=== PATIENT | male | born 1930 | race Two or more races ===

== ENCOUNTER 2019-10-25 14:13 | Inpatient (IN) | payer MEDICARE, MEDICAID ==
[~2019-10-25] VITALS: Ht 152.4 cm; Wt 73.5 kg
[2019-10-25 14:13] VITALS: BP 150/91
--- NOTE | 2019-10-25 14:27 | Emergency Room Report ---
History of Present Illness General Chief Complaint: Upper Respiratory Illness Source: Family Member, Medical Record, EMS Present Illness HPI [facility]. They state that he is COVID- 19 positive. His oxygen saturation for the paramedics was 86% prior to nasal cannula 4 L. His oxygen improved to about 92% on 4 L. The patient has a cough. The patient is unable to communicate. He has a right hemiparesis. He also has an indwelling suprapubic catheter. 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 Recent hospitalization in [place]. Allergies: Coded Allergies: ACETAMINOPHEN (Verified Allergy, Unknown, 10/25/19) AMOXICILLIN (Verified Allergy, Unknown, 10/25/19) CEPHALEXIN (Verified Allergy, Unknown, 10/25/19) CODEINE (Verified Allergy, Unknown, 10/25/19) HYDROCODONE (Verified Allergy, Unknown, 10/25/19) SULFAMETHOXAZOLE (Verified Allergy, Unknown, 10/25/19) TETRACYCLINES (Verified Allergy, Unknown, 10/25/19) TRIMETHOPRIM (Verified Allergy, Unknown, 10/25/19) COVID-19 Screening Contact w/high risk pt: Yes Recent Travel to affected area: No Experienced COVID-19 symptoms?: Yes COVID-19 symptoms experienced: Fever (T>100.4F or >38C), Shortness of Breath, Cough 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 COVID-19 Screening: Positive COVID-19 COVID-19 Testing Source: Nasopharynx Patient History Limited by: medical condition Past Medical History: see triage record Past Surgical History: other - suprapubic cath Social History: Denies: smoking - distant Social History Narrative [place] [facility] - from [place] Reviewed Nursing Documentation: PMH: Agreed; PSxH: Agreed Nursing Documentation-PMH Hx Hypertension: Yes Review of Systems All Other Systems: limited Physical Exam Vital Signs Date Time Temp Pulse Resp B/P (MAP) Pulse Ox O2 Delivery O2 Flow Rate FiO2 10/25/19 14:02 99.3 133 24 148/94 (112) 88 Nasal Cannula 3.0 General Appearance: moderate distress, thin, Chronically Ill Respiratory: respiratory distress - On nasal cannula, somewhat improved on 100 % nonrebreather, crackles, rales, rhonchi Cardiovascular #1: tachycardia Cardiovascular #2: 2+ radial (R) Gastrointestinal: abnormal bowel sounds - Decreased nontender, other - suprapubic cath Genitourinary: other - suprapubic cath with substantial growth in the catheter Neurologic: motor weakness - Right hemiparesis, aphasia Procedures Critical Care Time Critical Care Time Total Critical Care Time: 120 min bedside evaluation and treatment excludes procedures (EKG). Reason for critical care: Respiratory distress, sepsis, COVID-19 status, repeat evaluations, judicious sepsis resuscitation, antibiotics, dexamethasone Possible complications: hypotension, hypertension, MA, shock, arrhythmias, metabolic acidosis, end organ damage, respiratory failure. Interventions: Sepsis resuscitation, multiple adjustments of FiO2, antibiotics, dexamethasone, multiple discussions with family members, discussion with admitting physician and respiratory therapy Course: The patient presented with hypoxia and respiratory distress. Several reevaluation was necessitated increasing the FiO2 to 100% nonrebreather. In addition pulmonary toilet was undertaken with aggressive suctioning. Due to the possibility of COVID-19 aggressive resuscitation with fluids was undertaken however with close monitoring of physiologic response. Antibiotic coverage undertaken. This in the face of the patient's multiple drug allergies. Sepsis reevaluation. Improvement and decreased FiO2. Concern as the patient has COPD and monitoring for possible respiratory suppression. Discussion with the niece regarding advanced directives and appropriateness of level of care. This led to making the patient a DO NOT INTUBATE DO NOT RESUSCITATE admit status. Patient had presented in extremis however with aggressive appropriate treatment the patient was comfortable and improved. The niece was recalled to update her on his status. Consultations: nursing staff, EMS, family, respiratory therapy, admitting physician Performed by: Dr. Chun Tolerated well condition = critical Medical Decision Making Diagnostic Impression: Primary Impression: Hypoxia Additional Impressions: Suspect COVID-19 pneumonia Sepsis Qualified Codes: A41.9 - Sepsis, unspecified organism; R65.20 - Severe sepsis without septic shock; N17.9 - Acute kidney failure, unspecified Renal failure Qualified Codes: N17.9 - Acute kidney failure, unspecified Right hemiparesis ER Course Patient presents with hypoxia tachycardia low-grade temperature with history of COVID-19 positive. Differential includes COVID-19 pneumonia, exacerbation of COPD, sepsis, other bacterial source of infection amongst others. Patient evaluated with EKG, chest x-ray and labs. The patient is in mild respiratory distress and his oxygen requirements are higher. He also needs suctioning. The patient is placed on a front desk monitor. He is also positioned in a semiupright position as an attempt to prone. Blood cultures will be obtained and antibiotics started. In addition dexamethasone will be given IM. The Arndt catheter will be replaced. Allegedly the patient is a full code however we need to establish this by trying to find the POLST. Improved oxygenation on 100% nonrebreather. Labs with white count of 22,000. Hemoglobin of 19 suggests volume depletion. Renal failure noted. Discussed with miroslava in [place]. She states that the patient does have advanced directives that no life prolonging interventions be undertaken which include intubation and CPR. They do want aggressive care withheld however within reason. 1505 This allows the possibility of using BiPAP. They accept the patient is critical at this time. BP holding. Sats improved. Elevated lactic acid. Antibiotics begun. Sepsis re-evaluation 1529 Patient dramatically improved with treatment. No longer tachycardic. No longer tachypneic. Blood gas without CO2 retention. Will attempt decreasing FiO2. Patient discussed with miroslava a second time. 1929 Prognosis guarded. Patient saturations maintaining on 50% Ventimask. Patient calm and comfortable. Patient discussed with admitting physician. Laboratory Tests Test 10/25/19 14:00 10/25/19 14:51 10/25/19 15:22 White Blood Count 22.2 K/UL (4.8-10.8) *H Red Blood Count 6.09 M/UL (4.70-6.10) Hemoglobin 19.1 G/DL (14.2-18.0) *H Hematocrit 59.6 % (42.0-52.0) H Mean Corpuscular Volume 98 FL (80-99) Mean Corpuscular Hemoglobin 31.4 PG (27.0-31.0) H Mean Corpuscular Hemoglobin Concent 32.1 G/DL (32.0-36.0) Red Cell Distribution Width 12.9 % (11.6-14.8) Platelet Count 381 K/UL (150-450) Mean Platelet Volume 8.9 FL (6.5-10.1) Neutrophils (%) (Auto) % (45.0-75.0) Lymphocytes (%) (Auto) % (20.0-45.0) Monocytes (%) (Auto) % (1.0-10.0) Eosinophils (%) (Auto) % (0.0-3.0) Basophils (%) (Auto) % (0.0-2.0) Differential Total Cells Counted 100 Neutrophils % (Manual) 90 % (45-75) H Lymphocytes % (Manual) 5 % (20-45) L Monocytes % (Manual) 4 % (1-10) Eosinophils % (Manual) 1 % (0-3) Basophils % (Manual) 0 % (0-2) Band Neutrophils 0 % (0-8) Platelet Estimate Adequate Platelet Morphology Normal Red Blood Cell Morphology Normal Prothrombin Time 13.9 SEC (9.30-11.50) H Prothrombin Time INR 1.3 (0.9-1.1) H Activated Partial Thromboplast Time 34 SEC (23-33) H Sodium Level 158 MMOL/L (136-145) H Potassium Level 3.8 MMOL/L (3.5-5.1) Chloride Level 119 MMOL/L (98-107) H Carbon Dioxide Level 22 MMOL/L (21-32) Anion Gap 17 mmol/L (5-15) H Blood Urea Nitrogen 52 mg/dL (7-18) H Creatinine 1.6 MG/DL (0.55-1.30) H Estimated Glomerular Filtration Rate 41.1 mL/min (>60) Glucose Level 144 MG/DL (74-106) H Lactic Acid Level 2.40 mmol/L (0.4-2.0) H Calcium Level 8.9 MG/DL (8.5-10.1) Magnesium Level 2.8 MG/DL (1.8-2.4) H Total Bilirubin 1.1 MG/DL (0.2-1.0) H Direct Bilirubin 0.2 MG/DL (0.0-0.3) Aspartate Amino Transferase (AST) 27 U/L (15-37) Alanine Aminotransferase (ALT) 18 U/L (12-78) Alkaline Phosphatase 104 U/L (46-116) Total Creatine Kinase 62 U/L (26-308) Troponin I 0.042 ng/mL (0.000-0.056) Pro-B-Type Natriuretic Peptide 541 pg/mL (0-125) H Total Protein 8.8 G/DL (6.4-8.2) H Albumin 2.9 G/DL (3.4-5.0) L Globulin 5.9 g/dL Albumin/Globulin Ratio 0.5 (1.0-2.7) L Lipase 529 U/L (73-393) H Urine Color Yellow Urine Appearance Very cloudy Urine pH 9 (4.5-8.0) Urine Specific [place] 1.010 (1.005-1.035) Urine Protein 3+ (NEGATIVE) H Urine Glucose (UA) Negative (NEGATIVE) Urine Ketones 2+ (NEGATIVE) H Urine Blood 3+ (NEGATIVE) H Urine Nitrite Positive (NEGATIVE) H Urine Bilirubin Negative (NEGATIVE) Urine Urobilinogen Normal MG/DL (0.0-1.0) Urine Leukocyte Esterase 3+ (NEGATIVE) H Urine RBC 5-10 /HPF (0 - 0) H Urine WBC 2-4 /HPF (0 - 0) Urine Squamous Epithelial Cells None /LPF (NONE/OCC) Urine Triple Phosphate Crystals Many /LPF (NONE) H Urine Amorphous Sediment Many /LPF (NONE) H Urine Bacteria Moderate /HPF (NONE) H Arterial Blood pH 7.391 (7.350-7.450) Arterial Blood Partial Pressure CO2 34.6 mmHg (35.0-45.0) L Arterial Blood Partial Pressure O2 86.9 mmHg (75.0-100.0) Arterial Blood HCO3 20.5 mmol/L (22.0-26.0) L Arterial Blood Oxygen Saturation 96.1 % (95-100) Arterial Blood Base Excess -3.4 (-2-2) L Miguel Angel Test Positive EKG Diagnostic Results Rate: tachycardiac Rhythm: NSR ST Segments: no acute changes Rhythm Strip Diag. Results Rhythm: no PVC's, no ectopy Chest X-Ray Diagnostic Results Chest X-Ray Diagnostic Results : Chest X-Ray Ordered: Yes # of Views/Limited/Complete: 1 View Indication: Shortness of Breath EP Interpretation: Yes Interpretation: no effusion, no pneumothorax, other - COPD and bilat infiltrates Impression: Other Electronically Signed by: Electronically signed by Maycol Chun MD Last Vital Signs Date Time Temp Pulse Resp B/P (MAP) Pulse Ox O2 Delivery O2 Flow Rate FiO2 10/25/19 21:57 97.9 88 16 156/77 (103) 96 10/25/19 21:50 Non-Rebreather 15.0 Status: improved Disposition: ADMITTED INPATIENT Condition: Critical Maycol Chun MD Oct 25, 2019 14:27
[2019-10-25] MEDS ORDERED: Vancomycin 1 GM in NS 275 ML IV ONE (14:30)
[2019-10-25] MEDS ORDERED: Azithromycin 500 MG in D5W 275 ML IVPB ONE (14:30)
[2019-10-25 14:39] LABS: HEMATOCRIT 59.6 % (42.0-52.0); MEAN CORPUSCULAR VOLUME 98 FL (80-99); PLATELET COUNT 381 K/UL (150-450); RED BLOOD COUNT 6.09 M/UL (4.70-6.10); RED CELL DISTRIBUTION WIDTH 12.9 % (11.6-14.8)
[2019-10-25 14:41] LABS: WHITE BLOOD COUNT 22.2 K/UL (4.8-10.8)
[2019-10-25 14:42] LABS: ANION GAP 17 mmol/L (5-15); BLOOD UREA NITROGEN 52 mg/dL (7-18); CALCIUM 8.9 MG/DL (8.5-10.1); CARBON DIOXIDE 22 MMOL/L (21-32); CHLORIDE 119 MMOL/L (98-107); CREATININE 1.6 MG/DL (0.55-1.30); HEMOGLOBIN 19.1 G/DL (14.2-18.0); POTASSIUM 3.8 MMOL/L (3.5-5.1); SODIUM 158 MMOL/L (136-145)
[2019-10-25 14:45] LABS: ALANINE AMINOTRANSFERASE 18 U/L (12-78); ALBUMIN 2.9 G/DL (3.4-5.0); ASPARTATE AMINO TRANSFERASE 27 U/L (15-37)
[2019-10-25 14:46] LABS: INR 1.3 (0.9-1.1)
[2019-10-25] MEDS ORDERED: NEURONTIN400 MG ORAL (14:58)
[2019-10-25] MEDS ORDERED: ARTIFICIAL TEAR15 ML BOTH EYES (14:58)
[2019-10-25] MEDS ORDERED: MULTIVITAMINS1 EAC8 ORAL (14:58)
[2019-10-25] MEDS ORDERED: ASPIRIN EC81 MG ORAL (14:58)
[2019-10-25] MEDS ORDERED: OMEPRAZOLE20 M2 ORAL (14:58)
[2019-10-25 15:03] LABS: APPEARANCE,URINE VERY CLOUDY; BILIRUBIN, URINE NEGATIVE (NEGATIVE); GLUCOSE, URINE (UA) NEGATIVE (NEGATIVE); KETONES,URINE 2+ (NEGATIVE); LEUKOCYTE ESTERASE ,URINE 3+ (NEGATIVE); NITRITE,URINE POSITIVE (NEGATIVE); PH,URINE 9 (4.5-8.0); PROTEIN,URINE 3+ (NEGATIVE); UROBILINOGEN,URINE NORMAL MG/DL (0.0-1.0)
[2019-10-25 15:08] LABS: COLOR,URINE YELLOW
[2019-10-25 15:12] LABS: BILIRUBIN,TOTAL 1.1 MG/DL (0.2-1.0)
[2019-10-25 15:37] LABS: CREATINE KINASE 62 U/L (26-308)
[2019-10-25 15:39] LABS: ALBUMIN/GLOBULIN RATIO 0.5 (1.0-2.7); ALKALINE PHOSPHATASE 104 U/L (46-116)
[2019-10-25 15:41] LABS: BILIRUBIN,DIRECT 0.2 MG/DL (0.0-0.3)
[2019-10-25 16:11] VITALS: BP 142/84
--- NOTE | 2019-10-25 18:12 | Diagnostic Imaging Report ---
Indication: Shortness of breath Technique: One view of the chest Comparison: none Findings: Mild interstitial prominence and central bronchial wall thickening are likely on the basis of senescent changes. Hazy right basilar patchy left basilar infiltrates not completely excludable, however. The heart size is normal. The aorta is tortuous and calcified. Impression: Doubt acute process; cannot completely exclude infiltrates at both lung bases.
[2019-10-25 18:21] VITALS: BP 128/86
[2019-10-25 19:15] VITALS: BP 129/83
[2019-10-25 21:30] VITALS: BP 117/74
[2019-10-25 21:57] VITALS: BP 156/77
--- NOTE | 2019-10-25 22:42 | History & Physical ---
History and Physical History & Physicial History of Present Illness General Chief Complaint: Upper Respiratory Illness Source: Family Member, Medical Record, EMS Present Illness HPI Patient transported from senior care facility. They state that he is COVID- 19 positive. His oxygen saturation for the paramedics was 86% prior to nasal cannula 4 L. His oxygen improved to about 92% on 4 L. The patient has a cough. The patient is unable to communicate. He has a right hemiparesis. He also has an indwelling suprapubic catheter. 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 Recent hospitalization in [place]. Allergies: Coded Allergies: ACETAMINOPHEN (Verified Allergy, Unknown, 10/25/19) AMOXICILLIN (Verified Allergy, Unknown, 10/25/19) CEPHALEXIN (Verified Allergy, Unknown, 10/25/19) CODEINE (Verified Allergy, Unknown, 10/25/19) HYDROCODONE (Verified Allergy, Unknown, 10/25/19) SULFAMETHOXAZOLE (Verified Allergy, Unknown, 10/25/19) TETRACYCLINES (Verified Allergy, Unknown, 10/25/19) TRIMETHOPRIM (Verified Allergy, Unknown, 10/25/19) Patient History Limited by: medical condition Past Medical History: see triage record Past Surgical History: other - suprapubic cath Social History: Denies: smoking - distant Social History Narrative [place] [facility] - from [place] Reviewed Nursing Documentation: PMH: Agreed; PSxH: Agreed Nursing Documentation-PMH Hx Hypertension: Yes Review of Systems All Other Systems: limited Physical Exam Vital Signs Date Time Temp Pulse Resp B/P (MAP) Pulse Ox O2 Delivery O2 Flow Rate FiO2 10/25/19 14:02 99.3 133 24 148/94 (112) 88 Nasal Cannula 3.0 General Appearance: moderate distress, thin, Chronically Ill Respiratory: respiratory distress - On nasal cannula, somewhat improved on 100 % nonrebreather, crackles, rales, rhonchi Cardiovascular : tachycardia +ALEXANDRU Gastrointestinal: abnormal bowel sounds - Decreased nontender, other - suprapubic cath Genitourinary: other - suprapubic cath with substantial growth in the catheter Neurologic: motor weakness - Right hemiparesis, aphasia ER Course: The patient presented with hypoxia and respiratory distress. Several reevaluation was necessitated increasing the FiO2 to 100% nonrebreather. In addition pulmonary toilet was undertaken with aggressive suctioning. Due to the possibility of COVID-19 aggressive resuscitation with fluids was undertaken however with close monitoring of physiologic response. Antibiotic coverage undertaken. This in the face of the patient's multiple drug allergies. Sepsis reevaluation. Improvement and decreased FiO2. Concern as the patient has COPD and monitoring for possible respiratory suppression. Discussion with the niece regarding advanced directives and appropriateness of level of care. This led to making the patient a DO NOT INTUBATE DO NOT RESUSCITATE admit status. Patient had presented in extremis however with aggressive appropriate treatment the patient was comfortable and improved. The niece was recalled to update her on his status. Laboratory Tests Test 10/25/19 14:00 10/25/19 14:51 10/25/19 15:22 White Blood Count 22.2 K/UL (4.8-10.8) *H Red Blood Count 6.09 M/UL (4.70-6.10) Hemoglobin 19.1 G/DL (14.2-18.0) *H Hematocrit 59.6 % (42.0-52.0) H Mean Corpuscular Volume 98 FL (80-99) Mean Corpuscular Hemoglobin 31.4 PG (27.0-31.0) H Mean Corpuscular Hemoglobin Concent 32.1 G/DL (32.0-36.0) Red Cell Distribution Width 12.9 % (11.6-14.8) Platelet Count 381 K/UL (150-450) Mean Platelet Volume 8.9 FL (6.5-10.1) Neutrophils (%) (Auto) % (45.0-75.0) Lymphocytes (%) (Auto) % (20.0-45.0) Monocytes (%) (Auto) % (1.0-10.0) Eosinophils (%) (Auto) % (0.0-3.0) Basophils (%) (Auto) % (0.0-2.0) Differential Total Cells Counted 100 Neutrophils % (Manual) 90 % (45-75) H Lymphocytes % (Manual) 5 % (20-45) L Monocytes % (Manual) 4 % (1-10) Eosinophils % (Manual) 1 % (0-3) Basophils % (Manual) 0 % (0-2) Band Neutrophils 0 % (0-8) Platelet Estimate Adequate Platelet Morphology Normal Red Blood Cell Morphology Normal Prothrombin Time 13.9 SEC (9.30-11.50) H Prothrombin Time INR 1.3 (0.9-1.1) H Activated Partial Thromboplast Time 34 SEC (23-33) H Sodium Level 158 MMOL/L (136-145) H Potassium Level 3.8 MMOL/L (3.5-5.1) Chloride Level 119 MMOL/L (98-107) H Carbon Dioxide Level 22 MMOL/L (21-32) Anion Gap 17 mmol/L (5-15) H Blood Urea Nitrogen 52 mg/dL (7-18) H Creatinine 1.6 MG/DL (0.55-1.30) H Estimated Glomerular Filtration Rate 41.1 mL/min (>60) Glucose Level 144 MG/DL (74-106) H Lactic Acid Level 2.40 mmol/L (0.4-2.0) H Calcium Level 8.9 MG/DL (8.5-10.1) Magnesium Level 2.8 MG/DL (1.8-2.4) H Total Bilirubin 1.1 MG/DL (0.2-1.0) H Direct Bilirubin 0.2 MG/DL (0.0-0.3) Aspartate Amino Transferase (AST) 27 U/L (15-37) Alanine Aminotransferase (ALT) 18 U/L (12-78) Alkaline Phosphatase 104 U/L (46-116) Total Creatine Kinase 62 U/L (26-308) Troponin I 0.042 ng/mL (0.000-0.056) Pro-B-Type Natriuretic Peptide 541 pg/mL (0-125) H Total Protein 8.8 G/DL (6.4-8.2) H Albumin 2.9 G/DL (3.4-5.0) L Globulin 5.9 g/dL Albumin/Globulin Ratio 0.5 (1.0-2.7) L Lipase 529 U/L (73-393) H Urine Color Yellow Urine Appearance Very cloudy Urine pH 9 (4.5-8.0) Urine Specific [place] 1.010 (1.005-1.035) Urine Protein 3+ (NEGATIVE) H Urine Glucose (UA) Negative (NEGATIVE) Urine Ketones 2+ (NEGATIVE) H Urine Blood 3+ (NEGATIVE) H Urine Nitrite Positive (NEGATIVE) H Urine Bilirubin Negative (NEGATIVE) Urine Urobilinogen Normal MG/DL (0.0-1.0) Urine Leukocyte Esterase 3+ (NEGATIVE) H Urine RBC 5-10 /HPF (0 - 0) H Urine WBC 2-4 /HPF (0 - 0) Urine Squamous Epithelial Cells None /LPF (NONE/OCC) Urine Triple Phosphate Crystals Many /LPF (NONE) H Urine Amorphous Sediment Many /LPF (NONE) H Urine Bacteria Moderate /HPF (NONE) H Arterial Blood pH 7.391 (7.350-7.450) Arterial Blood Partial Pressure CO2 34.6 mmHg (35.0-45.0) L Arterial Blood Partial Pressure O2 86.9 mmHg (75.0-100.0) Arterial Blood HCO3 20.5 mmol/L (22.0-26.0) L Arterial Blood Oxygen Saturation 96.1 % (95-100) Arterial Blood Base Excess -3.4 (-2-2) L Miguel Angel Test Positive EKG Diagnostic Results Rate: tachycardiac Rhythm: NSR ST Segments: no acute changes Chest X-Ray Diagnostic Results Interpretation: no effusion, no pneumothorax, other - COPD and bilat infiltrates IMPRESSION: sepsis on admission COVID 19 pnemonia acute respiratory failure hypoxemia acute toxic and metabolic encephalopathy Hypernatremia dehydration acute kidney injury leuokcytosis hx CVA with hemiplegia suprapubic catheter status senile debility ankle wound PLAN: admit to stepdown unit IVF IV abx pulm inhalor isolation per policy f/u cultures DVT/GI prophylaxis electrolyte replete as needed NPO until LOCATOR wound care oxygen DNAR code status EDYTA HARDY MD Internal Medicine [phone] over 70 minutes spent today note time may not be the actual encounter time. over 50% allocated in counseling, coordination of care, d/w staff and family with medical update Edyta Hardy MD Oct 25, 2019 22:42
--- NOTE | 2019-10-25 23:00 | Consultation ---
History of Present Illness General Date patient seen: Oct 25, 2019 Time patient seen: 22:57 Chief Complaint: Upper Respiratory Illness Present Illness HPI PT brought in by ambulance from [facility] for tachycardia and was recently tested positive for covid. pt current heart rate is 123. Allergies: Coded Allergies: ACETAMINOPHEN (Verified Allergy, Unknown, 10/25/19) AMOXICILLIN (Verified Allergy, Unknown, 10/25/19) CEPHALEXIN (Verified Allergy, Unknown, 10/25/19) CODEINE (Verified Allergy, Unknown, 10/25/19) HYDROCODONE (Verified Allergy, Unknown, 10/25/19) SULFAMETHOXAZOLE (Verified Allergy, Unknown, 10/25/19) TETRACYCLINES (Verified Allergy, Unknown, 10/25/19) TRIMETHOPRIM (Verified Allergy, Unknown, 10/25/19) Medication History Scheduled Aspirin Ec* (Aspirin Ec*), 81 MG ORAL DAILY, (Reported) Gabapentin* (Neurontin*), 300 MG ORAL TWICE A DAY, (Reported) Multivitamin With Minerals (Multivitamins With Minerals*), 1 TAB ORAL DAILY, ( Reported) Omeprazole (Omeprazole), 20 MG ORAL DAILY, (Reported) Miscellaneous Medications Dextran 70/Hypromellose (Artificial Tears Eye Drops*), 1 DROP BOTH EYES, ( Reported) Patient History Healthcare decision maker N Resuscitation status Advanced Directive on File Review of Systems Constitutional: Reports: no symptoms Eye: Reports: no symptoms ENT: Reports: no symptoms Respiratory: Reports: no symptoms Cardiovascular: Reports: no symptoms Gastrointestinal: Reports: no symptoms Genitourinary: Reports: no symptoms Musculoskeletal: Reports: no symptoms Skin: Reports: no symptoms Psychiatric: Reports: no symptoms Neurological: Reports: no symptoms Endocrine: Reports: no symptoms Hematologic/Lymphatic: Reports: no symptoms Physical Exam General Appearance: no apparent distress Lines, tubes and drains: peripheral HEENT: normocephalic, atraumatic, anicteric, mucous membranes moist, PERRL Neck: non-tender, normal alignment, supple, normal inspection Respiratory/Chest: chest wall non-tender, lungs clear, normal breath sounds Cardiovascular/Chest: tachycardia, systolic murmur Abdomen: normal bowel sounds, non tender, soft, no organomegaly, no mass Extremities: normal range of motion, normal inspection, no calf tenderness, normal capillary refill, non-pitting Neurologic: loss control consultant II-XII grossly normal, no motor/sensory deficits Last 24 Hour Vital Signs Date Time Temp Pulse Resp B/P (MAP) Pulse Ox O2 Delivery O2 Flow Rate FiO2 10/25/19 19:15 86 20 129/83 99 Non-Rebreather 15.0 10/25/19 18:21 98.4 101 22 128/86 99 Non-Rebreather 15.0 10/25/19 16:11 98.4 112 23 142/84 98 Non-Rebreather 15.0 10/25/19 15:08 126 25 Non-Rebreather 15.0 10/25/19 14:30 Non-Rebreather 15.0 10/25/19 14:30 25 91 Non-Rebreather 15.0 10/25/19 14:13 123 26 Nasal Cannula 3.0 10/25/19 14:13 99.8 123 26 150/91 85 Nasal Cannula 3.0 10/25/19 14:02 99.3 133 24 148/94 (112) 88 Nasal Cannula 3.0 Laboratory Tests Test 10/25/19 14:00 10/25/19 14:51 10/25/19 15:22 10/25/19 18:00 White Blood Count 22.2 K/UL (4.8-10.8) *H Red Blood Count 6.09 M/UL (4.70-6.10) Hemoglobin 19.1 G/DL (14.2-18.0) *H Hematocrit 59.6 % (42.0-52.0) H Mean Corpuscular Volume 98 FL (80-99) Mean Corpuscular Hemoglobin 31.4 PG (27.0-31.0) H Mean Corpuscular Hemoglobin Concent 32.1 G/DL (32.0-36.0) Red Cell Distribution Width 12.9 % (11.6-14.8) Platelet Count 381 K/UL (150-450) Mean Platelet Volume 8.9 FL (6.5-10.1) Neutrophils (%) (Auto) % (45.0-75.0) Lymphocytes (%) (Auto) % (20.0-45.0) Monocytes (%) (Auto) % (1.0-10.0) Eosinophils (%) (Auto) % (0.0-3.0) Basophils (%) (Auto) % (0.0-2.0) Differential Total Cells Counted 100 Neutrophils % (Manual) 90 % (45-75) H Lymphocytes % (Manual) 5 % (20-45) L Monocytes % (Manual) 4 % (1-10) Eosinophils % (Manual) 1 % (0-3) Basophils % (Manual) 0 % (0-2) Band Neutrophils 0 % (0-8) Platelet Estimate Adequate Platelet Morphology Normal Red Blood Cell Morphology Normal Prothrombin Time 13.9 SEC (9.30-11.50) H Prothromb Time International Ratio 1.3 (0.9-1.1) H Activated Partial Thromboplast Time 34 SEC (23-33) H Sodium Level 158 MMOL/L (136-145) H Potassium Level 3.8 MMOL/L (3.5-5.1) Chloride Level 119 MMOL/L (98-107) H Carbon Dioxide Level 22 MMOL/L (21-32) Anion Gap 17 mmol/L (5-15) H Blood Urea Nitrogen 52 mg/dL (7-18) H Creatinine 1.6 MG/DL (0.55-1.30) H Estimat Glomerular Filtration Rate 41.1 mL/min (>60) Glucose Level 144 MG/DL (74-106) H Lactic Acid Level 2.40 mmol/L (0.4-2.0) H 1.10 mmol/L (0.66-2.22) Calcium Level 8.9 MG/DL (8.5-10.1) Magnesium Level 2.8 MG/DL (1.8-2.4) H Total Bilirubin 1.1 MG/DL (0.2-1.0) H Direct Bilirubin 0.2 MG/DL (0.0-0.3) Aspartate Amino Transf (AST/SGOT) 27 U/L (15-37) Alanine Aminotransferase (ALT/SGPT) 18 U/L (12-78) Alkaline Phosphatase 104 U/L (46-116) Total Creatine Kinase 62 U/L (26-308) Troponin I 0.042 ng/mL (0.000-0.056) Pro-B-Type Natriuretic Peptide 541 pg/mL (0-125) H Total Protein 8.8 G/DL (6.4-8.2) H Albumin 2.9 G/DL (3.4-5.0) L Globulin 5.9 g/dL Albumin/Globulin Ratio 0.5 (1.0-2.7) L Lipase 529 U/L (73-393) H Urine Color Yellow Urine Appearance Very cloudy Urine pH 9 (4.5-8.0) Urine Specific [place] 1.010 (1.005-1.035) Urine Protein 3+ (NEGATIVE) H Urine Glucose (UA) Negative (NEGATIVE) Urine Ketones 2+ (NEGATIVE) H Urine Blood 3+ (NEGATIVE) H Urine Nitrite Positive (NEGATIVE) H Urine Bilirubin Negative (NEGATIVE) Urine Urobilinogen Normal MG/DL (0.0-1.0) Urine Leukocyte Esterase 3+ (NEGATIVE) H Urine RBC 5-10 /HPF (0 - 0) H Urine WBC 2-4 /HPF (0 - 0) Urine Squamous Epithelial Cells None /LPF (NONE/OCC) Urine Triple Phosphate Crystals Many /LPF (NONE) H Urine Amorphous Sediment Many /LPF (NONE) H Urine Bacteria Moderate /HPF (NONE) H Arterial Blood pH 7.391 (7.350-7.450) Arterial Blood Partial Pressure CO2 34.6 mmHg (35.0-45.0) L Arterial Blood Partial Pressure O2 86.9 mmHg (75.0-100.0) Arterial Blood HCO3 20.5 mmol/L (22.0-26.0) L Arterial Blood Oxygen Saturation 96.1 % (95-100) Arterial Blood Base Excess -3.4 (-2-2) L Miguel Angel Test Positive Height (Feet): 5 Height (Inches): 1.00 Weight (Pounds): 160 Medications Current Medications Medications (Trade) Dose Ordered Sig/Jesu Route PRN Reason Start Time Stop Time Status Last Admin Dose Admin Sodium Chloride 1,000 ml @ 300 mls/hr [id number] IV 10/25/19 14:30 11/24/19 14:29 10/25/19 17:46 Assessment/Plan Status: stable Assessment/Plan: COVID positive Tachycardia Hypertension IMPRESSION: Pulmonary toilet Tachycardia resolving, continue to monitor on telemetry Echocardiogram Trend troponin/monitor on telemetry Empiric Abx IV fluids Further recommendations to follow pending clinical course Maycol Schafer MD Oct 25, 2019 23:00
[2019-10-25] MEDS ORDERED: Milk of Magnesia 30ml Ud ORAL PRN (23:30)
[2019-10-25] MEDS ORDERED: Albuterol 90mcg Inhaler 8gm INH PRN (23:30)
[2019-10-26] VITALS: BP 154/84
[2019-10-26] MEDS ORDERED: D5 1/2NS 1,000 ML IV SCH ×2 (03:45)
[2019-10-26 04:00] VITALS: BP 143/91
[2019-10-26 05:17] LABS: HEMATOCRIT 48.7 % (42.0-52.0); HEMOGLOBIN 15.8 G/DL (14.2-18.0); MEAN CORPUSCULAR VOLUME 98 FL (80-99); PLATELET COUNT 264 K/UL (150-450); RED BLOOD COUNT 4.97 M/UL (4.70-6.10); RED CELL DISTRIBUTION WIDTH 13.1 % (11.6-14.8); WHITE BLOOD COUNT 16.1 K/UL (4.8-10.8)
[2019-10-26 05:43] LABS: ALANINE AMINOTRANSFERASE 15 U/L (12-78); ALBUMIN 2.2 G/DL (3.4-5.0); ALBUMIN/GLOBULIN RATIO 0.5 (1.0-2.7); ALKALINE PHOSPHATASE 88 U/L (46-116); ANION GAP 12 mmol/L (5-15); ASPARTATE AMINO TRANSFERASE 23 U/L (15-37); BILIRUBIN,TOTAL 0.8 MG/DL (0.2-1.0); BLOOD UREA NITROGEN 43 mg/dL (7-18); CALCIUM 7.9 MG/DL (8.5-10.1); CARBON DIOXIDE 22 MMOL/L (21-32); CHLORIDE 125 MMOL/L (98-107); CREATININE 1.2 MG/DL (0.55-1.30); PHOSPHORUS 3.1 MG/DL (2.5-4.9); POTASSIUM 3.6 MMOL/L (3.5-5.1); SODIUM 159 MMOL/L (136-145)
[2019-10-26 08:00] VITALS: BP 141/83
--- NOTE | 2019-10-26 08:17 | Consultation ---
History of Present Illness General Chief Complaint: Upper Respiratory Illness Present Illness HPI 89 year old male with the past medical history of HTN, dementia, HLD presenting from SNF with progressively worsening SOB, fevers and found to be COVID pos- He is DNR on presentation, labs notable to marked hypernatremia and acute kidney injury Allergies: Coded Allergies: ACETAMINOPHEN (Verified Allergy, Unknown, 10/25/19) AMOXICILLIN (Verified Allergy, Unknown, 10/25/19) CEPHALEXIN (Verified Allergy, Unknown, 10/25/19) CODEINE (Verified Allergy, Unknown, 10/25/19) HYDROCODONE (Verified Allergy, Unknown, 10/25/19) SULFAMETHOXAZOLE (Verified Allergy, Unknown, 10/25/19) TETRACYCLINES (Verified Allergy, Unknown, 10/25/19) TRIMETHOPRIM (Verified Allergy, Unknown, 10/25/19) Medication History Scheduled Aspirin Ec* (Aspirin Ec*), 81 MG ORAL DAILY, (Reported) Gabapentin* (Neurontin*), 300 MG ORAL TWICE A DAY, (Reported) Multivitamin With Minerals (Multivitamins With Minerals*), 1 TAB ORAL DAILY, ( Reported) Omeprazole (Omeprazole), 20 MG ORAL DAILY, (Reported) Miscellaneous Medications Dextran 70/Hypromellose (Artificial Tears Eye Drops*), 1 DROP BOTH EYES, ( Reported) Patient History Healthcare decision maker N Resuscitation status Advanced Directive on File Review of Systems ROS Narrative Unable to obtain AMS Physical Exam General Appearance: lethargic Lines, tubes and drains: peripheral HEENT: normocephalic, atraumatic Neck: non-tender, normal alignment Respiratory/Chest: chest wall non-tender, rhonchi - bilaterally Cardiovascular/Chest: normal peripheral pulses, normal rate, regular rhythm Abdomen: normal bowel sounds, non tender, soft Last 24 Hour Vital Signs Date Time Temp Pulse Resp B/P (MAP) Pulse Ox O2 Delivery O2 Flow Rate FiO2 10/26/19 04:00 98.0 84 20 143/91 (108) 96 10/26/19 04:00 Non-Rebreather 12.0 10/26/19 03:36 85 10/26/19 00:00 82 10/26/19 00:00 Non-Rebreather 12.0 10/26/19 00:00 97.9 86 18 154/84 (107) 95 10/25/19 22:36 Non-Rebreather 12.0 10/25/19 21:57 97.9 88 16 156/77 (103) 96 10/25/19 21:50 98.1 91 20 117/74 99 Non-Rebreather 15.0 10/25/19 21:30 98.1 91 20 117/74 99 Non-Rebreather 15.0 10/25/19 19:15 86 20 129/83 99 Non-Rebreather 15.0 10/25/19 18:21 98.4 101 22 128/86 99 Non-Rebreather 15.0 10/25/19 16:11 98.4 112 23 142/84 98 Non-Rebreather 15.0 10/25/19 15:08 126 25 Non-Rebreather 15.0 10/25/19 14:30 Non-Rebreather 15.0 10/25/19 14:30 25 91 Non-Rebreather 15.0 10/25/19 14:13 123 26 Nasal Cannula 3.0 10/25/19 14:13 99.8 123 26 150/91 85 Nasal Cannula 3.0 10/25/19 14:02 99.3 133 24 148/94 (112) 88 Nasal Cannula 3.0 Intake and Output 10/25/19 10/26/19 19:00 07:00 Intake Total 2850.0 ml 2386.25 ml Output Total 675 ml Balance 2850.0 ml 1711.25 ml Intake IV Total 2850.0 ml 2386.25 ml Output Urine Total 675 ml Laboratory Tests Test 10/25/19 14:00 10/25/19 14:51 10/25/19 15:22 10/25/19 18:00 White Blood Count 22.2 K/UL (4.8-10.8) *H Red Blood Count 6.09 M/UL (4.70-6.10) Hemoglobin 19.1 G/DL (14.2-18.0) *H Hematocrit 59.6 % (42.0-52.0) H Mean Corpuscular Volume 98 FL (80-99) Mean Corpuscular Hemoglobin 31.4 PG (27.0-31.0) H Mean Corpuscular Hemoglobin Concent 32.1 G/DL (32.0-36.0) Red Cell Distribution Width 12.9 % (11.6-14.8) Platelet Count 381 K/UL (150-450) Mean Platelet Volume 8.9 FL (6.5-10.1) Neutrophils (%) (Auto) % (45.0-75.0) Lymphocytes (%) (Auto) % (20.0-45.0) Monocytes (%) (Auto) % (1.0-10.0) Eosinophils (%) (Auto) % (0.0-3.0) Basophils (%) (Auto) % (0.0-2.0) Differential Total Cells Counted 100 Neutrophils % (Manual) 90 % (45-75) H Lymphocytes % (Manual) 5 % (20-45) L Monocytes % (Manual) 4 % (1-10) Eosinophils % (Manual) 1 % (0-3) Basophils % (Manual) 0 % (0-2) Band Neutrophils 0 % (0-8) Platelet Estimate Adequate Platelet Morphology Normal Red Blood Cell Morphology Normal Prothrombin Time 13.9 SEC (9.30-11.50) H Prothromb Time International Ratio 1.3 (0.9-1.1) H Activated Partial Thromboplast Time 34 SEC (23-33) H Sodium Level 158 MMOL/L (136-145) H Potassium Level 3.8 MMOL/L (3.5-5.1) Chloride Level 119 MMOL/L (98-107) H Carbon Dioxide Level 22 MMOL/L (21-32) Anion Gap 17 mmol/L (5-15) H Blood Urea Nitrogen 52 mg/dL (7-18) H Creatinine 1.6 MG/DL (0.55-1.30) H Estimat Glomerular Filtration Rate 41.1 mL/min (>60) Glucose Level 144 MG/DL (74-106) H Lactic Acid Level 2.40 mmol/L (0.4-2.0) H 1.10 mmol/L (0.66-2.22) Calcium Level 8.9 MG/DL (8.5-10.1) Magnesium Level 2.8 MG/DL (1.8-2.4) H Total Bilirubin 1.1 MG/DL (0.2-1.0) H Direct Bilirubin 0.2 MG/DL (0.0-0.3) Aspartate Amino Transf (AST/SGOT) 27 U/L (15-37) Alanine Aminotransferase (ALT/SGPT) 18 U/L (12-78) Alkaline Phosphatase 104 U/L (46-116) Total Creatine Kinase 62 U/L (26-308) Troponin I 0.042 ng/mL (0.000-0.056) Pro-B-Type Natriuretic Peptide 541 pg/mL (0-125) H Total Protein 8.8 G/DL (6.4-8.2) H Albumin 2.9 G/DL (3.4-5.0) L Globulin 5.9 g/dL Albumin/Globulin Ratio 0.5 (1.0-2.7) L Lipase 529 U/L (73-393) H Urine Color Yellow Urine Appearance Very cloudy Urine pH 9 (4.5-8.0) Urine Specific [place] 1.010 (1.005-1.035) Urine Protein 3+ (NEGATIVE) H Urine Glucose (UA) Negative (NEGATIVE) Urine Ketones 2+ (NEGATIVE) H Urine Blood 3+ (NEGATIVE) H Urine Nitrite Positive (NEGATIVE) H Urine Bilirubin Negative (NEGATIVE) Urine Urobilinogen Normal MG/DL (0.0-1.0) Urine Leukocyte Esterase 3+ (NEGATIVE) H Urine RBC 5-10 /HPF (0 - 0) H Urine WBC 2-4 /HPF (0 - 0) Urine Squamous Epithelial Cells None /LPF (NONE/OCC) Urine Triple Phosphate Crystals Many /LPF (NONE) H Urine Amorphous Sediment Many /LPF (NONE) H Urine Bacteria Moderate /HPF (NONE) H Arterial Blood pH 7.391 (7.350-7.450) Arterial Blood Partial Pressure CO2 34.6 mmHg (35.0-45.0) L Arterial Blood Partial Pressure O2 86.9 mmHg (75.0-100.0) Arterial Blood HCO3 20.5 mmol/L (22.0-26.0) L Arterial Blood Oxygen Saturation 96.1 % (95-100) Arterial Blood Base Excess -3.4 (-2-2) L Miguel Angel Test Positive Test 10/26/19 03:30 White Blood Count 16.1 K/UL (4.8-10.8) H Red Blood Count 4.97 M/UL (4.70-6.10) Hemoglobin 15.8 G/DL (14.2-18.0) Hematocrit 48.7 % (42.0-52.0) Mean Corpuscular Volume 98 FL (80-99) Mean Corpuscular Hemoglobin 31.7 PG (27.0-31.0) H Mean Corpuscular Hemoglobin Concent 32.4 G/DL (32.0-36.0) Red Cell Distribution Width 13.1 % (11.6-14.8) Platelet Count 264 K/UL (150-450) Mean Platelet Volume 8.8 FL (6.5-10.1) Neutrophils (%) (Auto) % (45.0-75.0) Lymphocytes (%) (Auto) % (20.0-45.0) Monocytes (%) (Auto) % (1.0-10.0) Eosinophils (%) (Auto) % (0.0-3.0) Basophils (%) (Auto) % (0.0-2.0) Differential Total Cells Counted 100 Neutrophils % (Manual) 93 % (45-75) H Lymphocytes % (Manual) 7 % (20-45) L Monocytes % (Manual) 0 % (1-10) L Eosinophils % (Manual) 0 % (0-3) Basophils % (Manual) 0 % (0-2) Band Neutrophils 0 % (0-8) Platelet Estimate Adequate Platelet Morphology Normal Red Blood Cell Morphology Normal Sodium Level 159 MMOL/L (136-145) H Potassium Level 3.6 MMOL/L (3.5-5.1) Chloride Level 125 MMOL/L (98-107) H Carbon Dioxide Level 22 MMOL/L (21-32) Anion Gap 12 mmol/L (5-15) Blood Urea Nitrogen 43 mg/dL (7-18) H Creatinine 1.2 MG/DL (0.55-1.30) Estimat Glomerular Filtration Rate 57.3 mL/min (>60) Glucose Level 150 MG/DL (74-106) H Calcium Level 7.9 MG/DL (8.5-10.1) L Phosphorus Level 3.1 MG/DL (2.5-4.9) Magnesium Level 2.4 MG/DL (1.8-2.4) Total Bilirubin 0.8 MG/DL (0.2-1.0) Aspartate Amino Transf (AST/SGOT) 23 U/L (15-37) Alanine Aminotransferase (ALT/SGPT) 15 U/L (12-78) Alkaline Phosphatase 88 U/L (46-116) Total Protein 6.9 G/DL (6.4-8.2) Albumin 2.2 G/DL (3.4-5.0) L Globulin 4.7 g/dL Albumin/Globulin Ratio 0.5 (1.0-2.7) L Microbiology Date/Time Source Procedure Growth Status 10/25/19 14:51 Urine,Clean Catch Urine Culture - Preliminary Resulted Height (Feet): 5 Height (Inches): 1.00 Weight (Pounds): 173 Medications Current Medications Medications (Trade) Dose Ordered Sig/Jesu Route PRN Reason Start Time Stop Time Status Last Admin Dose Admin Albuterol Sulfate (Proventil MDI) 2 puff Q4H PRN INH Shortness of Breath 10/25/19 23:30 01/23/20 23:29 Aspirin (Ecotrin) 81 mg DAILY ORAL 10/26/19 09:00 12/10/19 08:59 Azithromycin 500 mg/Sodium Chloride 275 ml @ 275 mls/hr DAILY IV 10/26/19 09:00 10/31/19 08:59 Clindamycin HCl/ Dextrose 50 ml @ 100 mls/hr Q8H IV 10/26/19 08:00 11/02/19 07:59 Dextrose/Sodium Chloride 1,000 ml @ 75 mls/hr [id number] IV 10/26/19 03:45 11/25/19 03:44 10/26/19 03:49 Gabapentin (Neurontin) 300 mg BID ORAL 10/26/19 09:00 11/25/19 08:59 Magnesium Hydroxide (Mom) 30 ml DAILYPRN PRN ORAL Constipation 10/25/19 23:30 11/24/19 23:29 Multi-Ingredient Mouthwash/Gargle (Magic Mouth Wash 60ml) 10 ml BID ORAL 10/26/19 09:00 11/25/19 08:59 Multivitamins (Multivitamins W/ Minerals 15ml Liquid) 15 ml DAILY ORAL 10/26/19 09:00 11/25/19 08:59 Nystatin (Nystatin) 1 applic BID TOPIC 10/26/19 09:00 10/28/19 09:00 Assessment/Plan Diagnosis [place] I: #COVID pneumonia #TELMA due to dehydration #sepsis #Hypernatremia due to dehydration #hypoxemic resp failure #Volume depletion - IVF - abx - pulm, ID and cards eval - 2d echo - bipap prn - follow cx - avoid nephrotoxins - replace free water - monitor mag, phos and bmp daily - DNR/DNI time spent 70 min- greater than 50% on care coordination and counseling Aron Barbosa M.D. Oct 26, 2019 08:17
[2019-10-26] MEDS: Aspirin EC 81mg tab ORAL SCH (08:22)
[2019-10-26] MEDS: Multivitamins W/Minerals 15 ML UDC ORAL SCH (08:22)
[2019-10-26] MEDS: Magic Mouth Wash 60ml (Benadryl/Mylanta/Visc Lido) ORAL SCH ×2 (08:23→17:52)
[2019-10-26] MEDS ORDERED: Azithromycin 500 MG in NS 275 ML IV SCH (09:00)
--- NOTE | 2019-10-26 09:13 | Diagnostic Imaging Report ---
Indication: Shortness of breath Technique: One view of the chest Comparison: 10/25/2019 Findings: Bilateral right greater than left infiltrates appear unchanged. The heart size is normal. The pleural spaces are clear. The aorta is tortuous and calcified Impression: Unchanged, over one day, findings as above.
--- NOTE | 2019-10-26 10:05 | Consultation ---
History of Present Illness General Date patient seen: Oct 26, 2019 Chief Complaint: Upper Respiratory Illness Present Illness HPI 89 year old male with multiple medical comorbidities who is a custodial resident presented COVID + with respiratory decline. Noted to have significant leukocytosis, lactic acidosis, abnormal labs, and admitted for care and management. surgery called to evaluate and assist with care. he is minimally communicative, comfortable appearing, ulceration on right ankle, on respiratory support face mask. UTI. septic. Allergies: Coded Allergies: ACETAMINOPHEN (Verified Allergy, Unknown, 10/25/19) AMOXICILLIN (Verified Allergy, Unknown, 10/25/19) CEPHALEXIN (Verified Allergy, Unknown, 10/25/19) CODEINE (Verified Allergy, Unknown, 10/25/19) HYDROCODONE (Verified Allergy, Unknown, 10/25/19) SULFAMETHOXAZOLE (Verified Allergy, Unknown, 10/25/19) TETRACYCLINES (Verified Allergy, Unknown, 10/25/19) TRIMETHOPRIM (Verified Allergy, Unknown, 10/25/19) Medication History Scheduled Aspirin Ec* (Aspirin Ec*), 81 MG ORAL DAILY, (Reported) Gabapentin* (Neurontin*), 300 MG ORAL TWICE A DAY, (Reported) Multivitamin With Minerals (Multivitamins With Minerals*), 1 TAB ORAL DAILY, ( Reported) Omeprazole (Omeprazole), 20 MG ORAL DAILY, (Reported) Miscellaneous Medications Dextran 70/Hypromellose (Artificial Tears Eye Drops*), 1 DROP BOTH EYES, ( Reported) Patient History Limited by: medical condition History Provided By: PMD Healthcare decision maker N Resuscitation status Advanced Directive on File Past Medical/Surgical History Past Medical/Surgical History: (1) Renal failure (2) Hypoxia (3) Sepsis (4) Right hemiparesis Review of Systems All Other Systems: negative except mentioned in HPI ROS Narrative limited given medical condition Physical Exam General Appearance: no apparent distress, alert Lines, tubes and drains: peripheral HEENT: mucous membranes moist Neck: supple, normal inspection Respiratory/Chest: no accessory muscle use, decreased breath sounds, other - fm Cardiovascular/Chest: normal rate, regular rhythm Abdomen: soft, no organomegaly, no mass Extremities: normal inspection, inflammation, other Skin Exam: warm/dry Neurologic: alert Last 24 Hour Vital Signs Date Time Temp Pulse Resp B/P (MAP) Pulse Ox O2 Delivery O2 Flow Rate FiO2 10/26/19 08:00 88 10/26/19 08:00 97.7 18 141/83 (102) 96 10/26/19 08:00 Non-Rebreather 12.0 10/26/19 04:00 98.0 84 20 143/91 (108) 96 10/26/19 04:00 Non-Rebreather 12.0 10/26/19 03:36 85 10/26/19 00:00 82 10/26/19 00:00 Non-Rebreather 12.0 10/26/19 00:00 97.9 86 18 154/84 (107) 95 10/25/19 22:36 Non-Rebreather 12.0 10/25/19 21:57 97.9 88 16 156/77 (103) 96 10/25/19 21:50 98.1 91 20 117/74 99 Non-Rebreather 15.0 10/25/19 21:30 98.1 91 20 117/74 99 Non-Rebreather 15.0 10/25/19 19:15 86 20 129/83 99 Non-Rebreather 15.0 10/25/19 18:21 98.4 101 22 128/86 99 Non-Rebreather 15.0 10/25/19 16:11 98.4 112 23 142/84 98 Non-Rebreather 15.0 10/25/19 15:08 126 25 Non-Rebreather 15.0 10/25/19 14:30 Non-Rebreather 15.0 10/25/19 14:30 25 91 Non-Rebreather 15.0 10/25/19 14:13 123 26 Nasal Cannula 3.0 10/25/19 14:13 99.8 123 26 150/91 85 Nasal Cannula 3.0 10/25/19 14:02 99.3 133 24 148/94 (112) 88 Nasal Cannula 3.0 Intake and Output 10/25/19 10/26/19 19:00 07:00 Intake Total 2850.0 ml 2386.25 ml Output Total 675 ml Balance 2850.0 ml 1711.25 ml Intake IV Total 2850.0 ml 2386.25 ml Output Urine Total 675 ml Laboratory Tests Test 10/25/19 14:00 10/25/19 14:51 10/25/19 15:22 10/25/19 18:00 White Blood Count 22.2 K/UL (4.8-10.8) *H Red Blood Count 6.09 M/UL (4.70-6.10) Hemoglobin 19.1 G/DL (14.2-18.0) *H Hematocrit 59.6 % (42.0-52.0) H Mean Corpuscular Volume 98 FL (80-99) Mean Corpuscular Hemoglobin 31.4 PG (27.0-31.0) H Mean Corpuscular Hemoglobin Concent 32.1 G/DL (32.0-36.0) Red Cell Distribution Width 12.9 % (11.6-14.8) Platelet Count 381 K/UL (150-450) Mean Platelet Volume 8.9 FL (6.5-10.1) Neutrophils (%) (Auto) % (45.0-75.0) Lymphocytes (%) (Auto) % (20.0-45.0) Monocytes (%) (Auto) % (1.0-10.0) Eosinophils (%) (Auto) % (0.0-3.0) Basophils (%) (Auto) % (0.0-2.0) Differential Total Cells Counted 100 Neutrophils % (Manual) 90 % (45-75) H Lymphocytes % (Manual) 5 % (20-45) L Monocytes % (Manual) 4 % (1-10) Eosinophils % (Manual) 1 % (0-3) Basophils % (Manual) 0 % (0-2) Band Neutrophils 0 % (0-8) Platelet Estimate Adequate Platelet Morphology Normal Red Blood Cell Morphology Normal Prothrombin Time 13.9 SEC (9.30-11.50) H Prothromb Time International Ratio 1.3 (0.9-1.1) H Activated Partial Thromboplast Time 34 SEC (23-33) H Sodium Level 158 MMOL/L (136-145) H Potassium Level 3.8 MMOL/L (3.5-5.1) Chloride Level 119 MMOL/L (98-107) H Carbon Dioxide Level 22 MMOL/L (21-32) Anion Gap 17 mmol/L (5-15) H Blood Urea Nitrogen 52 mg/dL (7-18) H Creatinine 1.6 MG/DL (0.55-1.30) H Estimat Glomerular Filtration Rate 41.1 mL/min (>60) Glucose Level 144 MG/DL (74-106) H Lactic Acid Level 2.40 mmol/L (0.4-2.0) H 1.10 mmol/L (0.66-2.22) Calcium Level 8.9 MG/DL (8.5-10.1) Magnesium Level 2.8 MG/DL (1.8-2.4) H Total Bilirubin 1.1 MG/DL (0.2-1.0) H Direct Bilirubin 0.2 MG/DL (0.0-0.3) Aspartate Amino Transf (AST/SGOT) 27 U/L (15-37) Alanine Aminotransferase (ALT/SGPT) 18 U/L (12-78) Alkaline Phosphatase 104 U/L (46-116) Total Creatine Kinase 62 U/L (26-308) Troponin I 0.042 ng/mL (0.000-0.056) Pro-B-Type Natriuretic Peptide 541 pg/mL (0-125) H Total Protein 8.8 G/DL (6.4-8.2) H Albumin 2.9 G/DL (3.4-5.0) L Globulin 5.9 g/dL Albumin/Globulin Ratio 0.5 (1.0-2.7) L Lipase 529 U/L (73-393) H Urine Color Yellow Urine Appearance Very cloudy Urine pH 9 (4.5-8.0) Urine Specific [place] 1.010 (1.005-1.035) Urine Protein 3+ (NEGATIVE) H Urine Glucose (UA) Negative (NEGATIVE) Urine Ketones 2+ (NEGATIVE) H Urine Blood 3+ (NEGATIVE) H Urine Nitrite Positive (NEGATIVE) H Urine Bilirubin Negative (NEGATIVE) Urine Urobilinogen Normal MG/DL (0.0-1.0) Urine Leukocyte Esterase 3+ (NEGATIVE) H Urine RBC 5-10 /HPF (0 - 0) H Urine WBC 2-4 /HPF (0 - 0) Urine Squamous Epithelial Cells None /LPF (NONE/OCC) Urine Triple Phosphate Crystals Many /LPF (NONE) H Urine Amorphous Sediment Many /LPF (NONE) H Urine Bacteria Moderate /HPF (NONE) H Arterial Blood pH 7.391 (7.350-7.450) Arterial Blood Partial Pressure CO2 34.6 mmHg (35.0-45.0) L Arterial Blood Partial Pressure O2 86.9 mmHg (75.0-100.0) Arterial Blood HCO3 20.5 mmol/L (22.0-26.0) L Arterial Blood Oxygen Saturation 96.1 % (95-100) Arterial Blood Base Excess -3.4 (-2-2) L Miguel Angel Test Positive Test 10/26/19 03:30 White Blood Count 16.1 K/UL (4.8-10.8) H Red Blood Count 4.97 M/UL (4.70-6.10) Hemoglobin 15.8 G/DL (14.2-18.0) Hematocrit 48.7 % (42.0-52.0) Mean Corpuscular Volume 98 FL (80-99) Mean Corpuscular Hemoglobin 31.7 PG (27.0-31.0) H Mean Corpuscular Hemoglobin Concent 32.4 G/DL (32.0-36.0) Red Cell Distribution Width 13.1 % (11.6-14.8) Platelet Count 264 K/UL (150-450) Mean Platelet Volume 8.8 FL (6.5-10.1) Neutrophils (%) (Auto) % (45.0-75.0) Lymphocytes (%) (Auto) % (20.0-45.0) Monocytes (%) (Auto) % (1.0-10.0) Eosinophils (%) (Auto) % (0.0-3.0) Basophils (%) (Auto) % (0.0-2.0) Differential Total Cells Counted 100 Neutrophils % (Manual) 93 % (45-75) H Lymphocytes % (Manual) 7 % (20-45) L Monocytes % (Manual) 0 % (1-10) L Eosinophils % (Manual) 0 % (0-3) Basophils % (Manual) 0 % (0-2) Band Neutrophils 0 % (0-8) Platelet Estimate Adequate Platelet Morphology Normal Red Blood Cell Morphology Normal Sodium Level 159 MMOL/L (136-145) H Potassium Level 3.6 MMOL/L (3.5-5.1) Chloride Level 125 MMOL/L (98-107) H Carbon Dioxide Level 22 MMOL/L (21-32) Anion Gap 12 mmol/L (5-15) Blood Urea Nitrogen 43 mg/dL (7-18) H Creatinine 1.2 MG/DL (0.55-1.30) Estimat Glomerular Filtration Rate 57.3 mL/min (>60) Glucose Level 150 MG/DL (74-106) H Calcium Level 7.9 MG/DL (8.5-10.1) L Phosphorus Level 3.1 MG/DL (2.5-4.9) Magnesium Level 2.4 MG/DL (1.8-2.4) Total Bilirubin 0.8 MG/DL (0.2-1.0) Aspartate Amino Transf (AST/SGOT) 23 U/L (15-37) Alanine Aminotransferase (ALT/SGPT) 15 U/L (12-78) Alkaline Phosphatase 88 U/L (46-116) Total Protein 6.9 G/DL (6.4-8.2) Albumin 2.2 G/DL (3.4-5.0) L Globulin 4.7 g/dL Albumin/Globulin Ratio 0.5 (1.0-2.7) L Microbiology Date/Time Source Procedure Growth Status 10/25/19 14:51 Urine,Clean Catch Urine Culture - Preliminary Resulted Height (Feet): 5 Height (Inches): 1.00 Weight (Pounds): 173 Medications Current Medications Medications (Trade) Dose Ordered Sig/Jesu Route PRN Reason Start Time Stop Time Status Last Admin Dose Admin Albuterol Sulfate (Proventil MDI) 2 puff Q4H PRN INH Shortness of Breath 10/25/19 23:30 01/23/20 23:29 Aspirin (Ecotrin) 81 mg DAILY ORAL 10/26/19 09:00 12/10/19 08:59 10/26/19 08:22 Azithromycin 500 mg/Sodium Chloride 275 ml @ 275 mls/hr DAILY IV 10/26/19 09:00 10/31/19 08:59 10/26/19 08:22 Clindamycin HCl/ Dextrose 50 ml @ 100 mls/hr Q8H IV 10/26/19 08:00 11/02/19 07:59 10/26/19 08:22 Dextrose 1,000 ml @ 200 mls/hr Q5H IV 10/26/19 08:30 10/26/19 18:29 10/26/19 08:30 Gabapentin (Neurontin) 300 mg BID ORAL 10/26/19 09:00 11/25/19 08:59 10/26/19 08:22 Magnesium Hydroxide (Mom) 30 ml DAILYPRN PRN ORAL Constipation 10/25/19 23:30 11/24/19 23:29 Multi-Ingredient Mouthwash/Gargle (Magic Mouth Wash 60ml) 10 ml BID ORAL 10/26/19 09:00 11/25/19 08:59 10/26/19 08:23 Multivitamins (Multivitamins W/ Minerals 15ml Liquid) 15 ml DAILY ORAL 10/26/19 09:00 11/25/19 08:59 10/26/19 08:22 Nystatin (Nystatin) 1 applic BID TOPIC 10/26/19 09:00 10/28/19 09:00 10/26/19 08:23 Assessment/Plan Problem List: (1) Renal failure ICD Codes: N19 - Unspecified kidney failure SNOMED: 28063806 Qualifiers: Qualified Codes: N17.9 - Acute kidney failure, unspecified (2) Hypoxia ICD Codes: R09.02 - Hypoxemia SNOMED: 695700908 (3) Sepsis Assessment & Plan: 89 year old male with leukocytosis, lactic acidosis, abnormal labs. currently in monitoring unit on face mask respiratory support Hx COVID + UTI Pt presented on admission with multiple Pressure injuries. Pt currently using Venti-mask. Non-Blanching erythema noted to bridge of nose and both cheeks consistent with mask. Cavilon Skin Barrier applied to affected areas and covered with Foam tape. Non-Blanching erythema noted to clefts of both ears. Elastic Band of oxygen tubing padded. Non-Blanching erythema without induration noted to sacrum,R and L Gluteus. Non-Blanching erythema noted to R trochanter(L)3cm x (W)6.3cm. DTPI noted to L Heel. Base of heel is maroon and fluctuant (L)4.3cm x (W)5.5cm. Periwound is boggy but easily blanchable. R heel and lateral R foot boggy with non-blanching erythema. Resolving Pressure injury Lateral R malleolus. Base of wound is dry, black with pink epithelial at center of wound.(L)2.5cm x (W)2.7cm. Apply Moisture Barrier Paste to Sacrum. Cover with Optifoam drsg. Change every 3 days and prn. Apply Cavilon Skin Barrier to R and L trochanter. Cover each site with Optifoam drsg. Change every 7 days and PRN. Apply Cavilon Skin Barrier to both Earlobes TWICE daily.Pad elastic band of oxygen mask. Keep band loose around ears. Apply Cavilon Skin Barrier to R and L cheeks and Bridge of Nose. Apply Foam tape. Change every 7 days and PRN. Apply Cavilon Skin Barrier to both heels and malleoli. Cover each site with Optifoam drsgs. Change every 7 days and PRN. Reposition at least every 2hours or as tolerated. Off-load heels with Pillows. APM/MODESTO Mattress overlay. diet as tolerated respiratory support CXR noted nutritional optimization turn q2h will follow with recs thank you DAILY ESTIMATED NEEDS: Needs based on DM , pulmonary 75kg abw 25-30 kcals/kg 5188-2109 total kcals 1-1.5 g protein/kg 75-113 g total protein 20-25 mL/kg 7759-1469 total fluid mLs NUTRITION DIAGNOSIS: Altered nutrition related lab values r/t clinical status as evidenced by elev Na (159), elev BUN(now 43), elev BG (140-150). CURRENT DIET: NPO PO DIET RECOMMENDATIONS: [facility] diet/ texture per [employer] SALES DIRECTOR ADDITIONAL RECOMMENDATIONS: 1) [employer] eval for appropriate texture 2) Feed as able, consult RD for non oral TF recs if part of POC 3) F/up w/ WC eval of R ankle photo 4) Maintain calibrated bed scale wts 5) Rec Glucerna w/ meals w/ anticipated poor po intake, NPO now 6) Check HgA1C ICD Codes: A41.9 - Sepsis, unspecified organism SNOMED: 71012542 Qualifiers: Qualified Codes: A41.9 - Sepsis, unspecified organism; R65.20 - Severe sepsis without septic shock; N17.9 - Acute kidney failure, unspecified (4) Right hemiparesis ICD Codes: G81.91 - Hemiplegia, unspecified affecting right dominant side SNOMED: 537768210 Pankaj Palomo Oct 26, 2019 10:05
[2019-10-26 12:00] VITALS: BP 134/79
--- NOTE | 2019-10-26 13:45 | Consultation ---
DATE OF CONSULTATION: 10/26/2019 PULMONARY CONSULTATION CONSULTING PHYSICIAN: Adam Rodrigues MD. HISTORY OF PRESENT ILLNESS: This is an 89-year-old male who came from a nursing facility. He was reported to be found to be COVID-19 positive. He was mildly hypoxic and received oxygen in the ER. At this point, the patient states he is feeling better. He has a dry cough. He is unable to verbalize. He has a chronic suprapubic catheter. He has a previous history of CVA. ALLERGIES: Acetaminophen, Amoxil, cephalexin, codeine, hydrocodone, sulfamethoxazole, tetracycline, trimethoprim. PAST MEDICAL HISTORY: Notable for intermediate resident, chronic suprapubic catheter, hypertension. MEDICATIONS: List of medications include aspirin, erythromycin, clindamycin, IV fluids, Neurontin, multivitamins. The patient received Decadron in the emergency room. REVIEW OF SYSTEMS: Not reliable. PHYSICAL EXAMINATION: GENERAL: Reveals elderly male. HEENT: Unremarkable. CHEST: Decreased breath sounds bilaterally. HEART: Normal heart sounds. ABDOMEN: Soft. EXTREMITIES: There is no edema. GENITOURINARY: Suprapubic catheter is noted. IMAGING: X-ray chest obtained overnight shows bilateral infiltrates suspicious for COVID-19 pneumonia. LABORATORY DATA: Lab testing shows white count 22,000, now 16. Remaining labs are unremarkable except for sodium 159, creatinine 1.2. Lactic acid 2.4, now 1.1. D-dimer is 34. Urinalysis shows few pus cells. IMPRESSION: 1. COVID-19 pneumonia by history. 2. Bilateral pulmonary infiltrates. 3. Hypoxemia. 4. Hypernatremia. 5. Renal failure. 6. Hypertension. 7. Chronic suprapubic catheter. DISCUSSION: Admit to the hospital. The patient would benefit from broad spectrum antibiotics at this point in time. He has received azithromycin and Decadron as well as a one-time dose of vancomycin. He may be a candidate for remdesivir if he is found to be COVID-19 positive. We will follow as guard immigration. Adam Rodrigues M.D. DR: REINALDO JOB#: [id number] CC:
[2019-10-26] MEDS ORDERED: D5 1/2NS 1000ml IV ONE (15:07)
[2019-10-26] MEDS ORDERED: Tubing IV Secondary IV ONE (15:07)
[2019-10-26] MEDS ORDERED: NS 275ml ONE (15:07)
--- NOTE | 2019-10-26 15:41 | Internal Med Progress Note ---
Subjective Date of Service: Oct 26, 2019 Physician Name Edyta Hardy Attending Physician Aron Barbosa M.D. Current Medications Medications (Trade) Dose Ordered Sig/Jesu Route PRN Reason Start Time Stop Time Status Last Admin Dose Admin Albuterol Sulfate (Proventil MDI) 2 puff Q4H PRN INH Shortness of Breath 10/25/19 23:30 01/23/20 23:29 Aspirin (Ecotrin) 81 mg DAILY ORAL 10/26/19 09:00 12/10/19 08:59 10/26/19 08:22 Azithromycin 500 mg/Sodium Chloride 275 ml @ 275 mls/hr DAILY IV 10/26/19 09:00 10/31/19 08:59 10/26/19 08:22 Clindamycin HCl/ Dextrose 50 ml @ 100 mls/hr Q8H IV 10/26/19 08:00 11/02/19 07:59 10/26/19 08:22 Dextrose 1,000 ml @ 200 mls/hr Q5H IV 10/26/19 08:30 10/26/19 18:29 10/26/19 13:30 Gabapentin (Neurontin) 300 mg BID ORAL 10/26/19 09:00 11/25/19 08:59 10/26/19 08:22 Magnesium Hydroxide (Mom) 30 ml DAILYPRN PRN ORAL Constipation 10/25/19 23:30 11/24/19 23:29 Multi-Ingredient Mouthwash/Gargle (Magic Mouth Wash 60ml) 10 ml BID ORAL 10/26/19 09:00 11/25/19 08:59 10/26/19 08:23 Multivitamins (Multivitamins W/ Minerals 15ml Liquid) 15 ml DAILY ORAL 10/26/19 09:00 11/25/19 08:59 10/26/19 08:22 Nystatin (Nystatin) 1 applic BID TOPIC 10/26/19 09:00 10/28/19 09:00 10/26/19 08:23 Allergies: Coded Allergies: ACETAMINOPHEN (Verified Allergy, Unknown, 10/25/19) AMOXICILLIN (Verified Allergy, Unknown, 10/25/19) CEPHALEXIN (Verified Allergy, Unknown, 10/25/19) CODEINE (Verified Allergy, Unknown, 10/25/19) HYDROCODONE (Verified Allergy, Unknown, 10/25/19) SULFAMETHOXAZOLE (Verified Allergy, Unknown, 10/25/19) TETRACYCLINES (Verified Allergy, Unknown, 10/25/19) TRIMETHOPRIM (Verified Allergy, Unknown, 10/25/19) ROS Limited/Unobtainable: Yes All Systems: reviewed and negative except above Subjective Na , wbc both down trending Objective Last Vital Signs Date Time Temp Pulse Resp B/P (MAP) Pulse Ox O2 Delivery O2 Flow Rate FiO2 10/26/19 12:00 87 10/26/19 12:00 Non-Rebreather 12.0 10/26/19 12:00 97.3 20 134/79 (97) 95 10/26/19 08:05 50 General Appearance: no apparent distress EENT: pharynx normal Neck: supple Cardiovascular: normal rate, regular rhythm, systolic murmur Respiratory/Chest: rhonchi - bilaterally Abdomen: normal bowel sounds, non tender, soft Genitourinary/Rectal: normal genital exam Neurologic: alert, motor weakness, sensory deficit Skin: warm/dry Laboratory Tests Test 10/25/19 18:00 10/26/19 03:30 Lactic Acid Level 1.10 mmol/L (0.66-2.22) White Blood Count 16.1 K/UL (4.8-10.8) H Red Blood Count 4.97 M/UL (4.70-6.10) Hemoglobin 15.8 G/DL (14.2-18.0) Hematocrit 48.7 % (42.0-52.0) Mean Corpuscular Volume 98 FL (80-99) Mean Corpuscular Hemoglobin 31.7 PG (27.0-31.0) H Mean Corpuscular Hemoglobin Concent 32.4 G/DL (32.0-36.0) Red Cell Distribution Width 13.1 % (11.6-14.8) Platelet Count 264 K/UL (150-450) Mean Platelet Volume 8.8 FL (6.5-10.1) Neutrophils (%) (Auto) % (45.0-75.0) Lymphocytes (%) (Auto) % (20.0-45.0) Monocytes (%) (Auto) % (1.0-10.0) Eosinophils (%) (Auto) % (0.0-3.0) Basophils (%) (Auto) % (0.0-2.0) Differential Total Cells Counted 100 Neutrophils % (Manual) 93 % (45-75) H Lymphocytes % (Manual) 7 % (20-45) L Monocytes % (Manual) 0 % (1-10) L Eosinophils % (Manual) 0 % (0-3) Basophils % (Manual) 0 % (0-2) Band Neutrophils 0 % (0-8) Platelet Estimate Adequate Platelet Morphology Normal Red Blood Cell Morphology Normal Sodium Level 159 MMOL/L (136-145) H Potassium Level 3.6 MMOL/L (3.5-5.1) Chloride Level 125 MMOL/L (98-107) H Carbon Dioxide Level 22 MMOL/L (21-32) Anion Gap 12 mmol/L (5-15) Blood Urea Nitrogen 43 mg/dL (7-18) H Creatinine 1.2 MG/DL (0.55-1.30) Estimat Glomerular Filtration Rate 57.3 mL/min (>60) Glucose Level 150 MG/DL (74-106) H Calcium Level 7.9 MG/DL (8.5-10.1) L Phosphorus Level 3.1 MG/DL (2.5-4.9) Magnesium Level 2.4 MG/DL (1.8-2.4) Total Bilirubin 0.8 MG/DL (0.2-1.0) Aspartate Amino Transf (AST/SGOT) 23 U/L (15-37) Alanine Aminotransferase (ALT/SGPT) 15 U/L (12-78) Alkaline Phosphatase 88 U/L (46-116) Total Protein 6.9 G/DL (6.4-8.2) Albumin 2.2 G/DL (3.4-5.0) L Globulin 4.7 g/dL Albumin/Globulin Ratio 0.5 (1.0-2.7) L Microbiology Date/Time Source Procedure Growth Status 10/25/19 14:51 Urine,Clean Catch Urine Culture - Preliminary Resulted Intake and Output 10/25/19 10/26/19 19:00 07:00 Intake Total 2850.0 ml 2386.25 ml Output Total 675 ml Balance 2850.0 ml 1711.25 ml Intake IV Total 2850.0 ml 2386.25 ml Output Urine Total 675 ml Assessment/Plan Status: stable, progressing Assessment/Plan IMPRESSION: sepsis on admission COVID 19 pnemonia acute respiratory failure hypoxemia acute toxic and metabolic encephalopathy Hypernatremia dehydration acute kidney injury leuokcytosis hx CVA with hemiplegia suprapubic catheter status UTI with indwelling catheter senile debility ankle wound severe protein calorie malnutrition PLAN: Stepdown unit IVF IV abx pulm inhalor isolation per policy f/u cultures DVT/GI prophylaxis electrolyte replete as needed NPO until [employer]FA[employer]CH[employer] wound care oxygen DNAR code status EDYTA HARDY MD Internal Medicine [phone] over 40 minutes spent today note time may not be the actual encounter time. over 50% allocated in counseling, coordination of care, d/w staff and family with medical update Edyta Hardy MD Oct 26, 2019 15:41
[2019-10-26 16:00] VITALS: BP 129/59
--- NOTE | 2019-10-26 16:57 | Cardiology Progress Note ---
Assessment/Plan Status: stable, progressing Assessment/Plan ASSESSMENT: 1. COVID-19 pneumonia by history. 2. Bilateral pulmonary infiltrates. 3. Hypoxemia. 4. Hypernatremia. 5. Renal failure. 6. Hypertension. 7. Chronic suprapubic catheter. PLAN: Tachycardia resolved Continue pulmonary toilet Empiric Abx IV fluids Echocardiogram reviewed with normal LV function but low pulmonary pressures and flat IVC suggestive of volume depletion. Subjective Cardiovascular: Reports: no symptoms Respiratory: Reports: no symptoms Gastrointestinal/Abdominal: Reports: no symptoms Genitourinary: Reports: no symptoms Subjective No acute events, tachycardia resolved, remains on 12 liters oxygen, WBC has come down, troponin 0.04 Objective Last 24 Hour Vital Signs Date Time Temp Pulse Resp B/P (MAP) Pulse Ox O2 Delivery O2 Flow Rate FiO2 10/26/19 16:00 Non-Rebreather 12.0 10/26/19 12:00 87 10/26/19 12:00 Non-Rebreather 12.0 10/26/19 12:00 97.3 20 134/79 (97) 95 10/26/19 08:05 94 Venturi Mask 12.0 50 10/26/19 08:00 88 10/26/19 08:00 97.7 18 141/83 (102) 96 10/26/19 08:00 Non-Rebreather 12.0 10/26/19 04:00 98.0 84 20 143/91 (108) 96 10/26/19 04:00 Non-Rebreather 12.0 10/26/19 03:36 85 10/26/19 00:00 82 10/26/19 00:00 Non-Rebreather 12.0 10/26/19 00:00 97.9 86 18 154/84 (107) 95 10/25/19 22:36 Non-Rebreather 12.0 10/25/19 21:57 97.9 88 16 156/77 (103) 96 10/25/19 21:50 98.1 91 20 117/74 99 Non-Rebreather 15.0 10/25/19 21:30 98.1 91 20 117/74 99 Non-Rebreather 15.0 10/25/19 19:15 86 20 129/83 99 Non-Rebreather 15.0 10/25/19 18:21 98.4 101 22 128/86 99 Non-Rebreather 15.0 General Appearance: no apparent distress, mild distress EENT: PERRL/EOMI, normal ENT inspection, TMs normal, pharynx normal Neck: non-tender, normal alignment, supple, normal inspection, no JVD Rhythm: NSR Cardiovascular: normal peripheral pulses, normal rate Respiratory/Chest: accessory muscle use, crackles/rales, rhonchi - bilaterally Abdomen: normal bowel sounds, non tender, soft, no organomegaly Neurologic: repossessor II-XII grossly normal, no motor/sensory deficits Intake and Output 10/25/19 10/26/19 19:00 07:00 Intake Total 2850.0 ml 2386.25 ml Output Total 675 ml Balance 2850.0 ml 1711.25 ml Intake IV Total 2850.0 ml 2386.25 ml Output Urine Total 675 ml Laboratory Tests Test 10/25/19 18:00 10/26/19 03:30 Lactic Acid Level 1.10 mmol/L (0.66-2.22) White Blood Count 16.1 K/UL (4.8-10.8) H Red Blood Count 4.97 M/UL (4.70-6.10) Hemoglobin 15.8 G/DL (14.2-18.0) Hematocrit 48.7 % (42.0-52.0) Mean Corpuscular Volume 98 FL (80-99) Mean Corpuscular Hemoglobin 31.7 PG (27.0-31.0) H Mean Corpuscular Hemoglobin Concent 32.4 G/DL (32.0-36.0) Red Cell Distribution Width 13.1 % (11.6-14.8) Platelet Count 264 K/UL (150-450) Mean Platelet Volume 8.8 FL (6.5-10.1) Neutrophils (%) (Auto) % (45.0-75.0) Lymphocytes (%) (Auto) % (20.0-45.0) Monocytes (%) (Auto) % (1.0-10.0) Eosinophils (%) (Auto) % (0.0-3.0) Basophils (%) (Auto) % (0.0-2.0) Differential Total Cells Counted 100 Neutrophils % (Manual) 93 % (45-75) H Lymphocytes % (Manual) 7 % (20-45) L Monocytes % (Manual) 0 % (1-10) L Eosinophils % (Manual) 0 % (0-3) Basophils % (Manual) 0 % (0-2) Band Neutrophils 0 % (0-8) Platelet Estimate Adequate Platelet Morphology Normal Red Blood Cell Morphology Normal Sodium Level 159 MMOL/L (136-145) H Potassium Level 3.6 MMOL/L (3.5-5.1) Chloride Level 125 MMOL/L (98-107) H Carbon Dioxide Level 22 MMOL/L (21-32) Anion Gap 12 mmol/L (5-15) Blood Urea Nitrogen 43 mg/dL (7-18) H Creatinine 1.2 MG/DL (0.55-1.30) Estimat Glomerular Filtration Rate 57.3 mL/min (>60) Glucose Level 150 MG/DL (74-106) H Calcium Level 7.9 MG/DL (8.5-10.1) L Phosphorus Level 3.1 MG/DL (2.5-4.9) Magnesium Level 2.4 MG/DL (1.8-2.4) Total Bilirubin 0.8 MG/DL (0.2-1.0) Aspartate Amino Transf (AST/SGOT) 23 U/L (15-37) Alanine Aminotransferase (ALT/SGPT) 15 U/L (12-78) Alkaline Phosphatase 88 U/L (46-116) Total Protein 6.9 G/DL (6.4-8.2) Albumin 2.2 G/DL (3.4-5.0) L Globulin 4.7 g/dL Albumin/Globulin Ratio 0.5 (1.0-2.7) L Microbiology Date/Time Source Procedure Growth Status 10/25/19 14:51 Urine,Clean Catch Urine Culture - Preliminary Resulted Maycol Schafer MD Oct 26, 2019 16:57
[2019-10-26 20:00] VITALS: BP 143/71
--- NOTE | 2019-10-26 22:44 | Infectious Diseases Prog Note ---
Assessment/Plan Assessment/Plan Full consult dictated: A) 1) covid-19 infection with pna 2) sepsis, uti, fevers, leukocytosis 3) ? bacterial pna 4) allergies - amoxicillin, keflex, bactrim, tetracycline P) 1) aztreonam, flagyl, levofloxacin, vancomycin 2) check cultures, labs and chest x-ray 3) covid-19 isolation 4) thank you Subjective Allergies: Coded Allergies: ACETAMINOPHEN (Verified Allergy, Unknown, 10/25/19) AMOXICILLIN (Verified Allergy, Unknown, 10/25/19) CEPHALEXIN (Verified Allergy, Unknown, 10/25/19) CODEINE (Verified Allergy, Unknown, 10/25/19) HYDROCODONE (Verified Allergy, Unknown, 10/25/19) SULFAMETHOXAZOLE (Verified Allergy, Unknown, 10/25/19) TETRACYCLINES (Verified Allergy, Unknown, 10/25/19) TRIMETHOPRIM (Verified Allergy, Unknown, 10/25/19) Objective Last 24 Hour Vital Signs Date Time Temp Pulse Resp B/P (MAP) Pulse Ox O2 Delivery O2 Flow Rate FiO2 10/26/19 20:00 Non-Rebreather 12.0 10/26/19 20:00 72 10/26/19 20:00 97.9 77 23 143/71 (95) 98 10/26/19 16:00 Non-Rebreather 12.0 10/26/19 16:00 97.8 22 129/59 (82) 95 10/26/19 15:33 68 10/26/19 12:00 87 10/26/19 12:00 Non-Rebreather 12.0 10/26/19 12:00 97.3 20 134/79 (97) 95 10/26/19 08:05 94 Venturi Mask 12.0 50 10/26/19 08:00 88 10/26/19 08:00 97.7 18 141/83 (102) 96 10/26/19 08:00 Non-Rebreather 12.0 10/26/19 04:00 98.0 84 20 143/91 (108) 96 10/26/19 04:00 Non-Rebreather 12.0 10/26/19 03:36 85 10/26/19 00:00 82 10/26/19 00:00 Non-Rebreather 12.0 10/26/19 00:00 97.9 86 18 154/84 (107) 95 10/25/19 22:36 Non-Rebreather 12.0 Height (Feet): 5 Height (Inches): 1.00 Weight (Pounds): 173 Microbiology Date/Time Source Procedure Growth Status 10/25/19 14:51 Urine,Clean Catch Urine Culture - Preliminary Resulted Laboratory Tests Test 10/26/19 03:30 White Blood Count 16.1 K/UL (4.8-10.8) H Red Blood Count 4.97 M/UL (4.70-6.10) Hemoglobin 15.8 G/DL (14.2-18.0) Hematocrit 48.7 % (42.0-52.0) Mean Corpuscular Volume 98 FL (80-99) Mean Corpuscular Hemoglobin 31.7 PG (27.0-31.0) H Mean Corpuscular Hemoglobin Concent 32.4 G/DL (32.0-36.0) Red Cell Distribution Width 13.1 % (11.6-14.8) Platelet Count 264 K/UL (150-450) Mean Platelet Volume 8.8 FL (6.5-10.1) Neutrophils (%) (Auto) % (45.0-75.0) Lymphocytes (%) (Auto) % (20.0-45.0) Monocytes (%) (Auto) % (1.0-10.0) Eosinophils (%) (Auto) % (0.0-3.0) Basophils (%) (Auto) % (0.0-2.0) Differential Total Cells Counted 100 Neutrophils % (Manual) 93 % (45-75) H Lymphocytes % (Manual) 7 % (20-45) L Monocytes % (Manual) 0 % (1-10) L Eosinophils % (Manual) 0 % (0-3) Basophils % (Manual) 0 % (0-2) Band Neutrophils 0 % (0-8) Platelet Estimate Adequate Platelet Morphology Normal Red Blood Cell Morphology Normal Sodium Level 159 MMOL/L (136-145) H Potassium Level 3.6 MMOL/L (3.5-5.1) Chloride Level 125 MMOL/L (98-107) H Carbon Dioxide Level 22 MMOL/L (21-32) Anion Gap 12 mmol/L (5-15) Blood Urea Nitrogen 43 mg/dL (7-18) H Creatinine 1.2 MG/DL (0.55-1.30) Estimat Glomerular Filtration Rate 57.3 mL/min (>60) Glucose Level 150 MG/DL (74-106) H Calcium Level 7.9 MG/DL (8.5-10.1) L Phosphorus Level 3.1 MG/DL (2.5-4.9) Magnesium Level 2.4 MG/DL (1.8-2.4) Total Bilirubin 0.8 MG/DL (0.2-1.0) Aspartate Amino Transf (AST/SGOT) 23 U/L (15-37) Alanine Aminotransferase (ALT/SGPT) 15 U/L (12-78) Alkaline Phosphatase 88 U/L (46-116) Total Protein 6.9 G/DL (6.4-8.2) Albumin 2.2 G/DL (3.4-5.0) L Globulin 4.7 g/dL Albumin/Globulin Ratio 0.5 (1.0-2.7) L Current Medications Medications (Trade) Dose Ordered Sig/Jesu Route PRN Reason Start Time Stop Time Status Last Admin Dose Admin Albuterol Sulfate (Proventil MDI) 2 puff Q4H PRN INH Shortness of Breath 10/25/19 23:30 01/23/20 23:29 Aspirin (Ecotrin) 81 mg DAILY ORAL 10/26/19 09:00 12/10/19 08:59 10/26/19 08:22 Azithromycin 500 mg/Sodium Chloride 275 ml @ 275 mls/hr DAILY IV 10/26/19 09:00 10/31/19 08:59 10/26/19 08:22 Clindamycin HCl/ Dextrose 50 ml @ 100 mls/hr Q8H IV 10/26/19 08:00 11/02/19 07:59 10/26/19 16:10 Dextrose/ Electrolytes 1,000 ml @ 100 mls/hr Q10H IV 10/26/19 23:00 11/25/19 22:59 Gabapentin (Neurontin) 300 mg BID ORAL 10/26/19 09:00 11/25/19 08:59 10/26/19 08:22 Magnesium Hydroxide (Mom) 30 ml DAILYPRN PRN ORAL Constipation 10/25/19 23:30 11/24/19 23:29 Multi-Ingredient Mouthwash/Gargle (Magic Mouth Wash 60ml) 10 ml BID ORAL 10/26/19 09:00 11/25/19 08:59 10/26/19 17:52 Multivitamins (Multivitamins W/ Minerals 15ml Liquid) 15 ml DAILY ORAL 10/26/19 09:00 11/25/19 08:59 10/26/19 08:22 Nystatin (Nystatin) 1 applic BID TOPIC 10/26/19 09:00 10/28/19 09:00 10/26/19 17:52 Julio Sarabia MD Oct 26, 2019 22:44
[2019-10-26] MEDS: D5 1/2NS w/KCL 10meq 1,000 ML IV SCH (23:40)
[2019-10-27] VITALS: BP 139/73
[2019-10-27] MEDS ORDERED: D5 1/2NS 1,000 ML IV SCH (01:00)
[2019-10-27] MEDS: Aztreonam Inj 1 GM in D5W 55 ML IVPB SCH ×3 (01:53→17:31)
[2019-10-27] MEDS ORDERED: Vancomycin 1.25gm/NS Premix IVPB ONE (02:00)
[2019-10-27 04:00] VITALS: BP 115/58
[2019-10-27 05:29] LABS: BASOPHILS % (AUTO) 0.4 % (0.0-2.0); EOSINOPHILS % (AUTO) 0.9 % (0.0-3.0); HEMATOCRIT 44.1 % (42.0-52.0); HEMOGLOBIN 14.5 G/DL (14.2-18.0); LYMPHOCYTES % (AUTO) 11.4 % (20.0-45.0); MEAN CORPUSCULAR VOLUME 97 FL (80-99); MONOCYTES % (AUTO) 3.6 % (1.0-10.0); NEUTROPHILS % (AUTO) 83.7 % (45.0-75.0); PLATELET COUNT 226 K/UL (150-450); RED BLOOD COUNT 4.55 M/UL (4.70-6.10); RED CELL DISTRIBUTION WIDTH 12.8 % (11.6-14.8); WHITE BLOOD COUNT 15.2 K/UL (4.8-10.8)
[2019-10-27 06:10] LABS: ALANINE AMINOTRANSFERASE 12 U/L (12-78); ALBUMIN 1.9 G/DL (3.4-5.0); ALBUMIN/GLOBULIN RATIO 0.5 (1.0-2.7); ALKALINE PHOSPHATASE 71 U/L (46-116); ANION GAP 10 mmol/L (5-15); ASPARTATE AMINO TRANSFERASE 24 U/L (15-37); BLOOD UREA NITROGEN 26 mg/dL (7-18); CALCIUM 7.5 MG/DL (8.5-10.1); CARBON DIOXIDE 23 MMOL/L (21-32); CHLORIDE 117 MMOL/L (98-107); CREATININE 0.9 MG/DL (0.55-1.30); POTASSIUM 3.5 MMOL/L (3.5-5.1); SODIUM 150 MMOL/L (136-145)
[2019-10-27 08:00] VITALS: BP 113/47
[2019-10-27] MEDS: D5 1/2NS w/KCL 10meq 1,000 ML IV SCH ×2 (08:45→18:28)
[2019-10-27] MEDS: Magic Mouth Wash 60ml (Benadryl/Mylanta/Visc Lido) ORAL SCH ×2 (08:46→17:31)
[2019-10-27] MEDS: Multivitamins W/Minerals 15 ML UDC ORAL SCH (08:46)
[2019-10-27] MEDS: Aspirin EC 81mg tab ORAL SCH (08:46)
--- NOTE | 2019-10-27 09:01 | Surgery Progress Note ---
Surgery Progress Note Subjective Additional Comments comfortable labs improved no acute events micro noted Objective Last 24 Hour Vital Signs Date Time Temp Pulse Resp B/P (MAP) Pulse Ox O2 Delivery O2 Flow Rate FiO2 10/27/19 04:00 96.8 78 28 115/58 (77) 94 10/27/19 04:00 59 10/27/19 04:00 Non-Rebreather 12.0 10/27/19 00:00 Non-Rebreather 12.0 10/27/19 00:00 64 10/27/19 00:00 97.4 76 21 139/73 (95) 95 10/26/19 20:00 Non-Rebreather 12.0 10/26/19 20:00 72 10/26/19 20:00 97.9 77 23 143/71 (95) 98 10/26/19 16:00 Non-Rebreather 12.0 10/26/19 16:00 97.8 22 129/59 (82) 95 10/26/19 15:33 68 10/26/19 12:00 87 10/26/19 12:00 Non-Rebreather 12.0 10/26/19 12:00 97.3 20 134/79 (97) 95 I&O Intake and Output 10/26/19 10/27/19 19:00 07:00 Intake Total 1950 ml 1163 ml Output Total 850 ml Balance 1950 ml 313 ml Intake IV Total 1950 ml 1163 ml Output Urine Total 850 ml # Bowel Movements 1 Dressing: other Wound: other Drains: other Cardiovascular: RSR Respiratory: decreased breath sounds Abdomen: soft, non-tender, present bowel sounds Extremities: no tenderness, no cyanosis, pulses, other Laboratory Tests Test 10/27/19 04:25 White Blood Count 15.2 K/UL (4.8-10.8) H Red Blood Count 4.55 M/UL (4.70-6.10) L Hemoglobin 14.5 G/DL (14.2-18.0) Hematocrit 44.1 % (42.0-52.0) Mean Corpuscular Volume 97 FL (80-99) Mean Corpuscular Hemoglobin 31.8 PG (27.0-31.0) H Mean Corpuscular Hemoglobin Concent 32.9 G/DL (32.0-36.0) Red Cell Distribution Width 12.8 % (11.6-14.8) Platelet Count 226 K/UL (150-450) Mean Platelet Volume 8.9 FL (6.5-10.1) Neutrophils (%) (Auto) 83.7 % (45.0-75.0) H Lymphocytes (%) (Auto) 11.4 % (20.0-45.0) L Monocytes (%) (Auto) 3.6 % (1.0-10.0) Eosinophils (%) (Auto) 0.9 % (0.0-3.0) Basophils (%) (Auto) 0.4 % (0.0-2.0) Sodium Level 150 MMOL/L (136-145) H Potassium Level 3.5 MMOL/L (3.5-5.1) Chloride Level 117 MMOL/L (98-107) H Carbon Dioxide Level 23 MMOL/L (21-32) Anion Gap 10 mmol/L (5-15) Blood Urea Nitrogen 26 mg/dL (7-18) H Creatinine 0.9 MG/DL (0.55-1.30) Estimat Glomerular Filtration Rate > 60 mL/min (>60) Glucose Level 136 MG/DL (74-106) H Calcium Level 7.5 MG/DL (8.5-10.1) L Total Bilirubin 1.0 MG/DL (0.2-1.0) Aspartate Amino Transf (AST/SGOT) 24 U/L (15-37) Alanine Aminotransferase (ALT/SGPT) 12 U/L (12-78) Alkaline Phosphatase 71 U/L (46-116) Total Protein 6.0 G/DL (6.4-8.2) L Albumin 1.9 G/DL (3.4-5.0) L Globulin 4.1 g/dL Albumin/Globulin Ratio 0.5 (1.0-2.7) L Plan Problems: (1) Renal failure (2) Hypoxia (3) Sepsis Assessment & Plan: 89 year old male with leukocytosis, lactic acidosis, abnormal labs. currently in monitoring unit on face mask respiratory support Hx COVID + UTI Pt presented on admission with multiple Pressure injuries. Pt currently using Venti-mask. Non-Blanching erythema noted to bridge of nose and both cheeks consistent with mask. Cavilon Skin Barrier applied to affected areas and covered with Foam tape. Non-Blanching erythema noted to clefts of both ears. Elastic Band of oxygen tubing padded. Non-Blanching erythema without induration noted to sacrum,R and L Gluteus. Non-Blanching erythema noted to R trochanter(L)3cm x (W)6.3cm. DTPI noted to L Heel. Base of heel is maroon and fluctuant (L)4.3cm x (W)5.5cm. Periwound is boggy but easily blanchable. R heel and lateral R foot boggy with non-blanching erythema. Resolving Pressure injury Lateral R malleolus. Base of wound is dry, black with pink epithelial at center of wound.(L)2.5cm x (W)2.7cm. Apply Moisture Barrier Paste to Sacrum. Cover with Optifoam drsg. Change every 3 days and prn. Apply Cavilon Skin Barrier to R and L trochanter. Cover each site with Optifoam drsg. Change every 7 days and PRN. Apply Cavilon Skin Barrier to both Earlobes TWICE daily.Pad elastic band of oxygen mask. Keep band loose around ears. Apply Cavilon Skin Barrier to R and L cheeks and Bridge of Nose. Apply Foam tape. Change every 7 days and PRN. Apply Cavilon Skin Barrier to both heels and malleoli. Cover each site with Optifoam drsgs. Change every 7 days and PRN. Reposition at least every 2hours or as tolerated. Off-load heels with Pillows. APM/MODESTO Mattress overlay. diet as tolerated respiratory support CXR noted nutritional optimization turn q2h will follow with recs thank you DAILY ESTIMATED NEEDS: Needs based on DM , pulmonary 75kg abw 25-30 kcals/kg 3540-9135 total kcals 1-1.5 g protein/kg 75-113 g total protein 20-25 mL/kg 3802-8251 total fluid mLs NUTRITION DIAGNOSIS: Altered nutrition related lab values r/t clinical status as evidenced by elev Na (159), elev BUN(now 43), elev BG (140-150). CURRENT DIET: NPO PO DIET RECOMMENDATIONS: [facility] MED diet/ texture per [employer] ADDITIONAL RECOMMENDATIONS: 1) [employer] eval for appropriate texture 2) Feed as able, consult RD for non oral TF recs if part of POC 3) F/up w/ WC eval of R ankle photo 4) Maintain calibrated bed scale wts 5) Rec Glucerna w/ meals w/ anticipated poor po intake, NPO now 6) Check HgA1C (4) Right hemiparesis Pankaj Palomo Oct 27, 2019 09:01
--- NOTE | 2019-10-27 10:56 | Pulmonology Progress Note ---
Subjective Interval Events: None new reported Constitutional: Reports: no symptoms HEENT: Repors: no symptoms Respiratory: Reports: no symptoms Cardiovascular: Reports: no symptoms Gastrointestinal/Abdominal: Reports: no symptoms Genitourinary: Reports: no symptoms Neurologic: Reports: no symptoms Allergies: Coded Allergies: ACETAMINOPHEN (Verified Allergy, Unknown, 10/25/19) AMOXICILLIN (Verified Allergy, Unknown, 10/25/19) CEPHALEXIN (Verified Allergy, Unknown, 10/25/19) CODEINE (Verified Allergy, Unknown, 10/25/19) HYDROCODONE (Verified Allergy, Unknown, 10/25/19) SULFAMETHOXAZOLE (Verified Allergy, Unknown, 10/25/19) TETRACYCLINES (Verified Allergy, Unknown, 10/25/19) TRIMETHOPRIM (Verified Allergy, Unknown, 10/25/19) Objective Last 24 Hour Vital Signs Date Time Temp Pulse Resp B/P (MAP) Pulse Ox O2 Delivery O2 Flow Rate FiO2 10/27/19 08:00 Non-Rebreather 12.0 10/27/19 08:00 94.8 68 28 113/47 (69) 94 10/27/19 04:00 96.8 78 28 115/58 (77) 94 10/27/19 04:00 59 10/27/19 04:00 Non-Rebreather 12.0 10/27/19 00:00 Non-Rebreather 12.0 10/27/19 00:00 64 10/27/19 00:00 97.4 76 21 139/73 (95) 95 10/26/19 20:00 Non-Rebreather 12.0 10/26/19 20:00 72 10/26/19 20:00 97.9 77 23 143/71 (95) 98 10/26/19 16:00 Non-Rebreather 12.0 10/26/19 16:00 97.8 22 129/59 (82) 95 10/26/19 15:33 68 10/26/19 12:00 87 10/26/19 12:00 Non-Rebreather 12.0 10/26/19 12:00 97.3 20 134/79 (97) 95 Intake and Output 10/26/19 10/27/19 19:00 07:00 Intake Total 1950 ml 1163 ml Output Total 850 ml Balance 1950 ml 313 ml Intake IV Total 1950 ml 1163 ml Output Urine Total 850 ml # Bowel Movements 1 General Appearance: no acute distress HEENT: normocephalic Respiratory: chest wall non-tender, lungs clear Cardiovascular: normal peripheral pulses, normal rate Abdomen: normal bowel sounds Microbiology Date/Time Source Procedure Growth Status 10/25/19 14:15 Blood Blood Culture - Preliminary NO GROWTH AFTER 24 HOURS Resulted 10/25/19 14:00 Blood Blood Culture - Preliminary NO GROWTH AFTER 24 HOURS Resulted 10/25/19 17:25 Nasal Nares MRSA Culture - Final NO METHICILLIN RESISTANT STAPH AUREUS... Complete 10/25/19 14:51 Urine,Clean Catch Urine Culture - Preliminary Gram Negative Bacillus 1 Resulted 10/25/19 17:25 Rectum VRE Culture - Final NO VANCOMYCIN RESISTANT ENTEROCOCCUS ... Complete Laboratory Tests 10/27/19 04:25: White Blood Count 15.2H, Red Blood Count 4.55L, Hemoglobin 14.5, Hematocrit 44.1 , Mean Corpuscular Volume 97, Mean Corpuscular Hemoglobin 31.8H, Mean Corpuscular Hemoglobin Concent 32.9, Red Cell Distribution Width 12.8, Platelet Count 226, Mean Platelet Volume 8.9, Neutrophils (%) (Auto) 83.7H, Lymphocytes ( %) (Auto) 11.4L, Monocytes (%) (Auto) 3.6, Eosinophils (%) (Auto) 0.9, Basophils (%) (Auto) 0.4, Sodium Level 150H, Potassium Level 3.5, Chloride Level 117H, Carbon Dioxide Level 23, Anion Gap 10, Blood Urea Nitrogen 26H, Creatinine 0.9, Estimat Glomerular Filtration Rate > 60, Glucose Level 136H, Calcium Level 7.5L, Total Bilirubin 1.0, Aspartate Amino Transf (AST/SGOT) 24, Alanine Aminotransferase (ALT/SGPT) 12, Alkaline Phosphatase 71, Total Protein 6.0L, Albumin 1.9L, Globulin 4.1, Albumin/Globulin Ratio 0.5L Current Medications Medications (Trade) Dose Ordered Sig/Jesu Route PRN Reason Start Time Stop Time Status Last Admin Dose Admin Albuterol Sulfate (Proventil MDI) 2 puff Q4H PRN INH Shortness of Breath 10/25/19 23:30 01/23/20 23:29 Aspirin (Ecotrin) 81 mg DAILY ORAL 10/26/19 09:00 12/10/19 08:59 10/26/19 08:22 Aztreonam 1 gm/ Dextrose 55 ml @ 110 mls/hr Q8H IVPB 10/27/19 01:00 11/03/19 00:59 10/27/19 08:45 Dextrose/ Electrolytes 1,000 ml @ 100 mls/hr Q10H IV 10/26/19 23:00 11/25/19 22:59 10/27/19 08:45 Gabapentin (Neurontin) 300 mg BID ORAL 10/26/19 09:00 11/25/19 08:59 10/26/19 08:22 Levofloxacin 50 ml @ 50 mls/hr Q24H IVPB 10/28/19 00:00 11/04/19 00:00 Magnesium Hydroxide (Mom) 30 ml DAILYPRN PRN ORAL Constipation 10/25/19 23:30 11/24/19 23:29 Metronidazole 100 ml @ 100 mls/hr Q8HR IVPB 10/27/19 06:00 11/03/19 05:59 10/27/19 06:22 Multi-Ingredient Mouthwash/Gargle (Magic Mouth Wash 60ml) 10 ml BID ORAL 10/26/19 09:00 11/25/19 08:59 10/27/19 08:46 Multivitamins (Multivitamins W/ Minerals 15ml Liquid) 15 ml DAILY ORAL 10/26/19 09:00 11/25/19 08:59 10/26/19 08:22 Nystatin (Nystatin) 1 applic BID TOPIC 10/26/19 09:00 10/28/19 09:00 10/27/19 08:46 Vancomycin HCl (Vanco pharmacy to dose) 1 ea DAILY PRN MISC Per rx protocol 10/26/19 22:45 11/25/19 22:44 Vancomycin HCl 1 gm/Dextrose 275 ml @ 183.708 mls/hr Q24H IVPB 10/28/19 02:00 11/02/19 01:59 Assessment/Plan Assessment/Plan IMPRESSION: 1. COVID-19 pneumonia by history. 2. Bilateral pulmonary infiltrates. 3. Hypoxemia. 4. Hypernatremia. 5. Renal failure. 6. Hypertension. 7. Chronic suprapubic catheter. 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 await COVID 19 pcr Chavo Goldstein Omar Syed MD Oct 27, 2019 10:56
[2019-10-27 12:00] VITALS: BP 107/52
--- NOTE | 2019-10-27 13:38 | Nephrology Progress Note ---
Assessment/Plan Plan #COVID pneumonia #TELMA due to dehydration #sepsis #Hypernatremia due to dehydration #hypoxemic resp failure #Volume depletion - IVF - abx - pulm, ID and cards eval - 2d echo - bipap prn - follow cx - avoid nephrotoxins - replace free water - monitor mag, phos and bmp daily - DNR/DNI time spent 70 min- greater than 50% on care coordination and counseling Subjective ROS Limited/Unobtainable: Yes Subjective remains on non- rebreather mask WBC downtrending Sodium and cr improving Objective Objective Last 24 Hour Vital Signs Date Time Temp Pulse Resp B/P (MAP) Pulse Ox O2 Delivery O2 Flow Rate FiO2 10/27/19 08:00 Non-Rebreather 12.0 10/27/19 08:00 94.8 68 28 113/47 (69) 94 10/27/19 07:36 62 10/27/19 04:00 96.8 78 28 115/58 (77) 94 10/27/19 04:00 59 10/27/19 04:00 Non-Rebreather 12.0 10/27/19 00:00 Non-Rebreather 12.0 10/27/19 00:00 64 10/27/19 00:00 97.4 76 21 139/73 (95) 95 10/26/19 20:00 Non-Rebreather 12.0 10/26/19 20:00 72 10/26/19 20:00 97.9 77 23 143/71 (95) 98 10/26/19 16:00 Non-Rebreather 12.0 10/26/19 16:00 97.8 22 129/59 (82) 95 10/26/19 15:33 68 Intake and Output 10/26/19 10/27/19 19:00 07:00 Intake Total 1950 ml 1163 ml Output Total 850 ml Balance 1950 ml 313 ml Intake IV Total 1950 ml 1163 ml Output Urine Total 850 ml # Bowel Movements 1 Laboratory Tests 10/27/19 04:25: White Blood Count 15.2H, Red Blood Count 4.55L, Hemoglobin 14.5, Hematocrit 44.1 , Mean Corpuscular Volume 97, Mean Corpuscular Hemoglobin 31.8H, Mean Corpuscular Hemoglobin Concent 32.9, Red Cell Distribution Width 12.8, Platelet Count 226, Mean Platelet Volume 8.9, Neutrophils (%) (Auto) 83.7H, Lymphocytes ( %) (Auto) 11.4L, Monocytes (%) (Auto) 3.6, Eosinophils (%) (Auto) 0.9, Basophils (%) (Auto) 0.4, Sodium Level 150H, Potassium Level 3.5, Chloride Level 117H, Carbon Dioxide Level 23, Anion Gap 10, Blood Urea Nitrogen 26H, Creatinine 0.9, Estimat Glomerular Filtration Rate > 60, Glucose Level 136H, Calcium Level 7.5L, Total Bilirubin 1.0, Aspartate Amino Transf (AST/SGOT) 24, Alanine Aminotransferase (ALT/SGPT) 12, Alkaline Phosphatase 71, Total Protein 6.0L, Albumin 1.9L, Globulin 4.1, Albumin/Globulin Ratio 0.5L Height (Feet): 5 Height (Inches): 1.00 Weight (Pounds): 162 General Appearance: lethargic, confused EENT: PERRL/EOMI, normal ENT inspection Neck: non-tender, normal alignment Cardiovascular: normal peripheral pulses, normal rate, regular rhythm Respiratory/Chest: chest wall non-tender, lungs clear, normal breath sounds Abdomen: normal bowel sounds, non tender, soft Aron Barbosa M.D. Oct 27, 2019 13:38
[2019-10-27] MEDS ORDERED: D5W 250 ML IVPB ONE (13:45)
[2019-10-27] MEDS ORDERED: Azithromycin 500 MG in NS 275 ML IV ONE (14:00)
[2019-10-27 16:00] VITALS: BP 123/62
[2019-10-27] MEDS ORDERED: Tubing IV Secondary IV ONE (17:03)
[2019-10-27] MEDS ORDERED: D5W 275ml ONE (17:03)
[2019-10-27 20:00] VITALS: BP 121/58
--- NOTE | 2019-10-27 20:29 | Cardiology Progress Note ---
Assessment/Plan Status: stable Assessment/Plan ASSESSMENT: 1. COVID-19 pneumonia by history. 2. Bilateral pulmonary infiltrates. 3. Hypoxemia. 4. Hypernatremia. 5. Renal failure. 6. Hypertension. 7. Chronic suprapubic catheter. PLAN: Tachycardia resolved Continue pulmonary toilet Empiric Abx IV fluids Echocardiogram reviewed with normal LV function but low pulmonary pressures and flat IVC suggestive of volume depletion. Subjective Cardiovascular: Reports: no symptoms Respiratory: Reports: no symptoms Gastrointestinal/Abdominal: Reports: no symptoms Genitourinary: Reports: no symptoms Subjective No acute events, tachycardia resolved, remains on 12 liters oxygen, WBC has come down, troponin 0.04 Objective Last 24 Hour Vital Signs Date Time Temp Pulse Resp B/P (MAP) Pulse Ox O2 Delivery O2 Flow Rate FiO2 10/27/19 16:00 96.8 67 20 123/62 (82) 96 10/27/19 16:00 Non-Rebreather 10/27/19 15:16 67 10/27/19 12:01 64 10/27/19 12:00 Non-Rebreather 10/27/19 12:00 96.8 64 20 107/52 (70) 100 10/27/19 08:00 Non-Rebreather 12.0 10/27/19 08:00 94.8 68 28 113/47 (69) 94 10/27/19 07:36 62 10/27/19 04:00 96.8 78 28 115/58 (77) 94 10/27/19 04:00 59 10/27/19 04:00 Non-Rebreather 12.0 10/27/19 00:00 Non-Rebreather 12.0 10/27/19 00:00 64 10/27/19 00:00 97.4 76 21 139/73 (95) 95 General Appearance: no apparent distress EENT: PERRL/EOMI, normal ENT inspection, TMs normal, pharynx normal Neck: normal alignment, normal inspection, no JVD Rhythm: NSR Cardiovascular: normal peripheral pulses, normal rate, regular rhythm Respiratory/Chest: lungs clear, normal breath sounds, no respiratory distress Abdomen: normal bowel sounds, non tender, soft, no organomegaly Extremities: normal range of motion, non-tender, normal inspection 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, no motor/sensory deficits Intake and Output 10/26/19 10/27/19 19:00 07:00 Intake Total 1950 ml 1163 ml Output Total 850 ml Balance 1950 ml 313 ml Intake IV Total 1950 ml 1163 ml Output Urine Total 850 ml # Bowel Movements 1 Laboratory Tests Test 10/27/19 04:25 White Blood Count 15.2 K/UL (4.8-10.8) H Red Blood Count 4.55 M/UL (4.70-6.10) L Hemoglobin 14.5 G/DL (14.2-18.0) Hematocrit 44.1 % (42.0-52.0) Mean Corpuscular Volume 97 FL (80-99) Mean Corpuscular Hemoglobin 31.8 PG (27.0-31.0) H Mean Corpuscular Hemoglobin Concent 32.9 G/DL (32.0-36.0) Red Cell Distribution Width 12.8 % (11.6-14.8) Platelet Count 226 K/UL (150-450) Mean Platelet Volume 8.9 FL (6.5-10.1) Neutrophils (%) (Auto) 83.7 % (45.0-75.0) H Lymphocytes (%) (Auto) 11.4 % (20.0-45.0) L Monocytes (%) (Auto) 3.6 % (1.0-10.0) Eosinophils (%) (Auto) 0.9 % (0.0-3.0) Basophils (%) (Auto) 0.4 % (0.0-2.0) Sodium Level 150 MMOL/L (136-145) H Potassium Level 3.5 MMOL/L (3.5-5.1) Chloride Level 117 MMOL/L (98-107) H Carbon Dioxide Level 23 MMOL/L (21-32) Anion Gap 10 mmol/L (5-15) Blood Urea Nitrogen 26 mg/dL (7-18) H Creatinine 0.9 MG/DL (0.55-1.30) Estimat Glomerular Filtration Rate > 60 mL/min (>60) Glucose Level 136 MG/DL (74-106) H Calcium Level 7.5 MG/DL (8.5-10.1) L Total Bilirubin 1.0 MG/DL (0.2-1.0) Aspartate Amino Transf (AST/SGOT) 24 U/L (15-37) Alanine Aminotransferase (ALT/SGPT) 12 U/L (12-78) Alkaline Phosphatase 71 U/L (46-116) Total Protein 6.0 G/DL (6.4-8.2) L Albumin 1.9 G/DL (3.4-5.0) L Globulin 4.1 g/dL Albumin/Globulin Ratio 0.5 (1.0-2.7) L Microbiology Date/Time Source Procedure Growth Status 10/25/19 14:15 Blood Blood Culture - Preliminary NO GROWTH AFTER 24 HOURS Resulted 10/25/19 14:00 Blood Blood Culture - Preliminary NO GROWTH AFTER 24 HOURS Resulted 10/25/19 17:25 Nasal Nares MRSA Culture - Final NO METHICILLIN RESISTANT STAPH AUREUS... Complete 10/25/19 14:51 Urine,Clean Catch Urine Culture - Preliminary Gram Negative Bacillus 1 Resulted 10/25/19 17:25 Rectum VRE Culture - Final NO VANCOMYCIN RESISTANT ENTEROCOCCUS ... Complete Maycol Schafer MD Oct 27, 2019 20:29
--- NOTE | 2019-10-27 23:15 | Internal Med Progress Note ---
Subjective Date of Service: Oct 27, 2019 Physician Name Edyta Hardy Attending Physician Aron Barbosa M.D. Current Medications Medications (Trade) Dose Ordered Sig/Jesu Route PRN Reason Start Time Stop Time Status Last Admin Dose Admin Albuterol Sulfate (Proventil MDI) 2 puff Q4H PRN INH Shortness of Breath 10/25/19 23:30 01/23/20 23:29 Aspirin (Ecotrin) 81 mg DAILY ORAL 10/26/19 09:00 12/10/19 08:59 10/26/19 08:22 Aztreonam 1 gm/ Dextrose 55 ml @ 110 mls/hr Q8H IVPB 10/27/19 01:00 11/03/19 00:59 10/27/19 17:31 Dextrose/ Electrolytes 1,000 ml @ 100 mls/hr Q10H IV 10/26/19 23:00 11/25/19 22:59 10/27/19 18:28 Gabapentin (Neurontin) 300 mg BID ORAL 10/26/19 09:00 11/25/19 08:59 10/26/19 08:22 Levofloxacin 50 ml @ 50 mls/hr Q24H IVPB 10/28/19 00:00 11/04/19 00:00 Magnesium Hydroxide (Mom) 30 ml DAILYPRN PRN ORAL Constipation 10/25/19 23:30 11/24/19 23:29 Metronidazole 100 ml @ 100 mls/hr Q8HR IVPB 10/27/19 06:00 11/03/19 05:59 10/27/19 21:02 Multi-Ingredient Mouthwash/Gargle (Magic Mouth Wash 60ml) 10 ml BID ORAL 10/26/19 09:00 11/25/19 08:59 10/27/19 17:31 Multivitamins (Multivitamins W/ Minerals 15ml Liquid) 15 ml DAILY ORAL 10/26/19 09:00 11/25/19 08:59 10/26/19 08:22 Nystatin (Nystatin) 1 applic BID TOPIC 10/26/19 09:00 10/28/19 09:00 10/27/19 17:31 Vancomycin HCl (Vanco pharmacy to dose) 1 ea DAILY PRN MISC Per rx protocol 10/26/19 22:45 11/25/19 22:44 Vancomycin HCl 1 gm/Dextrose 275 ml @ 183.708 mls/hr Q24H IVPB 10/28/19 02:00 11/02/19 01:59 Allergies: Coded Allergies: ACETAMINOPHEN (Verified Allergy, Unknown, 10/25/19) AMOXICILLIN (Verified Allergy, Unknown, 10/25/19) CEPHALEXIN (Verified Allergy, Unknown, 10/25/19) CODEINE (Verified Allergy, Unknown, 10/25/19) HYDROCODONE (Verified Allergy, Unknown, 10/25/19) SULFAMETHOXAZOLE (Verified Allergy, Unknown, 10/25/19) TETRACYCLINES (Verified Allergy, Unknown, 10/25/19) TRIMETHOPRIM (Verified Allergy, Unknown, 10/25/19) ROS Limited/Unobtainable: Yes All Systems: reviewed and negative except above Objective Last Vital Signs Date Time Temp Pulse Resp B/P (MAP) Pulse Ox O2 Delivery O2 Flow Rate FiO2 10/27/19 21:29 70 10/27/19 20:00 96.9 20 121/58 (79) 96 10/27/19 20:00 Non-Rebreather 10/27/19 08:00 12.0 10/26/19 08:05 50 General Appearance: mild distress, lethargic Neck: supple Cardiovascular: normal rate, regular rhythm, systolic murmur Respiratory/Chest: rhonchi - bilaterally Abdomen: normal bowel sounds, non tender, soft, no mass Genitourinary/Rectal: normal genital exam Extremities: non-tender, other - +wound Neurologic: motor weakness, sensory deficit, disoriented Skin: warm/dry Laboratory Tests Test 10/27/19 04:25 White Blood Count 15.2 K/UL (4.8-10.8) H Red Blood Count 4.55 M/UL (4.70-6.10) L Hemoglobin 14.5 G/DL (14.2-18.0) Hematocrit 44.1 % (42.0-52.0) Mean Corpuscular Volume 97 FL (80-99) Mean Corpuscular Hemoglobin 31.8 PG (27.0-31.0) H Mean Corpuscular Hemoglobin Concent 32.9 G/DL (32.0-36.0) Red Cell Distribution Width 12.8 % (11.6-14.8) Platelet Count 226 K/UL (150-450) Mean Platelet Volume 8.9 FL (6.5-10.1) Neutrophils (%) (Auto) 83.7 % (45.0-75.0) H Lymphocytes (%) (Auto) 11.4 % (20.0-45.0) L Monocytes (%) (Auto) 3.6 % (1.0-10.0) Eosinophils (%) (Auto) 0.9 % (0.0-3.0) Basophils (%) (Auto) 0.4 % (0.0-2.0) Sodium Level 150 MMOL/L (136-145) H Potassium Level 3.5 MMOL/L (3.5-5.1) Chloride Level 117 MMOL/L (98-107) H Carbon Dioxide Level 23 MMOL/L (21-32) Anion Gap 10 mmol/L (5-15) Blood Urea Nitrogen 26 mg/dL (7-18) H Creatinine 0.9 MG/DL (0.55-1.30) Estimat Glomerular Filtration Rate > 60 mL/min (>60) Glucose Level 136 MG/DL (74-106) H Calcium Level 7.5 MG/DL (8.5-10.1) L Total Bilirubin 1.0 MG/DL (0.2-1.0) Aspartate Amino Transf (AST/SGOT) 24 U/L (15-37) Alanine Aminotransferase (ALT/SGPT) 12 U/L (12-78) Alkaline Phosphatase 71 U/L (46-116) Total Protein 6.0 G/DL (6.4-8.2) L Albumin 1.9 G/DL (3.4-5.0) L Globulin 4.1 g/dL Albumin/Globulin Ratio 0.5 (1.0-2.7) L Microbiology Date/Time Source Procedure Growth Status 10/25/19 14:15 Blood Blood Culture - Preliminary NO GROWTH AFTER 24 HOURS Resulted 10/25/19 14:00 Blood Blood Culture - Preliminary NO GROWTH AFTER 24 HOURS Resulted 10/25/19 17:25 Nasal Nares MRSA Culture - Final NO METHICILLIN RESISTANT STAPH AUREUS... Complete 10/25/19 14:51 Urine,Clean Catch Urine Culture - Preliminary Gram Negative Bacillus 1 Resulted 10/25/19 17:25 Rectum VRE Culture - Final NO VANCOMYCIN RESISTANT ENTEROCOCCUS ... Complete Intake and Output 10/26/19 10/27/19 19:00 07:00 Intake Total 1950 ml 1163 ml Output Total 850 ml Balance 1950 ml 313 ml Intake IV Total 1950 ml 1163 ml Output Urine Total 850 ml # Bowel Movements 1 Assessment/Plan Status: stable, progressing Assessment/Plan IMPRESSION: sepsis on admission COVID 19 pnemonia acute respiratory failure hypoxemia acute toxic and metabolic encephalopathy Hypernatremia dehydration acute kidney injury leuokcytosis hx CVA with hemiplegia suprapubic catheter status senile debility ankle wound PLAN: admit to stepdown unit IVF IV abx per ID pulm inhalor isolation per COVID 19 policy f/u cultures DVT/GI prophylaxis electrolyte replete as needed NPO until CONCRETER wound care oxygen DNAR code status EDYTA HARDY MD Internal Medicine [phone] over 40 minutes spent today note time may not be the actual encounter time. over 50% allocated in counseling, coordination of care, d/w staff and family with medical update Edyta Hardy MD Oct 27, 2019 23:15
[2019-10-28] VITALS: BP 121/60
[2019-10-28] MEDS ORDERED: Levofloxacin 250mg/D5W 50ml IVPB SCH
[2019-10-28] MEDS: Aztreonam Inj 1 GM in D5W 55 ML IVPB SCH ×3 (00:11→17:20)
--- NOTE | 2019-10-28 00:30 | Consultation ---
DATE OF CONSULTATION: 10/26/2019 INFECTIOUS DISEASES CONSULTATION CONSULTING PHYSICIAN: Julio Sarabia MD. ATTENDING PHYSICIAN: Aron Barbosa MD. REFERRING PHYSICIAN: Aron Barbosa MD. REASON FOR CONSULTATION: COVID-19 virus infection, pneumonia, UTI, sepsis, leukocytosis, fevers. REASON FOR ADMISSION: Low saturations, COVID-19 virus infection, and pneumonia. The patient also had sepsis, fevers, and leukocytosis for admission. HISTORY OF PRESENT ILLNESS: This is an 89-year-old male who presents to [facility] with hypoxia and low saturation of 86%. Chest x-ray showed pneumonia. Workup shows that he has UTI, he has possible bacterial pneumonia, sepsis, leukocytosis, and fevers. Of note, he is confirmed for COVID-19 virus infection, which certainly also could be the cause of his pneumonia, fevers, sepsis, and leukocytosis also. Infectious Diseases consultation was requested. The patient has multiple drug allergies. I placed the patient on aztreonam, vancomycin, Flagyl, and Levaquin. Cultures are pending. MAR was noted. Orders were noted. Notes were reviewed. Again, COVID-19 infection was confirmed at an outside facility testing. The patient cannot add to this history. REVIEW OF SYSTEMS: CONSTITUTIONAL: He came in with low-grade fever of 99.8. He has generalized fatigue and weakness. No chills or night sweats mentioned. HEAD AND NECK: No head pain or neck pain. CARDIAC: No pressors or chest pain. No vent. GASTROINTESTINAL: No nausea, vomiting, or diarrhea. PULMONARY: He came in with cough, congestion, and hypoxia. No significant secretions noted. No hemoptysis. SKIN: No rash, seizure activity, or itching. He has multiple wounds. EXTREMITIES: No pain. NEUROLOGIC: No seizures. Generalized fatigue and weakness. GENITOURINARY: No CVA tenderness. No urinary symptoms mentioned, but limited review of systems. PAST MEDICAL HISTORY: The patient's past medical history includes history of following. The patient has a past medical history of chronic suprapubic catheter. He has a history of weakness. He has history of right hemiparesis. He has other past medical history of dementia, history of hypertension, and hyperlipidemia. ALLERGIES: Include acetaminophen, amoxicillin, cephalexin, codeine, hydrocodone, sulfamethoxazole, tetracycline, and trimethoprim. SOCIAL HISTORY: Negative for smoking, alcohol, or drug abuse. FAMILY HISTORY: Noncontributory. Negative for exposure to tuberculosis or cancer. MEDICATIONS: Upon reviewing the MAR, he is on following medications. He is on vancomycin, Levaquin, aztreonam, and Flagyl, those are antibiotics and IV fluids. He is on Neurontin, Ecotrin, multivitamins, nystatin powder or cream, albuterol treatments, and magnesium hydroxide. Outside medications noted and reconciliated. PHYSICAL EXAMINATION: VITAL SIGNS: Temperature 97.8, pulse rate 68, respiratory rate 22, saturation 95% on non-rebreather, and blood pressure 129/59. GENERAL: Short of breath. Some shortness of breath noted on non-rebreather. He was on 15 L non-rebreather previously. Weak and responsive. HEAD AND NECK: Oral exam, no thrush. Eye exam, no icterus. Normocephalic. Neck is supple. No JVD. No icterus or thrush. HEART: Regular. No gallop or murmur. No friction rub. ABDOMEN: Soft. Positive bowel sounds. Nontender. LUNGS: Bilateral rhonchi and rales. SKIN: No rash. MUSCULOSKELETAL: No effusion. Legs are without cellulitis. PERIPHERAL VASCULAR: No cyanosis or gangrene. GENITOURINARY: He has suprapubic catheter. Urine is slightly cloudy. LINE SITES: Without phlebitis. NEUROLOGIC: Generalized weakness and responsive. LABORATORY DATA: When I saw him, the patient's white count is 16.1 and hemoglobin 15.8. White count previously was 22.2. Creatinine 1.2. Urinalysis, he had positive nitrite, 3+ leukocyte esterase. Cultures are pending. Outside COVID testing was positive per the records. Blood cultures are negative to date. Urine culture pending. Imaging studies showed the following. The patient on chest x-ray has bilateral right greater than left infiltrates. It was noted and reviewed. ASSESSMENT AND PLAN: 1. The patient has COVID-19 infection with pneumonia with confirmed testing at an outside facility with PCR. The patient has possible bacterial pneumonia including aspiration or healthcare-acquired pneumonia versus community-acquired pneumonia. The patient has sepsis, leukocytosis, and SIRS criteria. The patient has what looks like urinary tract infection. At this time, because of the multiple allergies including amoxicillin and cephalexin, I put the patient on vancomycin, aztreonam, and Flagyl for polymicrobial coverage and also Levaquin for atypical coverage. Continue vancomycin, aztreonam, Flagyl, and Levaquin for sepsis and pneumonia, rule out bacterial pneumonia. Monitor leukocytosis, fevers, and sepsis status. Continue COVID isolation. Currently not a candidate for remdesivir because , we will defer to Pulmonary Medicine. Continue antibiotics. Check followup chest x-ray. Continue isolation for COVID-19 virus infection. 2. The patient has history of suprapubic catheter. 3. Hypertension. 4. Blood pressure treatment per primary care team. 5. Wound care protocol. Wounds were reviewed, not acutely infected. 6. Hemiparesis. 7. Hyperlipidemia. 8. Dementia. 9. Hypoxia and shortness of breath. 10. Continue treatment per primary consultants including hypertension treatment. 11. Allergies to acetaminophen, amoxicillin, cephalexin, codeine, hydrocodone, sulfamethoxazole, tetracycline, and trimethoprim. 12. Social history negative. 13. Family history noncontributory. 14. MAR was noted. 15. Case was discussed with RN. 16. Skin care protocol. 17. Orders were noted. Julio Sarabia M.D. DR: Alec JOB#: [id number] CC:
[2019-10-28] MEDS: Vancomycin 1gm/D5W 275ml IVPB SCH ×2 (02:22)
[2019-10-28] MEDS: D5 1/2NS w/KCL 10meq 1,000 ML IV SCH ×2 (02:22→13:36)
[2019-10-28 04:00] VITALS: BP 121/57
[2019-10-28 05:30] LABS: BASOPHILS % (AUTO) 0.3 % (0.0-2.0); EOSINOPHILS % (AUTO) 1.4 % (0.0-3.0); HEMOGLOBIN 13.3 G/DL (14.2-18.0); LYMPHOCYTES % (AUTO) 13.5 % (20.0-45.0); MEAN CORPUSCULAR VOLUME 96 FL (80-99); MONOCYTES % (AUTO) 4.7 % (1.0-10.0); PLATELET COUNT 202 K/UL (150-450); RED BLOOD COUNT 4.17 M/UL (4.70-6.10); RED CELL DISTRIBUTION WIDTH 12.6 % (11.6-14.8); WHITE BLOOD COUNT 9.7 K/UL (4.8-10.8)
[2019-10-28 05:58] LABS: ALANINE AMINOTRANSFERASE 10 U/L (12-78); ALBUMIN 1.6 G/DL (3.4-5.0); ALBUMIN/GLOBULIN RATIO 0.5 (1.0-2.7); ALKALINE PHOSPHATASE 71 U/L (46-116); ANION GAP 11 mmol/L (5-15); ASPARTATE AMINO TRANSFERASE 19 U/L (15-37); BLOOD UREA NITROGEN 18 mg/dL (7-18); CARBON DIOXIDE 21 MMOL/L (21-32); CHLORIDE 111 MMOL/L (98-107); POTASSIUM 2.9 MMOL/L (3.5-5.1); SODIUM 143 MMOL/L (136-145)
[2019-10-28 08:00] VITALS: BP 115/75
[2019-10-28] MEDS: Aspirin EC 81mg tab ORAL SCH (09:00)
[2019-10-28] MEDS: Magic Mouth Wash 60ml (Benadryl/Mylanta/Visc Lido) ORAL SCH ×2 (09:00→17:14)
[2019-10-28] MEDS: Multivitamins W/Minerals 15 ML UDC ORAL SCH (09:00)
--- NOTE | 2019-10-28 10:21 | Nephrology Progress Note ---
Assessment/Plan Plan #COVID pneumonia #TELMA due to dehydration #sepsis #Hypernatremia due to dehydration #hypoxemic resp failure #Volume depletion - IVF - abx - pulm, ID and cards eval - 2d echo - bipap prn - follow cx - avoid nephrotoxins - replace free water - monitor mag, phos and bmp daily - DNR/DNI time spent 70 min- greater than 50% on care coordination and counseling Subjective ROS Limited/Unobtainable: No Constitutional: Reports: malaise, weakness HEENT: Denies: no symptoms, eye pain, blurred vision, tearing, double vision, ear pain, ear discharge, nose pain, nose congestion, throat pain, throat swelling, mouth pain, mouth swelling, other Genitourinary: Denies: no symptoms, burning, discharge, frequency, flank pain, hematuria, incontinence, pain, urgency, other Neurologic/Psychiatric: Denies: no symptoms, anxiety, depressed, emotional problems, headache, numbness, paresthesia, pre-existing deficit, seizure, tingling, tremors, weakness, other Subjective remains on non- rebreather mask WBC downtrending Sodium and cr improving Objective Objective Last 24 Hour Vital Signs Date Time Temp Pulse Resp B/P (MAP) Pulse Ox O2 Delivery O2 Flow Rate FiO2 10/28/19 08:03 Non-Rebreather 15.0 10/28/19 08:00 97.1 84 22 115/75 (88) 100 10/28/19 08:00 82 10/28/19 04:00 96.3 72 21 121/57 (78) 100 10/28/19 04:00 Non-Rebreather 15.0 10/28/19 03:27 69 10/28/19 00:00 Non-Rebreather 15.0 10/28/19 00:00 96.8 81 19 121/60 (80) 100 10/27/19 23:35 74 10/27/19 21:29 70 10/27/19 20:00 96.9 67 20 121/58 (79) 96 10/27/19 20:00 Non-Rebreather 15.0 10/27/19 16:00 96.8 67 20 123/62 (82) 96 10/27/19 16:00 Non-Rebreather 10/27/19 15:16 67 10/27/19 12:01 64 10/27/19 12:00 Non-Rebreather 10/27/19 12:00 96.8 64 20 107/52 (70) 100 Intake and Output 10/27/19 10/28/19 19:00 07:00 Intake Total 1130 ml 1905.416 ml Output Total 600 ml 1000 ml Balance 530 ml 905.416 ml Intake IV Total 1130 ml 1905.416 ml Output Urine Total 600 ml 1000 ml # Bowel Movements 1 Laboratory Tests 10/28/19 03:45: White Blood Count 9.7, Red Blood Count 4.17L, Hemoglobin 13.3L, Hematocrit 40.0L , Mean Corpuscular Volume 96, Mean Corpuscular Hemoglobin 31.9H, Mean Corpuscular Hemoglobin Concent 33.3, Red Cell Distribution Width 12.6, Platelet Count 202, Mean Platelet Volume 9.7, Neutrophils (%) (Auto) 80.0H, Lymphocytes ( %) (Auto) 13.5L, Monocytes (%) (Auto) 4.7, Eosinophils (%) (Auto) 1.4, Basophils (%) (Auto) 0.3, Sodium Level 143, Potassium Level 2.9L, Chloride Level 111H, Carbon Dioxide Level 21, Anion Gap 11, Blood Urea Nitrogen 18, Creatinine 1.0, Estimat Glomerular Filtration Rate > 60, Glucose Level 212H, Calcium Level 7.0L, Total Bilirubin 1.0, Aspartate Amino Transf (AST/SGOT) 19, Alanine Aminotransferase (ALT/SGPT) 10L, Alkaline Phosphatase 71, Total Protein 5.0L, Albumin 1.6L, Globulin 3.4, Albumin/Globulin Ratio 0.5L Height (Feet): 5 Height (Inches): 1.00 Weight (Pounds): 162 Aron Barbosa M.D. Oct 28, 2019 10:21
--- NOTE | 2019-10-28 10:59 | Pulmonology Progress Note ---
Subjective ROS Limited/Unobtainable: No Interval Events: None new reported Constitutional: Reports: no symptoms HEENT: Repors: no symptoms Respiratory: Reports: no symptoms Cardiovascular: Reports: no symptoms Gastrointestinal/Abdominal: Reports: no symptoms Genitourinary: Reports: no symptoms Neurologic: Reports: no symptoms Allergies: Coded Allergies: ACETAMINOPHEN (Verified Allergy, Unknown, 10/25/19) AMOXICILLIN (Verified Allergy, Unknown, 10/25/19) CEPHALEXIN (Verified Allergy, Unknown, 10/25/19) CODEINE (Verified Allergy, Unknown, 10/25/19) HYDROCODONE (Verified Allergy, Unknown, 10/25/19) SULFAMETHOXAZOLE (Verified Allergy, Unknown, 10/25/19) TETRACYCLINES (Verified Allergy, Unknown, 10/25/19) TRIMETHOPRIM (Verified Allergy, Unknown, 10/25/19) All Systems: reviewed and negative except above Objective Last 24 Hour Vital Signs Date Time Temp Pulse Resp B/P (MAP) Pulse Ox O2 Delivery O2 Flow Rate FiO2 10/28/19 08:03 Non-Rebreather 15.0 10/28/19 08:00 97.1 84 22 115/75 (88) 100 10/28/19 08:00 82 10/28/19 04:00 96.3 72 21 121/57 (78) 100 10/28/19 04:00 Non-Rebreather 15.0 10/28/19 03:27 69 10/28/19 00:00 Non-Rebreather 15.0 10/28/19 00:00 96.8 81 19 121/60 (80) 100 10/27/19 23:35 74 10/27/19 21:29 70 10/27/19 20:00 96.9 67 20 121/58 (79) 96 10/27/19 20:00 Non-Rebreather 15.0 10/27/19 16:00 96.8 67 20 123/62 (82) 96 10/27/19 16:00 Non-Rebreather 10/27/19 15:16 67 10/27/19 12:01 64 10/27/19 12:00 Non-Rebreather 10/27/19 12:00 96.8 64 20 107/52 (70) 100 Intake and Output 10/27/19 10/28/19 19:00 07:00 Intake Total 1130 ml 1905.416 ml Output Total 600 ml 1000 ml Balance 530 ml 905.416 ml Intake IV Total 1130 ml 1905.416 ml Output Urine Total 600 ml 1000 ml # Bowel Movements 1 General Appearance: no acute distress HEENT: normocephalic Respiratory: chest wall non-tender, lungs clear Cardiovascular: normal peripheral pulses, normal rate Abdomen: normal bowel sounds Microbiology Date/Time Source Procedure Growth Status 10/25/19 14:15 Blood Blood Culture - Preliminary NO GROWTH AFTER 48 HOURS Resulted 10/25/19 14:00 Blood Blood Culture - Preliminary NO GROWTH AFTER 48 HOURS Resulted 10/25/19 21:00 Nasopharynx Coronavirus COVID-19 PCR (JIM) - Final Complete 10/25/19 17:25 Nasal Nares MRSA Culture - Final NO METHICILLIN RESISTANT STAPH AUREUS... Complete 10/25/19 14:51 Urine,Clean Catch Urine Culture - Final Providencia Rettgeri Mixed Gram Positive Organism Complete 10/25/19 17:25 Rectum VRE Culture - Final NO VANCOMYCIN RESISTANT ENTEROCOCCUS ... Complete 10/25/19 17:25 Rectum - Final NO CARBAPENEM-RESISTANT ENTEROBACTERI... Complete Laboratory Tests 10/28/19 03:45: White Blood Count 9.7, Red Blood Count 4.17L, Hemoglobin 13.3L, Hematocrit 40.0L , Mean Corpuscular Volume 96, Mean Corpuscular Hemoglobin 31.9H, Mean Corpuscular Hemoglobin Concent 33.3, Red Cell Distribution Width 12.6, Platelet Count 202, Mean Platelet Volume 9.7, Neutrophils (%) (Auto) 80.0H, Lymphocytes ( %) (Auto) 13.5L, Monocytes (%) (Auto) 4.7, Eosinophils (%) (Auto) 1.4, Basophils (%) (Auto) 0.3, Sodium Level 143, Potassium Level 2.9L, Chloride Level 111H, Carbon Dioxide Level 21, Anion Gap 11, Blood Urea Nitrogen 18, Creatinine 1.0, Estimat Glomerular Filtration Rate > 60, Glucose Level 212H, Calcium Level 7.0L, Total Bilirubin 1.0, Aspartate Amino Transf (AST/SGOT) 19, Alanine Aminotransferase (ALT/SGPT) 10L, Alkaline Phosphatase 71, Total Protein 5.0L, Albumin 1.6L, Globulin 3.4, Albumin/Globulin Ratio 0.5L Current Medications Medications (Trade) Dose Ordered Sig/Jesu Route PRN Reason Start Time Stop Time Status Last Admin Dose Admin Albuterol Sulfate (Proventil MDI) 2 puff Q4H PRN INH Shortness of Breath 10/25/19 23:30 01/23/20 23:29 Aspirin (Ecotrin) 81 mg DAILY ORAL 10/26/19 09:00 12/10/19 08:59 10/26/19 08:22 Aztreonam 1 gm/ Dextrose 55 ml @ 110 mls/hr Q8H IVPB 10/27/19 01:00 11/03/19 00:59 10/28/19 09:37 Dextrose/ Electrolytes 1,000 ml @ 100 mls/hr Q10H IV 10/26/19 23:00 11/25/19 22:59 10/28/19 02:22 Gabapentin (Neurontin) 300 mg BID ORAL 10/26/19 09:00 11/25/19 08:59 10/26/19 08:22 Levofloxacin 50 ml @ 50 mls/hr Q24H IVPB 10/28/19 00:00 11/04/19 00:00 10/27/19 23:23 Magnesium Hydroxide (Mom) 30 ml DAILYPRN PRN ORAL Constipation 10/25/19 23:30 11/24/19 23:29 Metronidazole 100 ml @ 100 mls/hr Q8HR IVPB 10/27/19 06:00 11/03/19 05:59 10/28/19 05:10 Multi-Ingredient Mouthwash/Gargle (Magic Mouth Wash 60ml) 10 ml BID ORAL 10/26/19 09:00 11/25/19 08:59 10/27/19 17:31 Multivitamins (Multivitamins W/ Minerals 15ml Liquid) 15 ml DAILY ORAL 10/26/19 09:00 11/25/19 08:59 10/26/19 08:22 Vancomycin HCl (Vanco pharmacy to dose) 1 ea DAILY PRN MISC Per rx protocol 10/26/19 22:45 11/25/19 22:44 Vancomycin HCl 1 gm/Dextrose 275 ml @ 183.708 mls/hr Q24H IVPB 10/28/19 02:00 11/02/19 01:59 10/28/19 02:22 Assessment/Plan Assessment/Plan IMPRESSION: 1. COVID-19 pneumonia by history. Current pcr negative 2. Bilateral pulmonary infiltrates. 3. Hypoxemia. 4. Hypernatremia. 5. Renal failure. 6. Hypertension. 7. Chronic suprapubic catheter. 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 Needs NG/enetral feedings Chavo Goldstein Omar Syed MD Oct 28, 2019 10:59
--- NOTE | 2019-10-28 10:59 | Diagnostic Imaging Report ---
Indication: Dyspnea Technique: One view of the chest Comparison: 10/26/2019 Findings: Patchy consolidation in the right midlung appears increasingly dense. Bilateral right greater left infiltrates are otherwise stable. Heart size is normal. The pleural spaces are clear. Impression: Increasingly dense consolidation in the right midlung. Otherwise little oil changer 2 days
[2019-10-28 12:00] VITALS: BP 101/53
--- NOTE | 2019-10-28 13:54 | Internal Med Progress Note ---
Subjective Date of Service: Oct 28, 2019 Physician Name Ad Hardy Attending Physician Aron Barbosa M.D. Current Medications Medications (Trade) Dose Ordered Sig/Jesu Route PRN Reason Start Time Stop Time Status Last Admin Dose Admin Albuterol Sulfate (Proventil MDI) 2 puff Q4H PRN INH Shortness of Breath 10/25/19 23:30 01/23/20 23:29 Aspirin (Ecotrin) 81 mg DAILY ORAL 10/26/19 09:00 12/10/19 08:59 10/26/19 08:22 Aztreonam 1 gm/ Dextrose 55 ml @ 110 mls/hr Q8H IVPB 10/27/19 01:00 11/03/19 00:59 10/28/19 09:37 Dextrose/ Electrolytes 1,000 ml @ 100 mls/hr Q10H IV 10/26/19 23:00 11/25/19 22:59 10/28/19 13:36 Gabapentin (Neurontin) 300 mg BID ORAL 10/26/19 09:00 11/25/19 08:59 10/26/19 08:22 Levofloxacin 50 ml @ 50 mls/hr Q24H IVPB 10/28/19 00:00 11/04/19 00:00 10/27/19 23:23 Magnesium Hydroxide (Mom) 30 ml DAILYPRN PRN ORAL Constipation 10/25/19 23:30 11/24/19 23:29 Metronidazole 100 ml @ 100 mls/hr Q8HR IVPB 10/27/19 06:00 11/03/19 05:59 10/28/19 13:35 Multi-Ingredient Mouthwash/Gargle (Magic Mouth Wash 60ml) 10 ml BID ORAL 10/26/19 09:00 11/25/19 08:59 10/27/19 17:31 Multivitamins (Multivitamins W/ Minerals 15ml Liquid) 15 ml DAILY ORAL 10/26/19 09:00 11/25/19 08:59 10/26/19 08:22 Vancomycin HCl (Vanco pharmacy to dose) 1 ea DAILY PRN MISC Per rx protocol 10/26/19 22:45 11/25/19 22:44 Vancomycin HCl 1 gm/Dextrose 275 ml @ 183.708 mls/hr Q24H IVPB 10/28/19 02:00 11/02/19 01:59 10/28/19 02:22 Allergies: Coded Allergies: ACETAMINOPHEN (Verified Allergy, Unknown, 10/25/19) AMOXICILLIN (Verified Allergy, Unknown, 10/25/19) CEPHALEXIN (Verified Allergy, Unknown, 10/25/19) CODEINE (Verified Allergy, Unknown, 10/25/19) HYDROCODONE (Verified Allergy, Unknown, 10/25/19) SULFAMETHOXAZOLE (Verified Allergy, Unknown, 10/25/19) TETRACYCLINES (Verified Allergy, Unknown, 10/25/19) TRIMETHOPRIM (Verified Allergy, Unknown, 10/25/19) ROS Limited/Unobtainable: Yes Constitutional: Reports: weakness Respiratory: Reports: shortness of breath Gastrointestinal/Abdominal: Reports: no symptoms Genitourinary: Reports: no symptoms Neurologic/Psychiatric: Reports: paresthesia, pre-existing deficit All Systems: reviewed and negative except above Subjective Na , wbc both down trending Objective Last Vital Signs Date Time Temp Pulse Resp B/P (MAP) Pulse Ox O2 Delivery O2 Flow Rate FiO2 10/28/19 12:01 Non-Rebreather 15.0 10/28/19 12:00 96.8 98 27 101/53 (69) 94 10/26/19 08:05 50 General Appearance: mild distress Cardiovascular: normal rate, regular rhythm, systolic murmur Respiratory/Chest: rhonchi - bilaterally Abdomen: normal bowel sounds, non tender, soft, no mass Genitourinary/Rectal: normal genital exam Edema: mild edema Neurologic: motor weakness, sensory deficit Laboratory Tests Test 10/28/19 03:45 White Blood Count 9.7 K/UL (4.8-10.8) Red Blood Count 4.17 M/UL (4.70-6.10) L Hemoglobin 13.3 G/DL (14.2-18.0) L Hematocrit 40.0 % (42.0-52.0) L Mean Corpuscular Volume 96 FL (80-99) Mean Corpuscular Hemoglobin 31.9 PG (27.0-31.0) H Mean Corpuscular Hemoglobin Concent 33.3 G/DL (32.0-36.0) Red Cell Distribution Width 12.6 % (11.6-14.8) Platelet Count 202 K/UL (150-450) Mean Platelet Volume 9.7 FL (6.5-10.1) Neutrophils (%) (Auto) 80.0 % (45.0-75.0) H Lymphocytes (%) (Auto) 13.5 % (20.0-45.0) L Monocytes (%) (Auto) 4.7 % (1.0-10.0) Eosinophils (%) (Auto) 1.4 % (0.0-3.0) Basophils (%) (Auto) 0.3 % (0.0-2.0) Sodium Level 143 MMOL/L (136-145) Potassium Level 2.9 MMOL/L (3.5-5.1) L Chloride Level 111 MMOL/L (98-107) H Carbon Dioxide Level 21 MMOL/L (21-32) Anion Gap 11 mmol/L (5-15) Blood Urea Nitrogen 18 mg/dL (7-18) Creatinine 1.0 MG/DL (0.55-1.30) Estimat Glomerular Filtration Rate > 60 mL/min (>60) Glucose Level 212 MG/DL (74-106) H Calcium Level 7.0 MG/DL (8.5-10.1) L Total Bilirubin 1.0 MG/DL (0.2-1.0) Aspartate Amino Transf (AST/SGOT) 19 U/L (15-37) Alanine Aminotransferase (ALT/SGPT) 10 U/L (12-78) L Alkaline Phosphatase 71 U/L (46-116) Total Protein 5.0 G/DL (6.4-8.2) L Albumin 1.6 G/DL (3.4-5.0) L Globulin 3.4 g/dL Albumin/Globulin Ratio 0.5 (1.0-2.7) L Microbiology Date/Time Source Procedure Growth Status 10/25/19 14:15 Blood Blood Culture - Preliminary NO GROWTH AFTER 48 HOURS Resulted 10/25/19 14:00 Blood Blood Culture - Preliminary NO GROWTH AFTER 48 HOURS Resulted 10/25/19 21:00 Nasopharynx Coronavirus COVID-19 PCR (JIM) - Final Complete 10/25/19 17:25 Nasal Nares MRSA Culture - Final NO METHICILLIN RESISTANT STAPH AUREUS... Complete 10/25/19 14:51 Urine,Clean Catch Urine Culture - Final Providencia Rettgeri Mixed Gram Positive Organism Complete 10/25/19 17:25 Rectum VRE Culture - Final NO VANCOMYCIN RESISTANT ENTEROCOCCUS ... Complete 10/25/19 17:25 Rectum - Final NO CARBAPENEM-RESISTANT ENTEROBACTERI... 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 over 50% allocated in counseling, coordination of care, d/w staff and family with medical update Ad Hardy MD Oct 28, 2019 13:54
--- NOTE | 2019-10-28 13:59 | Surgery Progress Note ---
Surgery Progress Note Subjective Additional Comments Leukocytosis resolved. Exam improved. Stable. No acute events otherwise. Labs noted. Objective Last 24 Hour Vital Signs Date Time Temp Pulse Resp B/P (MAP) Pulse Ox O2 Delivery O2 Flow Rate FiO2 10/28/19 12:01 Non-Rebreather 15.0 10/28/19 12:00 96.8 98 27 101/53 (69) 94 10/28/19 12:00 92 10/28/19 08:03 Non-Rebreather 15.0 10/28/19 08:00 97.1 84 22 115/75 (88) 100 10/28/19 08:00 82 10/28/19 04:00 96.3 72 21 121/57 (78) 100 10/28/19 04:00 Non-Rebreather 15.0 10/28/19 03:27 69 10/28/19 00:00 Non-Rebreather 15.0 10/28/19 00:00 96.8 81 19 121/60 (80) 100 10/27/19 23:35 74 10/27/19 21:29 70 10/27/19 20:00 96.9 67 20 121/58 (79) 96 10/27/19 20:00 Non-Rebreather 15.0 10/27/19 16:00 96.8 67 20 123/62 (82) 96 10/27/19 16:00 Non-Rebreather 10/27/19 15:16 67 I&O Intake and Output 10/27/19 10/28/19 19:00 07:00 Intake Total 1130 ml 1905.416 ml Output Total 600 ml 1000 ml Balance 530 ml 905.416 ml Intake IV Total 1130 ml 1905.416 ml Output Urine Total 600 ml 1000 ml # Bowel Movements 1 Dressing: saturated Wound: clean Cardiovascular: RSR Respiratory: clear, decreased breath sounds Abdomen: soft, non-tender, present bowel sounds Extremities: no edema, no tenderness, no cyanosis Laboratory Tests Test 10/28/19 03:45 White Blood Count 9.7 K/UL (4.8-10.8) Red Blood Count 4.17 M/UL (4.70-6.10) L Hemoglobin 13.3 G/DL (14.2-18.0) L Hematocrit 40.0 % (42.0-52.0) L Mean Corpuscular Volume 96 FL (80-99) Mean Corpuscular Hemoglobin 31.9 PG (27.0-31.0) H Mean Corpuscular Hemoglobin Concent 33.3 G/DL (32.0-36.0) Red Cell Distribution Width 12.6 % (11.6-14.8) Platelet Count 202 K/UL (150-450) Mean Platelet Volume 9.7 FL (6.5-10.1) Neutrophils (%) (Auto) 80.0 % (45.0-75.0) H Lymphocytes (%) (Auto) 13.5 % (20.0-45.0) L Monocytes (%) (Auto) 4.7 % (1.0-10.0) Eosinophils (%) (Auto) 1.4 % (0.0-3.0) Basophils (%) (Auto) 0.3 % (0.0-2.0) Sodium Level 143 MMOL/L (136-145) Potassium Level 2.9 MMOL/L (3.5-5.1) L Chloride Level 111 MMOL/L (98-107) H Carbon Dioxide Level 21 MMOL/L (21-32) Anion Gap 11 mmol/L (5-15) Blood Urea Nitrogen 18 mg/dL (7-18) Creatinine 1.0 MG/DL (0.55-1.30) Estimat Glomerular Filtration Rate > 60 mL/min (>60) Glucose Level 212 MG/DL (74-106) H Calcium Level 7.0 MG/DL (8.5-10.1) L Total Bilirubin 1.0 MG/DL (0.2-1.0) Aspartate Amino Transf (AST/SGOT) 19 U/L (15-37) Alanine Aminotransferase (ALT/SGPT) 10 U/L (12-78) L Alkaline Phosphatase 71 U/L (46-116) Total Protein 5.0 G/DL (6.4-8.2) L Albumin 1.6 G/DL (3.4-5.0) L Globulin 3.4 g/dL Albumin/Globulin Ratio 0.5 (1.0-2.7) L Plan Problems: (1) Renal failure (2) Hypoxia (3) Sepsis Assessment & Plan: 89 year old male with leukocytosis, lactic acidosis, abnormal labs. currently in monitoring unit on face mask respiratory support Hx COVID + UTI Pt presented on admission with multiple Pressure injuries. Pt currently using Venti-mask. Non-Blanching erythema noted to bridge of nose and both cheeks consistent with mask. Cavilon Skin Barrier applied to affected areas and covered with Foam tape. Non-Blanching erythema noted to clefts of both ears. Elastic Band of oxygen tubing padded. Non-Blanching erythema without induration noted to sacrum,R and L Gluteus. Non-Blanching erythema noted to R trochanter(L)3cm x (W)6.3cm. DTPI noted to L Heel. Base of heel is maroon and fluctuant (L)4.3cm x (W)5.5cm. Periwound is boggy but easily blanchable. R heel and lateral R foot boggy with non-blanching erythema. Resolving Pressure injury Lateral R malleolus. Base of wound is dry, black with pink epithelial at center of wound.(L)2.5cm x (W)2.7cm. Apply Moisture Barrier Paste to Sacrum. Cover with Optifoam drsg. Change every 3 days and prn. Apply Cavilon Skin Barrier to R and L trochanter. Cover each site with Optifoam drsg. Change every 7 days and PRN. Apply Cavilon Skin Barrier to both Earlobes TWICE daily.Pad elastic band of oxygen mask. Keep band loose around ears. Apply Cavilon Skin Barrier to R and L cheeks and Bridge of Nose. Apply Foam tape. Change every 7 days and PRN. Apply Cavilon Skin Barrier to both heels and malleoli. Cover each site with Optifoam drsgs. Change every 7 days and PRN. Reposition at least every 2hours or as tolerated. Off-load heels with Pillows. APM/MODESTO Mattress overlay. diet as tolerated respiratory support CXR noted nutritional optimization turn q2h will follow with recs thank you DAILY ESTIMATED NEEDS: Needs based on DM , pulmonary 75kg abw 25-30 kcals/kg [id number] total kcals 1-1.5 g protein/kg 75-113 g total protein 20-25 mL/kg 2269-8292 total fluid mLs NUTRITION DIAGNOSIS: Altered nutrition related lab values r/t clinical status as evidenced by elev Na (159), elev BUN(now 43), elev BG (140-150). CURRENT DIET: NPO PO DIET [facility]OMM[facility]ATIONS: [facility]/ texture per COUNTER TOP ASSEMBLER ADDITIONAL RECOMMENDATIONS: 1) COUNTER TOP ASSEMBLER eval for appropriate texture 2) Feed as able, consult RD for non oral TF recs if part of POC 3) F/up w/ WC eval of R ankle photo 4) Maintain calibrated bed scale wts 5) Rec Glucerna w/ meals w/ anticipated poor po intake, NPO now 6) Check HgA1C (4) Right hemiparesis Pankaj Palomo Oct 28, 2019 13:59
[2019-10-28] MEDS ORDERED: Tubing IV Secondary IV ONE (14:43)
[2019-10-28] MEDS ORDERED: NS 275ml ONE (14:43)
[2019-10-28 16:00] VITALS: BP 122/74
[2019-10-28 19:34] VITALS: BP 126/75
[2019-10-28] MEDS: LORazepam Inj 2mg/ml 1ml IV PRN (20:41)
--- NOTE | 2019-10-28 23:07 | Infectious Diseases Prog Note ---
Assessment/Plan Assessment/Plan ASSESSMENT AND PLAN: 1. MDR providencia uti, sepsis, pneumonia, leukocytosis, fevers, rule out covid- 19 infection, sob, bm, esquivel, arf - vancomycin and meropenem (aware of amoxicillin and cephalexin allergy - benefits > risks, carbapenem cross reactivity with pcn is low (1%-5%) - monitor labs and chest x-ray - repeat covid-19 testing - d/w RN 2. The patient has history of suprapubic catheter. 3. Hypertension. 4. Blood pressure treatment per primary care team. 5. Wound care protocol. Wounds were reviewed, not acutely infected. 6. Hemiparesis. 7. Hyperlipidemia. 8. Dementia. 9. Hypoxia and shortness of breath. 10. Continue treatment per primary consultants including hypertension treatment. 11. Allergies to acetaminophen, amoxicillin, cephalexin, codeine, hydrocodone, sulfamethoxazole, tetracycline, and trimethoprim. 12. Social history negative. 13. Family history noncontributory. 14. MAR was noted. 15. Case was discussed with RN. 16. Skin care protocol. 17. Orders were noted. Subjective Constitutional: Reports: fatigue, other - alert, on breathing mask, sob; Denies : fever HEENT: Reports: congestion Respiratory: Reports: shortness of breath Cardiovascular: Denies: chest pain Gastrointestinal/Abdominal: Denies: nausea, vomiting, diarrhea Genitourinary: Reports: other - + esquivel Psychiatric: Denies: depression Skin: Denies: rash Hematologic: Denies: bleeding Musculoskeletal: Denies: pain Allergies: Coded Allergies: ACETAMINOPHEN (Verified Allergy, Unknown, 10/25/19) AMOXICILLIN (Verified Allergy, Unknown, 10/25/19) CEPHALEXIN (Verified Allergy, Unknown, 10/25/19) CODEINE (Verified Allergy, Unknown, 10/25/19) HYDROCODONE (Verified Allergy, Unknown, 10/25/19) SULFAMETHOXAZOLE (Verified Allergy, Unknown, 10/25/19) TETRACYCLINES (Verified Allergy, Unknown, 10/25/19) TRIMETHOPRIM (Verified Allergy, Unknown, 10/25/19) Objective Last 24 Hour Vital Signs Date Time Temp Pulse Resp B/P (MAP) Pulse Ox O2 Delivery O2 Flow Rate FiO2 10/28/19 20:00 Non-Rebreather 15.0 10/28/19 20:00 Non-Rebreather 15.0 10/28/19 19:34 91 10/28/19 19:34 97.9 91 18 126/75 (92) 98 10/28/19 16:00 96.8 90 24 122/74 (90) 94 10/28/19 16:00 Non-Rebreather 15.0 10/28/19 16:00 123 10/28/19 12:01 Non-Rebreather 15.0 10/28/19 12:00 96.8 98 27 101/53 (69) 94 10/28/19 12:00 92 10/28/19 08:03 Non-Rebreather 15.0 10/28/19 08:00 97.1 84 22 115/75 (88) 100 10/28/19 08:00 82 10/28/19 04:00 96.3 72 21 121/57 (78) 100 10/28/19 04:00 Non-Rebreather 15.0 10/28/19 03:27 69 10/28/19 00:00 Non-Rebreather 15.0 10/28/19 00:00 96.8 81 19 121/60 (80) 100 10/27/19 23:35 74 Height (Feet): 5 Height (Inches): 1.00 Weight (Pounds): 162 General Appearance: other - sob, on breathin mask HEENT: normocephalic, atraumatic, anicteric, mucous membranes moist Respiratory/Chest: crackles/rales, rhonchi - bilaterally Cardiovascular: normal rate, regular rhythm, no gallop/murmur, no JVD Abdomen: normal bowel sounds, soft, non tender, no organomegaly, non distended Genitourinary: other - + esquivel - urine cloudy Extremities: no cyanosis Skin: no rash Neurologic/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 Bilateral right greater left infiltrates are otherwise stable. Heart size is normal. The pleural spaces are clear. Impression: Increasingly dense consolidation in the right midlung. 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 Complete Laboratory Tests Test 10/28/19 03:45 White Blood Count 9.7 K/UL (4.8-10.8) Red Blood Count 4.17 M/UL (4.70-6.10) L Hemoglobin 13.3 G/DL (14.2-18.0) L Hematocrit 40.0 % (42.0-52.0) L Mean Corpuscular Volume 96 FL (80-99) Mean Corpuscular Hemoglobin 31.9 PG (27.0-31.0) H Mean Corpuscular Hemoglobin Concent 33.3 G/DL (32.0-36.0) Red Cell Distribution Width 12.6 % (11.6-14.8) Platelet Count 202 K/UL (150-450) Mean Platelet Volume 9.7 FL (6.5-10.1) Neutrophils (%) (Auto) 80.0 % (45.0-75.0) H Lymphocytes (%) (Auto) 13.5 % (20.0-45.0) L Monocytes (%) (Auto) 4.7 % (1.0-10.0) Eosinophils (%) (Auto) 1.4 % (0.0-3.0) Basophils (%) (Auto) 0.3 % (0.0-2.0) Sodium Level 143 MMOL/L (136-145) Potassium Level 2.9 MMOL/L (3.5-5.1) L Chloride Level 111 MMOL/L (98-107) H Carbon Dioxide Level 21 MMOL/L (21-32) Anion Gap 11 mmol/L (5-15) Blood Urea Nitrogen 18 mg/dL (7-18) Creatinine 1.0 MG/DL (0.55-1.30) Estimat Glomerular Filtration Rate > 60 mL/min (>60) Glucose Level 212 MG/DL (74-106) H Calcium Level 7.0 MG/DL (8.5-10.1) L Total Bilirubin 1.0 MG/DL (0.2-1.0) Aspartate Amino Transf (AST/SGOT) 19 U/L (15-37) Alanine Aminotransferase (ALT/SGPT) 10 U/L (12-78) L Alkaline Phosphatase 71 U/L (46-116) Total Protein 5.0 G/DL (6.4-8.2) L Albumin 1.6 G/DL (3.4-5.0) L Globulin 3.4 g/dL Albumin/Globulin Ratio 0.5 (1.0-2.7) L Current Medications Medications (Trade) Dose Ordered Sig/Jesu Route PRN Reason Start Time Stop Time Status Last Admin Dose Admin Albuterol Sulfate (Proventil MDI) 2 puff Q4H PRN INH Shortness of Breath 10/25/19 23:30 01/23/20 23:29 Aspirin (Ecotrin) 81 mg DAILY ORAL 10/26/19 09:00 12/10/19 08:59 10/26/19 08:22 Aztreonam 1 gm/ Dextrose 55 ml @ 110 mls/hr Q8H IVPB 10/27/19 01:00 11/03/19 00:59 10/28/19 17:20 Dextrose/ Electrolytes 1,000 ml @ 100 mls/hr Q10H IV 10/26/19 23:00 11/25/19 22:59 10/28/19 13:36 Gabapentin (Neurontin) 300 mg BID ORAL 10/26/19 09:00 11/25/19 08:59 10/26/19 08:22 Levofloxacin 50 ml @ 50 mls/hr Q24H IVPB 10/28/19 00:00 11/04/19 00:00 10/27/19 23:23 Lorazepam (Ativan 2mg/ml 1ml) 0.5 mg Q6H PRN IV For Anxiety 10/28/19 20:30 11/04/19 20:29 10/28/19 20:41 Magnesium Hydroxide (Mom) 30 ml DAILYPRN PRN ORAL Constipation 10/25/19 23:30 11/24/19 23:29 Metronidazole 100 ml @ 100 mls/hr Q8HR IVPB 10/27/19 06:00 11/03/19 05:59 10/28/19 22:07 Multi-Ingredient Mouthwash/Gargle (Magic Mouth Wash 60ml) 10 ml BID ORAL 10/26/19 09:00 11/25/19 08:59 10/28/19 17:14 Multivitamins (Multivitamins W/ Minerals 15ml Liquid) 15 ml DAILY ORAL 10/26/19 09:00 11/25/19 08:59 10/26/19 08:22 Vancomycin HCl (Vanco pharmacy to dose) 1 ea DAILY PRN MISC Per rx protocol 10/26/19 22:45 11/25/19 22:44 Vancomycin HCl 1 gm/Dextrose 275 ml @ 183.708 mls/hr Q24H IVPB 10/28/19 02:00 11/02/19 01:59 10/28/19 02:22 Julio Sarabia MD Oct 28, 2019 23:07
--- NOTE | 2019-10-28 23:16 | Infectious Diseases Prog Note ---
Assessment/Plan Assessment/Plan ASSESSMENT AND PLAN: 1. MDR providencia uti, sepsis, possible bacterial pneumonia, leukocytosis, fevers, hx covid-19 infection/pna, sob, bm, esquivel, arf - vancomycin and meropenem (aware of amoxicillin and cephalexin allergy - benefits > risks, carbapenem cross reactivity with pcn is low (1%-5%) - monitor labs and chest x-ray - repeat covid-19 testing - d/w RN 2. The patient has history of suprapubic catheter. 3. Hypertension. 4. Blood pressure treatment per primary care team. 5. Wound care protocol. Wounds were reviewed, not acutely infected. 6. Hemiparesis. 7. Hyperlipidemia. 8. Dementia. 9. Hypoxia and shortness of breath. 10. Continue treatment per primary consultants including hypertension treatment. 11. Allergies to acetaminophen, amoxicillin, cephalexin, codeine, hydrocodone, sulfamethoxazole, tetracycline, and trimethoprim. 12. Social history negative. 13. Family history noncontributory. 14. MAR was noted. 15. Case was discussed with RN. 16. Skin care protocol. 17. Orders were noted. Subjective Constitutional: Reports: fatigue, other - + bm and sob; Denies: fever HEENT: Reports: congestion Respiratory: Reports: shortness of breath Cardiovascular: Denies: chest pain Gastrointestinal/Abdominal: Denies: nausea, vomiting, diarrhea Genitourinary: Reports: other - + esquivel Neurologic: Denies: headache Psychiatric: Reports: other - NA Skin: Denies: rash Hematologic: Denies: bleeding Musculoskeletal: Denies: pain Allergies: Coded Allergies: ACETAMINOPHEN (Verified Allergy, Unknown, 10/25/19) AMOXICILLIN (Verified Allergy, Unknown, 10/25/19) CEPHALEXIN (Verified Allergy, Unknown, 10/25/19) CODEINE (Verified Allergy, Unknown, 10/25/19) HYDROCODONE (Verified Allergy, Unknown, 10/25/19) SULFAMETHOXAZOLE (Verified Allergy, Unknown, 10/25/19) TETRACYCLINES (Verified Allergy, Unknown, 10/25/19) TRIMETHOPRIM (Verified Allergy, Unknown, 10/25/19) Objective Last 24 Hour Vital Signs Date Time Temp Pulse Resp B/P (MAP) Pulse Ox O2 Delivery O2 Flow Rate FiO2 10/28/19 20:00 Non-Rebreather 15.0 10/28/19 20:00 Non-Rebreather 15.0 10/28/19 19:34 91 10/28/19 19:34 97.9 91 18 126/75 (92) 98 10/28/19 16:00 96.8 90 24 122/74 (90) 94 10/28/19 16:00 Non-Rebreather 15.0 10/28/19 16:00 123 10/28/19 12:01 Non-Rebreather 15.0 10/28/19 12:00 96.8 98 27 101/53 (69) 94 10/28/19 12:00 92 10/28/19 08:03 Non-Rebreather 15.0 10/28/19 08:00 97.1 84 22 115/75 (88) 100 10/28/19 08:00 82 10/28/19 04:00 96.3 72 21 121/57 (78) 100 10/28/19 04:00 Non-Rebreather 15.0 10/28/19 03:27 69 10/28/19 00:00 Non-Rebreather 15.0 10/28/19 00:00 96.8 81 19 121/60 (80) 100 10/27/19 23:35 74 Height (Feet): 5 Height (Inches): 1.00 Weight (Pounds): 162 General Appearance: other - more alert, sob, on bm HEENT: normocephalic, atraumatic, anicteric, mucous membranes moist Respiratory/Chest: no accessory muscle use, rhonchi - bilaterally Cardiovascular: normal peripheral pulses, normal rate, regular rhythm, no gallop/murmur Abdomen: normal bowel sounds, soft, non tender, no organomegaly, non distended Genitourinary: other - + esquivel - urine cloudy Extremities: no cyanosis Skin: no rash Neurologic/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 Bilateral right greater left infiltrates are otherwise stable. Heart size is normal. The pleural spaces are clear. Impression: Increasingly dense consolidation in the right midlung. Otherwise little bladder changer 2 days Microbiology Date/Time Source Procedure Growth Status 10/25/19 14:15 Blood Blood Culture - Preliminary NO GROWTH AFTER 48 HOURS Resulted 10/25/19 21:00 Nasopharynx Coronavirus COVID-19 PCR (JIM) - Final Complete 10/25/19 14:51 Urine,Clean Catch Urine Culture - Final Providencia Rettgeri Mixed Gram Positive Organism Complete 10/25/19 17:25 Rectum VRE Culture - Final NO VANCOMYCIN RESISTANT ENTEROCOCCUS ... Complete Labs Test 10/26/19 03:30 10/27/19 04:25 10/28/19 03:45 White Blood Count 16.1 K/UL (4.8-10.8) 15.2 K/UL (4.8-10.8) 9.7 K/UL (4.8-10.8) Red Blood Count 4.97 M/UL (4.70-6.10) 4.55 M/UL (4.70-6.10) 4.17 M/UL (4.70-6.10) Hemoglobin 15.8 G/DL (14.2-18.0) 14.5 G/DL (14.2-18.0) 13.3 G/DL (14.2-18.0) Hematocrit 48.7 % (42.0-52.0) 44.1 % (42.0-52.0) 40.0 % (42.0-52.0) Mean Corpuscular Volume 98 FL (80-99) 97 FL (80-99) 96 FL (80-99) Mean Corpuscular Hemoglobin 31.7 PG (27.0-31.0) 31.8 PG (27.0-31.0) 31.9 PG (27.0-31.0) Mean Corpuscular Hemoglobin Concent 32.4 G/DL (32.0-36.0) 32.9 G/DL (32.0-36.0) 33.3 G/DL (32.0-36.0) Red Cell Distribution Width 13.1 % (11.6-14.8) 12.8 % (11.6-14.8) 12.6 % (11.6-14.8) Platelet Count 264 K/UL (150-450) 226 K/UL (150-450) 202 K/UL (150-450) Mean Platelet Volume 8.8 FL (6.5-10.1) 8.9 FL (6.5-10.1) 9.7 FL (6.5-10.1) Neutrophils (%) (Auto) % (45.0-75.0) 83.7 % (45.0-75.0) 80.0 % (45.0-75.0) Lymphocytes (%) (Auto) % (20.0-45.0) 11.4 % (20.0-45.0) 13.5 % (20.0-45.0) Monocytes (%) (Auto) % (1.0-10.0) 3.6 % (1.0-10.0) 4.7 % (1.0-10.0) Eosinophils (%) (Auto) % (0.0-3.0) 0.9 % (0.0-3.0) 1.4 % (0.0-3.0) Basophils (%) (Auto) % (0.0-2.0) 0.4 % (0.0-2.0) 0.3 % (0.0-2.0) Differential Total Cells Counted 100 Neutrophils % (Manual) 93 % (45-75) Lymphocytes % (Manual) 7 % (20-45) Monocytes % (Manual) 0 % (1-10) Eosinophils % (Manual) 0 % (0-3) Basophils % (Manual) 0 % (0-2) Band Neutrophils 0 % (0-8) Platelet Estimate Adequate Platelet Morphology Normal Red Blood Cell Morphology Normal Sodium Level 159 MMOL/L (136-145) 150 MMOL/L (136-145) 143 MMOL/L (136-145) Potassium Level 3.6 MMOL/L (3.5-5.1) 3.5 MMOL/L (3.5-5.1) 2.9 MMOL/L (3.5-5.1) Chloride Level 125 MMOL/L (98-107) 117 MMOL/L (98-107) 111 MMOL/L (98-107) Carbon Dioxide Level 22 MMOL/L (21-32) 23 MMOL/L (21-32) 21 MMOL/L (21-32) Anion Gap 12 mmol/L (5-15) 10 mmol/L (5-15) 11 mmol/L (5-15) Blood Urea Nitrogen 43 mg/dL (7-18) 26 mg/dL (7-18) 18 mg/dL (7-18) Creatinine 1.2 MG/DL (0.55-1.30) 0.9 MG/DL (0.55-1.30) 1.0 MG/DL (0.55-1.30) Estimat Glomerular Filtration Rate 57.3 mL/min (>60) > 60 mL/min (>60) > 60 mL/min (>60) Glucose Level 150 MG/DL (74-106) 136 MG/DL (74-106) 212 MG/DL (74-106) Calcium Level 7.9 MG/DL (8.5-10.1) 7.5 MG/DL (8.5-10.1) 7.0 MG/DL (8.5-10.1) Phosphorus Level 3.1 MG/DL (2.5-4.9) Magnesium Level 2.4 MG/DL (1.8-2.4) Total Bilirubin 0.8 MG/DL (0.2-1.0) 1.0 MG/DL (0.2-1.0) 1.0 MG/DL (0.2-1.0) Aspartate Amino Transf (AST/SGOT) 23 U/L (15-37) 24 U/L (15-37) 19 U/L (15-37) Alanine Aminotransferase (ALT/SGPT) 15 U/L (12-78) 12 U/L (12-78) 10 U/L (12-78) Alkaline Phosphatase 88 U/L (46-116) 71 U/L (46-116) 71 U/L (46-116) Total Protein 6.9 G/DL (6.4-8.2) 6.0 G/DL (6.4-8.2) 5.0 G/DL (6.4-8.2) Albumin 2.2 G/DL (3.4-5.0) 1.9 G/DL (3.4-5.0) 1.6 G/DL (3.4-5.0) Globulin 4.7 g/dL 4.1 g/dL 3.4 g/dL Albumin/Globulin Ratio 0.5 (1.0-2.7) 0.5 (1.0-2.7) 0.5 (1.0-2.7) Laboratory Tests Test 10/28/19 03:45 White Blood Count 9.7 K/UL (4.8-10.8) Red Blood Count 4.17 M/UL (4.70-6.10) L Hemoglobin 13.3 G/DL (14.2-18.0) L Hematocrit 40.0 % (42.0-52.0) L Mean Corpuscular Volume 96 FL (80-99) Mean Corpuscular Hemoglobin 31.9 PG (27.0-31.0) H Mean Corpuscular Hemoglobin Concent 33.3 G/DL (32.0-36.0) Red Cell Distribution Width 12.6 % (11.6-14.8) Platelet Count 202 K/UL (150-450) Mean Platelet Volume 9.7 FL (6.5-10.1) Neutrophils (%) (Auto) 80.0 % (45.0-75.0) H Lymphocytes (%) (Auto) 13.5 % (20.0-45.0) L Monocytes (%) (Auto) 4.7 % (1.0-10.0) Eosinophils (%) (Auto) 1.4 % (0.0-3.0) Basophils (%) (Auto) 0.3 % (0.0-2.0) Sodium Level 143 MMOL/L (136-145) Potassium Level 2.9 MMOL/L (3.5-5.1) L Chloride Level 111 MMOL/L (98-107) H Carbon Dioxide Level 21 MMOL/L (21-32) Anion Gap 11 mmol/L (5-15) Blood Urea Nitrogen 18 mg/dL (7-18) Creatinine 1.0 MG/DL (0.55-1.30) Estimat Glomerular Filtration Rate > 60 mL/min (>60) Glucose Level 212 MG/DL (74-106) H Calcium Level 7.0 MG/DL (8.5-10.1) L Total Bilirubin 1.0 MG/DL (0.2-1.0) Aspartate Amino Transf (AST/SGOT) 19 U/L (15-37) Alanine Aminotransferase (ALT/SGPT) 10 U/L (12-78) L Alkaline Phosphatase 71 U/L (46-116) Total Protein 5.0 G/DL (6.4-8.2) L Albumin 1.6 G/DL (3.4-5.0) L Globulin 3.4 g/dL Albumin/Globulin Ratio 0.5 (1.0-2.7) L Current Medications Medications (Trade) Dose Ordered Sig/Jesu Route PRN Reason Start Time Stop Time Status Last Admin Dose Admin Albuterol Sulfate (Proventil MDI) 2 puff Q4H PRN INH Shortness of Breath 10/25/19 23:30 01/23/20 23:29 Aspirin (Ecotrin) 81 mg DAILY ORAL 10/26/19 09:00 12/10/19 08:59 10/26/19 08:22 Dextrose/ Electrolytes 1,000 ml @ 100 mls/hr Q10H IV 10/26/19 23:00 11/25/19 22:59 10/28/19 13:36 Gabapentin (Neurontin) 300 mg BID ORAL 10/26/19 09:00 11/25/19 08:59 10/26/19 08:22 Lorazepam (Ativan 2mg/ml 1ml) 0.5 mg Q6H PRN IV For Anxiety 10/28/19 20:30 11/04/19 20:29 10/28/19 20:41 Magnesium Hydroxide (Mom) 30 ml DAILYPRN PRN ORAL Constipation 10/25/19 23:30 11/24/19 23:29 Meropenem 1 gm/ Sodium Chloride 100 ml @ 200 mls/hr Q12H IVPB 10/29/19 02:00 11/03/19 01:59 Multi-Ingredient Mouthwash/Gargle (Magic Mouth Wash 60ml) 10 ml BID ORAL 10/26/19 09:00 11/25/19 08:59 10/28/19 17:14 Multivitamins (Multivitamins W/ Minerals 15ml Liquid) 15 ml DAILY ORAL 10/26/19 09:00 11/25/19 08:59 10/26/19 08:22 Vancomycin HCl (Vanco pharmacy to dose) 1 ea DAILY PRN MISC Per rx protocol 10/26/19 22:45 11/25/19 22:44 Vancomycin HCl 1 gm/Dextrose 275 ml @ 183.708 mls/hr Q24H IVPB 10/28/19 02:00 11/02/19 01:59 10/28/19 02:22 Julio Sarabia MD Oct 28, 2019 23:15
[2019-10-29] VITALS: BP 129/69
[2019-10-29] MEDS ORDERED: Meropenem 1gm vial ONE (00:21)
[2019-10-29] MEDS: D5 1/2NS w/KCL 10meq 1,000 ML IV SCH ×3 (01:03→20:30)
[2019-10-29] MEDS: Vancomycin 1gm/D5W 275ml IVPB SCH ×2 (02:09)
[2019-10-29 04:00] VITALS: BP 130/67
[2019-10-29 05:17] LABS: BASOPHILS % (AUTO) 0.5 % (0.0-2.0); EOSINOPHILS % (AUTO) 1.3 % (0.0-3.0); HEMOGLOBIN 14.2 G/DL (14.2-18.0); LYMPHOCYTES % (AUTO) 12.3 % (20.0-45.0); MEAN CORPUSCULAR VOLUME 95 FL (80-99); MONOCYTES % (AUTO) 4.8 % (1.0-10.0); NEUTROPHILS % (AUTO) 81.1 % (45.0-75.0); PLATELET COUNT 185 K/UL (150-450); RED BLOOD COUNT 4.43 M/UL (4.70-6.10); RED CELL DISTRIBUTION WIDTH 12.2 % (11.6-14.8); WHITE BLOOD COUNT 9.4 K/UL (4.8-10.8)
[2019-10-29 05:40] LABS: ALANINE AMINOTRANSFERASE 15 U/L (12-78); ALBUMIN 1.8 G/DL (3.4-5.0); ALBUMIN/GLOBULIN RATIO 0.5 (1.0-2.7); ALKALINE PHOSPHATASE 76 U/L (46-116); ANION GAP 8 mmol/L (5-15); ASPARTATE AMINO TRANSFERASE 34 U/L (15-37); BLOOD UREA NITROGEN 11 mg/dL (7-18); CALCIUM 7.3 MG/DL (8.5-10.1); CARBON DIOXIDE 23 MMOL/L (21-32); CHLORIDE 111 MMOL/L (98-107); CREATININE 0.9 MG/DL (0.55-1.30); POTASSIUM 3.1 MMOL/L (3.5-5.1); SODIUM 142 MMOL/L (136-145)
[2019-10-29 08:00] VITALS: BP 140/66
--- NOTE | 2019-10-29 08:58 | Surgery Progress Note ---
Surgery Progress Note Subjective Additional Comments leukocytosis resolved exam stable comfortable no n/v/f/c on face mask Objective Last 24 Hour Vital Signs Date Time Temp Pulse Resp B/P (MAP) Pulse Ox O2 Delivery O2 Flow Rate FiO2 10/29/19 04:00 97.8 78 20 130/67 (88) 100 10/29/19 04:00 Non-Rebreather 15.0 10/29/19 03:29 72 10/29/19 00:00 97.5 84 18 129/69 (89) 99 10/29/19 00:00 Non-Rebreather 15.0 10/28/19 23:39 88 10/28/19 20:00 Non-Rebreather 15.0 10/28/19 20:00 Non-Rebreather 15.0 10/28/19 19:34 91 10/28/19 19:34 97.9 91 18 126/75 (92) 98 10/28/19 16:00 96.8 90 24 122/74 (90) 94 10/28/19 16:00 Non-Rebreather 15.0 10/28/19 16:00 123 10/28/19 12:01 Non-Rebreather 15.0 10/28/19 12:00 96.8 98 27 101/53 (69) 94 10/28/19 12:00 92 I&O Intake and Output 10/28/19 10/29/19 19:00 07:00 Intake Total 1155 ml 1964.117 ml Output Total 650 ml 1225 ml Balance 505 ml 739.117 ml Intake IV Total 1155 ml 1964.117 ml Output Urine Total 650 ml 1225 ml # Bowel Movements 1 Dressing: saturated Wound: other Cardiovascular: RSR Respiratory: decreased breath sounds Abdomen: soft, non-tender, present bowel sounds Extremities: no tenderness, no cyanosis Laboratory Tests Test 10/29/19 03:50 White Blood Count 9.4 K/UL (4.8-10.8) Red Blood Count 4.43 M/UL (4.70-6.10) L Hemoglobin 14.2 G/DL (14.2-18.0) Hematocrit 42.0 % (42.0-52.0) Mean Corpuscular Volume 95 FL (80-99) Mean Corpuscular Hemoglobin 32.0 PG (27.0-31.0) H Mean Corpuscular Hemoglobin Concent 33.8 G/DL (32.0-36.0) Red Cell Distribution Width 12.2 % (11.6-14.8) Platelet Count 185 K/UL (150-450) Mean Platelet Volume 10.3 FL (6.5-10.1) H Neutrophils (%) (Auto) 81.1 % (45.0-75.0) H Lymphocytes (%) (Auto) 12.3 % (20.0-45.0) L Monocytes (%) (Auto) 4.8 % (1.0-10.0) Eosinophils (%) (Auto) 1.3 % (0.0-3.0) Basophils (%) (Auto) 0.5 % (0.0-2.0) Sodium Level 142 MMOL/L (136-145) Potassium Level 3.1 MMOL/L (3.5-5.1) L Chloride Level 111 MMOL/L (98-107) H Carbon Dioxide Level 23 MMOL/L (21-32) Anion Gap 8 mmol/L (5-15) Blood Urea Nitrogen 11 mg/dL (7-18) Creatinine 0.9 MG/DL (0.55-1.30) Estimat Glomerular Filtration Rate > 60 mL/min (>60) Glucose Level 156 MG/DL (74-106) H Calcium Level 7.3 MG/DL (8.5-10.1) L Magnesium Level 1.7 MG/DL (1.8-2.4) L Total Bilirubin 1.0 MG/DL (0.2-1.0) Aspartate Amino Transf (AST/SGOT) 34 U/L (15-37) Alanine Aminotransferase (ALT/SGPT) 15 U/L (12-78) Alkaline Phosphatase 76 U/L (46-116) Total Protein 5.4 G/DL (6.4-8.2) L Albumin 1.8 G/DL (3.4-5.0) L Globulin 3.6 g/dL Albumin/Globulin Ratio 0.5 (1.0-2.7) L Plan Problems: (1) Renal failure (2) Hypoxia (3) Sepsis Assessment & Plan: 89 year old male with leukocytosis, lactic acidosis, abnormal labs. currently in monitoring unit on face mask respiratory support Hx COVID + UTI Pt presented on admission with multiple Pressure injuries. Pt currently using Venti-mask. Non-Blanching erythema noted to bridge of nose and both cheeks consistent with mask. Cavilon Skin Barrier applied to affected areas and covered with Foam tape. Non-Blanching erythema noted to clefts of both ears. Elastic Band of oxygen tubing padded. Non-Blanching erythema without induration noted to sacrum,R and L Gluteus. Non-Blanching erythema noted to R trochanter(L)3cm x (W)6.3cm. DTPI noted to L Heel. Base of heel is maroon and fluctuant (L)4.3cm x (W)5.5cm. Periwound is boggy but easily blanchable. R heel and lateral R foot boggy with non-blanching erythema. Resolving Pressure injury Lateral R malleolus. Base of wound is dry, black with pink epithelial at center of wound.(L)2.5cm x (W)2.7cm. Apply Moisture Barrier Paste to Sacrum. Cover with Optifoam drsg. Change every 3 days and prn. Apply Cavilon Skin Barrier to R and L trochanter. Cover each site with Optifoam drsg. Change every 7 days and PRN. Apply Cavilon Skin Barrier to both Earlobes TWICE daily.Pad elastic band of oxygen mask. Keep band loose around ears. Apply Cavilon Skin Barrier to R and L cheeks and Bridge of Nose. Apply Foam tape. Change every 7 days and PRN. Apply Cavilon Skin Barrier to both heels and malleoli. Cover each site with Optifoam drsgs. Change every 7 days and PRN. Reposition at least every 2hours or as tolerated. Off-load heels with Pillows. APM/MODESTO Mattress overlay. diet as tolerated respiratory support CXR noted nutritional optimization turn q2h will follow with recs thank you DAILY ESTIMATED NEEDS: Needs based on DM , pulmonary 75kg abw 25-30 kcals/kg 1504-6301 total kcals 1-1.5 g protein/kg 75-113 g total protein 20-25 mL/kg 8707-6326 total fluid mLs DAILY ESTIMATED NEEDS: Needs based on pulmonary, wound 75kg abw 25-30 kcals/kg 1362-5323 total kcals 1.25-1.5 g protein/kg 94-113 g total protein 20-25 mL/kg 3802-9217 total fluid mLs NUTRITION DIAGNOSIS: Altered nutrition related lab values r/t clinical status as evidenced by elev Na (159-> wnl), elev BUN(now 43-> wnl), elev BG (140-150). ENTERAL NUTRITION RECOMMENDATIONS: Glucerna 1.2 goal of 65ml/hr x24 hrs to provide 1560ml, 1872 kcal, 94g pro, 1256ml free H2O - Obtain GI access, initiate Glucerna 1.2 @25ml/hr for 6 hrs. Advance as tolerated 10ml/hr q4-6 hrs to goal. - Flush per MD/ HOB over 30 degrees. Glucerna 1.2 low on stock-> may replace w/ Jevity 1.2 w/goal of 65ml/hr x24 hrs. Rec to increase insulin coverage as Jevity 1.2 is not carb control formula. ADDITIONAL RECOMMENDATIONS: 1) SPRINKLER HELPER eval for appropriate texture-> per SPRINKLER HELPER recs for NPO w/ nonoral feed 2) Feed as able, consult RD for non oral TF recs if part of POC 3) F/up w/ WC eval of R ankle photo -> Add BARTOLO BID w/ non oral feeds as able 4) Maintain calibrated bed scale wts 5) Rec Glucerna TID-> NPO now per SPRINKLER HELPER recs 6) Check HgA1C (4) Right hemiparesis Pankaj Palomo Oct 29, 2019 08:58
[2019-10-29] MEDS: Aspirin EC 81mg tab ORAL SCH (09:00)
[2019-10-29] MEDS: Multivitamins W/Minerals 15 ML UDC ORAL SCH (09:00)
[2019-10-29] MEDS: Magic Mouth Wash 60ml (Benadryl/Mylanta/Visc Lido) ORAL SCH ×2 (09:10→17:36)
--- NOTE | 2019-10-29 09:32 | Nephrology Progress Note ---
Assessment/Plan Plan #COVID pneumonia #TELMA due to dehydration #sepsis #Hypernatremia due to dehydration #hypoxemic resp failure #Volume depletion - IVF - replete K and mag - GI eval for NG placement - abx - pulm, ID and cards eval - 2d echo - bipap prn - follow cx - avoid nephrotoxins - replace free water - monitor mag, phos and bmp daily - DNR/DNI time spent 70 min- greater than 50% on care coordination and counseling Subjective ROS Limited/Unobtainable: Yes Subjective remains on non- rebreather mask WBC downtrending Sodium and cr improving agitated unable to place NG K and mag low - repleted Objective Objective Last 24 Hour Vital Signs Date Time Temp Pulse Resp B/P (MAP) Pulse Ox O2 Delivery O2 Flow Rate FiO2 10/29/19 08:00 97.7 72 19 140/66 (90) 100 10/29/19 04:00 97.8 78 20 130/67 (88) 100 10/29/19 04:00 Non-Rebreather 15.0 10/29/19 03:29 72 10/29/19 00:00 97.5 84 18 129/69 (89) 99 10/29/19 00:00 Non-Rebreather 15.0 10/28/19 23:39 88 10/28/19 20:00 Non-Rebreather 15.0 10/28/19 20:00 Non-Rebreather 15.0 10/28/19 19:34 91 10/28/19 19:34 97.9 91 18 126/75 (92) 98 10/28/19 16:00 96.8 90 24 122/74 (90) 94 10/28/19 16:00 Non-Rebreather 15.0 10/28/19 16:00 123 10/28/19 12:01 Non-Rebreather 15.0 10/28/19 12:00 96.8 98 27 101/53 (69) 94 10/28/19 12:00 92 Intake and Output 10/28/19 10/29/19 19:00 07:00 Intake Total 1155 ml 1964.117 ml Output Total 650 ml 1225 ml Balance 505 ml 739.117 ml Intake IV Total 1155 ml 1964.117 ml Output Urine Total 650 ml 1225 ml # Bowel Movements 1 Laboratory Tests 10/29/19 03:50: White Blood Count 9.4, Red Blood Count 4.43L, Hemoglobin 14.2, Hematocrit 42.0, Mean Corpuscular Volume 95, Mean Corpuscular Hemoglobin 32.0H, Mean Corpuscular Hemoglobin Concent 33.8, Red Cell Distribution Width 12.2, Platelet Count 185, Mean Platelet Volume 10.3H, Neutrophils (%) (Auto) 81.1H, Lymphocytes (%) (Auto ) 12.3L, Monocytes (%) (Auto) 4.8, Eosinophils (%) (Auto) 1.3, Basophils (%) ( Auto) 0.5, Sodium Level 142, Potassium Level 3.1L, Chloride Level 111H, Carbon Dioxide Level 23, Anion Gap 8, Blood Urea Nitrogen 11, Creatinine 0.9, Estimat Glomerular Filtration Rate > 60, Glucose Level 156H, Calcium Level 7.3L, Magnesium Level 1.7L, Total Bilirubin 1.0, Aspartate Amino Transf (AST/SGOT) 34 , Alanine Aminotransferase (ALT/SGPT) 15, Alkaline Phosphatase 76, Total Protein 5.4L, Albumin 1.8L, Globulin 3.6, Albumin/Globulin Ratio 0.5L Height (Feet): 5 Height (Inches): 1.00 Weight (Pounds): 162 General Appearance: lethargic, confused EENT: PERRL/EOMI Neck: non-tender Cardiovascular: normal peripheral pulses, normal rate Respiratory/Chest: chest wall non-tender, crackles/rales Abdomen: normal bowel sounds, non tender Neurologic: disoriented Aron Barbosa M.D. Oct 29, 2019 09:32
[2019-10-29 12:00] VITALS: BP 122/70
--- NOTE | 2019-10-29 12:02 | Pulmonology Progress Note ---
Subjective ROS Limited/Unobtainable: Yes Interval Events: None new reported Constitutional: Reports: fatigue, other - + bm and sob; Denies: fever HEENT: Repors: no symptoms Respiratory: Reports: no symptoms Cardiovascular: Reports: no symptoms Gastrointestinal/Abdominal: Denies: nausea, vomiting, diarrhea Genitourinary: Reports: no symptoms Neurologic: Reports: no symptoms Psychiatric: Reports: other - NA Skin: Denies: rash Musculoskeletal: Denies: pain Allergies: Coded Allergies: ACETAMINOPHEN (Verified Allergy, Unknown, 10/25/19) AMOXICILLIN (Verified Allergy, Unknown, 10/25/19) CEPHALEXIN (Verified Allergy, Unknown, 10/25/19) CODEINE (Verified Allergy, Unknown, 10/25/19) HYDROCODONE (Verified Allergy, Unknown, 10/25/19) SULFAMETHOXAZOLE (Verified Allergy, Unknown, 10/25/19) TETRACYCLINES (Verified Allergy, Unknown, 10/25/19) TRIMETHOPRIM (Verified Allergy, Unknown, 10/25/19) All Systems: reviewed and negative except above Objective Last 24 Hour Vital Signs Date Time Temp Pulse Resp B/P (MAP) Pulse Ox O2 Delivery O2 Flow Rate FiO2 10/29/19 08:00 69 10/29/19 08:00 97.7 72 19 140/66 (90) 100 10/29/19 08:00 Non-Rebreather 15.0 10/29/19 04:00 97.8 78 20 130/67 (88) 100 10/29/19 04:00 Non-Rebreather 15.0 10/29/19 03:29 72 10/29/19 00:00 97.5 84 18 129/69 (89) 99 10/29/19 00:00 Non-Rebreather 15.0 10/28/19 23:39 88 10/28/19 20:00 Non-Rebreather 15.0 10/28/19 20:00 Non-Rebreather 15.0 10/28/19 19:34 91 10/28/19 19:34 97.9 91 18 126/75 (92) 98 10/28/19 16:00 96.8 90 24 122/74 (90) 94 10/28/19 16:00 Non-Rebreather 15.0 10/28/19 16:00 123 Intake and Output 10/28/19 10/29/19 19:00 07:00 Intake Total 1155 ml 1964.117 ml Output Total 650 ml 1225 ml Balance 505 ml 739.117 ml Intake IV Total 1155 ml 1964.117 ml Output Urine Total 650 ml 1225 ml # Bowel Movements 1 General Appearance: no acute distress HEENT: normocephalic Respiratory: chest wall non-tender, lungs clear Cardiovascular: normal peripheral pulses, normal rate Abdomen: normal bowel sounds Microbiology Date/Time Source Procedure Growth Status 10/28/19 09:45 Nasopharynx Coronavirus COVID-19 PCR (JIM) - Final Complete Laboratory Tests 10/29/19 03:50: White Blood Count 9.4, Red Blood Count 4.43L, Hemoglobin 14.2, Hematocrit 42.0, Mean Corpuscular Volume 95, Mean Corpuscular Hemoglobin 32.0H, Mean Corpuscular Hemoglobin Concent 33.8, Red Cell Distribution Width 12.2, Platelet Count 185, Mean Platelet Volume 10.3H, Neutrophils (%) (Auto) 81.1H, Lymphocytes (%) (Auto ) 12.3L, Monocytes (%) (Auto) 4.8, Eosinophils (%) (Auto) 1.3, Basophils (%) ( Auto) 0.5, Sodium Level 142, Potassium Level 3.1L, Chloride Level 111H, Carbon Dioxide Level 23, Anion Gap 8, Blood Urea Nitrogen 11, Creatinine 0.9, Estimat Glomerular Filtration Rate > 60, Glucose Level 156H, Calcium Level 7.3L, Magnesium Level 1.7L, Total Bilirubin 1.0, Aspartate Amino Transf (AST/SGOT) 34 , Alanine Aminotransferase (ALT/SGPT) 15, Alkaline Phosphatase 76, Total Protein 5.4L, Albumin 1.8L, Globulin 3.6, Albumin/Globulin Ratio 0.5L Current Medications Medications (Trade) Dose Ordered Sig/Jesu Route PRN Reason Start Time Stop Time Status Last Admin Dose Admin Albuterol Sulfate (Proventil MDI) 2 puff Q4H PRN INH Shortness of Breath 10/25/19 23:30 01/23/20 23:29 Aspirin (Ecotrin) 81 mg DAILY ORAL 10/26/19 09:00 12/10/19 08:59 10/26/19 08:22 Dextrose/ Electrolytes 1,000 ml @ 100 mls/hr Q10H IV 10/26/19 23:00 11/25/19 22:59 10/29/19 11:00 Gabapentin (Neurontin) 300 mg BID ORAL 10/26/19 09:00 11/25/19 08:59 10/26/19 08:22 Lorazepam (Ativan 2mg/ml 1ml) 0.5 mg Q6H PRN IV For Anxiety 10/28/19 20:30 11/04/19 20:29 10/28/19 20:41 Magnesium Hydroxide (Mom) 30 ml DAILYPRN PRN ORAL Constipation 10/25/19 23:30 11/24/19 23:29 Meropenem 1 gm/ Sodium Chloride 100 ml @ 200 mls/hr Q12H IVPB 10/29/19 02:00 11/03/19 01:59 10/29/19 01:02 Multi-Ingredient Mouthwash/Gargle (Magic Mouth Wash 60ml) 10 ml BID ORAL 10/26/19 09:00 11/25/19 08:59 10/29/19 09:10 Multivitamins (Multivitamins W/ Minerals 15ml Liquid) 15 ml DAILY ORAL 10/26/19 09:00 11/25/19 08:59 10/26/19 08:22 Vancomycin HCl (Vanco pharmacy to dose) 1 ea DAILY PRN MISC Per rx protocol 10/26/19 22:45 11/25/19 22:44 Vancomycin HCl 1 gm/Dextrose 275 ml @ 183.708 mls/hr Q24H IVPB 10/28/19 02:00 11/02/19 01:59 10/29/19 02:09 Assessment/Plan Assessment/Plan IMPRESSION: 1. COVID-19 pneumonia by history. Current pcr negative 2. Bilateral pulmonary infiltrates. 3. Hypoxemia. 4. Hypernatremia. 5. Renal failure. 6. Hypertension. 7. Chronic suprapubic catheter. DISCUSSION: Continue antibiotics I will follow as quality head. Needs NG/enetral feedings Continue oxygen via nonrebreather mask Chavo Goldstein Omar Syed MD Oct 29, 2019 12:02
--- NOTE | 2019-10-29 14:31 | General Progress Note ---
Assessment/Plan Problem List: (1) Sepsis ICD Codes: A41.9 - Sepsis, unspecified organism SNOMED: 53142520 Qualifiers: Qualified Codes: A41.9 - Sepsis, unspecified organism; R65.20 - Severe sepsis without septic shock; N17.9 - Acute kidney failure, unspecified (2) Hypoxia ICD Codes: R09.02 - Hypoxemia SNOMED: 287777816 (3) Right hemiparesis ICD Codes: G81.91 - Hemiplegia, unspecified affecting right dominant side SNOMED: 734763261 (4) COVID-19 ICD Codes: U07.1 - COVID-19 SNOMED: 248294720 Status: stable, progressing Assessment/Plan: NGT was placed at the bedside\ will check CXR plan NGTF if in the right place Subjective ROS Limited/Unobtainable: No Allergies: Coded Allergies: ACETAMINOPHEN (Verified Allergy, Unknown, 10/25/19) AMOXICILLIN (Verified Allergy, Unknown, 10/25/19) CEPHALEXIN (Verified Allergy, Unknown, 10/25/19) CODEINE (Verified Allergy, Unknown, 10/25/19) HYDROCODONE (Verified Allergy, Unknown, 10/25/19) SULFAMETHOXAZOLE (Verified Allergy, Unknown, 10/25/19) TETRACYCLINES (Verified Allergy, Unknown, 10/25/19) TRIMETHOPRIM (Verified Allergy, Unknown, 10/25/19) Objective Last 24 Hour Vital Signs Date Time Temp Pulse Resp B/P (MAP) Pulse Ox O2 Delivery O2 Flow Rate FiO2 10/29/19 12:00 Non-Rebreather 15.0 10/29/19 08:00 69 10/29/19 08:00 97.7 72 19 140/66 (90) 100 10/29/19 08:00 Non-Rebreather 15.0 10/29/19 04:00 97.8 78 20 130/67 (88) 100 10/29/19 04:00 Non-Rebreather 15.0 10/29/19 03:29 72 10/29/19 00:00 97.5 84 18 129/69 (89) 99 10/29/19 00:00 Non-Rebreather 15.0 10/28/19 23:39 88 10/28/19 20:00 Non-Rebreather 15.0 10/28/19 20:00 Non-Rebreather 15.0 10/28/19 19:34 91 10/28/19 19:34 97.9 91 18 126/75 (92) 98 10/28/19 16:00 96.8 90 24 122/74 (90) 94 10/28/19 16:00 Non-Rebreather 15.0 10/28/19 16:00 123 Intake and Output 10/28/19 10/29/19 19:00 07:00 Intake Total 1155 ml 1964.117 ml Output Total 650 ml 1225 ml Balance 505 ml 739.117 ml Intake IV Total 1155 ml 1964.117 ml Output Urine Total 650 ml 1225 ml # Bowel Movements 1 Laboratory Tests 10/29/19 03:50: White Blood Count 9.4, Red Blood Count 4.43L, Hemoglobin 14.2, Hematocrit 42.0, Mean Corpuscular Volume 95, Mean Corpuscular Hemoglobin 32.0H, Mean Corpuscular Hemoglobin Concent 33.8, Red Cell Distribution Width 12.2, Platelet Count 185, Mean Platelet Volume 10.3H, Neutrophils (%) (Auto) 81.1H, Lymphocytes (%) (Auto ) 12.3L, Monocytes (%) (Auto) 4.8, Eosinophils (%) (Auto) 1.3, Basophils (%) ( Auto) 0.5, Sodium Level 142, Potassium Level 3.1L, Chloride Level 111H, Carbon Dioxide Level 23, Anion Gap 8, Blood Urea Nitrogen 11, Creatinine 0.9, Estimat Glomerular Filtration Rate > 60, Glucose Level 156H, Calcium Level 7.3L, Magnesium Level 1.7L, Total Bilirubin 1.0, Aspartate Amino Transf (AST/SGOT) 34 , Alanine Aminotransferase (ALT/SGPT) 15, Alkaline Phosphatase 76, Total Protein 5.4L, Albumin 1.8L, Globulin 3.6, Albumin/Globulin Ratio 0.5L Height (Feet): 5 Height (Inches): 1.00 Weight (Pounds): 162 General Appearance: lethargic EENT: normal ENT inspection Neck: supple Cardiovascular: normal rate Respiratory/Chest: decreased breath sounds Abdomen: normal bowel sounds, non tender, soft Extremities: non-tender Nathan Quesada MD Oct 29, 2019 14:31
[2019-10-29 16:00] VITALS: BP 110/58
--- NOTE | 2019-10-29 17:14 | Diagnostic Imaging Report ---
Indication: Post nasogastric tube placement Technique: Supine view of the upper abdomen Comparison: none Findings: Chest is included in the exam, demonstrates nasogastric tube coiled in the hypopharynx. There are bilateral pulmonary parenchymal opacities likely representing pneumonia. Considerable gas is seen throughout nondilated large and small bowel. No masses or unusual calcifications. There are cholecystectomy clips Impression: Malpositioned nasogastric tube, as described. MATTHEWS nurse notified at the time of interpretation Bilateral pulmonary infiltrates, likely pneumonia Nonspecific bowel gas pattern
--- NOTE | 2019-10-29 17:38 | Internal Med Progress Note ---
Subjective Date of Service: Oct 29, 2019 Physician Name Ad Hardy Attending Physician Aron Barbosa M.D. Current Medications Medications (Trade) Dose Ordered Sig/Jesu Route PRN Reason Start Time Stop Time Status Last Admin Dose Admin Albuterol Sulfate (Proventil MDI) 2 puff Q4H PRN INH Shortness of Breath 10/25/19 23:30 01/23/20 23:29 Aspirin (Ecotrin) 81 mg DAILY ORAL 10/26/19 09:00 12/10/19 08:59 10/26/19 08:22 Dextrose/ Electrolytes 1,000 ml @ 100 mls/hr Q10H IV 10/26/19 23:00 11/25/19 22:59 10/29/19 11:00 Gabapentin (Neurontin) 300 mg BID ORAL 10/26/19 09:00 11/25/19 08:59 10/26/19 08:22 Lorazepam (Ativan 2mg/ml 1ml) 0.5 mg Q6H PRN IV For Anxiety 10/28/19 20:30 11/04/19 20:29 10/28/19 20:41 Magnesium Hydroxide (Mom) 30 ml DAILYPRN PRN ORAL Constipation 10/25/19 23:30 11/24/19 23:29 Meropenem 1 gm/ Sodium Chloride 100 ml @ 200 mls/hr Q12H IVPB 10/29/19 02:00 11/03/19 01:59 10/29/19 14:00 Multi-Ingredient Mouthwash/Gargle (Magic Mouth Wash 60ml) 10 ml BID ORAL 10/26/19 09:00 11/25/19 08:59 10/29/19 09:10 Multivitamins (Multivitamins W/ Minerals 15ml Liquid) 15 ml DAILY ORAL 10/26/19 09:00 11/25/19 08:59 10/26/19 08:22 Vancomycin HCl (Vanco pharmacy to dose) 1 ea DAILY PRN MISC Per rx protocol 10/26/19 22:45 11/25/19 22:44 Vancomycin HCl 1 gm/Dextrose 275 ml @ 183.708 mls/hr Q24H IVPB 10/28/19 02:00 11/02/19 01:59 10/29/19 02:09 Allergies: Coded Allergies: ACETAMINOPHEN (Verified Allergy, Unknown, 10/25/19) AMOXICILLIN (Verified Allergy, Unknown, 10/25/19) CEPHALEXIN (Verified Allergy, Unknown, 10/25/19) CODEINE (Verified Allergy, Unknown, 10/25/19) HYDROCODONE (Verified Allergy, Unknown, 10/25/19) SULFAMETHOXAZOLE (Verified Allergy, Unknown, 10/25/19) TETRACYCLINES (Verified Allergy, Unknown, 10/25/19) TRIMETHOPRIM (Verified Allergy, Unknown, 10/25/19) ROS Limited/Unobtainable: Yes All Systems: reviewed and negative except above Subjective Na , wbc both down trending Objective Last Vital Signs Date Time Temp Pulse Resp B/P (MAP) Pulse Ox O2 Delivery O2 Flow Rate FiO2 10/29/19 12:00 97.5 84 20 122/70 (87) 100 10/29/19 12:00 Non-Rebreather 15.0 10/26/19 08:05 50 General Appearance: no apparent distress Neck: supple Cardiovascular: normal rate, regular rhythm, systolic murmur Respiratory/Chest: rhonchi - left Abdomen: normal bowel sounds, non tender, soft Genitourinary/Rectal: normal genital exam Extremities: non-tender Neurologic: motor weakness, sensory deficit, disoriented, other - +chronic hemiplegia Skin: warm/dry Laboratory Tests Test 10/29/19 03:50 White Blood Count 9.4 K/UL (4.8-10.8) Red Blood Count 4.43 M/UL (4.70-6.10) L Hemoglobin 14.2 G/DL (14.2-18.0) Hematocrit 42.0 % (42.0-52.0) Mean Corpuscular Volume 95 FL (80-99) Mean Corpuscular Hemoglobin 32.0 PG (27.0-31.0) H Mean Corpuscular Hemoglobin Concent 33.8 G/DL (32.0-36.0) Red Cell Distribution Width 12.2 % (11.6-14.8) Platelet Count 185 K/UL (150-450) Mean Platelet Volume 10.3 FL (6.5-10.1) H Neutrophils (%) (Auto) 81.1 % (45.0-75.0) H Lymphocytes (%) (Auto) 12.3 % (20.0-45.0) L Monocytes (%) (Auto) 4.8 % (1.0-10.0) Eosinophils (%) (Auto) 1.3 % (0.0-3.0) Basophils (%) (Auto) 0.5 % (0.0-2.0) Sodium Level 142 MMOL/L (136-145) Potassium Level 3.1 MMOL/L (3.5-5.1) L Chloride Level 111 MMOL/L (98-107) H Carbon Dioxide Level 23 MMOL/L (21-32) Anion Gap 8 mmol/L (5-15) Blood Urea Nitrogen 11 mg/dL (7-18) Creatinine 0.9 MG/DL (0.55-1.30) Estimat Glomerular Filtration Rate > 60 mL/min (>60) Glucose Level 156 MG/DL (74-106) H Calcium Level 7.3 MG/DL (8.5-10.1) L Magnesium Level 1.7 MG/DL (1.8-2.4) L Total Bilirubin 1.0 MG/DL (0.2-1.0) Aspartate Amino Transf (AST/SGOT) 34 U/L (15-37) Alanine Aminotransferase (ALT/SGPT) 15 U/L (12-78) Alkaline Phosphatase 76 U/L (46-116) Total Protein 5.4 G/DL (6.4-8.2) L Albumin 1.8 G/DL (3.4-5.0) L Globulin 3.6 g/dL Albumin/Globulin Ratio 0.5 (1.0-2.7) L Microbiology Date/Time Source Procedure Growth Status 10/28/19 09:45 Nasopharynx Coronavirus COVID-19 PCR ([facility]IM) - Final Complete Intake and Output 10/28/19 10/29/19 19:00 07:00 Intake Total 1155 ml 1964.117 ml Output Total 650 ml 1225 ml Balance 505 ml 739.117 ml Intake IV Total 1155 ml 1964.117 ml Output Urine Total 650 ml 1225 ml # Bowel Movements 1 Assessment/Plan Status: stable, progressing Assessment/Plan IMPRESSION: sepsis on admission COVID 19 pnemonia acute respiratory failure hypoxemia acute toxic and metabolic encephalopathy Hypernatremia dehydration acute kidney injury leuokcytosis hx CVA with hemiplegia suprapubic catheter status senile debility ankle wound PLAN: stepdown unit NGT placement for feeding by GI, malposition. 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 over 50% allocated in counseling, coordination of care, d/w staff and family with medical update Ad Hardy MD Oct 29, 2019 17:38
[2019-10-29 20:00] VITALS: BP 117/63
[2019-10-30] VITALS: BP 115/55
[2019-10-30] MEDS: D5 1/2NS w/KCL 10meq 1,000 ML IV SCH ×2 (02:20→16:30)
[2019-10-30] MEDS: Vancomycin 1gm/D5W 275ml IVPB SCH ×2 (02:23)
[2019-10-30 04:00] VITALS: BP 118/59
--- NOTE | 2019-10-30 06:54 | General Progress Note ---
Assessment/Plan Problem List: (1) Sepsis ICD Codes: A41.9 - Sepsis, unspecified organism SNOMED: 43615694 Qualifiers: Qualified Codes: A41.9 - Sepsis, unspecified organism; R65.20 - Severe sepsis without septic shock; N17.9 - Acute kidney failure, unspecified (2) Hypoxia ICD Codes: R09.02 - Hypoxemia SNOMED: 566826592 (3) Right hemiparesis ICD Codes: G81.91 - Hemiplegia, unspecified affecting right dominant side SNOMED: 998576653 (4) COVID-19 ICD Codes: U07.1 - COVID-19 SNOMED: 796249483 Status: stable, progressing Assessment/Plan: NGT was placed again today at the bedside\ will check CXR plan NGTF if in the right place Subjective Allergies: Coded Allergies: ACETAMINOPHEN (Verified Allergy, Unknown, 10/25/19) AMOXICILLIN (Verified Allergy, Unknown, 10/25/19) CEPHALEXIN (Verified Allergy, Unknown, 10/25/19) CODEINE (Verified Allergy, Unknown, 10/25/19) HYDROCODONE (Verified Allergy, Unknown, 10/25/19) SULFAMETHOXAZOLE (Verified Allergy, Unknown, 10/25/19) TETRACYCLINES (Verified Allergy, Unknown, 10/25/19) TRIMETHOPRIM (Verified Allergy, Unknown, 10/25/19) Objective Last 24 Hour Vital Signs Date Time Temp Pulse Resp B/P (MAP) Pulse Ox O2 Delivery O2 Flow Rate FiO2 10/30/19 04:00 Nasal Cannula 4.0 10/30/19 04:00 97.9 80 20 118/59 (78) 100 10/30/19 03:35 76 10/30/19 00:00 97.4 90 22 115/55 (75) 100 10/30/19 00:00 Nasal Cannula 4.0 10/29/19 23:39 87 10/29/19 20:00 96 10/29/19 20:00 98.6 101 22 117/63 (81) 99 10/29/19 20:00 Nasal Cannula 4.0 10/29/19 16:00 97.9 103 20 110/58 (75) 97 10/29/19 16:00 Nasal Cannula 4.0 10/29/19 16:00 102 10/29/19 12:00 97.5 84 20 122/70 (87) 100 10/29/19 12:00 Non-Rebreather 15.0 10/29/19 12:00 85 10/29/19 08:00 69 10/29/19 08:00 97.7 72 19 140/66 (90) 100 10/29/19 08:00 Non-Rebreather 15.0 Intake and Output 10/29/19 10/30/19 19:00 07:00 Intake Total 100 ml 1266 ml Output Total 850 ml 700 ml Balance -750 ml 566 ml Intake IV Total 100 ml 1266 ml Output Urine Total 850 ml 700 ml Laboratory Tests 10/30/19 01:30: Vancomycin Level Trough 9.9 Height (Feet): 5 Height (Inches): 1.00 Weight (Pounds): 162 General Appearance: lethargic EENT: normal ENT inspection Neck: supple Cardiovascular: normal rate Respiratory/Chest: decreased breath sounds Abdomen: normal bowel sounds, non tender, soft Extremities: non-tender Nathan Quesada MD Oct 30, 2019 06:54
[2019-10-30 07:15] LABS: BASOPHILS % (AUTO) 0.4 % (0.0-2.0); HEMATOCRIT 40.7 % (42.0-52.0); HEMOGLOBIN 13.7 G/DL (14.2-18.0); MEAN CORPUSCULAR VOLUME 95 FL (80-99); MONOCYTES % (AUTO) 3.9 % (1.0-10.0); NEUTROPHILS % (AUTO) 80.7 % (45.0-75.0); PLATELET COUNT 179 K/UL (150-450); RED BLOOD COUNT 4.29 M/UL (4.70-6.10); RED CELL DISTRIBUTION WIDTH 12.5 % (11.6-14.8); WHITE BLOOD COUNT 11.2 K/UL (4.8-10.8)
[2019-10-30 07:33] LABS: PHOSPHORUS 1.9 MG/DL (2.5-4.9)
[2019-10-30 07:55] LABS: ALANINE AMINOTRANSFERASE 15 U/L (12-78); ALBUMIN 1.7 G/DL (3.4-5.0); ALBUMIN/GLOBULIN RATIO 0.5 (1.0-2.7); ALKALINE PHOSPHATASE 69 U/L (46-116); ANION GAP 8 mmol/L (5-15); ASPARTATE AMINO TRANSFERASE 25 U/L (15-37); BLOOD UREA NITROGEN 10 mg/dL (7-18); CARBON DIOXIDE 23 MMOL/L (21-32); CHLORIDE 111 MMOL/L (98-107); CREATININE 1.2 MG/DL (0.55-1.30); POTASSIUM 3.5 MMOL/L (3.5-5.1); SODIUM 142 MMOL/L (136-145)
[2019-10-30 08:00] VITALS: BP 100/99
[2019-10-30] MEDS: Magic Mouth Wash 60ml (Benadryl/Mylanta/Visc Lido) ORAL SCH ×2 (09:00→18:00)
[2019-10-30] MEDS: Multivitamins W/Minerals 15 ML UDC ORAL SCH (09:00)
[2019-10-30] MEDS: Aspirin EC 81mg tab ORAL SCH (09:00)
--- NOTE | 2019-10-30 09:15 | Diagnostic Imaging Report ---
EXAM: XR Chest, 1 View CLINICAL HISTORY: INFECT TECHNIQUE: Frontal view of the chest. COMPARISON: Chest x-ray 10/28/19 848 FINDINGS: Lungs: Slightly improved aeration of lung. Continued right midlung infiltrates and mild atelectasis or infiltrate in the left lower lobe. Lucency in the right lung apex is likely from a skin fold. Pleural space: Unremarkable. No pneumothorax. Heart: Unremarkable. No cardiomegaly. Mediastinum: Unremarkable. Bones/joints: Unremarkable. Tubes, lines and devices: NG tube is in the right lower lung bronchus, tip in the lower right chest. IMPRESSION: 1. NG tube is in the right lower lung bronchus, tip in the lower right chest. Needs to be removed and repositioned. 2. Slightly improved aeration of lung. Continued right midlung infiltrates and mild atelectasis or infiltrate in the left lower lobe. <MYCVCSECTION> Communications: 10/30/19 09:26 Call Nurse Called NAS Jackson on 10/29 09:26 (-07:00)
--- NOTE | 2019-10-30 10:16 | Pulmonology Progress Note ---
Subjective ROS Limited/Unobtainable: Yes Interval Events: None new reported Constitutional: Reports: fatigue, other - + bm and sob; Denies: fever HEENT: Repors: no symptoms Respiratory: Reports: no symptoms Cardiovascular: Reports: no symptoms Gastrointestinal/Abdominal: Denies: nausea, vomiting, diarrhea Genitourinary: Reports: no symptoms Neurologic: Reports: no symptoms Psychiatric: Reports: other - NA Skin: Denies: rash Musculoskeletal: Denies: pain Allergies: Coded Allergies: ACETAMINOPHEN (Verified Allergy, Unknown, 10/25/19) AMOXICILLIN (Verified Allergy, Unknown, 10/25/19) CEPHALEXIN (Verified Allergy, Unknown, 10/25/19) CODEINE (Verified Allergy, Unknown, 10/25/19) HYDROCODONE (Verified Allergy, Unknown, 10/25/19) SULFAMETHOXAZOLE (Verified Allergy, Unknown, 10/25/19) TETRACYCLINES (Verified Allergy, Unknown, 10/25/19) TRIMETHOPRIM (Verified Allergy, Unknown, 10/25/19) All Systems: reviewed and negative except above Objective Last 24 Hour Vital Signs Date Time Temp Pulse Resp B/P (MAP) Pulse Ox O2 Delivery O2 Flow Rate FiO2 10/30/19 04:00 Nasal Cannula 4.0 10/30/19 04:00 97.9 80 20 118/59 (78) 100 10/30/19 03:35 76 10/30/19 00:00 97.4 90 22 115/55 (75) 100 10/30/19 00:00 Nasal Cannula 4.0 10/29/19 23:39 87 10/29/19 20:00 96 10/29/19 20:00 98.6 101 22 117/63 (81) 99 10/29/19 20:00 Nasal Cannula 4.0 10/29/19 16:00 97.9 103 20 110/58 (75) 97 10/29/19 16:00 Nasal Cannula 4.0 10/29/19 16:00 102 10/29/19 12:00 97.5 84 20 122/70 (87) 100 10/29/19 12:00 Non-Rebreather 15.0 10/29/19 12:00 85 Intake and Output 10/29/19 10/30/19 19:00 07:00 Intake Total 100 ml 1366 ml Output Total 850 ml 700 ml Balance -750 ml 666 ml Intake IV Total 100 ml 1366 ml Output Urine Total 850 ml 700 ml General Appearance: no acute distress HEENT: normocephalic Respiratory: chest wall non-tender, lungs clear Cardiovascular: normal peripheral pulses, normal rate Abdomen: normal bowel sounds Microbiology Date/Time Source Procedure Growth Status 10/28/19 09:45 Nasopharynx Coronavirus COVID-19 PCR ([facility]IM) - Final Complete Laboratory Tests 10/30/19 01:30: Vancomycin Level Trough 9.9 10/30/19 04:30: White Blood Count 11.2H, Red Blood Count 4.29L, Hemoglobin 13.7L, Hematocrit 40.7L, Mean Corpuscular Volume 95, Mean Corpuscular Hemoglobin 32.0H, Mean Corpuscular Hemoglobin Concent 33.7, Red Cell Distribution Width 12.5, Platelet Count 179, Mean Platelet Volume 10.7H, Neutrophils (%) (Auto) 80.7H, Lymphocytes (%) (Auto) 13.0L, Monocytes (%) (Auto) 3.9, Eosinophils (%) (Auto) 2.0, Basophils (%) (Auto) 0.4, Sodium Level 142, Potassium Level 3.5, Chloride Level 111H, Carbon Dioxide Level 23, Anion Gap 8, Blood Urea Nitrogen 10, Creatinine 1.2, Estimat Glomerular Filtration Rate 57.3, Glucose Level 143H, Calcium Level 7.0L, Phosphorus Level 1.9L, Magnesium Level 1.9, Total Bilirubin 1.0, Aspartate Amino Transf (AST/SGOT) 25, Alanine Aminotransferase (ALT/SGPT) 15, Alkaline Phosphatase 69, Total Protein 5.1L, Albumin 1.7L, Globulin 3.4, Albumin/Globulin Ratio 0.5L Current Medications Medications (Trade) Dose Ordered Sig/Jesu Route PRN Reason Start Time Stop Time Status Last Admin Dose Admin Albuterol Sulfate (Proventil MDI) 2 puff Q4H PRN INH Shortness of Breath 10/25/19 23:30 01/23/20 23:29 Aspirin (Ecotrin) 81 mg DAILY ORAL 10/26/19 09:00 12/10/19 08:59 10/26/19 08:22 Dextrose/ Electrolytes 1,000 ml @ 100 mls/hr Q10H IV 10/26/19 23:00 11/25/19 22:59 10/30/19 02:20 Gabapentin (Neurontin) 300 mg BID ORAL 10/26/19 09:00 11/25/19 08:59 10/26/19 08:22 Lorazepam (Ativan 2mg/ml 1ml) 0.5 mg Q6H PRN IV For Anxiety 10/28/19 20:30 11/04/19 20:29 10/28/19 20:41 Magnesium Hydroxide (Mom) 30 ml DAILYPRN PRN ORAL Constipation 10/25/19 23:30 11/24/19 23:29 Meropenem 1 gm/ Sodium Chloride 100 ml @ 200 mls/hr Q12H IVPB 10/29/19 02:00 11/03/19 01:59 10/30/19 01:00 Multi-Ingredient Mouthwash/Gargle (Magic Mouth Wash 60ml) 10 ml BID ORAL 10/26/19 09:00 11/25/19 08:59 10/29/19 17:36 Multivitamins (Multivitamins W/ Minerals 15ml Liquid) 15 ml DAILY ORAL 10/26/19 09:00 11/25/19 08:59 10/26/19 08:22 Vancomycin HCl (Vanco pharmacy to dose) 1 ea DAILY PRN MISC Per rx protocol 10/26/19 22:45 11/25/19 22:44 Vancomycin/Sodium Chloride 275 ml @ 137.5 mls/ hr Q24H IVPB 10/30/19 20:00 11/04/19 19:59 Assessment/Plan Assessment/Plan IMPRESSION: 1. COVID-19 pneumonia by history. Current pcr negative 2. Bilateral pulmonary infiltrates. 3. Hypoxemia. 4. Hypernatremia. 5. Renal failure. 6. Hypertension. 7. Chronic suprapubic catheter. 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 Needs NG/enetral feedings Continue oxygen via 4L/min nasal canulae Chavo Goldstein Omar Syed MD Oct 30, 2019 10:16
[2019-10-30 12:00] VITALS: BP 128/75
--- NOTE | 2019-10-30 13:20 | Surgery Progress Note ---
Surgery Progress Note Subjective Additional Comments no acute events labs reviewed radiology reviewed Objective Last 24 Hour Vital Signs Date Time Temp Pulse Resp B/P (MAP) Pulse Ox O2 Delivery O2 Flow Rate FiO2 10/30/19 08:00 113 10/30/19 08:00 97.9 113 20 100/99 (99) 88 10/30/19 08:00 Nasal Cannula 2.0 10/30/19 04:00 Nasal Cannula 4.0 10/30/19 04:00 97.9 80 20 118/59 (78) 100 10/30/19 03:35 76 10/30/19 00:00 97.4 90 22 115/55 (75) 100 10/30/19 00:00 Nasal Cannula 4.0 10/29/19 23:39 87 10/29/19 20:00 96 10/29/19 20:00 98.6 101 22 117/63 (81) 99 10/29/19 20:00 Nasal Cannula 4.0 10/29/19 16:00 97.9 103 20 110/58 (75) 97 10/29/19 16:00 Nasal Cannula 4.0 10/29/19 16:00 102 I&O Intake and Output 10/29/19 10/30/19 19:00 07:00 Intake Total 100 ml 1366 ml Output Total 850 ml 700 ml Balance -750 ml 666 ml Intake IV Total 100 ml 1366 ml Output Urine Total 850 ml 700 ml Dressing: other Wound: other Drains: other Cardiovascular: RSR Respiratory: decreased breath sounds Abdomen: soft, non-tender, present bowel sounds Extremities: no cyanosis Laboratory Tests Test 10/30/19 01:30 10/30/19 04:30 Vancomycin Level Trough 9.9 ug/mL (5.0-12.0) White Blood Count 11.2 K/UL (4.8-10.8) H Red Blood Count 4.29 M/UL (4.70-6.10) L Hemoglobin 13.7 G/DL (14.2-18.0) L Hematocrit 40.7 % (42.0-52.0) L Mean Corpuscular Volume 95 FL (80-99) Mean Corpuscular Hemoglobin 32.0 PG (27.0-31.0) H Mean Corpuscular Hemoglobin Concent 33.7 G/DL (32.0-36.0) Red Cell Distribution Width 12.5 % (11.6-14.8) Platelet Count 179 K/UL (150-450) Mean Platelet Volume 10.7 FL (6.5-10.1) H Neutrophils (%) (Auto) 80.7 % (45.0-75.0) H Lymphocytes (%) (Auto) 13.0 % (20.0-45.0) L Monocytes (%) (Auto) 3.9 % (1.0-10.0) Eosinophils (%) (Auto) 2.0 % (0.0-3.0) Basophils (%) (Auto) 0.4 % (0.0-2.0) Sodium Level 142 MMOL/L (136-145) Potassium Level 3.5 MMOL/L (3.5-5.1) Chloride Level 111 MMOL/L (98-107) H Carbon Dioxide Level 23 MMOL/L (21-32) Anion Gap 8 mmol/L (5-15) Blood Urea Nitrogen 10 mg/dL (7-18) Creatinine 1.2 MG/DL (0.55-1.30) Estimat Glomerular Filtration Rate 57.3 mL/min (>60) Glucose Level 143 MG/DL (74-106) H Calcium Level 7.0 MG/DL (8.5-10.1) L Phosphorus Level 1.9 MG/DL (2.5-4.9) L Magnesium Level 1.9 MG/DL (1.8-2.4) Total Bilirubin 1.0 MG/DL (0.2-1.0) Aspartate Amino Transf (AST/SGOT) 25 U/L (15-37) Alanine Aminotransferase (ALT/SGPT) 15 U/L (12-78) Alkaline Phosphatase 69 U/L (46-116) Total Protein 5.1 G/DL (6.4-8.2) L Albumin 1.7 G/DL (3.4-5.0) L Globulin 3.4 g/dL Albumin/Globulin Ratio 0.5 (1.0-2.7) L Plan Problems: (1) Renal failure (2) Hypoxia (3) Sepsis Assessment & Plan: 89 year old male with leukocytosis, lactic acidosis, abnormal labs. currently in monitoring unit on face mask respiratory support Hx COVID + UTI Pt presented on admission with multiple Pressure injuries. Pt currently using Venti-mask. Non-Blanching erythema noted to bridge of nose and both cheeks consistent with mask. Cavilon Skin Barrier applied to affected areas and covered with Foam tape. Non-Blanching erythema noted to clefts of both ears. Elastic Band of oxygen tubing padded. Non-Blanching erythema without induration noted to sacrum,R and L Gluteus. Non-Blanching erythema noted to R trochanter(L)3cm x (W)6.3cm. DTPI noted to L Heel. Base of heel is maroon and fluctuant (L)4.3cm x (W)5.5cm. Periwound is boggy but easily blanchable. R heel and lateral R foot boggy with non-blanching erythema. Resolving Pressure injury Lateral R malleolus. Base of wound is dry, black with pink epithelial at center of wound.(L)2.5cm x (W)2.7cm. Apply Moisture Barrier Paste to Sacrum. Cover with Optifoam drsg. Change every 3 days and prn. Apply Cavilon Skin Barrier to R and L trochanter. Cover each site with Optifoam drsg. Change every 7 days and PRN. Apply Cavilon Skin Barrier to both Earlobes TWICE daily.Pad elastic band of oxygen mask. Keep band loose around ears. Apply Cavilon Skin Barrier to R and L cheeks and Bridge of Nose. Apply Foam tape. Change every 7 days and PRN. Apply Cavilon Skin Barrier to both heels and malleoli. Cover each site with Optifoam drsgs. Change every 7 days and PRN. Reposition at least every 2hours or as tolerated. Off-load heels with Pillows. APM/MODESTO Mattress overlay. diet as tolerated respiratory support CXR noted nutritional optimization turn q2h will follow with recs thank you DAILY ESTIMATED NEEDS: Needs based on DM , pulmonary 75kg abw 25-30 kcals/kg 8373-5663 total kcals 1-1.5 g protein/kg 75-113 g total protein 20-25 mL/kg 7474-7272 total fluid mLs DAILY ESTIMATED NEEDS: Needs based on pulmonary, wound 75kg abw 25-30 kcals/kg 0663-6002 total kcals 1.25-1.5 g protein/kg 94-113 g total protein 20-25 mL/kg 2318-2474 total fluid mLs NUTRITION DIAGNOSIS: Altered nutrition related lab values r/t clinical status as evidenced by elev Na (159-> wnl), elev BUN(now 43-> wnl), elev BG (140-150). ENTERAL NUTRITION RECOMMENDATIONS: Glucerna 1.2 goal of 65ml/hr x24 hrs to provide 1560ml, 1872 kcal, 94g pro, 1256ml free H2O - Obtain GI access, initiate Glucerna 1.2 @25ml/hr for 6 hrs. Advance as tolerated 10ml/hr q4-6 hrs to goal. - Flush per MD/ HOB over 30 degrees. Glucerna 1.2 low on stock-> may replace w/ Jevity 1.2 w/goal of 65ml/hr x24 hrs. Rec to increase insulin coverage as Jevity 1.2 is not carb control formula. ADDITIONAL RECOMMENDATIONS: 1) DEPUTY COURT CLERK eval for appropriate texture-> per DEPUTY COURT CLERK recs for NPO w/ nonoral feed 2) Feed as able, consult RD for non oral TF recs if part of POC 3) F/up w/ WC eval of R ankle photo -> Add BARTOLO BID w/ non oral feeds as able 4) Maintain calibrated bed scale wts 5) Rec Glucerna TID-> NPO now per DEPUTY COURT CLERK recs 6) Check HgA1C (4) Right hemiparesis Pankaj Palomo Oct 30, 2019 13:20
[2019-10-30 16:00] VITALS: BP 158/75
[2019-10-30 20:00] VITALS: BP 132/69
--- NOTE | 2019-10-30 20:21 | Infectious Diseases Prog Note ---
Assessment/Plan Assessment/Plan ASSESSMENT AND PLAN: 1. MDR providencia uti, sepsis, possible bacterial pneumonia, leukocytosis, fevers, hx covid-19 infection/pna, sob, bm, esquivel, arf - vancomycin and meropenem day # 3 - monitor labs and chest x-ray - most recent chest x-ray improved - repeat covid-19 testing + - d/w RN 2. The patient has history of suprapubic catheter. 3. Hypertension. 4. Blood pressure treatment per primary care team. 5. Wound care protocol. Wounds were reviewed, not acutely infected. 6. Hemiparesis. 7. Hyperlipidemia. 8. Dementia. 9. Hypoxia and shortness of breath. 10. Continue treatment per primary consultants including hypertension treatment. 11. Allergies to acetaminophen, amoxicillin, cephalexin, codeine, hydrocodone, sulfamethoxazole, tetracycline, and trimethoprim. 12. Social history negative. 13. Family history noncontributory. 14. MAR was noted. 15. Case was discussed with RN. 16. Skin care protocol. 17. Orders were noted. Subjective Constitutional: Reports: fatigue; Denies: fever HEENT: Reports: congestion - less Respiratory: Reports: shortness of breath - less Cardiovascular: Denies: chest pain Gastrointestinal/Abdominal: Denies: nausea, vomiting, diarrhea Genitourinary: Reports: other - + esquivel Neurologic: Denies: headache Psychiatric: Reports: other - NA Skin: Denies: rash Hematologic: Denies: bleeding Musculoskeletal: Denies: pain Allergies: Coded Allergies: ACETAMINOPHEN (Verified Allergy, Unknown, 10/25/19) AMOXICILLIN (Verified Allergy, Unknown, 10/25/19) CEPHALEXIN (Verified Allergy, Unknown, 10/25/19) CODEINE (Verified Allergy, Unknown, 10/25/19) HYDROCODONE (Verified Allergy, Unknown, 10/25/19) SULFAMETHOXAZOLE (Verified Allergy, Unknown, 10/25/19) TETRACYCLINES (Verified Allergy, Unknown, 10/25/19) TRIMETHOPRIM (Verified Allergy, Unknown, 10/25/19) Objective Last 24 Hour Vital Signs Date Time Temp Pulse Resp B/P (MAP) Pulse Ox O2 Delivery O2 Flow Rate FiO2 10/30/19 16:00 Nasal Cannula 2.0 10/30/19 16:00 83 10/30/19 16:00 97.7 100 13 158/75 (102) 100 10/30/19 12:00 Nasal Cannula 2.0 10/30/19 12:00 94 10/30/19 12:00 98.1 96 19 128/75 (92) 97 10/30/19 08:00 113 10/30/19 08:00 97.9 113 20 100/99 (99) 88 10/30/19 08:00 Nasal Cannula 2.0 10/30/19 04:00 Nasal Cannula 4.0 10/30/19 04:00 97.9 80 20 118/59 (78) 100 10/30/19 03:35 76 10/30/19 00:00 97.4 90 22 115/55 (75) 100 10/30/19 00:00 Nasal Cannula 4.0 10/29/19 23:39 87 Height (Feet): 5 Height (Inches): 1.00 Weight (Pounds): 162 General Appearance: no acute distress HEENT: normocephalic, atraumatic, anicteric, mucous membranes moist, supple, no JVD Respiratory/Chest: crackles/rales, rhonchi - bilaterally Cardiovascular: normal rate, regular rhythm, no gallop/murmur, no JVD Abdomen: normal bowel sounds, soft, non tender, no organomegaly, non distended Genitourinary: other - + esquivel - urine cloudy Extremities: no cyanosis Skin: no rash Neurologic/Psychiatric: front desk agent II-XII grossly normal, alert, oriented x 3, responsive Lymphatic: no neck adenopathy Musculoskeletal: no effusion Chest x-ray - 10/28/19 - Procedure: XRAY Chest 1v Indication: Dyspnea Technique: One view of the chest Comparison: 10/26/2019 Findings: Patchy consolidation in the right midlung appears increasingly dense. Bilateral right greater left infiltrates are otherwise stable. Heart size is normal. The pleural spaces are clear. Impression: Increasingly dense consolidation in the right midlung. Otherwise little jacquard loom card changer 2 days Chest x-ray - 10/30/19 - FINDINGS: Lungs: Slightly improved aeration of lung. Continued right midlung infiltrates and mild atelectasis or infiltrate in the left lower lobe. Lucency in the right lung apex is likely from a skin fold. Pleural space: Unremarkable. No pneumothorax. Heart: Unremarkable. No cardiomegaly. Mediastinum: Unremarkable. Bones/joints: Unremarkable. Tubes, lines and devices: NG tube is in the right lower lung bronchus, tip in the lower right chest. IMPRESSION: 1. NG tube is in the right lower lung bronchus, tip in the lower right chest. Needs to be removed and repositioned. 2. Slightly improved aeration of lung. Continued right midlung infiltrates and mild atelectasis or infiltrate in the left lower lobe. Microbiology Date/Time Source Procedure Growth Status 10/25/19 14:15 Blood Blood Culture - Preliminary NO GROWTH AFTER 4 DAYS Resulted 10/28/19 09:45 Nasopharynx Coronavirus COVID-19 PCR (JIM) - Final Complete 10/25/19 14:51 Urine,Clean Catch Urine Culture - Final Providencia Rettgeri Mixed Gram Positive Organism Complete 10/25/19 17:25 Rectum VRE Culture - Final NO VANCOMYCIN RESISTANT ENTEROCOCCUS ... Complete Microbiology Date/Time Source Procedure Growth Status 10/28/19 09:45 Nasopharynx Coronavirus COVID-19 PCR (JIM) - Final Complete Laboratory Tests Test 10/30/19 01:30 10/30/19 04:30 Vancomycin Level Trough 9.9 ug/mL (5.0-12.0) White Blood Count 11.2 K/UL (4.8-10.8) H Red Blood Count 4.29 M/UL (4.70-6.10) L Hemoglobin 13.7 G/DL (14.2-18.0) L Hematocrit 40.7 % (42.0-52.0) L Mean Corpuscular Volume 95 FL (80-99) Mean Corpuscular Hemoglobin 32.0 PG (27.0-31.0) H Mean Corpuscular Hemoglobin Concent 33.7 G/DL (32.0-36.0) Red Cell Distribution Width 12.5 % (11.6-14.8) Platelet Count 179 K/UL (150-450) Mean Platelet Volume 10.7 FL (6.5-10.1) H Neutrophils (%) (Auto) 80.7 % (45.0-75.0) H Lymphocytes (%) (Auto) 13.0 % (20.0-45.0) L Monocytes (%) (Auto) 3.9 % (1.0-10.0) Eosinophils (%) (Auto) 2.0 % (0.0-3.0) Basophils (%) (Auto) 0.4 % (0.0-2.0) Sodium Level 142 MMOL/L (136-145) Potassium Level 3.5 MMOL/L (3.5-5.1) Chloride Level 111 MMOL/L (98-107) H Carbon Dioxide Level 23 MMOL/L (21-32) Anion Gap 8 mmol/L (5-15) Blood Urea Nitrogen 10 mg/dL (7-18) Creatinine 1.2 MG/DL (0.55-1.30) Estimat Glomerular Filtration Rate 57.3 mL/min (>60) Glucose Level 143 MG/DL (74-106) H Calcium Level 7.0 MG/DL (8.5-10.1) L Phosphorus Level 1.9 MG/DL (2.5-4.9) L Magnesium Level 1.9 MG/DL (1.8-2.4) Total Bilirubin 1.0 MG/DL (0.2-1.0) Aspartate Amino Transf (AST/SGOT) 25 U/L (15-37) Alanine Aminotransferase (ALT/SGPT) 15 U/L (12-78) Alkaline Phosphatase 69 U/L (46-116) Total Protein 5.1 G/DL (6.4-8.2) L Albumin 1.7 G/DL (3.4-5.0) L Globulin 3.4 g/dL Albumin/Globulin Ratio 0.5 (1.0-2.7) L Current Medications Medications (Trade) Dose Ordered Sig/Jesu Route PRN Reason Start Time Stop Time Status Last Admin Dose Admin Albuterol Sulfate (Proventil MDI) 2 puff Q4H PRN INH Shortness of Breath 10/25/19 23:30 01/23/20 23:29 Aspirin (Ecotrin) 81 mg DAILY ORAL 10/26/19 09:00 12/10/19 08:59 10/26/19 08:22 Dextrose/ Electrolytes 1,000 ml @ 100 mls/hr Q10H IV 10/26/19 23:00 11/25/19 22:59 10/30/19 16:30 Gabapentin (Neurontin) 300 mg BID ORAL 10/26/19 09:00 11/25/19 08:59 10/26/19 08:22 Lorazepam (Ativan 2mg/ml 1ml) 0.5 mg Q6H PRN IV For Anxiety 10/28/19 20:30 11/04/19 20:29 10/28/19 20:41 Magnesium Hydroxide (Mom) 30 ml DAILYPRN PRN ORAL Constipation 10/25/19 23:30 11/24/19 23:29 Meropenem 1 gm/ Sodium Chloride 100 ml @ 200 mls/hr Q12H IVPB 10/29/19 02:00 11/03/19 01:59 10/30/19 13:49 Multi-Ingredient Mouthwash/Gargle (Magic Mouth Wash 60ml) 10 ml BID ORAL 10/26/19 09:00 11/25/19 08:59 10/29/19 17:36 Multivitamins (Multivitamins W/ Minerals 15ml Liquid) 15 ml DAILY ORAL 10/26/19 09:00 11/25/19 08:59 10/26/19 08:22 Vancomycin HCl (Vanco pharmacy to dose) 1 ea DAILY PRN MISC Per rx protocol 10/26/19 22:45 11/25/19 22:44 Vancomycin/Sodium Chloride 275 ml @ 137.5 mls/ hr Q24H IVPB 10/30/19 20:00 11/04/19 19:59 Julio Sarabia MD Oct 30, 2019 20:21
[2019-10-30] MEDS: Vancomycin 1.5gm/NS Premix IVPB SCH (20:32)
--- NOTE | 2019-10-30 21:36 | Nephrology Progress Note ---
Assessment/Plan Plan #COVID pneumonia #TELMA due to dehydration #sepsis #Hypernatremia due to dehydration #hypoxemic resp failure #Volume depletion - IVF - replete K and mag - GI eval for NG placement - abx - pulm, ID and cards eval - 2d echo - bipap prn - follow cx - avoid nephrotoxins - replace free water - monitor mag, phos and bmp daily - DNR/DNI time spent 70 min- greater than 50% on care coordination and counseling Subjective ROS Limited/Unobtainable: Yes Subjective remains on non- rebreather mask WBC downtrending Sodium and cr improving agitated unable to place NG K and mag low - repleted Objective Objective Last 24 Hour Vital Signs Date Time Temp Pulse Resp B/P (MAP) Pulse Ox O2 Delivery O2 Flow Rate FiO2 10/30/19 16:00 Nasal Cannula 2.0 10/30/19 16:00 83 10/30/19 16:00 97.7 100 13 158/75 (102) 100 10/30/19 12:00 Nasal Cannula 2.0 10/30/19 12:00 94 10/30/19 12:00 98.1 96 19 128/75 (92) 97 10/30/19 08:00 113 10/30/19 08:00 97.9 113 20 100/99 (99) 88 10/30/19 08:00 Nasal Cannula 2.0 10/30/19 04:00 Nasal Cannula 4.0 10/30/19 04:00 97.9 80 20 118/59 (78) 100 10/30/19 03:35 76 10/30/19 00:00 97.4 90 22 115/55 (75) 100 10/30/19 00:00 Nasal Cannula 4.0 10/29/19 23:39 87 Intake and Output 10/29/19 10/30/19 19:00 07:00 Intake Total 100 ml 1366 ml Output Total 850 ml 700 ml Balance -750 ml 666 ml Intake IV Total 100 ml 1366 ml Output Urine Total 850 ml 700 ml Laboratory Tests 10/30/19 01:30: Vancomycin Level Trough 9.9 10/30/19 04:30: White Blood Count 11.2H, Red Blood Count 4.29L, Hemoglobin 13.7L, Hematocrit 40.7L, Mean Corpuscular Volume 95, Mean Corpuscular Hemoglobin 32.0H, Mean Corpuscular Hemoglobin Concent 33.7, Red Cell Distribution Width 12.5, Platelet Count 179, Mean Platelet Volume 10.7H, Neutrophils (%) (Auto) 80.7H, Lymphocytes (%) (Auto) 13.0L, Monocytes (%) (Auto) 3.9, Eosinophils (%) (Auto) 2.0, Basophils (%) (Auto) 0.4, Sodium Level 142, Potassium Level 3.5, Chloride Level 111H, Carbon Dioxide Level 23, Anion Gap 8, Blood Urea Nitrogen 10, Creatinine 1.2, Estimat Glomerular Filtration Rate 57.3, Glucose Level 143H, Calcium Level 7.0L, Phosphorus Level 1.9L, Magnesium Level 1.9, Total Bilirubin 1.0, Aspartate Amino Transf (AST/SGOT) 25, Alanine Aminotransferase (ALT/SGPT) 15, Alkaline Phosphatase 69, Total Protein 5.1L, Albumin 1.7L, Globulin 3.4, Albumin/Globulin Ratio 0.5L Height (Feet): 5 Height (Inches): 1.00 Weight (Pounds): 162 Aron Barbosa M.D. Oct 30, 2019 21:36
[2019-10-30] MEDS ORDERED: Potassium Phosphate 21 MM in NS 275 ML IV ONE (22:30)
--- NOTE | 2019-10-30 22:56 | Internal Med Progress Note ---
Subjective Date of Service: Oct 30, 2019 Physician Name Ad Hardy Attending Physician Aron Barbosa M.D. Current Medications Medications (Trade) Dose Ordered Sig/Jesu Route PRN Reason Start Time Stop Time Status Last Admin Dose Admin Albuterol Sulfate (Proventil MDI) 2 puff Q4H PRN INH Shortness of Breath 10/25/19 23:30 01/23/20 23:29 Aspirin (Ecotrin) 81 mg DAILY ORAL 10/26/19 09:00 12/10/19 08:59 10/26/19 08:22 Dextrose/ Electrolytes 1,000 ml @ 100 mls/hr Q10H IV 10/26/19 23:00 11/25/19 22:59 10/30/19 16:30 Gabapentin (Neurontin) 300 mg BID ORAL 10/26/19 09:00 11/25/19 08:59 10/26/19 08:22 Lorazepam (Ativan 2mg/ml 1ml) 0.5 mg Q6H PRN IV For Anxiety 10/28/19 20:30 11/04/19 20:29 10/28/19 20:41 Magnesium Hydroxide (Mom) 30 ml DAILYPRN PRN ORAL Constipation 10/25/19 23:30 11/24/19 23:29 Meropenem 1 gm/ Sodium Chloride 100 ml @ 200 mls/hr Q12H IVPB 10/29/19 02:00 11/03/19 01:59 10/30/19 13:49 Multi-Ingredient Mouthwash/Gargle (Magic Mouth Wash 60ml) 10 ml BID ORAL 10/26/19 09:00 11/25/19 08:59 10/29/19 17:36 Multivitamins (Multivitamins W/ Minerals 15ml Liquid) 15 ml DAILY ORAL 10/26/19 09:00 11/25/19 08:59 10/26/19 08:22 Potassium Phosphate 21 mm/ Sodium Chloride 282 ml @ 47 mls/hr ONCE ONCE IV 10/30/19 22:30 10/31/19 04:29 10/30/19 22:45 Vancomycin HCl (Vanco pharmacy to dose) 1 ea DAILY PRN MISC Per rx protocol 10/26/19 22:45 11/25/19 22:44 Vancomycin/Sodium Chloride 275 ml @ 137.5 mls/ hr Q24H IVPB 10/30/19 20:00 11/04/19 19:59 10/30/19 20:32 Allergies: Coded Allergies: ACETAMINOPHEN (Verified Allergy, Unknown, 10/25/19) AMOXICILLIN (Verified Allergy, Unknown, 10/25/19) CEPHALEXIN (Verified Allergy, Unknown, 10/25/19) CODEINE (Verified Allergy, Unknown, 10/25/19) HYDROCODONE (Verified Allergy, Unknown, 10/25/19) SULFAMETHOXAZOLE (Verified Allergy, Unknown, 10/25/19) TETRACYCLINES (Verified Allergy, Unknown, 10/25/19) TRIMETHOPRIM (Verified Allergy, Unknown, 10/25/19) ROS Limited/Unobtainable: Yes Subjective still need functioning NGTY NGT removed awaiting new placement Objective Last Vital Signs Date Time Temp Pulse Resp B/P (MAP) Pulse Ox O2 Delivery O2 Flow Rate FiO2 10/30/19 20:00 Nasal Cannula 2.0 10/30/19 20:00 79 10/30/19 20:00 97.5 26 132/69 (90) 98 10/26/19 08:05 50 General Appearance: no apparent distress Cardiovascular: normal rate, regular rhythm, systolic murmur Respiratory/Chest: rhonchi - bilaterally Abdomen: normal bowel sounds, non tender, soft Genitourinary/Rectal: normal genital exam Extremities: no calf tenderness Edema: mild edema Neurologic: motor weakness, sensory deficit, disoriented Skin: warm/dry Laboratory Tests Test 10/30/19 01:30 10/30/19 04:30 Vancomycin Level Trough 9.9 ug/mL (5.0-12.0) White Blood Count 11.2 K/UL (4.8-10.8) H Red Blood Count 4.29 M/UL (4.70-6.10) L Hemoglobin 13.7 G/DL (14.2-18.0) L Hematocrit 40.7 % (42.0-52.0) L Mean Corpuscular Volume 95 FL (80-99) Mean Corpuscular Hemoglobin 32.0 PG (27.0-31.0) H Mean Corpuscular Hemoglobin Concent 33.7 G/DL (32.0-36.0) Red Cell Distribution Width 12.5 % (11.6-14.8) Platelet Count 179 K/UL (150-450) Mean Platelet Volume 10.7 FL (6.5-10.1) H Neutrophils (%) (Auto) 80.7 % (45.0-75.0) H Lymphocytes (%) (Auto) 13.0 % (20.0-45.0) L Monocytes (%) (Auto) 3.9 % (1.0-10.0) Eosinophils (%) (Auto) 2.0 % (0.0-3.0) Basophils (%) (Auto) 0.4 % (0.0-2.0) Sodium Level 142 MMOL/L (136-145) Potassium Level 3.5 MMOL/L (3.5-5.1) Chloride Level 111 MMOL/L (98-107) H Carbon Dioxide Level 23 MMOL/L (21-32) Anion Gap 8 mmol/L (5-15) Blood Urea Nitrogen 10 mg/dL (7-18) Creatinine 1.2 MG/DL (0.55-1.30) Estimat Glomerular Filtration Rate 57.3 mL/min (>60) Glucose Level 143 MG/DL (74-106) H Calcium Level 7.0 MG/DL (8.5-10.1) L Phosphorus Level 1.9 MG/DL (2.5-4.9) L Magnesium Level 1.9 MG/DL (1.8-2.4) Total Bilirubin 1.0 MG/DL (0.2-1.0) Aspartate Amino Transf (AST/SGOT) 25 U/L (15-37) Alanine Aminotransferase (ALT/SGPT) 15 U/L (12-78) Alkaline Phosphatase 69 U/L (46-116) Total Protein 5.1 G/DL (6.4-8.2) L Albumin 1.7 G/DL (3.4-5.0) L Globulin 3.4 g/dL Albumin/Globulin Ratio 0.5 (1.0-2.7) L Microbiology Date/Time Source Procedure Growth Status 10/28/19 09:45 Nasopharynx Coronavirus COVID-19 PCR ([facility]IM) - Final Complete Intake and Output 10/29/19 10/30/19 19:00 07:00 Intake Total 100 ml 1366 ml Output Total 850 ml 700 ml Balance -750 ml 666 ml Intake IV Total 100 ml 1366 ml Output Urine Total 850 ml 700 ml Assessment/Plan Status: stable, progressing Assessment/Plan IMPRESSION: sepsis on admission COVID 19 pnemonia acute respiratory failure hypoxemia acute toxic and metabolic encephalopathy Hypernatremia dehydration acute kidney injury leuokcytosis hx CVA with hemiplegia suprapubic catheter status senile debility ankle wound PLAN: stepdown unit NGT placement for feeding by GI, malposition. 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 over 50% allocated in counseling, coordination of care, d/w staff and family with medical update Ad Hardy MD Oct 30, 2019 22:56
[2019-10-31] VITALS: BP 135/71
[2019-10-31] MEDS: D5 1/2NS w/KCL 10meq 1,000 ML IV SCH ×3 (02:43→23:06)
[2019-10-31 04:00] VITALS: BP 132/69
[2019-10-31 07:30] VITALS: BP 134/74
--- NOTE | 2019-10-31 07:32 | General Progress Note ---
Assessment/Plan Problem List: (1) Sepsis ICD Codes: A41.9 - Sepsis, unspecified organism SNOMED: 02014852 Qualifiers: Qualified Codes: A41.9 - Sepsis, unspecified organism; R65.20 - Severe sepsis without septic shock; N17.9 - Acute kidney failure, unspecified (2) Hypoxia ICD Codes: R09.02 - Hypoxemia SNOMED: 485901624 (3) Right hemiparesis ICD Codes: G81.91 - Hemiplegia, unspecified affecting right dominant side SNOMED: 211837499 (4) COVID-19 ICD Codes: U07.1 - COVID-19 SNOMED: 273139657 Status: stable, progressing Assessment/Plan: multiple attempts for NGT placement has failed so far plan dobbhoff tube today if fails again Subjective ROS Limited/Unobtainable: No Allergies: Coded Allergies: ACETAMINOPHEN (Verified Allergy, Unknown, 10/25/19) AMOXICILLIN (Verified Allergy, Unknown, 10/25/19) CEPHALEXIN (Verified Allergy, Unknown, 10/25/19) CODEINE (Verified Allergy, Unknown, 10/25/19) HYDROCODONE (Verified Allergy, Unknown, 10/25/19) SULFAMETHOXAZOLE (Verified Allergy, Unknown, 10/25/19) TETRACYCLINES (Verified Allergy, Unknown, 10/25/19) TRIMETHOPRIM (Verified Allergy, Unknown, 10/25/19) Objective Last 24 Hour Vital Signs Date Time Temp Pulse Resp B/P (MAP) Pulse Ox O2 Delivery O2 Flow Rate FiO2 10/31/19 07:05 99 Nasal Cannula 2.0 28 10/31/19 04:00 Nasal Cannula 2.0 10/31/19 04:00 97.0 79 23 132/69 (90) 98 10/31/19 03:36 79 10/31/19 00:00 97.1 76 23 135/71 (92) 98 10/31/19 00:00 77 10/31/19 00:00 Nasal Cannula 2.0 10/30/19 20:00 Nasal Cannula 2.0 10/30/19 20:00 79 10/30/19 20:00 97.5 85 26 132/69 (90) 98 10/30/19 16:00 Nasal Cannula 2.0 10/30/19 16:00 83 10/30/19 16:00 97.7 100 13 158/75 (102) 100 10/30/19 12:00 Nasal Cannula 2.0 10/30/19 12:00 94 10/30/19 12:00 98.1 96 19 128/75 (92) 97 10/30/19 08:00 113 10/30/19 08:00 97.9 113 20 100/99 (99) 88 10/30/19 08:00 Nasal Cannula 2.0 Intake and Output 10/30/19 10/31/19 19:00 07:00 Intake Total 1050 ml 1300 ml Output Total 750 ml 800 ml Balance 300 ml 500 ml Intake IV Total 1050 ml 1300 ml Output Urine Total 750 ml 800 ml # Bowel Movements 2 Height (Feet): 5 Height (Inches): 1.00 Weight (Pounds): 162 General Appearance: no apparent distress EENT: normal ENT inspection Neck: supple Cardiovascular: normal rate Respiratory/Chest: decreased breath sounds Abdomen: normal bowel sounds, non tender, soft Extremities: non-tender Nathan Quesada MD Oct 31, 2019 07:32
--- NOTE | 2019-10-31 08:06 | Pulmonology Progress Note ---
Subjective ROS Limited/Unobtainable: No Interval Events: None new reported Constitutional: Reports: fatigue; Denies: fever HEENT: Repors: no symptoms Respiratory: Reports: no symptoms Cardiovascular: Reports: no symptoms Gastrointestinal/Abdominal: Denies: nausea, vomiting, diarrhea Genitourinary: Reports: no symptoms Neurologic: Reports: no symptoms Psychiatric: Reports: other - NA Skin: Denies: rash Musculoskeletal: Denies: pain Allergies: Coded Allergies: ACETAMINOPHEN (Verified Allergy, Unknown, 10/25/19) AMOXICILLIN (Verified Allergy, Unknown, 10/25/19) CEPHALEXIN (Verified Allergy, Unknown, 10/25/19) CODEINE (Verified Allergy, Unknown, 10/25/19) HYDROCODONE (Verified Allergy, Unknown, 10/25/19) SULFAMETHOXAZOLE (Verified Allergy, Unknown, 10/25/19) TETRACYCLINES (Verified Allergy, Unknown, 10/25/19) TRIMETHOPRIM (Verified Allergy, Unknown, 10/25/19) All Systems: reviewed and negative except above Objective Last 24 Hour Vital Signs Date Time Temp Pulse Resp B/P (MAP) Pulse Ox O2 Delivery O2 Flow Rate FiO2 10/31/19 07:30 97.0 80 23 134/74 (94) 100 10/31/19 07:05 99 Nasal Cannula 2.0 28 10/31/19 04:00 Nasal Cannula 2.0 10/31/19 04:00 97.0 79 23 132/69 (90) 98 10/31/19 03:36 79 10/31/19 00:00 97.1 76 23 135/71 (92) 98 10/31/19 00:00 77 10/31/19 00:00 Nasal Cannula 2.0 10/30/19 20:00 Nasal Cannula 2.0 10/30/19 20:00 79 10/30/19 20:00 97.5 85 26 132/69 (90) 98 10/30/19 16:00 Nasal Cannula 2.0 10/30/19 16:00 83 10/30/19 16:00 97.7 100 13 158/75 (102) 100 10/30/19 12:00 Nasal Cannula 2.0 10/30/19 12:00 94 10/30/19 12:00 98.1 96 19 128/75 (92) 97 Intake and Output 10/30/19 10/31/19 19:00 07:00 Intake Total 1050 ml 1300 ml Output Total 750 ml 800 ml Balance 300 ml 500 ml Intake IV Total 1050 ml 1300 ml Output Urine Total 750 ml 800 ml # Bowel Movements 2 General Appearance: no acute distress HEENT: normocephalic Respiratory: chest wall non-tender, lungs clear Cardiovascular: normal peripheral pulses, normal rate Abdomen: normal bowel sounds Microbiology Date/Time Source Procedure Growth Status 10/28/19 09:45 Nasopharynx Coronavirus COVID-19 PCR ([facility]IM) - Final Complete Current Medications Medications (Trade) Dose Ordered Sig/Jesu Route PRN Reason Start Time Stop Time Status Last Admin Dose Admin Albuterol Sulfate (Proventil MDI) 2 puff Q4H PRN INH Shortness of Breath 10/25/19 23:30 01/23/20 23:29 Aspirin (Ecotrin) 81 mg DAILY ORAL 10/26/19 09:00 12/10/19 08:59 10/26/19 08:22 Dextrose/ Electrolytes 1,000 ml @ 100 mls/hr Q10H IV 10/26/19 23:00 11/25/19 22:59 10/31/19 02:43 Gabapentin (Neurontin) 300 mg BID ORAL 10/26/19 09:00 11/25/19 08:59 10/26/19 08:22 Lorazepam (Ativan 2mg/ml 1ml) 0.5 mg Q6H PRN IV For Anxiety 10/28/19 20:30 11/04/19 20:29 10/28/19 20:41 Magnesium Hydroxide (Mom) 30 ml DAILYPRN PRN ORAL Constipation 10/25/19 23:30 11/24/19 23:29 Meropenem 1 gm/ Sodium Chloride 100 ml @ 200 mls/hr Q12H IVPB 10/29/19 02:00 11/03/19 01:59 10/31/19 02:43 Multi-Ingredient Mouthwash/Gargle (Magic Mouth Wash 60ml) 10 ml BID ORAL 10/26/19 09:00 11/25/19 08:59 10/29/19 17:36 Multivitamins (Multivitamins W/ Minerals 15ml Liquid) 15 ml DAILY ORAL 10/26/19 09:00 11/25/19 08:59 10/26/19 08:22 Vancomycin HCl (Vanco pharmacy to dose) 1 ea DAILY PRN MISC Per rx protocol 10/26/19 22:45 11/25/19 22:44 Vancomycin/Sodium Chloride 275 ml @ 137.5 mls/ hr Q24H IVPB 10/30/19 20:00 11/04/19 19:59 10/30/19 20:32 Assessment/Plan Assessment/Plan IMPRESSION: 1. COVID-19 pneumonia by history. Current pcr negative 2. Bilateral pulmonary infiltrates. 3. Hypoxemia. 4. Hypernatremia. 5. Renal failure. 6. Hypertension. 7. Chronic suprapubic catheter. 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 Needs NG/enetral feedings Continue oxygen via 2-4L/min nasal canulae Chavo Goldstein Omar Syed MD Oct 31, 2019 08:06
[2019-10-31 08:22] LABS: BASOPHILS % (AUTO) 0.4 % (0.0-2.0); EOSINOPHILS % (AUTO) 2.1 % (0.0-3.0); HEMATOCRIT 44.2 % (42.0-52.0); LYMPHOCYTES % (AUTO) 10.4 % (20.0-45.0); MEAN CORPUSCULAR VOLUME 94 FL (80-99); MONOCYTES % (AUTO) 5.4 % (1.0-10.0); NEUTROPHILS % (AUTO) 81.8 % (45.0-75.0); PLATELET COUNT 190 K/UL (150-450); RED BLOOD COUNT 4.68 M/UL (4.70-6.10); RED CELL DISTRIBUTION WIDTH 12.6 % (11.6-14.8); WHITE BLOOD COUNT 15.3 K/UL (4.8-10.8)
[2019-10-31] MEDS: Aspirin EC 81mg tab ORAL SCH (08:41)
[2019-10-31] MEDS: Magic Mouth Wash 60ml (Benadryl/Mylanta/Visc Lido) ORAL SCH ×2 (08:42→17:16)
[2019-10-31] MEDS: Multivitamins W/Minerals 15 ML UDC ORAL SCH (08:42)
[2019-10-31 08:51] LABS: PHOSPHORUS 1.9 MG/DL (2.5-4.9)
[2019-10-31 09:05] LABS: ALANINE AMINOTRANSFERASE 19 U/L (12-78); ALBUMIN 1.8 G/DL (3.4-5.0); ALBUMIN/GLOBULIN RATIO 0.5 (1.0-2.7); ALKALINE PHOSPHATASE 78 U/L (46-116); ANION GAP 8 mmol/L (5-15); ASPARTATE AMINO TRANSFERASE 25 U/L (15-37); BLOOD UREA NITROGEN 5 mg/dL (7-18); CALCIUM 7.4 MG/DL (8.5-10.1); CARBON DIOXIDE 26 MMOL/L (21-32); CHLORIDE 108 MMOL/L (98-107); CREATININE 0.8 MG/DL (0.55-1.30); POTASSIUM 3.5 MMOL/L (3.5-5.1); SODIUM 142 MMOL/L (136-145)
[2019-10-31] MEDS ORDERED: NS 275ml ONE (10:00)
[2019-10-31] MEDS ORDERED: Tubing IV Secondary IV ONE (10:00)
--- NOTE | 2019-10-31 10:10 | Surgery Progress Note ---
Surgery Progress Note Subjective Additional Comments ng no successful labs noted exam stable plan feeding tube placement as per GI no n/v Objective Last 24 Hour Vital Signs Date Time Temp Pulse Resp B/P (MAP) Pulse Ox O2 Delivery O2 Flow Rate FiO2 10/31/19 08:00 73 10/31/19 07:30 97.0 80 23 134/74 (94) 100 10/31/19 07:05 99 Nasal Cannula 2.0 28 10/31/19 04:00 Nasal Cannula 2.0 10/31/19 04:00 97.0 79 23 132/69 (90) 98 10/31/19 03:36 79 10/31/19 00:00 97.1 76 23 135/71 (92) 98 10/31/19 00:00 77 10/31/19 00:00 Nasal Cannula 2.0 10/30/19 20:00 Nasal Cannula 2.0 10/30/19 20:00 79 10/30/19 20:00 97.5 85 26 132/69 (90) 98 10/30/19 16:00 Nasal Cannula 2.0 10/30/19 16:00 83 10/30/19 16:00 97.7 100 13 158/75 (102) 100 10/30/19 12:00 Nasal Cannula 2.0 10/30/19 12:00 94 10/30/19 12:00 98.1 96 19 128/75 (92) 97 I&O Intake and Output 10/30/19 10/31/19 19:00 07:00 Intake Total 1050 ml 1300 ml Output Total 750 ml 800 ml Balance 300 ml 500 ml Intake IV Total 1050 ml 1300 ml Output Urine Total 750 ml 800 ml # Bowel Movements 2 Dressing: saturated Wound: other Drains: other Cardiovascular: RSR Respiratory: decreased breath sounds Abdomen: soft, non-tender, present bowel sounds Extremities: no tenderness, no cyanosis Laboratory Tests Test 10/31/19 07:10 White Blood Count 15.3 K/UL (4.8-10.8) H Red Blood Count 4.68 M/UL (4.70-6.10) L Hemoglobin 15.0 G/DL (14.2-18.0) Hematocrit 44.2 % (42.0-52.0) Mean Corpuscular Volume 94 FL (80-99) Mean Corpuscular Hemoglobin 32.0 PG (27.0-31.0) H Mean Corpuscular Hemoglobin Concent 33.9 G/DL (32.0-36.0) Red Cell Distribution Width 12.6 % (11.6-14.8) Platelet Count 190 K/UL (150-450) Mean Platelet Volume 9.2 FL (6.5-10.1) Neutrophils (%) (Auto) 81.8 % (45.0-75.0) H Lymphocytes (%) (Auto) 10.4 % (20.0-45.0) L Monocytes (%) (Auto) 5.4 % (1.0-10.0) Eosinophils (%) (Auto) 2.1 % (0.0-3.0) Basophils (%) (Auto) 0.4 % (0.0-2.0) Sodium Level 142 MMOL/L (136-145) Potassium Level 3.5 MMOL/L (3.5-5.1) Chloride Level 108 MMOL/L (98-107) H Carbon Dioxide Level 26 MMOL/L (21-32) Anion Gap 8 mmol/L (5-15) Blood Urea Nitrogen 5 mg/dL (7-18) L Creatinine 0.8 MG/DL (0.55-1.30) Estimat Glomerular Filtration Rate > 60 mL/min (>60) Glucose Level 137 MG/DL (74-106) H Calcium Level 7.4 MG/DL (8.5-10.1) L Phosphorus Level 1.9 MG/DL (2.5-4.9) L Magnesium Level 1.7 MG/DL (1.8-2.4) L Total Bilirubin 1.0 MG/DL (0.2-1.0) Aspartate Amino Transf (AST/SGOT) 25 U/L (15-37) Alanine Aminotransferase (ALT/SGPT) 19 U/L (12-78) Alkaline Phosphatase 78 U/L (46-116) Total Protein 5.7 G/DL (6.4-8.2) L Albumin 1.8 G/DL (3.4-5.0) L Globulin 3.9 g/dL Albumin/Globulin Ratio 0.5 (1.0-2.7) L Plan Problems: (1) Renal failure (2) Hypoxia (3) Sepsis Assessment & Plan: 89 year old male with leukocytosis, lactic acidosis, abnormal labs. currently in monitoring unit on face mask respiratory support Hx COVID + UTI Pt presented on admission with multiple Pressure injuries. Pt currently using Venti-mask. Non-Blanching erythema noted to bridge of nose and both cheeks consistent with mask. Cavilon Skin Barrier applied to affected areas and covered with Foam tape. Non-Blanching erythema noted to clefts of both ears. Elastic Band of oxygen tubing padded. Non-Blanching erythema without induration noted to sacrum,R and L Gluteus. Non-Blanching erythema noted to R trochanter(L)3cm x (W)6.3cm. DTPI noted to L Heel. Base of heel is maroon and fluctuant (L)4.3cm x (W)5.5cm. Periwound is boggy but easily blanchable. R heel and lateral R foot boggy with non-blanching erythema. Resolving Pressure injury Lateral R malleolus. Base of wound is dry, black with pink epithelial at center of wound.(L)2.5cm x (W)2.7cm. Apply Moisture Barrier Paste to Sacrum. Cover with Optifoam drsg. Change every 3 days and prn. Apply Cavilon Skin Barrier to R and L trochanter. Cover each site with Optifoam drsg. Change every 7 days and PRN. Apply Cavilon Skin Barrier to both Earlobes TWICE daily.Pad elastic band of oxygen mask. Keep band loose around ears. Apply Cavilon Skin Barrier to R and L cheeks and Bridge of Nose. Apply Foam tape. Change every 7 days and PRN. Apply Cavilon Skin Barrier to both heels and malleoli. Cover each site with Optifoam drsgs. Change every 7 days and PRN. Reposition at least every 2hours or as tolerated. Off-load heels with Pillows. APM/MODESTO Mattress overlay. diet as tolerated respiratory support CXR noted nutritional optimization turn q2h will follow with recs thank you DAILY ESTIMATED NEEDS: Needs based on DM , pulmonary 75kg abw 25-30 kcals/kg 1238-5670 total kcals 1-1.5 g protein/kg 75-113 g total protein 20-25 mL/kg 4417-5671 total fluid mLs DAILY ESTIMATED NEEDS: Needs based on pulmonary, wound 75kg abw 25-30 kcals/kg 5746-2553 total kcals 1.25-1.5 g protein/kg 94-113 g total protein 20-25 mL/kg 9572-9387 total fluid mLs NUTRITION DIAGNOSIS: Altered nutrition related lab values r/t clinical status as evidenced by elev Na (159-> wnl), elev BUN(now 43-> wnl), elev BG (140-150). ENTERAL NUTRITION RECOMMENDATIONS: Glucerna 1.2 goal of 65ml/hr x24 hrs to provide 1560ml, 1872 kcal, 94g pro, 1256ml free H2O - Obtain GI access, initiate Glucerna 1.2 @25ml/hr for 6 hrs. Advance as tolerated 10ml/hr q4-6 hrs to goal. - Flush per MD/ HOB over 30 degrees. Glucerna 1.2 low on stock-> may replace w/ Jevity 1.2 w/goal of 65ml/hr x24 hrs. Rec to increase insulin coverage as Jevity 1.2 is not carb control formula. ADDITIONAL RECOMMENDATIONS: 1) PUBLIC SERVICE REPRESENTATIVE eval for appropriate texture-> per PUBLIC SERVICE REPRESENTATIVE recs for NPO w/ nonoral feed 2) Feed as able, consult RD for non oral TF recs if part of POC 3) F/up w/ WC eval of R ankle photo -> Add BARTOLO BID w/ non oral feeds as able 4) Maintain calibrated bed scale wts 5) Rec Glucerna TID-> NPO now per PUBLIC SERVICE REPRESENTATIVE recs 6) Check HgA1C (4) Right hemiparesis Pankaj Palomo Oct 31, 2019 10:10
--- NOTE | 2019-10-31 11:39 | Nephrology Progress Note ---
Assessment/Plan Plan #COVID pneumonia #TELMA due to dehydration #sepsis #Hypernatremia due to dehydration #hypoxemic resp failure #Volume depletion - IVF - replete phos and mag - abx - pulm, ID and cards eval - 2d echo - bipap prn - follow cx - avoid nephrotoxins - replace free water - monitor mag, phos and bmp daily - DNR/DNI time spent 70 min- greater than 50% on care coordination and counseling Subjective ROS Limited/Unobtainable: Yes Subjective remains on non- rebreather mask WBC downtrending Sodium and cr improving phos and mag low - repleted Objective Objective Last 24 Hour Vital Signs Date Time Temp Pulse Resp B/P (MAP) Pulse Ox O2 Delivery O2 Flow Rate FiO2 10/31/19 08:00 73 10/31/19 08:00 Nasal Cannula 2.0 10/31/19 07:30 97.0 80 23 134/74 (94) 100 10/31/19 07:05 99 Nasal Cannula 2.0 28 10/31/19 04:00 Nasal Cannula 2.0 10/31/19 04:00 97.0 79 23 132/69 (90) 98 10/31/19 03:36 79 10/31/19 00:00 97.1 76 23 135/71 (92) 98 10/31/19 00:00 77 10/31/19 00:00 Nasal Cannula 2.0 10/30/19 20:00 Nasal Cannula 2.0 10/30/19 20:00 79 10/30/19 20:00 97.5 85 26 132/69 (90) 98 10/30/19 16:00 Nasal Cannula 2.0 10/30/19 16:00 83 10/30/19 16:00 97.7 100 13 158/75 (102) 100 10/30/19 12:00 Nasal Cannula 2.0 10/30/19 12:00 94 10/30/19 12:00 98.1 96 19 128/75 (92) 97 Intake and Output 10/30/19 10/31/19 19:00 07:00 Intake Total 1050 ml 1300 ml Output Total 750 ml 800 ml Balance 300 ml 500 ml Intake IV Total 1050 ml 1300 ml Output Urine Total 750 ml 800 ml # Bowel Movements 2 Laboratory Tests 10/31/19 07:10: White Blood Count 15.3H, Red Blood Count 4.68L, Hemoglobin 15.0, Hematocrit 44.2 , Mean Corpuscular Volume 94, Mean Corpuscular Hemoglobin 32.0H, Mean Corpuscular Hemoglobin Concent 33.9, Red Cell Distribution Width 12.6, Platelet Count 190, Mean Platelet Volume 9.2, Neutrophils (%) (Auto) 81.8H, Lymphocytes ( %) (Auto) 10.4L, Monocytes (%) (Auto) 5.4, Eosinophils (%) (Auto) 2.1, Basophils (%) (Auto) 0.4, Sodium Level 142, Potassium Level 3.5, Chloride Level 108H, Carbon Dioxide Level 26, Anion Gap 8, Blood Urea Nitrogen 5L, Creatinine 0.8, Estimat Glomerular Filtration Rate > 60, Glucose Level 137H, Calcium Level 7.4L, Phosphorus Level 1.9L, Magnesium Level 1.7L, Total Bilirubin 1.0, Aspartate Amino Transf (AST/SGOT) 25, Alanine Aminotransferase (ALT/SGPT) 19, Alkaline Phosphatase 78, Total Protein 5.7L, Albumin 1.8L, Globulin 3.9, Albumin /Globulin Ratio 0.5L Height (Feet): 5 Height (Inches): 1.00 Weight (Pounds): 162 Aron Barbosa M.D. Oct 31, 2019 11:39
[2019-10-31 12:00] VITALS: BP 123/72
[2019-10-31] MEDS ORDERED: Potassium Phosphate 15mm/250ml 250 ML IVPB ONE (13:00)
[2019-10-31 15:30] VITALS: BP 145/77
--- NOTE | 2019-10-31 17:38 | Internal Med Progress Note ---
Subjective Date of Service: Oct 31, 2019 Physician Name Edyta Hardy Attending Physician Aron Barbosa M.D. Current Medications Medications (Trade) Dose Ordered Sig/Jesu Route PRN Reason Start Time Stop Time Status Last Admin Dose Admin Albuterol Sulfate (Proventil MDI) 2 puff Q4H PRN INH Shortness of Breath 10/25/19 23:30 01/23/20 23:29 Aspirin (Ecotrin) 81 mg DAILY ORAL 10/26/19 09:00 12/10/19 08:59 10/26/19 08:22 Dextrose/ Electrolytes 1,000 ml @ 100 mls/hr Q10H IV 10/26/19 23:00 11/25/19 22:59 10/31/19 12:13 Gabapentin (Neurontin) 300 mg BID ORAL 10/26/19 09:00 11/25/19 08:59 10/26/19 08:22 Lorazepam (Ativan 2mg/ml 1ml) 0.5 mg Q6H PRN IV For Anxiety 10/28/19 20:30 11/04/19 20:29 10/28/19 20:41 Magnesium Hydroxide (Mom) 30 ml DAILYPRN PRN ORAL Constipation 10/25/19 23:30 11/24/19 23:29 Meropenem 1 gm/ Sodium Chloride 100 ml @ 200 mls/hr Q12H IVPB 10/29/19 02:00 11/03/19 01:59 10/31/19 13:41 Multi-Ingredient Mouthwash/Gargle (Magic Mouth Wash 60ml) 10 ml BID ORAL 10/26/19 09:00 11/25/19 08:59 10/31/19 17:16 Multivitamins (Multivitamins W/ Minerals 15ml Liquid) 15 ml DAILY ORAL 10/26/19 09:00 11/25/19 08:59 10/26/19 08:22 Vancomycin HCl (Vanco pharmacy to dose) 1 ea DAILY PRN MISC Per rx protocol 10/26/19 22:45 11/25/19 22:44 Vancomycin/Sodium Chloride 275 ml @ 137.5 mls/ hr Q24H IVPB 10/30/19 20:00 11/04/19 19:59 10/30/19 20:32 Allergies: Coded Allergies: ACETAMINOPHEN (Verified Allergy, Unknown, 10/25/19) AMOXICILLIN (Verified Allergy, Unknown, 10/25/19) CEPHALEXIN (Verified Allergy, Unknown, 10/25/19) CODEINE (Verified Allergy, Unknown, 10/25/19) HYDROCODONE (Verified Allergy, Unknown, 10/25/19) SULFAMETHOXAZOLE (Verified Allergy, Unknown, 10/25/19) TETRACYCLINES (Verified Allergy, Unknown, 10/25/19) TRIMETHOPRIM (Verified Allergy, Unknown, 10/25/19) ROS Limited/Unobtainable: Yes All Systems: reviewed and negative except above Subjective still need functioning NGTY NGT removed awaiting new placement Objective Last Vital Signs Date Time Temp Pulse Resp B/P (MAP) Pulse Ox O2 Delivery O2 Flow Rate FiO2 10/31/19 16:00 Nasal Cannula 2.0 10/31/19 15:30 97.6 98 20 145/77 (99) 100 10/31/19 07:05 28 General Appearance: no apparent distress Neck: supple Cardiovascular: normal rate, regular rhythm, systolic murmur Respiratory/Chest: rhonchi - left Abdomen: normal bowel sounds, non tender, soft Genitourinary/Rectal: normal genital exam Edema: mild edema Neurologic: responsive, motor weakness, sensory deficit, disoriented Skin: warm/dry Laboratory Tests Test 10/31/19 07:10 White Blood Count 15.3 K/UL (4.8-10.8) H Red Blood Count 4.68 M/UL (4.70-6.10) L Hemoglobin 15.0 G/DL (14.2-18.0) Hematocrit 44.2 % (42.0-52.0) Mean Corpuscular Volume 94 FL (80-99) Mean Corpuscular Hemoglobin 32.0 PG (27.0-31.0) H Mean Corpuscular Hemoglobin Concent 33.9 G/DL (32.0-36.0) Red Cell Distribution Width 12.6 % (11.6-14.8) Platelet Count 190 K/UL (150-450) Mean Platelet Volume 9.2 FL (6.5-10.1) Neutrophils (%) (Auto) 81.8 % (45.0-75.0) H Lymphocytes (%) (Auto) 10.4 % (20.0-45.0) L Monocytes (%) (Auto) 5.4 % (1.0-10.0) Eosinophils (%) (Auto) 2.1 % (0.0-3.0) Basophils (%) (Auto) 0.4 % (0.0-2.0) Sodium Level 142 MMOL/L (136-145) Potassium Level 3.5 MMOL/L (3.5-5.1) Chloride Level 108 MMOL/L (98-107) H Carbon Dioxide Level 26 MMOL/L (21-32) Anion Gap 8 mmol/L (5-15) Blood Urea Nitrogen 5 mg/dL (7-18) L Creatinine 0.8 MG/DL (0.55-1.30) Estimat Glomerular Filtration Rate > 60 mL/min (>60) Glucose Level 137 MG/DL (74-106) H Calcium Level 7.4 MG/DL (8.5-10.1) L Phosphorus Level 1.9 MG/DL (2.5-4.9) L Magnesium Level 1.7 MG/DL (1.8-2.4) L Total Bilirubin 1.0 MG/DL (0.2-1.0) Aspartate Amino Transf (AST/SGOT) 25 U/L (15-37) Alanine Aminotransferase (ALT/SGPT) 19 U/L (12-78) Alkaline Phosphatase 78 U/L (46-116) Total Protein 5.7 G/DL (6.4-8.2) L Albumin 1.8 G/DL (3.4-5.0) L Globulin 3.9 g/dL Albumin/Globulin Ratio 0.5 (1.0-2.7) L Intake and Output 10/30/19 10/31/19 19:00 07:00 Intake Total 1050 ml 1300 ml Output Total 750 ml 800 ml Balance 300 ml 500 ml Intake IV Total 1050 ml 1300 ml Output Urine Total 750 ml 800 ml # Bowel Movements 2 Assessment/Plan Status: stable, progressing, tolerating diet Assessment/Plan IMPRESSION: sepsis on admission COVID 19 pnemonia acute respiratory failure hypoxemia acute toxic and metabolic encephalopathy Hypernatremia dehydration acute kidney injury leuokcytosis hx CVA with hemiplegia suprapubic catheter status senile debility ankle wound PLAN: stepdown unit NGT placement for feeding by GI, malposition. 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 over 50% allocated in counseling, coordination of care, d/w staff and family with medical update Edyta Hardy MD Oct 31, 2019 17:37
[2019-10-31 20:00] VITALS: BP 141/73
[2019-10-31] MEDS: LORazepam Inj 2mg/ml 1ml IV PRN (20:06)
[2019-10-31] MEDS: Vancomycin 1.5gm/NS Premix IVPB SCH (20:06)
[2019-11-01] VITALS: BP 153/78
[2019-11-01 04:00] VITALS: BP 133/76
[2019-11-01 06:56] LABS: BASOPHILS % (AUTO) 0.4 % (0.0-2.0); EOSINOPHILS % (AUTO) 1.6 % (0.0-3.0); HEMATOCRIT 48.1 % (42.0-52.0); HEMOGLOBIN 16.3 G/DL (14.2-18.0); LYMPHOCYTES % (AUTO) 9.5 % (20.0-45.0); MEAN CORPUSCULAR VOLUME 94 FL (80-99); MONOCYTES % (AUTO) 5.8 % (1.0-10.0); NEUTROPHILS % (AUTO) 82.8 % (45.0-75.0); PLATELET COUNT 220 K/UL (150-450); RED BLOOD COUNT 5.11 M/UL (4.70-6.10); RED CELL DISTRIBUTION WIDTH 12.6 % (11.6-14.8); WHITE BLOOD COUNT 15.9 K/UL (4.8-10.8)
[2019-11-01 07:11] LABS: ANION GAP 8 mmol/L (5-15); BLOOD UREA NITROGEN 3 mg/dL (7-18); CALCIUM 7.7 MG/DL (8.5-10.1); CARBON DIOXIDE 26 MMOL/L (21-32); CHLORIDE 105 MMOL/L (98-107); CREATININE 0.9 MG/DL (0.55-1.30); POTASSIUM 4.6 MMOL/L (3.5-5.1); SODIUM 139 MMOL/L (136-145)
[2019-11-01 08:00] VITALS: BP 134/73
[2019-11-01] MEDS: Aspirin EC 81mg tab ORAL SCH (08:05)
[2019-11-01] MEDS: Multivitamins W/Minerals 15 ML UDC ORAL SCH (08:06)
--- NOTE | 2019-11-01 09:09 | Nephrology Progress Note ---
Assessment/Plan Plan #COVID pneumonia #TELMA due to dehydration #sepsis #Hypernatremia due to dehydration #hypoxemic resp failure #Volume depletion - continue TF - replete phos - abx - pulm, ID and cards eval - 2d echo - bipap prn - follow cx - avoid nephrotoxins - replace free water - monitor mag, phos and bmp daily - DNR/DNI time spent 70 min- greater than 50% on care coordination and counseling Subjective ROS Limited/Unobtainable: Yes Subjective WBC downtrending Sodium and cr improving phos low - repleted Objective Objective Last 24 Hour Vital Signs Date Time Temp Pulse Resp B/P (MAP) Pulse Ox O2 Delivery O2 Flow Rate FiO2 11/01/19 08:00 Nasal Cannula 2.0 11/01/19 08:00 97.5 82 25 134/73 (93) 100 11/01/19 04:00 98.0 98 25 133/76 (95) 100 11/01/19 04:00 Nasal Cannula 2.0 11/01/19 04:00 89 11/01/19 00:00 98.7 107 20 153/78 (103) 99 11/01/19 00:00 Nasal Cannula 2.0 11/01/19 00:00 111 10/31/19 20:00 Nasal Cannula 2.0 10/31/19 20:00 99.1 118 20 141/73 (95) 100 10/31/19 19:50 98 Nasal Cannula 2.0 28 10/31/19 19:29 111 10/31/19 16:00 81 10/31/19 16:00 Nasal Cannula 2.0 10/31/19 15:30 97.6 98 20 145/77 (99) 100 10/31/19 12:00 97.3 89 21 123/72 (89) 99 10/31/19 12:00 90 10/31/19 12:00 Nasal Cannula 2.0 Intake and Output 10/31/19 11/01/19 19:00 07:00 Intake Total 100 ml 1475 ml Output Total 2000 ml 1500 ml Balance -1900 ml -25 ml Intake IV Total 100 ml 1475 ml Output Urine Total 2000 ml 1500 ml # Bowel Movements 1 2 Laboratory Tests 11/01/19 04:50: White Blood Count 15.9H, Red Blood Count 5.11, Hemoglobin 16.3, Hematocrit 48.1 , Mean Corpuscular Volume 94, Mean Corpuscular Hemoglobin 32.0H, Mean Corpuscular Hemoglobin Concent 33.9, Red Cell Distribution Width 12.6, Platelet Count 220, Mean Platelet Volume 8.3, Neutrophils (%) (Auto) 82.8H, Lymphocytes ( %) (Auto) 9.5L, Monocytes (%) (Auto) 5.8, Eosinophils (%) (Auto) 1.6, Basophils (%) (Auto) 0.4, Sodium Level 139, Potassium Level 4.6, Chloride Level 105, Carbon Dioxide Level 26, Anion Gap 8, Blood Urea Nitrogen 3L, Creatinine 0.9, Estimat Glomerular Filtration Rate > 60, Glucose Level 112H, Calcium Level 7.7L , Phosphorus Level 2.0L, Magnesium Level 2.1 Height (Feet): 5 Height (Inches): 1.00 Weight (Pounds): 162 Aron Barbosa M.D. Nov 01, 2019 09:09
[2019-11-01] MEDS: Magic Mouth Wash 60ml (Benadryl/Mylanta/Visc Lido) ORAL SCH ×2 (09:13→18:01)
[2019-11-01] MEDS: D5 1/2NS w/KCL 10meq 1,000 ML IV SCH ×2 (09:13→18:01)
--- NOTE | 2019-11-01 10:05 | Diagnostic Imaging Report ---
Indication: Shortness of breath Technique: One view of the chest Comparison: 10/30/2019 Findings: Right greater than left infiltrates persist, unchanged. Heart size is normal. Pleural spaces are clear. Previously demonstrated intrabronchial nasogastric tube has been removed Impression: Interim removal of previously malpositioned nasogastric tube Unchanged bilateral infiltrates
[2019-11-01] MEDS ORDERED: Sodium Phosphate 30 MM in NS 275 ML IVPB ONE (11:00)
[2019-11-01 12:00] VITALS: BP 149/72
--- NOTE | 2019-11-01 12:30 | Surgery Progress Note ---
Surgery Progress Note Subjective Additional Comments leukocytosis exam stable ng in place cxr noted Objective Last 24 Hour Vital Signs Date Time Temp Pulse Resp B/P (MAP) Pulse Ox O2 Delivery O2 Flow Rate FiO2 11/01/19 08:00 Nasal Cannula 2.0 11/01/19 08:00 97.5 82 25 134/73 (93) 100 11/01/19 04:00 98.0 98 25 133/76 (95) 100 11/01/19 04:00 Nasal Cannula 2.0 11/01/19 04:00 89 11/01/19 00:00 98.7 107 20 153/78 (103) 99 11/01/19 00:00 Nasal Cannula 2.0 11/01/19 00:00 111 10/31/19 20:00 Nasal Cannula 2.0 10/31/19 20:00 99.1 118 20 141/73 (95) 100 10/31/19 19:50 98 Nasal Cannula 2.0 28 10/31/19 19:29 111 10/31/19 16:00 81 10/31/19 16:00 Nasal Cannula 2.0 10/31/19 15:30 97.6 98 20 145/77 (99) 100 I&O Intake and Output 10/31/19 11/01/19 19:00 07:00 Intake Total 100 ml 1475 ml Output Total 2000 ml 1500 ml Balance -1900 ml -25 ml Intake IV Total 100 ml 1475 ml Output Urine Total 2000 ml 1500 ml # Bowel Movements 1 2 Dressing: other Wound: other Drains: other Cardiovascular: RSR Respiratory: decreased breath sounds Abdomen: soft, non-tender, present bowel sounds Extremities: no tenderness, no cyanosis Laboratory Tests Test 11/01/19 04:50 White Blood Count 15.9 K/UL (4.8-10.8) H Red Blood Count 5.11 M/UL (4.70-6.10) Hemoglobin 16.3 G/DL (14.2-18.0) Hematocrit 48.1 % (42.0-52.0) Mean Corpuscular Volume 94 FL (80-99) Mean Corpuscular Hemoglobin 32.0 PG (27.0-31.0) H Mean Corpuscular Hemoglobin Concent 33.9 G/DL (32.0-36.0) Red Cell Distribution Width 12.6 % (11.6-14.8) Platelet Count 220 K/UL (150-450) Mean Platelet Volume 8.3 FL (6.5-10.1) Neutrophils (%) (Auto) 82.8 % (45.0-75.0) H Lymphocytes (%) (Auto) 9.5 % (20.0-45.0) L Monocytes (%) (Auto) 5.8 % (1.0-10.0) Eosinophils (%) (Auto) 1.6 % (0.0-3.0) Basophils (%) (Auto) 0.4 % (0.0-2.0) Sodium Level 139 MMOL/L (136-145) Potassium Level 4.6 MMOL/L (3.5-5.1) Chloride Level 105 MMOL/L (98-107) Carbon Dioxide Level 26 MMOL/L (21-32) Anion Gap 8 mmol/L (5-15) Blood Urea Nitrogen 3 mg/dL (7-18) L Creatinine 0.9 MG/DL (0.55-1.30) Estimat Glomerular Filtration Rate > 60 mL/min (>60) Glucose Level 112 MG/DL (74-106) H Calcium Level 7.7 MG/DL (8.5-10.1) L Phosphorus Level 2.0 MG/DL (2.5-4.9) L Magnesium Level 2.1 MG/DL (1.8-2.4) Plan Problems: (1) Renal failure (2) Hypoxia (3) Sepsis Assessment & Plan: 89 year old male with leukocytosis, lactic acidosis, abnormal labs. currently in monitoring unit on face mask respiratory support Hx COVID + UTI Pt presented on admission with multiple Pressure injuries. Pt currently using Venti-mask. Non-Blanching erythema noted to bridge of nose and both cheeks consistent with mask. Cavilon Skin Barrier applied to affected areas and covered with Foam tape. Non-Blanching erythema noted to clefts of both ears. Elastic Band of oxygen tubing padded. Non-Blanching erythema without induration noted to sacrum,R and L Gluteus. Non-Blanching erythema noted to R trochanter(L)3cm x (W)6.3cm. DTPI noted to L Heel. Base of heel is maroon and fluctuant (L)4.3cm x (W)5.5cm. Periwound is boggy but easily blanchable. R heel and lateral R foot boggy with non-blanching erythema. Resolving Pressure injury Lateral R malleolus. Base of wound is dry, black with pink epithelial at center of wound.(L)2.5cm x (W)2.7cm. Apply Moisture Barrier Paste to Sacrum. Cover with Optifoam drsg. Change every 3 days and prn. Apply Cavilon Skin Barrier to R and L trochanter. Cover each site with Optifoam drsg. Change every 7 days and PRN. Apply Cavilon Skin Barrier to both Earlobes TWICE daily.Pad elastic band of oxygen mask. Keep band loose around ears. Apply Cavilon Skin Barrier to R and L cheeks and Bridge of Nose. Apply Foam tape. Change every 7 days and PRN. Apply Cavilon Skin Barrier to both heels and malleoli. Cover each site with Optifoam drsgs. Change every 7 days and PRN. Reposition at least every 2hours or as tolerated. Off-load heels with Pillows. APM/MODESTO Mattress overlay. diet as tolerated respiratory support CXR noted nutritional optimization ng in place. tf as tolerated turn q2h will follow with recs thank you DAILY ESTIMATED NEEDS: Needs based on DM , pulmonary 75kg abw 25-30 kcals/kg 8125-0679 total kcals 1-1.5 g protein/kg 75-113 g total protein 20-25 mL/kg 7148-3606 total fluid mLs DAILY ESTIMATED NEEDS: Needs based on pulmonary, wound 75kg abw 25-30 kcals/kg 3829-7845 total kcals 1.25-1.5 g protein/kg 94-113 g total protein 20-25 mL/kg 8051-0208 total fluid mLs NUTRITION DIAGNOSIS: Altered nutrition related lab values r/t clinical status as evidenced by elev Na (159-> wnl), elev BUN(now 43-> wnl), elev BG (140-150). ENTERAL NUTRITION RECOMMENDATIONS: Glucerna 1.2 goal of 65ml/hr x24 hrs to provide 1560ml, 1872 kcal, 94g pro, 1256ml free H2O - Obtain GI access, initiate Glucerna 1.2 @25ml/hr for 6 hrs. Advance as tolerated 10ml/hr q4-6 hrs to goal. - Flush per MD/ HOB over 30 degrees. Glucerna 1.2 low on stock-> may replace w/ Jevity 1.2 w/goal of 65ml/hr x24 hrs. Rec to increase insulin coverage as Jevity 1.2 is not carb control formula. ADDITIONAL RECOMMENDATIONS: 1) HALF BACKER eval for appropriate texture-> per HALF BACKER recs for NPO w/ nonoral feed 2) Feed as able, consult RD for non oral TF recs if part of POC 3) F/up w/ WC eval of R ankle photo -> Add BARTOLO BID w/ non oral feeds as able 4) Maintain calibrated bed scale wts 5) Rec Glucerna TID-> NPO now per HALF BACKER recs 6) Check HgA1C (4) Right hemiparesis Pankaj Palomo Nov 01, 2019 12:30
--- NOTE | 2019-11-01 13:53 | General Progress Note ---
Assessment/Plan Problem List: (1) Sepsis ICD Codes: A41.9 - Sepsis, unspecified organism SNOMED: 06211261 Qualifiers: Qualified Codes: A41.9 - Sepsis, unspecified organism; R65.20 - Severe sepsis without septic shock; N17.9 - Acute kidney failure, unspecified (2) Hypoxia ICD Codes: R09.02 - Hypoxemia SNOMED: 896329203 (3) Right hemiparesis ICD Codes: G81.91 - Hemiplegia, unspecified affecting right dominant side SNOMED: 151340547 (4) COVID-19 ICD Codes: U07.1 - COVID-19 SNOMED: 313911654 Status: stable, progressing, tolerating diet Assessment/Plan: multiple attempts for NGT placement has failed so far given 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 and NH placement will plan PEG for tomorrow family consented Subjective ROS Limited/Unobtainable: No Allergies: Coded Allergies: ACETAMINOPHEN (Verified Allergy, Unknown, 10/25/19) AMOXICILLIN (Verified Allergy, Unknown, 10/25/19) CEPHALEXIN (Verified Allergy, Unknown, 10/25/19) CODEINE (Verified Allergy, Unknown, 10/25/19) HYDROCODONE (Verified Allergy, Unknown, 10/25/19) SULFAMETHOXAZOLE (Verified Allergy, Unknown, 10/25/19) TETRACYCLINES (Verified Allergy, Unknown, 10/25/19) TRIMETHOPRIM (Verified Allergy, Unknown, 10/25/19) Objective Last 24 Hour Vital Signs Date Time Temp Pulse Resp B/P (MAP) Pulse Ox O2 Delivery O2 Flow Rate FiO2 11/01/19 12:00 Nasal Cannula 2.0 11/01/19 12:00 76 11/01/19 12:00 98.1 86 22 149/72 (97) 100 11/01/19 08:00 Nasal Cannula 2.0 11/01/19 08:00 97.5 82 25 134/73 (93) 100 11/01/19 08:00 77 11/01/19 04:00 98.0 98 25 133/76 (95) 100 11/01/19 04:00 Nasal Cannula 2.0 11/01/19 04:00 89 11/01/19 00:00 98.7 107 20 153/78 (103) 99 11/01/19 00:00 Nasal Cannula 2.0 11/01/19 00:00 111 10/31/19 20:00 Nasal Cannula 2.0 10/31/19 20:00 99.1 118 20 141/73 (95) 100 10/31/19 19:50 98 Nasal Cannula 2.0 28 10/31/19 19:29 111 10/31/19 16:00 81 10/31/19 16:00 Nasal Cannula 2.0 10/31/19 15:30 97.6 98 20 145/77 (99) 100 Intake and Output 10/31/19 11/01/19 19:00 07:00 Intake Total 100 ml 1475 ml Output Total 2000 ml 1500 ml Balance -1900 ml -25 ml Intake IV Total 100 ml 1475 ml Output Urine Total 2000 ml 1500 ml # Bowel Movements 1 2 Laboratory Tests 11/01/19 04:50: White Blood Count 15.9H, Red Blood Count 5.11, Hemoglobin 16.3, Hematocrit 48.1 , Mean Corpuscular Volume 94, Mean Corpuscular Hemoglobin 32.0H, Mean Corpuscular Hemoglobin Concent 33.9, Red Cell Distribution Width 12.6, Platelet Count 220, Mean Platelet Volume 8.3, Neutrophils (%) (Auto) 82.8H, Lymphocytes ( %) (Auto) 9.5L, Monocytes (%) (Auto) 5.8, Eosinophils (%) (Auto) 1.6, Basophils (%) (Auto) 0.4, Sodium Level 139, Potassium Level 4.6, Chloride Level 105, Carbon Dioxide Level 26, Anion Gap 8, Blood Urea Nitrogen 3L, Creatinine 0.9, Estimat Glomerular Filtration Rate > 60, Glucose Level 112H, Calcium Level 7.7L , Phosphorus Level 2.0L, Magnesium Level 2.1 Height (Feet): 5 Height (Inches): 1.00 Weight (Pounds): 162 General Appearance: mild distress EENT: PERRL/EOMI Neck: supple Cardiovascular: normal rate Respiratory/Chest: decreased breath sounds Abdomen: normal bowel sounds, non tender, soft Extremities: non-tender Nathan Quesada MD Nov 01, 2019 13:53
--- NOTE | 2019-11-01 14:10 | Pulmonology Progress Note ---
Subjective ROS Limited/Unobtainable: No Interval Events: None new reported Constitutional: Reports: fatigue; Denies: fever HEENT: Repors: no symptoms Respiratory: Reports: no symptoms Cardiovascular: Reports: no symptoms Gastrointestinal/Abdominal: Denies: nausea, vomiting, diarrhea Genitourinary: Reports: no symptoms Neurologic: Reports: no symptoms Psychiatric: Reports: other - NA Skin: Denies: rash Musculoskeletal: Denies: pain Allergies: Coded Allergies: ACETAMINOPHEN (Verified Allergy, Unknown, 10/25/19) AMOXICILLIN (Verified Allergy, Unknown, 10/25/19) CEPHALEXIN (Verified Allergy, Unknown, 10/25/19) CODEINE (Verified Allergy, Unknown, 10/25/19) HYDROCODONE (Verified Allergy, Unknown, 10/25/19) SULFAMETHOXAZOLE (Verified Allergy, Unknown, 10/25/19) TETRACYCLINES (Verified Allergy, Unknown, 10/25/19) TRIMETHOPRIM (Verified Allergy, Unknown, 10/25/19) All Systems: reviewed and negative except above Objective Last 24 Hour Vital Signs Date Time Temp Pulse Resp B/P (MAP) Pulse Ox O2 Delivery O2 Flow Rate FiO2 11/01/19 12:00 Nasal Cannula 2.0 11/01/19 12:00 76 11/01/19 12:00 98.1 86 22 149/72 (97) 100 11/01/19 08:00 Nasal Cannula 2.0 11/01/19 08:00 97.5 82 25 134/73 (93) 100 11/01/19 08:00 77 11/01/19 04:00 98.0 98 25 133/76 (95) 100 11/01/19 04:00 Nasal Cannula 2.0 11/01/19 04:00 89 11/01/19 00:00 98.7 107 20 153/78 (103) 99 11/01/19 00:00 Nasal Cannula 2.0 11/01/19 00:00 111 10/31/19 20:00 Nasal Cannula 2.0 10/31/19 20:00 99.1 118 20 141/73 (95) 100 10/31/19 19:50 98 Nasal Cannula 2.0 28 10/31/19 19:29 111 10/31/19 16:00 81 10/31/19 16:00 Nasal Cannula 2.0 10/31/19 15:30 97.6 98 20 145/77 (99) 100 Intake and Output 10/31/19 11/01/19 19:00 07:00 Intake Total 100 ml 1475 ml Output Total 2000 ml 1500 ml Balance -1900 ml -25 ml Intake IV Total 100 ml 1475 ml Output Urine Total 2000 ml 1500 ml # Bowel Movements 1 2 General Appearance: no acute distress HEENT: normocephalic Respiratory: chest wall non-tender, lungs clear Cardiovascular: normal peripheral pulses, normal rate Abdomen: normal bowel sounds Laboratory Tests 11/01/19 04:50: White Blood Count 15.9H, Red Blood Count 5.11, Hemoglobin 16.3, Hematocrit 48.1 , Mean Corpuscular Volume 94, Mean Corpuscular Hemoglobin 32.0H, Mean Corpuscular Hemoglobin Concent 33.9, Red Cell Distribution Width 12.6, Platelet Count 220, Mean Platelet Volume 8.3, Neutrophils (%) (Auto) 82.8H, Lymphocytes ( %) (Auto) 9.5L, Monocytes (%) (Auto) 5.8, Eosinophils (%) (Auto) 1.6, Basophils (%) (Auto) 0.4, Sodium Level 139, Potassium Level 4.6, Chloride Level 105, Carbon Dioxide Level 26, Anion Gap 8, Blood Urea Nitrogen 3L, Creatinine 0.9, Estimat Glomerular Filtration Rate > 60, Glucose Level 112H, Calcium Level 7.7L , Phosphorus Level 2.0L, Magnesium Level 2.1 Current Medications Medications (Trade) Dose Ordered Sig/Jesu Route PRN Reason Start Time Stop Time Status Last Admin Dose Admin Albuterol Sulfate (Proventil MDI) 2 puff Q4H PRN INH Shortness of Breath 10/25/19 23:30 01/23/20 23:29 Aspirin (Ecotrin) 81 mg DAILY ORAL 10/26/19 09:00 12/10/19 08:59 10/26/19 08:22 Dextrose/ Electrolytes 1,000 ml @ 100 mls/hr Q10H IV 10/26/19 23:00 11/25/19 22:59 11/01/19 09:13 Gabapentin (Neurontin) 300 mg BID ORAL 10/26/19 09:00 11/25/19 08:59 10/26/19 08:22 Lorazepam (Ativan 2mg/ml 1ml) 0.5 mg Q6H PRN IV For Anxiety 10/28/19 20:30 11/04/19 20:29 10/31/19 20:06 Magnesium Hydroxide (Mom) 30 ml DAILYPRN PRN ORAL Constipation 10/25/19 23:30 11/24/19 23:29 Meropenem 1 gm/ Sodium Chloride 100 ml @ 200 mls/hr Q12H IVPB 10/29/19 02:00 11/03/19 01:59 11/01/19 13:21 Multi-Ingredient Mouthwash/Gargle (Magic Mouth Wash 60ml) 10 ml BID ORAL 10/26/19 09:00 11/25/19 08:59 11/01/19 09:13 Multivitamins (Multivitamins W/ Minerals 15ml Liquid) 15 ml DAILY ORAL 10/26/19 09:00 11/25/19 08:59 10/26/19 08:22 Sodium Phosphate 30 mm/Sodium Chloride 285 ml @ 47.5 mls/hr ONCE ONCE IVPB 11/01/19 11:00 11/01/19 16:59 11/01/19 11:01 Vancomycin HCl (Vanco pharmacy to dose) 1 ea DAILY PRN MISC Per rx protocol 10/26/19 22:45 11/25/19 22:44 Vancomycin/Sodium Chloride 275 ml @ 137.5 mls/ hr Q24H IVPB 10/30/19 20:00 11/04/19 19:59 10/31/19 20:06 Assessment/Plan Assessment/Plan IMPRESSION: 1. COVID-19 pneumonia by history. Current pcr negative 2. Bilateral pulmonary infiltrates. 3. Hypoxemia. 4. Hypernatremia. 5. Renal failure. 6. Hypertension. 7. Chronic suprapubic catheter. 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 Needs NG/enetral feedings Continue oxygen via 2-4L/min nasal canulae Chavo Goldstein Omar Syed MD Nov 01, 2019 14:10
[2019-11-01 16:00] VITALS: BP 130/68
[2019-11-01 20:00] VITALS: BP 130/58
[2019-11-01] MEDS: Vancomycin 1.5gm/NS Premix IVPB SCH (20:25)
--- NOTE | 2019-11-01 21:21 | Infectious Diseases Prog Note ---
Assessment/Plan Assessment/Plan ASSESSMENT AND PLAN: 1. MDR providencia uti, sepsis, possible bacterial pneumonia, leukocytosis, fevers, hx covid-19 infection/pna, sob, bm, esquivel, arf fungemia risk, no diarrhea to suggest c.diff. - vancomycin and meropenem day # 5 - add diflucan for anti-fungal coverage for worsening leukocytosis - monitor labs and chest x-ray, monitor leukocytosis - repeat covid-19 testing + - d/w RN 2. The patient has history of suprapubic catheter. 3. Hypertension. 4. Blood pressure treatment per primary care team. 5. Wound care protocol. Wounds were reviewed, not acutely infected. 6. Hemiparesis. 7. Hyperlipidemia. 8. Dementia. 9. Hypoxia and shortness of breath. 10. Continue treatment per primary consultants including hypertension treatment. 11. Allergies to acetaminophen, amoxicillin, cephalexin, codeine, hydrocodone, sulfamethoxazole, tetracycline, and trimethoprim. 12. Social history negative. 13. Family history noncontributory. 14. MAR was noted. 15. Case was discussed with RN. 16. Skin care protocol. 17. Orders were noted. Subjective Constitutional: Reports: fatigue; Denies: fever HEENT: Reports: congestion - mild Respiratory: Reports: shortness of breath - mild Cardiovascular: Denies: chest pain Gastrointestinal/Abdominal: Denies: nausea, vomiting, diarrhea Genitourinary: Reports: other - + esquivel Neurologic: Denies: headache Psychiatric: Reports: other - NA Skin: Denies: rash Hematologic: Denies: bleeding Musculoskeletal: Denies: pain Allergies: Coded Allergies: ACETAMINOPHEN (Verified Allergy, Unknown, 10/25/19) AMOXICILLIN (Verified Allergy, Unknown, 10/25/19) CEPHALEXIN (Verified Allergy, Unknown, 10/25/19) CODEINE (Verified Allergy, Unknown, 10/25/19) HYDROCODONE (Verified Allergy, Unknown, 10/25/19) SULFAMETHOXAZOLE (Verified Allergy, Unknown, 10/25/19) TETRACYCLINES (Verified Allergy, Unknown, 10/25/19) TRIMETHOPRIM (Verified Allergy, Unknown, 10/25/19) Objective Last 24 Hour Vital Signs Date Time Temp Pulse Resp B/P (MAP) Pulse Ox O2 Delivery O2 Flow Rate FiO2 11/01/19 16:00 Nasal Cannula 2.0 11/01/19 16:00 97.5 77 16 130/68 (88) 100 11/01/19 16:00 86 11/01/19 12:00 Nasal Cannula 2.0 11/01/19 12:00 76 11/01/19 12:00 98.1 86 22 149/72 (97) 100 11/01/19 08:00 Nasal Cannula 2.0 11/01/19 08:00 97.5 82 25 134/73 (93) 100 11/01/19 08:00 77 11/01/19 04:00 98.0 98 25 133/76 (95) 100 11/01/19 04:00 Nasal Cannula 2.0 11/01/19 04:00 89 11/01/19 00:00 98.7 107 20 153/78 (103) 99 11/01/19 00:00 Nasal Cannula 2.0 11/01/19 00:00 111 Height (Feet): 5 Height (Inches): 1.00 Weight (Pounds): 162 General Appearance: no acute distress HEENT: normocephalic, atraumatic, anicteric, mucous membranes moist Respiratory/Chest: crackles/rales, rhonchi - bilaterally Cardiovascular: normal rate, regular rhythm, no gallop/murmur, no JVD Abdomen: normal bowel sounds, soft, non tender, no organomegaly, non distended Genitourinary: other - + esquivel - urine slt cloudy Extremities: no cyanosis Skin: no rash 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 Bilateral right greater left infiltrates are otherwise stable. Heart size is normal. The pleural spaces are clear. Impression: Increasingly dense consolidation in the right midlung. Otherwise little bladder changer 2 days Chest x-ray - 10/30/19 - FINDINGS: Lungs: Slightly improved aeration of lung. Continued right midlung infiltrates and mild atelectasis or infiltrate in the left lower lobe. Lucency in the right lung apex is likely from a skin fold. Pleural space: Unremarkable. No pneumothorax. Heart: Unremarkable. No cardiomegaly. Mediastinum: Unremarkable. Bones/joints: Unremarkable. Tubes, lines and devices: NG tube is in the right lower lung bronchus, tip in the lower right chest. IMPRESSION: 1. NG tube is in the right lower lung bronchus, tip in the lower right chest. Needs to be removed and repositioned. 2. Slightly improved aeration of lung. Continued right midlung infiltrates and mild atelectasis or infiltrate in the left lower lobe. Chest x-rya - 11/01/19 - Procedure: XRAY Chest 1v Indication: Shortness of breath Technique: One view of the chest Comparison: 10/30/2019 Findings: Right greater than left infiltrates persist, unchanged. Heart size is normal. Pleural spaces are clear. Previously demonstrated intrabronchial nasogastric tube has been removed Impression: Interim removal of previously malpositioned nasogastric tube Unchanged bilateral infiltrates Microbiology Date/Time Source Procedure Growth Status 10/25/19 14:15 Blood Blood Culture - Final NO GROWTH AFTER 5 DAYS Complete 10/28/19 09:45 Nasopharynx Coronavirus COVID-19 PCR (JIM) - Final Complete 10/25/19 14:51 Urine,Clean Catch Urine Culture - Final Providencia Rettgeri Mixed Gram Positive Organism Complete 10/25/19 17:25 Rectum VRE Culture - Final NO VANCOMYCIN RESISTANT ENTEROCOCCUS ... Complete Laboratory Tests Test 11/01/19 04:50 White Blood Count 15.9 K/UL (4.8-10.8) H Red Blood Count 5.11 M/UL (4.70-6.10) Hemoglobin 16.3 G/DL (14.2-18.0) Hematocrit 48.1 % (42.0-52.0) Mean Corpuscular Volume 94 FL (80-99) Mean Corpuscular Hemoglobin 32.0 PG (27.0-31.0) H Mean Corpuscular Hemoglobin Concent 33.9 G/DL (32.0-36.0) Red Cell Distribution Width 12.6 % (11.6-14.8) Platelet Count 220 K/UL (150-450) Mean Platelet Volume 8.3 FL (6.5-10.1) Neutrophils (%) (Auto) 82.8 % (45.0-75.0) H Lymphocytes (%) (Auto) 9.5 % (20.0-45.0) L Monocytes (%) (Auto) 5.8 % (1.0-10.0) Eosinophils (%) (Auto) 1.6 % (0.0-3.0) Basophils (%) (Auto) 0.4 % (0.0-2.0) Sodium Level 139 MMOL/L (136-145) Potassium Level 4.6 MMOL/L (3.5-5.1) Chloride Level 105 MMOL/L (98-107) Carbon Dioxide Level 26 MMOL/L (21-32) Anion Gap 8 mmol/L (5-15) Blood Urea Nitrogen 3 mg/dL (7-18) L Creatinine 0.9 MG/DL (0.55-1.30) Estimat Glomerular Filtration Rate > 60 mL/min (>60) Glucose Level 112 MG/DL (74-106) H Calcium Level 7.7 MG/DL (8.5-10.1) L Phosphorus Level 2.0 MG/DL (2.5-4.9) L Magnesium Level 2.1 MG/DL (1.8-2.4) Current Medications Medications (Trade) Dose Ordered Sig/Jesu Route PRN Reason Start Time Stop Time Status Last Admin Dose Admin Albuterol Sulfate (Proventil MDI) 2 puff Q4H PRN INH Shortness of Breath 10/25/19 23:30 01/23/20 23:29 Aspirin (Ecotrin) 81 mg DAILY ORAL 10/26/19 09:00 12/10/19 08:59 10/26/19 08:22 Dextrose/ Electrolytes 1,000 ml @ 100 mls/hr Q10H IV 10/26/19 23:00 11/25/19 22:59 11/01/19 18:01 Gabapentin (Neurontin) 300 mg BID ORAL 10/26/19 09:00 11/25/19 08:59 10/26/19 08:22 Lorazepam (Ativan 2mg/ml 1ml) 0.5 mg Q6H PRN IV For Anxiety 10/28/19 20:30 11/04/19 20:29 10/31/19 20:06 Magnesium Hydroxide (Mom) 30 ml DAILYPRN PRN ORAL Constipation 10/25/19 23:30 11/24/19 23:29 Meropenem 1 gm/ Sodium Chloride 100 ml @ 200 mls/hr Q12H IVPB 10/29/19 02:00 11/03/19 01:59 11/01/19 13:21 Multi-Ingredient Mouthwash/Gargle (Magic Mouth Wash 60ml) 10 ml BID ORAL 10/26/19 09:00 11/25/19 08:59 11/01/19 18:01 Multivitamins (Multivitamins W/ Minerals 15ml Liquid) 15 ml DAILY ORAL 10/26/19 09:00 11/25/19 08:59 10/26/19 08:22 Vancomycin HCl (Vanco pharmacy to dose) 1 ea DAILY PRN MISC Per rx protocol 10/26/19 22:45 11/25/19 22:44 Vancomycin/Sodium Chloride 275 ml @ 137.5 mls/ hr Q24H IVPB 10/30/19 20:00 11/04/19 19:59 11/01/19 20:25 Julio Sarabia MD Nov 01, 2019 21:21
--- NOTE | 2019-11-01 21:37 | Cardiology Progress Note ---
Assessment/Plan Status: stable Assessment/Plan ASSESSMENT: 1. COVID-19 pneumonia by history. 2. Bilateral pulmonary infiltrates. 3. Hypoxemia. 4. Hypernatremia. 5. Renal failure. 6. Hypertension. 7. Chronic suprapubic catheter. PLAN: Tachycardia resolved Continue pulmonary toilet Empiric Abx IV fluids Echocardiogram reviewed with normal LV function but low pulmonary pressures and flat IVC suggestive of volume depletion. Subjective Cardiovascular: Reports: no symptoms Respiratory: Reports: no symptoms Gastrointestinal/Abdominal: Reports: no symptoms Genitourinary: Reports: no symptoms Subjective No acute events, tachycardia resolved, remains on 12 liters oxygen, WBC has come down, troponin 0.04 CXR shows persistent infiltrates Objective Last 24 Hour Vital Signs Date Time Temp Pulse Resp B/P (MAP) Pulse Ox O2 Delivery O2 Flow Rate FiO2 11/01/19 16:00 Nasal Cannula 2.0 11/01/19 16:00 97.5 77 16 130/68 (88) 100 11/01/19 16:00 86 11/01/19 12:00 Nasal Cannula 2.0 11/01/19 12:00 76 11/01/19 12:00 98.1 86 22 149/72 (97) 100 11/01/19 08:00 Nasal Cannula 2.0 11/01/19 08:00 97.5 82 25 134/73 (93) 100 11/01/19 08:00 77 11/01/19 04:00 98.0 98 25 133/76 (95) 100 11/01/19 04:00 Nasal Cannula 2.0 11/01/19 04:00 89 11/01/19 00:00 98.7 107 20 153/78 (103) 99 11/01/19 00:00 Nasal Cannula 2.0 11/01/19 00:00 111 General Appearance: no apparent distress, alert EENT: PERRL/EOMI, normal ENT inspection, TMs normal, pharynx normal Neck: non-tender, normal alignment, supple, normal inspection Rhythm: NSR Cardiovascular: normal peripheral pulses, normal rate Respiratory/Chest: chest wall non-tender, accessory muscle use, crackles/rales , rhonchi - bilaterally Abdomen: normal bowel sounds, non tender, soft Extremities: normal range of motion, non-tender, normal inspection 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, no motor/sensory deficits Intake and Output 10/31/19 11/01/19 19:00 07:00 Intake Total 100 ml 1475 ml Output Total 2000 ml 1500 ml Balance -1900 ml -25 ml Intake IV Total 100 ml 1475 ml Output Urine Total 2000 ml 1500 ml # Bowel Movements 1 2 Laboratory Tests Test 11/01/19 04:50 White Blood Count 15.9 K/UL (4.8-10.8) H Red Blood Count 5.11 M/UL (4.70-6.10) Hemoglobin 16.3 G/DL (14.2-18.0) Hematocrit 48.1 % (42.0-52.0) Mean Corpuscular Volume 94 FL (80-99) Mean Corpuscular Hemoglobin 32.0 PG (27.0-31.0) H Mean Corpuscular Hemoglobin Concent 33.9 G/DL (32.0-36.0) Red Cell Distribution Width 12.6 % (11.6-14.8) Platelet Count 220 K/UL (150-450) Mean Platelet Volume 8.3 FL (6.5-10.1) Neutrophils (%) (Auto) 82.8 % (45.0-75.0) H Lymphocytes (%) (Auto) 9.5 % (20.0-45.0) L Monocytes (%) (Auto) 5.8 % (1.0-10.0) Eosinophils (%) (Auto) 1.6 % (0.0-3.0) Basophils (%) (Auto) 0.4 % (0.0-2.0) Sodium Level 139 MMOL/L (136-145) Potassium Level 4.6 MMOL/L (3.5-5.1) Chloride Level 105 MMOL/L (98-107) Carbon Dioxide Level 26 MMOL/L (21-32) Anion Gap 8 mmol/L (5-15) Blood Urea Nitrogen 3 mg/dL (7-18) L Creatinine 0.9 MG/DL (0.55-1.30) Estimat Glomerular Filtration Rate > 60 mL/min (>60) Glucose Level 112 MG/DL (74-106) H Calcium Level 7.7 MG/DL (8.5-10.1) L Phosphorus Level 2.0 MG/DL (2.5-4.9) L Magnesium Level 2.1 MG/DL (1.8-2.4) Maycol Schafer MD Nov 01, 2019 21:37
--- NOTE | 2019-11-01 21:45 | Internal Med Progress Note ---
Subjective Date of Service: Nov 01, 2019 Physician Name Edyta Hardy Attending Physician Aron Barbosa M.D. Current Medications Medications (Trade) Dose Ordered Sig/Jesu Route PRN Reason Start Time Stop Time Status Last Admin Dose Admin Albuterol Sulfate (Proventil MDI) 2 puff Q4H PRN INH Shortness of Breath 10/25/19 23:30 01/23/20 23:29 Aspirin (Ecotrin) 81 mg DAILY ORAL 10/26/19 09:00 12/10/19 08:59 10/26/19 08:22 Dextrose/ Electrolytes 1,000 ml @ 100 mls/hr Q10H IV 10/26/19 23:00 11/25/19 22:59 11/01/19 18:01 Fluconazole/ Sodium Chloride 100 ml @ 100 mls/hr Q24H IV 11/01/19 23:00 11/08/19 22:59 Gabapentin (Neurontin) 300 mg BID ORAL 10/26/19 09:00 11/25/19 08:59 10/26/19 08:22 Lorazepam (Ativan 2mg/ml 1ml) 0.5 mg Q6H PRN IV For Anxiety 10/28/19 20:30 11/04/19 20:29 10/31/19 20:06 Magnesium Hydroxide (Mom) 30 ml DAILYPRN PRN ORAL Constipation 10/25/19 23:30 11/24/19 23:29 Meropenem 1 gm/ Sodium Chloride 100 ml @ 200 mls/hr Q12H IVPB 11/02/19 02:00 11/07/19 01:59 Multi-Ingredient Mouthwash/Gargle (Magic Mouth Wash 60ml) 10 ml BID ORAL 10/26/19 09:00 11/25/19 08:59 11/01/19 18:01 Multivitamins (Multivitamins W/ Minerals 15ml Liquid) 15 ml DAILY ORAL 10/26/19 09:00 11/25/19 08:59 10/26/19 08:22 Vancomycin HCl (Vanco pharmacy to dose) 1 ea DAILY PRN MISC Per rx protocol 10/26/19 22:45 11/25/19 22:44 Vancomycin/Sodium Chloride 275 ml @ 137.5 mls/ hr Q24H IVPB 10/30/19 20:00 11/04/19 19:59 11/01/19 20:25 Allergies: Coded Allergies: ACETAMINOPHEN (Verified Allergy, Unknown, 10/25/19) AMOXICILLIN (Verified Allergy, Unknown, 10/25/19) CEPHALEXIN (Verified Allergy, Unknown, 10/25/19) CODEINE (Verified Allergy, Unknown, 10/25/19) HYDROCODONE (Verified Allergy, Unknown, 10/25/19) SULFAMETHOXAZOLE (Verified Allergy, Unknown, 10/25/19) TETRACYCLINES (Verified Allergy, Unknown, 10/25/19) TRIMETHOPRIM (Verified Allergy, Unknown, 10/25/19) ROS Limited/Unobtainable: Yes Subjective plan for PEG family consented multiple NGT placement attempt unsuccessful wbc up phosp 2.0 Objective Last Vital Signs Date Time Temp Pulse Resp B/P (MAP) Pulse Ox O2 Delivery O2 Flow Rate FiO2 11/01/19 16:00 Nasal Cannula 2.0 11/01/19 16:00 97.5 77 16 130/68 (88) 100 10/31/19 19:50 28 General Appearance: no apparent distress Neck: supple Cardiovascular: normal rate, regular rhythm, systolic murmur Respiratory/Chest: rhonchi - bilaterally Abdomen: normal bowel sounds, non tender, soft Genitourinary/Rectal: normal genital exam Extremities: non-tender Edema: mild edema Neurologic: alert, responsive, motor weakness, sensory deficit, disoriented Skin: warm/dry Laboratory Tests Test 11/01/19 04:50 White Blood Count 15.9 K/UL (4.8-10.8) H Red Blood Count 5.11 M/UL (4.70-6.10) Hemoglobin 16.3 G/DL (14.2-18.0) Hematocrit 48.1 % (42.0-52.0) Mean Corpuscular Volume 94 FL (80-99) Mean Corpuscular Hemoglobin 32.0 PG (27.0-31.0) H Mean Corpuscular Hemoglobin Concent 33.9 G/DL (32.0-36.0) Red Cell Distribution Width 12.6 % (11.6-14.8) Platelet Count 220 K/UL (150-450) Mean Platelet Volume 8.3 FL (6.5-10.1) Neutrophils (%) (Auto) 82.8 % (45.0-75.0) H Lymphocytes (%) (Auto) 9.5 % (20.0-45.0) L Monocytes (%) (Auto) 5.8 % (1.0-10.0) Eosinophils (%) (Auto) 1.6 % (0.0-3.0) Basophils (%) (Auto) 0.4 % (0.0-2.0) Sodium Level 139 MMOL/L (136-145) Potassium Level 4.6 MMOL/L (3.5-5.1) Chloride Level 105 MMOL/L (98-107) Carbon Dioxide Level 26 MMOL/L (21-32) Anion Gap 8 mmol/L (5-15) Blood Urea Nitrogen 3 mg/dL (7-18) L Creatinine 0.9 MG/DL (0.55-1.30) Estimat Glomerular Filtration Rate > 60 mL/min (>60) Glucose Level 112 MG/DL (74-106) H Calcium Level 7.7 MG/DL (8.5-10.1) L Phosphorus Level 2.0 MG/DL (2.5-4.9) L Magnesium Level 2.1 MG/DL (1.8-2.4) Intake and Output 10/31/19 11/01/19 19:00 07:00 Intake Total 100 ml 1475 ml Output Total 2000 ml 1500 ml Balance -1900 ml -25 ml Intake IV Total 100 ml 1475 ml Output Urine Total 2000 ml 1500 ml # Bowel Movements 1 2 Assessment/Plan Status: stable, progressing, unchanged Assessment/Plan IMPRESSION: sepsis on admission COVID 19 pnemonia acute respiratory failure hypoxemia acute toxic and metabolic encephalopathy Hypernatremia dehydration acute kidney injury leuokcytosis hx CVA with hemiplegia suprapubic catheter status senile debility ankle wound PLAN: stepdown unit plan for PEG now. family agreed. multiple NGT placement attempts failed antifungal added IVF while npo phosph replete IV abx per ID pulm inhalor isolation per COVID 19 policy f/u cultures DVT/GI prophylaxis electrolyte replete as needed NPO wound care oxygen DNAR code status EDYTA HARDY MD Internal Medicine [phone] over 35 minutes spent today note time may not be the actual encounter time. over 50% allocated in counseling, coordination of care, d/w staff and family with medical update Edyta Hardy MD Nov 01, 2019 21:44
[2019-11-01 23:23] LABS: BASOPHILS % (AUTO) 0.6 % (0.0-2.0); EOSINOPHILS % (AUTO) 2.5 % (0.0-3.0); HEMATOCRIT 41.9 % (42.0-52.0); HEMOGLOBIN 14.5 G/DL (14.2-18.0); LYMPHOCYTES % (AUTO) 13.5 % (20.0-45.0); MEAN CORPUSCULAR VOLUME 92 FL (80-99); MONOCYTES % (AUTO) 6.3 % (1.0-10.0); NEUTROPHILS % (AUTO) 77.1 % (45.0-75.0); PLATELET COUNT 213 K/UL (150-450); RED BLOOD COUNT 4.57 M/UL (4.70-6.10); RED CELL DISTRIBUTION WIDTH 12.4 % (11.6-14.8); WHITE BLOOD COUNT 11.7 K/UL (4.8-10.8)
[2019-11-01 23:32] LABS: APPEARANCE,URINE CLEAR; BILIRUBIN, URINE NEGATIVE (NEGATIVE); COLOR,URINE YELLOW; GLUCOSE, URINE (UA) NEGATIVE (NEGATIVE); KETONES,URINE NEGATIVE (NEGATIVE); LEUKOCYTE ESTERASE ,URINE NEGATIVE (NEGATIVE); NITRITE,URINE NEGATIVE (NEGATIVE); PH,URINE 7 (4.5-8.0); PROTEIN,URINE NEGATIVE (NEGATIVE); UROBILINOGEN,URINE NORMAL MG/DL (0.0-1.0)
[2019-11-01 23:40] LABS: ALANINE AMINOTRANSFERASE 16 U/L (12-78); ALBUMIN 1.7 G/DL (3.4-5.0); ALBUMIN/GLOBULIN RATIO 0.4 (1.0-2.7); ALKALINE PHOSPHATASE 81 U/L (46-116); ANION GAP 7 mmol/L (5-15); ASPARTATE AMINO TRANSFERASE 37 U/L (15-37); BILIRUBIN,TOTAL 1.3 MG/DL (0.2-1.0); BLOOD UREA NITROGEN 4 mg/dL (7-18); CALCIUM 7.3 MG/DL (8.5-10.1); CARBON DIOXIDE 27 MMOL/L (21-32); CHLORIDE 106 MMOL/L (98-107); CREATININE 0.8 MG/DL (0.55-1.30); POTASSIUM 3.9 MMOL/L (3.5-5.1); SODIUM 140 MMOL/L (136-145)
[2019-11-02] VITALS: BP 140/71
[2019-11-02 00:29] LABS: BILIRUBIN,DIRECT 0.1 MG/DL (0.0-0.3)
[2019-11-02 04:00] VITALS: BP 142/78
[2019-11-02] MEDS: D5 1/2NS w/KCL 10meq 1,000 ML IV SCH ×2 (04:56→14:27)
[2019-11-02 08:00] VITALS: BP 135/74
[2019-11-02] MEDS: Aspirin EC 81mg tab ORAL SCH (08:03)
[2019-11-02] MEDS: Multivitamins W/Minerals 15 ML UDC ORAL SCH (08:04)
[2019-11-02] MEDS: Magic Mouth Wash 60ml (Benadryl/Mylanta/Visc Lido) ORAL SCH ×2 (08:08→17:24)
--- NOTE | 2019-11-02 09:14 | Pre-Procedure Note/Attestation ---
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 I attest that, if there was a reasonable possibility of needing a blood transfusion, the patient (or the patient's legal sales representative cash registers) was given the [facility] standardized written summary, pursuant to the Kirit Goodman Blood Safety Act ([place] Health and Safety Code # 1645, as amended). I attest that I re-evaluated the patient just prior to the surgery and that there has been no change in the patient's H&P, except as documented below: Nathan Quesada MD Nov 02, 2019 09:14
--- NOTE | 2019-11-02 10:12 | Nephrology Progress Note ---
Assessment/Plan Plan #COVID pneumonia #TELMA due to dehydration #sepsis #Hypernatremia due to dehydration #hypoxemic resp failure #Volume depletion - continue TF - replete phos - abx - pulm, ID and cards eval - 2d echo - bipap prn - follow cx - avoid nephrotoxins - replace free water - monitor mag, phos and bmp daily - DNR/DNI time spent 70 min- greater than 50% on care coordination and counseling Subjective ROS Limited/Unobtainable: Yes Subjective WBC downtrending Sodium and cr improving phos low - repleted Objective Objective Last 24 Hour Vital Signs Date Time Temp Pulse Resp B/P (MAP) Pulse Ox O2 Delivery O2 Flow Rate FiO2 11/02/19 08:00 74 11/02/19 08:00 97.5 82 20 135/74 (94) 100 11/02/19 08:00 Nasal Cannula 2.0 11/02/19 04:00 Nasal Cannula 2.0 11/02/19 04:00 97.2 89 20 142/78 (99) 100 11/02/19 03:42 76 11/02/19 00:00 97.8 81 15 140/71 (94) 100 11/02/19 00:00 Nasal Cannula 2.0 11/02/19 00:00 76 11/01/19 20:00 98.5 78 19 130/58 (82) 100 11/01/19 20:00 Nasal Cannula 2.0 11/01/19 19:09 80 11/01/19 16:00 Nasal Cannula 2.0 11/01/19 16:00 97.5 77 16 130/68 (88) 100 11/01/19 16:00 86 11/01/19 12:00 Nasal Cannula 2.0 11/01/19 12:00 76 11/01/19 12:00 98.1 86 22 149/72 (97) 100 Intake and Output 11/01/19 11/02/19 19:00 07:00 Intake Total 1383.333 ml 1583.19918 ml Output Total 800 ml 2000 ml Balance 583.333 ml -416.70971 ml Intake IV Total 1383.333 ml 1583.49581 ml Output Urine Total 800 ml 2000 ml # Voids 1 # Bowel Movements 4 Laboratory Tests 11/01/19 22:20: Urine Color Yellow, Urine Appearance Clear, Urine pH 7, Urine Specific [place] 1.015, Urine Protein Negative, Urine Glucose (UA) Negative, Urine Ketones Negative, Urine Blood 3+H, Urine Nitrite Negative, Urine Bilirubin Negative, Urine Urobilinogen Normal, Urine Leukocyte Esterase Negative, Urine RBC 2-4H, Urine WBC 0, Urine Squamous Epithelial Cells None, Urine Bacteria None 11/01/19 22:30: White Blood Count 11.7H, Red Blood Count 4.57L, Hemoglobin 14.5, Hematocrit 41.9L, Mean Corpuscular Volume 92, Mean Corpuscular Hemoglobin 31.8H, Mean Corpuscular Hemoglobin Concent 34.6, Red Cell Distribution Width 12.4, Platelet Count 213, Mean Platelet Volume 8.9, Neutrophils (%) (Auto) 77.1H, Lymphocytes ( %) (Auto) 13.5L, Monocytes (%) (Auto) 6.3, Eosinophils (%) (Auto) 2.5, Basophils (%) (Auto) 0.6, Sodium Level 140, Potassium Level 3.9, Chloride Level 106, Carbon Dioxide Level 27, Anion Gap 7, Blood Urea Nitrogen 4L, Creatinine 0.8, Estimat Glomerular Filtration Rate > 60, Glucose Level 122H, Calcium Level 7.3L, Total Bilirubin 1.3H, Direct Bilirubin 0.1, Aspartate Amino Transf (AST/ SGOT) 37, Alanine Aminotransferase (ALT/SGPT) 16, Alkaline Phosphatase 81, Total Protein 5.6L, Albumin 1.7L, Globulin 3.9, Albumin/Globulin Ratio 0.4L Height (Feet): 5 Height (Inches): 1.00 Weight (Pounds): 162 Aron Barbosa M.D. Nov 02, 2019 10:12
--- NOTE | 2019-11-02 11:13 | General Progress Note ---
Assessment/Plan Problem List: (1) Sepsis ICD Codes: A41.9 - Sepsis, unspecified organism SNOMED: 77751585 Qualifiers: Qualified Codes: A41.9 - Sepsis, unspecified organism; R65.20 - Severe sepsis without septic shock; N17.9 - Acute kidney failure, unspecified (2) Hypoxia ICD Codes: R09.02 - Hypoxemia SNOMED: 709057606 (3) Right hemiparesis ICD Codes: G81.91 - Hemiplegia, unspecified affecting right dominant side SNOMED: 720898491 (4) COVID-19 ICD Codes: U07.1 - COVID-19 SNOMED: 635097294 Status: stable, progressing, unchanged Assessment/Plan: multiple attempts for NGT placement has failed so far anesthesia refused to do PEG today will try NGT placement again Subjective ROS Limited/Unobtainable: No Allergies: Coded Allergies: ACETAMINOPHEN (Verified Allergy, Unknown, 10/25/19) AMOXICILLIN (Verified Allergy, Unknown, 10/25/19) CEPHALEXIN (Verified Allergy, Unknown, 10/25/19) CODEINE (Verified Allergy, Unknown, 10/25/19) HYDROCODONE (Verified Allergy, Unknown, 10/25/19) SULFAMETHOXAZOLE (Verified Allergy, Unknown, 10/25/19) TETRACYCLINES (Verified Allergy, Unknown, 10/25/19) TRIMETHOPRIM (Verified Allergy, Unknown, 10/25/19) Objective Last 24 Hour Vital Signs Date Time Temp Pulse Resp B/P (MAP) Pulse Ox O2 Delivery O2 Flow Rate FiO2 11/02/19 08:00 74 11/02/19 08:00 97.5 82 20 135/74 (94) 100 11/02/19 08:00 Nasal Cannula 2.0 11/02/19 04:00 Nasal Cannula 2.0 11/02/19 04:00 97.2 89 20 142/78 (99) 100 11/02/19 03:42 76 11/02/19 00:00 97.8 81 15 140/71 (94) 100 11/02/19 00:00 Nasal Cannula 2.0 11/02/19 00:00 76 11/01/19 20:00 98.5 78 19 130/58 (82) 100 11/01/19 20:00 Nasal Cannula 2.0 11/01/19 19:09 80 11/01/19 16:00 Nasal Cannula 2.0 11/01/19 16:00 97.5 77 16 130/68 (88) 100 11/01/19 16:00 86 11/01/19 12:00 Nasal Cannula 2.0 11/01/19 12:00 76 11/01/19 12:00 98.1 86 22 149/72 (97) 100 Intake and Output 11/01/19 11/02/19 19:00 07:00 Intake Total 1383.333 ml 1583.21205 ml Output Total 800 ml 2000 ml Balance 583.333 ml -416.41117 ml Intake IV Total 1383.333 ml 1583.91423 ml Output Urine Total 800 ml 2000 ml # Voids 1 # Bowel Movements 4 Laboratory Tests 11/01/19 22:20: Urine Color Yellow, Urine Appearance Clear, Urine pH 7, Urine Specific [place] 1.015, Urine Protein Negative, Urine Glucose (UA) Negative, Urine Ketones Negative, Urine Blood 3+H, Urine Nitrite Negative, Urine Bilirubin Negative, Urine Urobilinogen Normal, Urine Leukocyte Esterase Negative, Urine RBC 2-4H, Urine WBC 0, Urine Squamous Epithelial Cells None, Urine Bacteria None 11/01/19 22:30: White Blood Count 11.7H, Red Blood Count 4.57L, Hemoglobin 14.5, Hematocrit 41.9L, Mean Corpuscular Volume 92, Mean Corpuscular Hemoglobin 31.8H, Mean Corpuscular Hemoglobin Concent 34.6, Red Cell Distribution Width 12.4, Platelet Count 213, Mean Platelet Volume 8.9, Neutrophils (%) (Auto) 77.1H, Lymphocytes ( %) (Auto) 13.5L, Monocytes (%) (Auto) 6.3, Eosinophils (%) (Auto) 2.5, Basophils (%) (Auto) 0.6, Sodium Level 140, Potassium Level 3.9, Chloride Level 106, Carbon Dioxide Level 27, Anion Gap 7, Blood Urea Nitrogen 4L, Creatinine 0.8, Estimat Glomerular Filtration Rate > 60, Glucose Level 122H, Calcium Level 7.3L, Total Bilirubin 1.3H, Direct Bilirubin 0.1, Aspartate Amino Transf (AST/ SGOT) 37, Alanine Aminotransferase (ALT/SGPT) 16, Alkaline Phosphatase 81, Total Protein 5.6L, Albumin 1.7L, Globulin 3.9, Albumin/Globulin Ratio 0.4L Height (Feet): 5 Height (Inches): 1.00 Weight (Pounds): 162 General Appearance: no apparent distress EENT: normal ENT inspection Neck: supple Cardiovascular: normal rate Respiratory/Chest: decreased breath sounds Abdomen: normal bowel sounds, non tender, soft Extremities: non-tender Nathan Quesada MD Nov 02, 2019 11:13
--- NOTE | 2019-11-02 11:56 | Pulmonology Progress Note ---
Subjective ROS Limited/Unobtainable: No Interval Events: None new reported Constitutional: Reports: fatigue; Denies: fever HEENT: Repors: no symptoms Respiratory: Reports: no symptoms Cardiovascular: Reports: no symptoms Gastrointestinal/Abdominal: Denies: nausea, vomiting, diarrhea Genitourinary: Reports: no symptoms Neurologic: Reports: no symptoms Psychiatric: Reports: other - NA Skin: Denies: rash Musculoskeletal: Denies: pain Allergies: Coded Allergies: ACETAMINOPHEN (Verified Allergy, Unknown, 10/25/19) AMOXICILLIN (Verified Allergy, Unknown, 10/25/19) CEPHALEXIN (Verified Allergy, Unknown, 10/25/19) CODEINE (Verified Allergy, Unknown, 10/25/19) HYDROCODONE (Verified Allergy, Unknown, 10/25/19) SULFAMETHOXAZOLE (Verified Allergy, Unknown, 10/25/19) TETRACYCLINES (Verified Allergy, Unknown, 10/25/19) TRIMETHOPRIM (Verified Allergy, Unknown, 10/25/19) All Systems: reviewed and negative except above Objective Last 24 Hour Vital Signs Date Time Temp Pulse Resp B/P (MAP) Pulse Ox O2 Delivery O2 Flow Rate FiO2 11/02/19 08:00 74 11/02/19 08:00 97.5 82 20 135/74 (94) 100 11/02/19 08:00 Nasal Cannula 2.0 11/02/19 04:00 Nasal Cannula 2.0 11/02/19 04:00 97.2 89 20 142/78 (99) 100 11/02/19 03:42 76 11/02/19 00:00 97.8 81 15 140/71 (94) 100 11/02/19 00:00 Nasal Cannula 2.0 11/02/19 00:00 76 11/01/19 20:00 98.5 78 19 130/58 (82) 100 11/01/19 20:00 Nasal Cannula 2.0 11/01/19 19:09 80 11/01/19 16:00 Nasal Cannula 2.0 11/01/19 16:00 97.5 77 16 130/68 (88) 100 11/01/19 16:00 86 11/01/19 12:00 Nasal Cannula 2.0 11/01/19 12:00 76 11/01/19 12:00 98.1 86 22 149/72 (97) 100 Intake and Output 11/01/19 11/02/19 19:00 07:00 Intake Total 1383.333 ml 1583.71798 ml Output Total 800 ml 2000 ml Balance 583.333 ml -416.03703 ml Intake IV Total 1383.333 ml 1583.02612 ml Output Urine Total 800 ml 2000 ml # Voids 1 # Bowel Movements 4 General Appearance: no acute distress HEENT: normocephalic Respiratory: chest wall non-tender, lungs clear Cardiovascular: normal peripheral pulses, normal rate Abdomen: normal bowel sounds Laboratory Tests 11/01/19 22:20: Urine Color Yellow, Urine Appearance Clear, Urine pH 7, Urine Specific [place] 1.015, Urine Protein Negative, Urine Glucose (UA) Negative, Urine Ketones Negative, Urine Blood 3+H, Urine Nitrite Negative, Urine Bilirubin Negative, Urine Urobilinogen Normal, Urine Leukocyte Esterase Negative, Urine RBC 2-4H, Urine WBC 0, Urine Squamous Epithelial Cells None, Urine Bacteria None 11/01/19 22:30: White Blood Count 11.7H, Red Blood Count 4.57L, Hemoglobin 14.5, Hematocrit 41.9L, Mean Corpuscular Volume 92, Mean Corpuscular Hemoglobin 31.8H, Mean Corpuscular Hemoglobin Concent 34.6, Red Cell Distribution Width 12.4, Platelet Count 213, Mean Platelet Volume 8.9, Neutrophils (%) (Auto) 77.1H, Lymphocytes ( %) (Auto) 13.5L, Monocytes (%) (Auto) 6.3, Eosinophils (%) (Auto) 2.5, Basophils (%) (Auto) 0.6, Sodium Level 140, Potassium Level 3.9, Chloride Level 106, Carbon Dioxide Level 27, Anion Gap 7, Blood Urea Nitrogen 4L, Creatinine 0.8, Estimat Glomerular Filtration Rate > 60, Glucose Level 122H, Calcium Level 7.3L, Total Bilirubin 1.3H, Direct Bilirubin 0.1, Aspartate Amino Transf (AST/ SGOT) 37, Alanine Aminotransferase (ALT/SGPT) 16, Alkaline Phosphatase 81, Total Protein 5.6L, Albumin 1.7L, Globulin 3.9, Albumin/Globulin Ratio 0.4L Current Medications Medications (Trade) Dose Ordered Sig/Jesu Route PRN Reason Start Time Stop Time Status Last Admin Dose Admin Albuterol Sulfate (Proventil MDI) 2 puff Q4H PRN INH Shortness of Breath 10/25/19 23:30 01/23/20 23:29 Aspirin (Ecotrin) 81 mg DAILY ORAL 10/26/19 09:00 12/10/19 08:59 10/26/19 08:22 Dextrose/ Electrolytes 1,000 ml @ 100 mls/hr Q10H IV 10/26/19 23:00 11/25/19 22:59 11/02/19 04:56 Fluconazole/ Sodium Chloride 100 ml @ 100 mls/hr Q24H IV 11/01/19 23:00 11/08/19 22:59 11/01/19 22:21 Gabapentin (Neurontin) 300 mg BID ORAL 10/26/19 09:00 11/25/19 08:59 10/26/19 08:22 Lorazepam (Ativan 2mg/ml 1ml) 0.5 mg Q6H PRN IV For Anxiety 10/28/19 20:30 11/04/19 20:29 10/31/19 20:06 Magnesium Hydroxide (Mom) 30 ml DAILYPRN PRN ORAL Constipation 10/25/19 23:30 11/24/19 23:29 Meropenem 1 gm/ Sodium Chloride 100 ml @ 200 mls/hr Q12H IVPB 11/02/19 02:00 11/07/19 01:59 11/02/19 01:47 Multi-Ingredient Mouthwash/Gargle (Magic Mouth Wash 60ml) 10 ml BID ORAL 10/26/19 09:00 11/25/19 08:59 11/02/19 08:08 Multivitamins (Multivitamins W/ Minerals 15ml Liquid) 15 ml DAILY ORAL 10/26/19 09:00 11/25/19 08:59 10/26/19 08:22 Vancomycin HCl (Vanco pharmacy to dose) 1 ea DAILY PRN MISC Per rx protocol 10/26/19 22:45 11/25/19 22:44 Vancomycin/Sodium Chloride 275 ml @ 137.5 mls/ hr Q24H IVPB 10/30/19 20:00 11/04/19 19:59 11/01/19 20:25 Assessment/Plan Assessment/Plan IMPRESSION: 1. COVID-19 pneumonia by history. Current pcr negative 2. Bilateral pulmonary infiltrates. 3. Hypoxemia. 4. Hypernatremia. 5. Renal failure. 6. Hypertension. 7. Chronic suprapubic catheter. 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 Needs PEG Dc planning Continue oxygen via 2-4L/min nasal canulae Chavo Goldstein Omar Syed MD Nov 02, 2019 11:56
[2019-11-02 12:00] VITALS: BP 138/70
--- NOTE | 2019-11-02 12:49 | Surgery Progress Note ---
Surgery Progress Note Subjective Additional Comments no acute events ill appearing no n/v Objective Last 24 Hour Vital Signs Date Time Temp Pulse Resp B/P (MAP) Pulse Ox O2 Delivery O2 Flow Rate FiO2 11/02/19 08:00 74 11/02/19 08:00 97.5 82 20 135/74 (94) 100 11/02/19 08:00 Nasal Cannula 2.0 11/02/19 04:00 Nasal Cannula 2.0 11/02/19 04:00 97.2 89 20 142/78 (99) 100 11/02/19 03:42 76 11/02/19 00:00 97.8 81 15 140/71 (94) 100 11/02/19 00:00 Nasal Cannula 2.0 11/02/19 00:00 76 11/01/19 20:00 98.5 78 19 130/58 (82) 100 11/01/19 20:00 Nasal Cannula 2.0 11/01/19 19:09 80 11/01/19 16:00 Nasal Cannula 2.0 11/01/19 16:00 97.5 77 16 130/68 (88) 100 11/01/19 16:00 86 I&O Intake and Output 11/01/19 11/02/19 19:00 07:00 Intake Total 1383.333 ml 1583.51527 ml Output Total 800 ml 2000 ml Balance 583.333 ml -416.30387 ml Intake IV Total 1383.333 ml 1583.03902 ml Output Urine Total 800 ml 2000 ml # Voids 1 # Bowel Movements 4 Dressing: other Wound: other Drains: other Cardiovascular: RSR Respiratory: decreased breath sounds Abdomen: soft, non-tender, present bowel sounds Extremities: no cyanosis Laboratory Tests Test 11/01/19 22:20 11/01/19 22:30 Urine Color Yellow Urine Appearance Clear Urine pH 7 (4.5-8.0) Urine Specific [place] 1.015 (1.005-1.035) Urine Protein Negative (NEGATIVE) Urine Glucose (UA) Negative (NEGATIVE) Urine Ketones Negative (NEGATIVE) Urine Blood 3+ (NEGATIVE) H Urine Nitrite Negative (NEGATIVE) Urine Bilirubin Negative (NEGATIVE) Urine Urobilinogen Normal MG/DL (0.0-1.0) Urine Leukocyte Esterase Negative (NEGATIVE) Urine RBC 2-4 /HPF (0 - 0) H Urine WBC 0 /HPF (0 - 0) Urine Squamous Epithelial Cells None /LPF (NONE/OCC) Urine Bacteria None /HPF (NONE) White Blood Count 11.7 K/UL (4.8-10.8) H Red Blood Count 4.57 M/UL (4.70-6.10) L Hemoglobin 14.5 G/DL (14.2-18.0) Hematocrit 41.9 % (42.0-52.0) L Mean Corpuscular Volume 92 FL (80-99) Mean Corpuscular Hemoglobin 31.8 PG (27.0-31.0) H Mean Corpuscular Hemoglobin Concent 34.6 G/DL (32.0-36.0) Red Cell Distribution Width 12.4 % (11.6-14.8) Platelet Count 213 K/UL (150-450) Mean Platelet Volume 8.9 FL (6.5-10.1) Neutrophils (%) (Auto) 77.1 % (45.0-75.0) H Lymphocytes (%) (Auto) 13.5 % (20.0-45.0) L Monocytes (%) (Auto) 6.3 % (1.0-10.0) Eosinophils (%) (Auto) 2.5 % (0.0-3.0) Basophils (%) (Auto) 0.6 % (0.0-2.0) Sodium Level 140 MMOL/L (136-145) Potassium Level 3.9 MMOL/L (3.5-5.1) Chloride Level 106 MMOL/L (98-107) Carbon Dioxide Level 27 MMOL/L (21-32) Anion Gap 7 mmol/L (5-15) Blood Urea Nitrogen 4 mg/dL (7-18) L Creatinine 0.8 MG/DL (0.55-1.30) Estimat Glomerular Filtration Rate > 60 mL/min (>60) Glucose Level 122 MG/DL (74-106) H Calcium Level 7.3 MG/DL (8.5-10.1) L Total Bilirubin 1.3 MG/DL (0.2-1.0) H Direct Bilirubin 0.1 MG/DL (0.0-0.3) Aspartate Amino Transf (AST/SGOT) 37 U/L (15-37) Alanine Aminotransferase (ALT/SGPT) 16 U/L (12-78) Alkaline Phosphatase 81 U/L (46-116) Total Protein 5.6 G/DL (6.4-8.2) L Albumin 1.7 G/DL (3.4-5.0) L Globulin 3.9 g/dL Albumin/Globulin Ratio 0.4 (1.0-2.7) L Plan Problems: (1) Renal failure (2) Hypoxia (3) Sepsis Assessment & Plan: 89 year old male with leukocytosis, lactic acidosis, abnormal labs. currently in monitoring unit on face mask respiratory support Hx COVID + UTI Pt presented on admission with multiple Pressure injuries. Pt currently using Venti-mask. Non-Blanching erythema noted to bridge of nose and both cheeks consistent with mask. Cavilon Skin Barrier applied to affected areas and covered with Foam tape. Non-Blanching erythema noted to clefts of both ears. Elastic Band of oxygen tubing padded. Non-Blanching erythema without induration noted to sacrum,R and L Gluteus. Non-Blanching erythema noted to R trochanter(L)3cm x (W)6.3cm. DTPI noted to L Heel. Base of heel is maroon and fluctuant (L)4.3cm x (W)5.5cm. Periwound is boggy but easily blanchable. R heel and lateral R foot boggy with non-blanching erythema. Resolving Pressure injury Lateral R malleolus. Base of wound is dry, black with pink epithelial at center of wound.(L)2.5cm x (W)2.7cm. Apply Moisture Barrier Paste to Sacrum. Cover with Optifoam drsg. Change every 3 days and prn. Apply Cavilon Skin Barrier to R and L trochanter. Cover each site with Optifoam drsg. Change every 7 days and PRN. Apply Cavilon Skin Barrier to both Earlobes TWICE daily.Pad elastic band of oxygen mask. Keep band loose around ears. Apply Cavilon Skin Barrier to R and L cheeks and Bridge of Nose. Apply Foam tape. Change every 7 days and PRN. Apply Cavilon Skin Barrier to both heels and malleoli. Cover each site with Optifoam drsgs. Change every 7 days and PRN. Reposition at least every 2hours or as tolerated. Off-load heels with Pillows. APM/MODESTO Mattress overlay. diet as tolerated respiratory support CXR noted nutritional optimization ng in place. tf as tolerated turn q2h will follow with recs thank you DAILY ESTIMATED NEEDS: Needs based on DM , pulmonary 75kg abw 25-30 kcals/kg 2048-4564 total kcals 1-1.5 g protein/kg 75-113 g total protein 20-25 mL/kg 6437-2508 total fluid mLs DAILY ESTIMATED NEEDS: Needs based on pulmonary, wound 75kg abw 25-30 kcals/kg 1484-1017 total kcals 1.25-1.5 g protein/kg 94-113 g total protein 20-25 mL/kg 2731-9676 total fluid mLs NUTRITION DIAGNOSIS: Altered nutrition related lab values r/t clinical status as evidenced by elev Na (159-> wnl), elev BUN(now 43-> wnl), elev BG (140-150). ENTERAL NUTRITION RECOMMENDATIONS: Glucerna 1.2 goal of 65ml/hr x24 hrs to provide 1560ml, 1872 kcal, 94g pro, 1256ml free H2O - Obtain GI access, initiate Glucerna 1.2 @25ml/hr for 6 hrs. Advance as tolerated 10ml/hr q4-6 hrs to goal. - Flush per MD/ HOB over 30 degrees. Glucerna 1.2 low on stock-> may replace w/ Jevity 1.2 w/goal of 65ml/hr x24 hrs. Rec to increase insulin coverage as Jevity 1.2 is not carb control formula. 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
--- NOTE | 2019-11-02 14:45 | Diagnostic Imaging Report ---
Indication: Post nasogastric tube placement Technique: Supine view of the upper abdomen Comparison: 10/29/2019 Findings: Interim placement of a Dobbhoff type weighted nasogastric feeding tube, tip of which projects at the level gastric antrum in good position. Included lung shabazz demonstrate bilateral infiltrates. Considerable bowel gas is demonstrated, but bowel loops are nondilated. Impression: Satisfactory nasogastric intubation Other stable findings as described Findings phoned to patient's nurse at the time of interpretation
[2019-11-02 16:00] VITALS: BP 127/80
--- NOTE | 2019-11-02 18:12 | Cardiology Progress Note ---
Assessment/Plan Status: stable Assessment/Plan ASSESSMENT: 1. COVID-19 pneumonia by history. 2. Bilateral pulmonary infiltrates. 3. Hypoxemia. 4. Hypernatremia. 5. Renal failure. 6. Hypertension. 7. Chronic suprapubic catheter. PLAN: Tachycardia resolved Continue pulmonary toilet Empiric Abx IV fluids Echocardiogram reviewed with normal LV function but low pulmonary pressures and flat IVC suggestive of volume depletion. Subjective Cardiovascular: Reports: no symptoms Respiratory: Reports: no symptoms Gastrointestinal/Abdominal: Reports: no symptoms Genitourinary: Reports: no symptoms Subjective No acute events, tachycardia resolved, remains on 12 liters oxygen, WBC has come down, troponin 0.04 CXR shows persistent infiltrates Objective Last 24 Hour Vital Signs Date Time Temp Pulse Resp B/P (MAP) Pulse Ox O2 Delivery O2 Flow Rate FiO2 11/02/19 16:00 Nasal Cannula 2.0 11/02/19 16:00 97.5 93 20 127/80 (96) 99 11/02/19 12:00 98.0 90 20 138/70 (92) 99 11/02/19 12:00 Nasal Cannula 2.0 11/02/19 12:00 73 11/02/19 08:00 74 11/02/19 08:00 97.5 82 20 135/74 (94) 100 11/02/19 08:00 Nasal Cannula 2.0 11/02/19 04:00 Nasal Cannula 2.0 11/02/19 04:00 97.2 89 20 142/78 (99) 100 11/02/19 03:42 76 11/02/19 00:00 97.8 81 15 140/71 (94) 100 11/02/19 00:00 Nasal Cannula 2.0 11/02/19 00:00 76 11/01/19 20:00 98.5 78 19 130/58 (82) 100 11/01/19 20:00 Nasal Cannula 2.0 11/01/19 19:09 80 General Appearance: no apparent distress, alert EENT: PERRL/EOMI Neck: non-tender, normal alignment, supple, normal inspection, no JVD Rhythm: NSR Cardiovascular: normal peripheral pulses, normal rate, regular rhythm Respiratory/Chest: chest wall non-tender, lungs clear Abdomen: normal bowel sounds, non tender, soft Extremities: normal range of motion, non-tender, normal inspection, no calf tenderness, no swelling 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, no motor/sensory deficits Intake and Output 11/01/19 11/02/19 19:00 07:00 Intake Total 1383.333 ml 1583.30969 ml Output Total 800 ml 2000 ml Balance 583.333 ml -416.84073 ml Intake IV Total 1383.333 ml 1583.47297 ml Output Urine Total 800 ml 2000 ml # Voids 1 # Bowel Movements 4 Laboratory Tests Test 11/01/19 22:20 11/01/19 22:30 Urine Color Yellow Urine Appearance Clear Urine pH 7 (4.5-8.0) Urine Specific [place] 1.015 (1.005-1.035) Urine Protein Negative (NEGATIVE) Urine Glucose (UA) Negative (NEGATIVE) Urine Ketones Negative (NEGATIVE) Urine Blood 3+ (NEGATIVE) H Urine Nitrite Negative (NEGATIVE) Urine Bilirubin Negative (NEGATIVE) Urine Urobilinogen Normal MG/DL (0.0-1.0) Urine Leukocyte Esterase Negative (NEGATIVE) Urine RBC 2-4 /HPF (0 - 0) H Urine WBC 0 /HPF (0 - 0) Urine Squamous Epithelial Cells None /LPF (NONE/OCC) Urine Bacteria None /HPF (NONE) White Blood Count 11.7 K/UL (4.8-10.8) H Red Blood Count 4.57 M/UL (4.70-6.10) L Hemoglobin 14.5 G/DL (14.2-18.0) Hematocrit 41.9 % (42.0-52.0) L Mean Corpuscular Volume 92 FL (80-99) Mean Corpuscular Hemoglobin 31.8 PG (27.0-31.0) H Mean Corpuscular Hemoglobin Concent 34.6 G/DL (32.0-36.0) Red Cell Distribution Width 12.4 % (11.6-14.8) Platelet Count 213 K/UL (150-450) Mean Platelet Volume 8.9 FL (6.5-10.1) Neutrophils (%) (Auto) 77.1 % (45.0-75.0) H Lymphocytes (%) (Auto) 13.5 % (20.0-45.0) L Monocytes (%) (Auto) 6.3 % (1.0-10.0) Eosinophils (%) (Auto) 2.5 % (0.0-3.0) Basophils (%) (Auto) 0.6 % (0.0-2.0) Sodium Level 140 MMOL/L (136-145) Potassium Level 3.9 MMOL/L (3.5-5.1) Chloride Level 106 MMOL/L (98-107) Carbon Dioxide Level 27 MMOL/L (21-32) Anion Gap 7 mmol/L (5-15) Blood Urea Nitrogen 4 mg/dL (7-18) L Creatinine 0.8 MG/DL (0.55-1.30) Estimat Glomerular Filtration Rate > 60 mL/min (>60) Glucose Level 122 MG/DL (74-106) H Calcium Level 7.3 MG/DL (8.5-10.1) L Total Bilirubin 1.3 MG/DL (0.2-1.0) H Direct Bilirubin 0.1 MG/DL (0.0-0.3) Aspartate Amino Transf (AST/SGOT) 37 U/L (15-37) Alanine Aminotransferase (ALT/SGPT) 16 U/L (12-78) Alkaline Phosphatase 81 U/L (46-116) Total Protein 5.6 G/DL (6.4-8.2) L Albumin 1.7 G/DL (3.4-5.0) L Globulin 3.9 g/dL Albumin/Globulin Ratio 0.4 (1.0-2.7) L Maycol Schafer MD Nov 02, 2019 18:12
[2019-11-02 20:00] VITALS: BP 123/77
--- NOTE | 2019-11-02 21:43 | Internal Med Progress Note ---
Subjective Date of Service: Nov 02, 2019 Physician Name Edyta Hardy Attending Physician Aron Barbosa M.D. Current Medications Medications (Trade) Dose Ordered Sig/Jesu Route PRN Reason Start Time Stop Time Status Last Admin Dose Admin Albuterol Sulfate (Proventil MDI) 2 puff Q4H PRN INH Shortness of Breath 10/25/19 23:30 01/23/20 23:29 Aspirin (Ecotrin) 81 mg DAILY ORAL 10/26/19 09:00 12/10/19 08:59 10/26/19 08:22 Dextrose/ Electrolytes 1,000 ml @ 100 mls/hr Q10H IV 10/26/19 23:00 11/25/19 22:59 11/02/19 14:27 Fluconazole/ Sodium Chloride 100 ml @ 100 mls/hr Q24H IV 11/01/19 23:00 11/08/19 22:59 11/01/19 22:21 Gabapentin (Neurontin) 300 mg BID ORAL 10/26/19 09:00 11/25/19 08:59 11/02/19 17:24 Lorazepam (Ativan 2mg/ml 1ml) 0.5 mg Q6H PRN IV For Anxiety 10/28/19 20:30 11/04/19 20:29 10/31/19 20:06 Magnesium Hydroxide (Mom) 30 ml DAILYPRN PRN ORAL Constipation 10/25/19 23:30 11/24/19 23:29 Meropenem 1 gm/ Sodium Chloride 100 ml @ 200 mls/hr Q12H IVPB 11/02/19 02:00 11/07/19 01:59 11/02/19 13:39 Multi-Ingredient Mouthwash/Gargle (Magic Mouth Wash 60ml) 10 ml BID ORAL 10/26/19 09:00 11/25/19 08:59 11/02/19 17:24 Multivitamins (Multivitamins W/ Minerals 15ml Liquid) 15 ml DAILY ORAL 10/26/19 09:00 11/25/19 08:59 10/26/19 08:22 Vancomycin HCl (Vanco pharmacy to dose) 1 ea DAILY PRN MISC Per rx protocol 10/26/19 22:45 11/25/19 22:44 Vancomycin HCl 750 mg/Sodium Chloride 275 ml @ 183.333 mls/hr Q12H IVPB 11/02/19 23:00 11/07/19 22:59 Allergies: Coded Allergies: ACETAMINOPHEN (Verified Allergy, Unknown, 10/25/19) AMOXICILLIN (Verified Allergy, Unknown, 10/25/19) CEPHALEXIN (Verified Allergy, Unknown, 10/25/19) CODEINE (Verified Allergy, Unknown, 10/25/19) HYDROCODONE (Verified Allergy, Unknown, 10/25/19) SULFAMETHOXAZOLE (Verified Allergy, Unknown, 10/25/19) TETRACYCLINES (Verified Allergy, Unknown, 10/25/19) TRIMETHOPRIM (Verified Allergy, Unknown, 10/25/19) ROS Limited/Unobtainable: Yes All Systems: reviewed and negative except above Subjective plan for PEG canceled due to anesthesia refusal ngt placed glucerna started family consented albumin 1.7 Objective Last Vital Signs Date Time Temp Pulse Resp B/P (MAP) Pulse Ox O2 Delivery O2 Flow Rate FiO2 11/02/19 20:00 105 11/02/19 20:00 98.1 20 123/77 (92) 99 11/02/19 20:00 Nasal Cannula 2.0 10/31/19 19:50 28 General Appearance: no apparent distress EENT: other - +NGT Cardiovascular: normal rate, regular rhythm, systolic murmur Respiratory/Chest: decreased breath sounds Abdomen: normal bowel sounds, non tender, soft Genitourinary/Rectal: normal genital exam, other - +suprapubic cath Edema: mild edema Neurologic: motor weakness, sensory deficit, disoriented Skin: warm/dry Laboratory Tests Test 11/01/19 22:20 11/01/19 22:30 11/02/19 19:55 Urine Color Yellow Urine Appearance Clear Urine pH 7 (4.5-8.0) Urine Specific [place] 1.015 (1.005-1.035) Urine Protein Negative (NEGATIVE) Urine Glucose (UA) Negative (NEGATIVE) Urine Ketones Negative (NEGATIVE) Urine Blood 3+ (NEGATIVE) H Urine Nitrite Negative (NEGATIVE) Urine Bilirubin Negative (NEGATIVE) Urine Urobilinogen Normal MG/DL (0.0-1.0) Urine Leukocyte Esterase Negative (NEGATIVE) Urine RBC 2-4 /HPF (0 - 0) H Urine WBC 0 /HPF (0 - 0) Urine Squamous Epithelial Cells None /LPF (NONE/OCC) Urine Bacteria None /HPF (NONE) White Blood Count 11.7 K/UL (4.8-10.8) H Red Blood Count 4.57 M/UL (4.70-6.10) L Hemoglobin 14.5 G/DL (14.2-18.0) Hematocrit 41.9 % (42.0-52.0) L Mean Corpuscular Volume 92 FL (80-99) Mean Corpuscular Hemoglobin 31.8 PG (27.0-31.0) H Mean Corpuscular Hemoglobin Concent 34.6 G/DL (32.0-36.0) Red Cell Distribution Width 12.4 % (11.6-14.8) Platelet Count 213 K/UL (150-450) Mean Platelet Volume 8.9 FL (6.5-10.1) Neutrophils (%) (Auto) 77.1 % (45.0-75.0) H Lymphocytes (%) (Auto) 13.5 % (20.0-45.0) L Monocytes (%) (Auto) 6.3 % (1.0-10.0) Eosinophils (%) (Auto) 2.5 % (0.0-3.0) Basophils (%) (Auto) 0.6 % (0.0-2.0) Sodium Level 140 MMOL/L (136-145) Potassium Level 3.9 MMOL/L (3.5-5.1) Chloride Level 106 MMOL/L (98-107) Carbon Dioxide Level 27 MMOL/L (21-32) Anion Gap 7 mmol/L (5-15) Blood Urea Nitrogen 4 mg/dL (7-18) L Creatinine 0.8 MG/DL (0.55-1.30) Estimat Glomerular Filtration Rate > 60 mL/min (>60) Glucose Level 122 MG/DL (74-106) H Calcium Level 7.3 MG/DL (8.5-10.1) L Total Bilirubin 1.3 MG/DL (0.2-1.0) H Direct Bilirubin 0.1 MG/DL (0.0-0.3) Aspartate Amino Transf (AST/SGOT) 37 U/L (15-37) Alanine Aminotransferase (ALT/SGPT) 16 U/L (12-78) Alkaline Phosphatase 81 U/L (46-116) Total Protein 5.6 G/DL (6.4-8.2) L Albumin 1.7 G/DL (3.4-5.0) L Globulin 3.9 g/dL Albumin/Globulin Ratio 0.4 (1.0-2.7) L Vancomycin Level Trough 13.0 ug/mL (5.0-12.0) H Intake and Output 11/01/19 11/02/19 19:00 07:00 Intake Total 1383.333 ml 1583.37463 ml Output Total 800 ml 2000 ml Balance 583.333 ml -416.11226 ml IV Total 1383.333 ml 1583.79708 ml Output Urine Total 800 ml 2000 ml # Voids 1 # Bowel Movements 4 Assessment/Plan Status: stable, progressing Assessment/Plan IMPRESSION: sepsis on admission COVID 19 pnemonia dysphagia acute respiratory failure hypoxemia severe protoein calorie malnutrition acute toxic and metabolic encephalopathy Hypernatremia dehydration acute kidney injury leuokcytosis hx CVA with hemiplegia suprapubic catheter status senile debility ankle wound PLAN: stepdown unit NGT finally placed today. pt did not get cleared by anesthesia for PEG today antifungal added phosph replete IV abx per ID TF pulm inhalor isolation per COVID 19 policy f/u cultures DVT/GI prophylaxis electrolyte replete as needed wound care oxygen DNAR code status EDYTA HARDY MD Internal Medicine [phone] over 35 minutes spent today note time may not be the actual encounter time. over 50% allocated in counseling, coordination of care, d/w staff and family with medical update Edyta Hardy MD Nov 02, 2019 21:43
[2019-11-02] MEDS: Vancomycin 750mg/NS 275ml IVPB SCH ×2 (22:00)
[2019-11-02] MEDS ORDERED: Tubing IV Secondary IV ONE (22:24)
[2019-11-03] VITALS: BP 123/77
[2019-11-03] MEDS: D5 1/2NS w/KCL 10meq 1,000 ML IV SCH ×3 (00:31→21:31)
[2019-11-03 04:00] VITALS: BP 135/75
[2019-11-03 05:26] LABS: BASOPHILS % (AUTO) 0.8 % (0.0-2.0); EOSINOPHILS % (AUTO) 2.5 % (0.0-3.0); HEMOGLOBIN 14.2 G/DL (14.2-18.0); LYMPHOCYTES % (AUTO) 13.2 % (20.0-45.0); MEAN CORPUSCULAR VOLUME 93 FL (80-99); MONOCYTES % (AUTO) 7.8 % (1.0-10.0); NEUTROPHILS % (AUTO) 75.7 % (45.0-75.0); PLATELET COUNT 224 K/UL (150-450); RED CELL DISTRIBUTION WIDTH 12.3 % (11.6-14.8); WHITE BLOOD COUNT 10.6 K/UL (4.8-10.8)
[2019-11-03 05:45] LABS: ANION GAP 6 mmol/L (5-15); BLOOD UREA NITROGEN 6 mg/dL (7-18); CALCIUM 7.5 MG/DL (8.5-10.1); CARBON DIOXIDE 28 MMOL/L (21-32); CHLORIDE 106 MMOL/L (98-107); CREATININE 0.9 MG/DL (0.55-1.30); PHOSPHORUS 1.9 MG/DL (2.5-4.9); POTASSIUM 3.4 MMOL/L (3.5-5.1); SODIUM 140 MMOL/L (136-145)
[2019-11-03 08:00] VITALS: BP 132/71
--- NOTE | 2019-11-03 09:17 | Nephrology Progress Note ---
Assessment/Plan Plan #COVID pneumonia #TELMA due to dehydration #sepsis #Hypernatremia due to dehydration #hypoxemic resp failure #Volume depletion - continue TF - pending peg tube - replete phos - abx - pulm, ID and cards eval - 2d echo - bipap prn - follow cx - avoid nephrotoxins - replace free water - monitor mag, phos and bmp daily - DNR/DNI time spent 70 min- greater than 50% on care coordination and counseling Subjective ROS Limited/Unobtainable: Yes Subjective WBC downtrending Sodium and cr improving phos low - repleted pending PEG tube Objective Objective Last 24 Hour Vital Signs Date Time Temp Pulse Resp B/P (MAP) Pulse Ox O2 Delivery O2 Flow Rate FiO2 11/03/19 04:00 98.3 105 20 135/75 (95) 99 11/03/19 04:00 Nasal Cannula 2.0 11/03/19 03:36 88 11/03/19 00:00 98.7 104 20 123/77 (92) 99 11/03/19 00:00 Nasal Cannula 2.0 11/02/19 23:37 96 11/02/19 20:00 105 11/02/19 20:00 98.1 110 20 123/77 (92) 99 11/02/19 20:00 Nasal Cannula 2.0 11/02/19 16:00 Nasal Cannula 2.0 11/02/19 16:00 97.5 93 20 127/80 (96) 99 11/02/19 16:00 108 11/02/19 12:00 98.0 90 20 138/70 (92) 99 11/02/19 12:00 Nasal Cannula 2.0 11/02/19 12:00 73 Intake and Output 11/02/19 11/03/19 19:00 07:00 Intake Total 140 ml 1863.000 ml Output Total 900 ml 1600 ml Balance -760 ml 263.000 ml Intake Free Water 30 ml IV Total 100 ml 1673.000 ml Tube Feeding 10 ml 190 ml Output Urine Total 900 ml 1600 ml Laboratory Tests 11/02/19 19:55: Vancomycin Level Trough 13.0H 11/03/19 03:40: White Blood Count 10.6, Red Blood Count 4.50L, Hemoglobin 14.2, Hematocrit 42.0 , Mean Corpuscular Volume 93, Mean Corpuscular Hemoglobin 31.5H, Mean Corpuscular Hemoglobin Concent 33.7, Red Cell Distribution Width 12.3, Platelet Count 224, Mean Platelet Volume 8.9, Neutrophils (%) (Auto) 75.7H, Lymphocytes ( %) (Auto) 13.2L, Monocytes (%) (Auto) 7.8, Eosinophils (%) (Auto) 2.5, Basophils (%) (Auto) 0.8, Sodium Level 140, Potassium Level 3.4L, Chloride Level 106, Carbon Dioxide Level 28, Anion Gap 6, Blood Urea Nitrogen 6L, Creatinine 0.9, Estimat Glomerular Filtration Rate > 60, Glucose Level 128H, Calcium Level 7.5L, Phosphorus Level 1.9L, Magnesium Level 1.6L Height (Feet): 5 Height (Inches): 1.00 Weight (Pounds): 164 Aron Barbosa M.D. Nov 03, 2019 09:17
--- NOTE | 2019-11-03 09:47 | General Progress Note ---
Assessment/Plan Problem List: (1) Sepsis ICD Codes: A41.9 - Sepsis, unspecified organism SNOMED: 87709010 Qualifiers: Qualified Codes: A41.9 - Sepsis, unspecified organism; R65.20 - Severe sepsis without septic shock; N17.9 - Acute kidney failure, unspecified (2) Hypoxia ICD Codes: R09.02 - Hypoxemia SNOMED: 806783506 (3) Right hemiparesis ICD Codes: G81.91 - Hemiplegia, unspecified affecting right dominant side SNOMED: 350622953 (4) COVID-19 ICD Codes: U07.1 - COVID-19 SNOMED: 129932996 Status: stable, progressing Assessment/Plan: NGT in place NGTF fu labs PEG if needed Subjective ROS Limited/Unobtainable: No Allergies: Coded Allergies: ACETAMINOPHEN (Verified Allergy, Unknown, 10/25/19) AMOXICILLIN (Verified Allergy, Unknown, 10/25/19) CEPHALEXIN (Verified Allergy, Unknown, 10/25/19) CODEINE (Verified Allergy, Unknown, 10/25/19) HYDROCODONE (Verified Allergy, Unknown, 10/25/19) SULFAMETHOXAZOLE (Verified Allergy, Unknown, 10/25/19) TETRACYCLINES (Verified Allergy, Unknown, 10/25/19) TRIMETHOPRIM (Verified Allergy, Unknown, 10/25/19) Objective Last 24 Hour Vital Signs Date Time Temp Pulse Resp B/P (MAP) Pulse Ox O2 Delivery O2 Flow Rate FiO2 11/03/19 04:00 98.3 105 20 135/75 (95) 99 11/03/19 04:00 Nasal Cannula 2.0 11/03/19 03:36 88 11/03/19 00:00 98.7 104 20 123/77 (92) 99 11/03/19 00:00 Nasal Cannula 2.0 11/02/19 23:37 96 11/02/19 20:00 105 11/02/19 20:00 98.1 110 20 123/77 (92) 99 11/02/19 20:00 Nasal Cannula 2.0 11/02/19 16:00 Nasal Cannula 2.0 11/02/19 16:00 97.5 93 20 127/80 (96) 99 11/02/19 16:00 108 11/02/19 12:00 98.0 90 20 138/70 (92) 99 11/02/19 12:00 Nasal Cannula 2.0 11/02/19 12:00 73 Intake and Output 11/02/19 11/03/19 19:00 07:00 Intake Total 140 ml 1863.000 ml Output Total 900 ml 1600 ml Balance -760 ml 263.000 ml Intake Free Water 30 ml IV Total 100 ml 1673.000 ml Tube Feeding 10 ml 190 ml Output Urine Total 900 ml 1600 ml Laboratory Tests 11/02/19 19:55: Vancomycin Level Trough 13.0H 11/03/19 03:40: White Blood Count 10.6, Red Blood Count 4.50L, Hemoglobin 14.2, Hematocrit 42.0 , Mean Corpuscular Volume 93, Mean Corpuscular Hemoglobin 31.5H, Mean Corpuscular Hemoglobin Concent 33.7, Red Cell Distribution Width 12.3, Platelet Count 224, Mean Platelet Volume 8.9, Neutrophils (%) (Auto) 75.7H, Lymphocytes ( %) (Auto) 13.2L, Monocytes (%) (Auto) 7.8, Eosinophils (%) (Auto) 2.5, Basophils (%) (Auto) 0.8, Sodium Level 140, Potassium Level 3.4L, Chloride Level 106, Carbon Dioxide Level 28, Anion Gap 6, Blood Urea Nitrogen 6L, Creatinine 0.9, Estimat Glomerular Filtration Rate > 60, Glucose Level 128H, Calcium Level 7.5L, Phosphorus Level 1.9L, Magnesium Level 1.6L Height (Feet): 5 Height (Inches): 1.00 Weight (Pounds): 164 General Appearance: no apparent distress EENT: normal ENT inspection Neck: normal alignment Cardiovascular: normal rate Respiratory/Chest: decreased breath sounds Abdomen: normal bowel sounds, non tender, soft Extremities: non-tender Nathan Quesada MD Nov 03, 2019 09:47
--- NOTE | 2019-11-03 09:49 | Pulmonology Progress Note ---
Subjective ROS Limited/Unobtainable: No Interval Events: None new reported Constitutional: Reports: fatigue; Denies: fever HEENT: Repors: no symptoms Respiratory: Reports: no symptoms Cardiovascular: Reports: no symptoms Gastrointestinal/Abdominal: Denies: nausea, vomiting, diarrhea Genitourinary: Reports: no symptoms Neurologic: Reports: no symptoms Psychiatric: Reports: other - NA Skin: Denies: rash Musculoskeletal: Denies: pain Allergies: Coded Allergies: ACETAMINOPHEN (Verified Allergy, Unknown, 10/25/19) AMOXICILLIN (Verified Allergy, Unknown, 10/25/19) CEPHALEXIN (Verified Allergy, Unknown, 10/25/19) CODEINE (Verified Allergy, Unknown, 10/25/19) HYDROCODONE (Verified Allergy, Unknown, 10/25/19) SULFAMETHOXAZOLE (Verified Allergy, Unknown, 10/25/19) TETRACYCLINES (Verified Allergy, Unknown, 10/25/19) TRIMETHOPRIM (Verified Allergy, Unknown, 10/25/19) All Systems: reviewed and negative except above Objective Last 24 Hour Vital Signs Date Time Temp Pulse Resp B/P (MAP) Pulse Ox O2 Delivery O2 Flow Rate FiO2 11/03/19 04:00 98.3 105 20 135/75 (95) 99 11/03/19 04:00 Nasal Cannula 2.0 11/03/19 03:36 88 11/03/19 00:00 98.7 104 20 123/77 (92) 99 11/03/19 00:00 Nasal Cannula 2.0 11/02/19 23:37 96 11/02/19 20:00 105 11/02/19 20:00 98.1 110 20 123/77 (92) 99 11/02/19 20:00 Nasal Cannula 2.0 11/02/19 16:00 Nasal Cannula 2.0 11/02/19 16:00 97.5 93 20 127/80 (96) 99 11/02/19 16:00 108 11/02/19 12:00 98.0 90 20 138/70 (92) 99 11/02/19 12:00 Nasal Cannula 2.0 11/02/19 12:00 73 Intake and Output 11/02/19 11/03/19 19:00 07:00 Intake Total 140 ml 1863.000 ml Output Total 900 ml 1600 ml Balance -760 ml 263.000 ml Intake Free Water 30 ml IV Total 100 ml 1673.000 ml Tube Feeding 10 ml 190 ml Output Urine Total 900 ml 1600 ml General Appearance: no acute distress HEENT: normocephalic Respiratory: chest wall non-tender, lungs clear Cardiovascular: normal peripheral pulses, normal rate Abdomen: normal bowel sounds Microbiology Date/Time Source Procedure Growth Status 11/01/19 23:15 Blood Blood Culture - Preliminary NO GROWTH AFTER 24 HOURS Resulted 11/01/19 22:20 Blood Blood Culture - Preliminary NO GROWTH AFTER 24 HOURS Resulted 11/01/19 22:20 Indwelling Cath Urine Culture - Preliminary NO GROWTH AFTER 24 HOURS Resulted Laboratory Tests 11/02/19 19:55: Vancomycin Level Trough 13.0H 11/03/19 03:40: White Blood Count 10.6, Red Blood Count 4.50L, Hemoglobin 14.2, Hematocrit 42.0 , Mean Corpuscular Volume 93, Mean Corpuscular Hemoglobin 31.5H, Mean Corpuscular Hemoglobin Concent 33.7, Red Cell Distribution Width 12.3, Platelet Count 224, Mean Platelet Volume 8.9, Neutrophils (%) (Auto) 75.7H, Lymphocytes ( %) (Auto) 13.2L, Monocytes (%) (Auto) 7.8, Eosinophils (%) (Auto) 2.5, Basophils (%) (Auto) 0.8, Sodium Level 140, Potassium Level 3.4L, Chloride Level 106, Carbon Dioxide Level 28, Anion Gap 6, Blood Urea Nitrogen 6L, Creatinine 0.9, Estimat Glomerular Filtration Rate > 60, Glucose Level 128H, Calcium Level 7.5L, Phosphorus Level 1.9L, Magnesium Level 1.6L Current Medications Medications (Trade) Dose Ordered Sig/Jesu Route PRN Reason Start Time Stop Time Status Last Admin Dose Admin Albuterol Sulfate (Proventil MDI) 2 puff Q4H PRN INH Shortness of Breath 10/25/19 23:30 01/23/20 23:29 Aspirin (Ecotrin) 81 mg DAILY ORAL 10/26/19 09:00 12/10/19 08:59 10/26/19 08:22 Dextrose/ Electrolytes 1,000 ml @ 100 mls/hr Q10H IV 10/26/19 23:00 11/25/19 22:59 11/03/19 00:31 Fluconazole/ Sodium Chloride 100 ml @ 100 mls/hr Q24H IV 11/01/19 23:00 11/08/19 22:59 11/02/19 22:01 Gabapentin (Neurontin) 300 mg BID ORAL 10/26/19 09:00 11/25/19 08:59 11/02/19 17:24 Lorazepam (Ativan 2mg/ml 1ml) 0.5 mg Q6H PRN IV For Anxiety 10/28/19 20:30 11/04/19 20:29 10/31/19 20:06 Magnesium Hydroxide (Mom) 30 ml DAILYPRN PRN ORAL Constipation 10/25/19 23:30 11/24/19 23:29 Meropenem 1 gm/ Sodium Chloride 100 ml @ 200 mls/hr Q12H IVPB 11/02/19 02:00 11/07/19 01:59 11/03/19 01:04 Multi-Ingredient Mouthwash/Gargle (Magic Mouth Wash 60ml) 10 ml BID ORAL 10/26/19 09:00 11/25/19 08:59 11/02/19 17:24 Multivitamins (Multivitamins W/ Minerals 15ml Liquid) 15 ml DAILY ORAL 10/26/19 09:00 11/25/19 08:59 10/26/19 08:22 Potassium Phosphate 20 mm/ Sodium Chloride 281.6667 ml @ 46.944 m... ONCE ONCE IV 11/03/19 11:00 11/03/19 16:59 Vancomycin HCl (Vanco pharmacy to dose) 1 ea DAILY PRN MISC Per rx protocol 10/26/19 22:45 11/25/19 22:44 Vancomycin HCl 750 mg/Sodium Chloride 275 ml @ 183.333 mls/hr Q12H IVPB 11/02/19 23:00 11/07/19 22:59 11/02/19 22:00 Assessment/Plan Assessment/Plan IMPRESSION: 1. COVID-19 pneumonia by history. Current pcr negative 2. Bilateral pulmonary infiltrates. 3. Hypoxemia. 4. Hypernatremia. 5. Renal failure. 6. Hypertension. 7. Chronic suprapubic catheter. 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 Needs PEG; has Dubhoff in place Continue oxygen via 2-4L/min nasal canulae Chavo Goldstein Omar Syed MD Nov 03, 2019 09:48
[2019-11-03] MEDS: Aspirin EC 81mg tab ORAL SCH (09:52)
[2019-11-03] MEDS: Magic Mouth Wash 60ml (Benadryl/Mylanta/Visc Lido) ORAL SCH ×2 (09:52→18:22)
[2019-11-03] MEDS: Multivitamins W/Minerals 15 ML UDC ORAL SCH (09:53)
[2019-11-03] MEDS: Vancomycin 750mg/NS 275ml IVPB SCH ×4 (10:06→23:30)
--- NOTE | 2019-11-03 10:20 | Diagnostic Imaging Report ---
. Indication: Dyspnea Technique: One view of the chest Comparison: none Findings: Again demonstrated are bilateral right greater than left infiltrates. Disease has improved somewhat on the right, particularly the right lung base. Disease on the left appears unchanged. There is very slight blunting of right costophrenic sulcus, small pleural effusion now possible. The left pleural space appears clear. The heart size is normal. Interim placement of a nasogastric feeding tube, tip projecting beyond the edge of the image. Impression: Bilateral right greater than left infiltrates again demonstrated, with slight improvement on the right. New or increased small right pleural effusion Nasogastric feeding tube is now present
[2019-11-03] MEDS ORDERED: Potassium Phosphate 20 MM in NS 275 ML IV ONE (11:00)
[2019-11-03 12:00] VITALS: BP 134/73
--- NOTE | 2019-11-03 15:17 | Diagnostic Imaging Report ---
Indication: Bilateral lower extremity pain and edema Technique: Grayscale and duplex images of the bilateral lower extremity veins Comparison: Findings: Bilaterally, grayscale and duplex images demonstrate no evidence of intraluminal thrombus. Normal phasic Doppler waveforms, demonstrating normal augmentation response and no evidence of valvular insufficiency. Greater saphenous vein(s) and tibial veins are patent. Normal compressibility. Impression: Negative for evidence of lower extremity deep venous thrombosis bilaterally
[2019-11-03 16:00] VITALS: BP 128/73
--- NOTE | 2019-11-03 16:31 | Infectious Diseases Prog Note ---
Assessment/Plan Assessment/Plan ASSESSMENT AND PLAN: 1. MDR providencia uti, sepsis, possible bacterial pneumonia, leukocytosis, fevers, hx covid-19 infection/pna, sob, bm, esquivel, arf fungemia risk, no diarrhea to suggest c.diff. / blood culture - ? contaminant vs bacteremia - vancomycin and meropenem day # 7 - diflucan - day # 3 - monitor labs and chest x-ray - leukocytosis better - repeat covid-19 testing + - d/w RN 2. The patient has history of suprapubic catheter. 3. Hypertension. 4. Blood pressure treatment per primary care team. 5. Wound care protocol. Wounds were reviewed, not acutely infected. 6. Hemiparesis. 7. Hyperlipidemia. 8. Dementia. 9. Hypoxia and shortness of breath. 10. Continue treatment per primary consultants including hypertension treatment. 11. Allergies to acetaminophen, amoxicillin, cephalexin, codeine, hydrocodone, sulfamethoxazole, tetracycline, and trimethoprim. 12. Social history negative. 13. Family history noncontributory. 14. MAR was noted. 15. Case was discussed with RN. 16. Skin care protocol. 17. Orders were noted. Subjective Constitutional: Reports: fatigue; Denies: fever HEENT: Reports: congestion - less Respiratory: Reports: shortness of breath - less Cardiovascular: Denies: chest pain Gastrointestinal/Abdominal: Denies: nausea, vomiting, diarrhea Genitourinary: Reports: other - + esquivel Neurologic: Denies: headache Psychiatric: Denies: depression Skin: Denies: rash Hematologic: Denies: bleeding Musculoskeletal: Denies: pain Allergies: Coded Allergies: ACETAMINOPHEN (Verified Allergy, Unknown, 10/25/19) AMOXICILLIN (Verified Allergy, Unknown, 10/25/19) CEPHALEXIN (Verified Allergy, Unknown, 10/25/19) CODEINE (Verified Allergy, Unknown, 10/25/19) HYDROCODONE (Verified Allergy, Unknown, 10/25/19) SULFAMETHOXAZOLE (Verified Allergy, Unknown, 10/25/19) TETRACYCLINES (Verified Allergy, Unknown, 10/25/19) TRIMETHOPRIM (Verified Allergy, Unknown, 10/25/19) Objective Last 24 Hour Vital Signs Date Time Temp Pulse Resp B/P (MAP) Pulse Ox O2 Delivery O2 Flow Rate FiO2 11/03/19 16:00 98.8 88 17 128/73 (91) 100 11/03/19 12:00 97.9 97 20 134/73 (93) 100 11/03/19 12:00 Nasal Cannula 2.0 11/03/19 12:00 88 11/03/19 08:00 97.5 87 27 132/71 (91) 100 11/03/19 08:00 81 11/03/19 08:00 Nasal Cannula 2.0 11/03/19 04:00 98.3 105 20 135/75 (95) 99 11/03/19 04:00 Nasal Cannula 2.0 11/03/19 03:36 88 11/03/19 00:00 98.7 104 20 123/77 (92) 99 11/03/19 00:00 Nasal Cannula 2.0 11/02/19 23:37 96 11/02/19 20:00 105 11/02/19 20:00 98.1 110 20 123/77 (92) 99 11/02/19 20:00 Nasal Cannula 2.0 Height (Feet): 5 Height (Inches): 1.00 Weight (Pounds): 164 General Appearance: no acute distress HEENT: normocephalic, atraumatic, anicteric, mucous membranes moist Respiratory/Chest: crackles/rales, rhonchi - bilaterally Cardiovascular: normal rate, regular rhythm, no gallop/murmur Abdomen: normal bowel sounds, soft, non tender, no organomegaly, non distended Genitourinary: other - no esquivel Extremities: no cyanosis Skin: no rash Neurologic/Psychiatric: lifeguard II-XII 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 Bilateral right greater left infiltrates are otherwise stable. Heart size is normal. The pleural spaces are clear. Impression: Increasingly dense consolidation in the right midlung. Otherwise little exchange mechanic 2 days Chest x-ray - 10/30/19 - FINDINGS: Lungs: Slightly improved aeration of lung. Continued right midlung infiltrates and mild atelectasis or infiltrate in the left lower lobe. Lucency in the right lung apex is likely from a skin fold. Pleural space: Unremarkable. No pneumothorax. Heart: Unremarkable. No cardiomegaly. Mediastinum: Unremarkable. Bones/joints: Unremarkable. Tubes, lines and devices: NG tube is in the right lower lung bronchus, tip in the lower right chest. IMPRESSION: 1. NG tube is in the right lower lung bronchus, tip in the lower right chest. Needs to be removed and repositioned. 2. Slightly improved aeration of lung. Continued right midlung infiltrates and mild atelectasis or infiltrate in the left lower lobe. Chest x-rya - 11/01/19 - Procedure: XRAY Chest 1v Indication: Shortness of breath Technique: One view of the chest Comparison: 10/30/2019 Findings: Right greater than left infiltrates persist, unchanged. Heart size is normal. Pleural spaces are clear. Previously demonstrated intrabronchial nasogastric tube has been removed Impression: Interim removal of previously malpositioned nasogastric tube Unchanged bilateral infiltrates Chest x-ray - 11/03/19 - Procedure: XRAY Chest 1v . Indication: Dyspnea Technique: One view of the chest Comparison: none Findings: Again demonstrated are bilateral right greater than left infiltrates. Disease has improved somewhat on the right, particularly the right lung base. Disease on the left appears unchanged. There is very slight blunting of right costophrenic sulcus, small pleural effusion now possible. The left pleural space appears clear. The heart size is normal. Interim placement of a nasogastric feeding tube, tip projecting beyond the edge of the image. Impression: Bilateral right greater than left infiltrates again demonstrated, with slight improvement on the right. New or increased small right pleural effusion Nasogastric feeding tube is now present Microbiology Date/Time Source Procedure Growth Status 11/01/19 23:15 Blood Blood Culture - Preliminary NO GROWTH AFTER 24 HOURS Resulted 10/28/19 09:45 Nasopharynx Coronavirus COVID-19 PCR (JIM) - Final Complete 11/01/19 22:20 Indwelling Cath Urine Culture - Preliminary NO GROWTH AFTER 24 HOURS Resulted 10/25/19 17:25 Rectum VRE Culture - Final NO VANCOMYCIN RESISTANT ENTEROCOCCUS ... Complete Microbiology Date/Time Source Procedure Growth Status 11/01/19 23:15 Blood Blood Culture - Preliminary NO GROWTH AFTER 24 HOURS Resulted 11/01/19 22:20 Blood Blood Culture - Preliminary Resulted 11/01/19 22:20 Indwelling Cath Urine Culture - Preliminary NO GROWTH AFTER 24 HOURS Resulted Laboratory Tests Test 11/02/19 19:55 11/03/19 03:40 Vancomycin Level Trough 13.0 ug/mL (5.0-12.0) H White Blood Count 10.6 K/UL (4.8-10.8) Red Blood Count 4.50 M/UL (4.70-6.10) L Hemoglobin 14.2 G/DL (14.2-18.0) Hematocrit 42.0 % (42.0-52.0) Mean Corpuscular Volume 93 FL (80-99) Mean Corpuscular Hemoglobin 31.5 PG (27.0-31.0) H Mean Corpuscular Hemoglobin Concent 33.7 G/DL (32.0-36.0) Red Cell Distribution Width 12.3 % (11.6-14.8) Platelet Count 224 K/UL (150-450) Mean Platelet Volume 8.9 FL (6.5-10.1) Neutrophils (%) (Auto) 75.7 % (45.0-75.0) H Lymphocytes (%) (Auto) 13.2 % (20.0-45.0) L Monocytes (%) (Auto) 7.8 % (1.0-10.0) Eosinophils (%) (Auto) 2.5 % (0.0-3.0) Basophils (%) (Auto) 0.8 % (0.0-2.0) Sodium Level 140 MMOL/L (136-145) Potassium Level 3.4 MMOL/L (3.5-5.1) L Chloride Level 106 MMOL/L (98-107) Carbon Dioxide Level 28 MMOL/L (21-32) Anion Gap 6 mmol/L (5-15) Blood Urea Nitrogen 6 mg/dL (7-18) L Creatinine 0.9 MG/DL (0.55-1.30) Estimat Glomerular Filtration Rate > 60 mL/min (>60) Glucose Level 128 MG/DL (74-106) H Calcium Level 7.5 MG/DL (8.5-10.1) L Phosphorus Level 1.9 MG/DL (2.5-4.9) L Magnesium Level 1.6 MG/DL (1.8-2.4) L Current Medications Medications (Trade) Dose Ordered Sig/Jesu Route PRN Reason Start Time Stop Time Status Last Admin Dose Admin Albuterol Sulfate (Proventil MDI) 2 puff Q4H PRN INH Shortness of Breath 10/25/19 23:30 01/23/20 23:29 Aspirin (Ecotrin) 81 mg DAILY ORAL 10/26/19 09:00 12/10/19 08:59 11/03/19 09:52 Dextrose/ Electrolytes 1,000 ml @ 100 mls/hr Q10H IV 10/26/19 23:00 11/25/19 22:59 11/03/19 10:06 Fluconazole/ Sodium Chloride 100 ml @ 100 mls/hr Q24H IV 11/01/19 23:00 11/08/19 22:59 11/02/19 22:01 Gabapentin (Neurontin) 300 mg BID ORAL 10/26/19 09:00 11/25/19 08:59 11/03/19 09:52 Lorazepam (Ativan 2mg/ml 1ml) 0.5 mg Q6H PRN IV For Anxiety 10/28/19 20:30 11/04/19 20:29 10/31/19 20:06 Magnesium Hydroxide (Mom) 30 ml DAILYPRN PRN ORAL Constipation 10/25/19 23:30 11/24/19 23:29 Meropenem 1 gm/ Sodium Chloride 100 ml @ 200 mls/hr Q12H IVPB 11/02/19 02:00 11/07/19 01:59 11/03/19 13:28 Multi-Ingredient Mouthwash/Gargle (Magic Mouth Wash 60ml) 10 ml BID ORAL 10/26/19 09:00 11/25/19 08:59 11/03/19 09:52 Multivitamins (Multivitamins W/ Minerals 15ml Liquid) 15 ml DAILY ORAL 10/26/19 09:00 11/25/19 08:59 11/03/19 09:53 Potassium Phosphate 20 mm/ Sodium Chloride 281.6667 ml @ 46.944 m... ONCE ONCE IV 11/03/19 11:00 11/03/19 16:59 11/03/19 10:04 Vancomycin HCl (Vanco pharmacy to dose) 1 ea DAILY PRN MISC Per rx protocol 10/26/19 22:45 11/25/19 22:44 Vancomycin HCl 750 mg/Sodium Chloride 275 ml @ 183.333 mls/hr Q12H IVPB 11/02/19 23:00 11/07/19 22:59 11/03/19 10:06 Julio Sarabia MD Nov 03, 2019 16:31
--- NOTE | 2019-11-03 16:56 | Surgery Progress Note ---
Surgery Progress Note Subjective Additional Comments ill appearing no n/v/f/c Objective Last 24 Hour Vital Signs Date Time Temp Pulse Resp B/P (MAP) Pulse Ox O2 Delivery O2 Flow Rate FiO2 11/03/19 16:00 98.8 88 17 128/73 (91) 100 11/03/19 16:00 Nasal Cannula 2.0 11/03/19 16:00 90 11/03/19 12:00 97.9 97 20 134/73 (93) 100 11/03/19 12:00 Nasal Cannula 2.0 11/03/19 12:00 88 11/03/19 08:00 97.5 87 27 132/71 (91) 100 11/03/19 08:00 81 11/03/19 08:00 Nasal Cannula 2.0 11/03/19 04:00 98.3 105 20 135/75 (95) 99 11/03/19 04:00 Nasal Cannula 2.0 11/03/19 03:36 88 11/03/19 00:00 98.7 104 20 123/77 (92) 99 11/03/19 00:00 Nasal Cannula 2.0 11/02/19 23:37 96 11/02/19 20:00 105 11/02/19 20:00 98.1 110 20 123/77 (92) 99 11/02/19 20:00 Nasal Cannula 2.0 I&O Intake and Output 11/02/19 11/03/19 19:00 07:00 Intake Total 140 ml 1863.000 ml Output Total 900 ml 1600 ml Balance -760 ml 263.000 ml Intake Free Water 30 ml IV Total 100 ml 1673.000 ml Tube Feeding 10 ml 190 ml Output Urine Total 900 ml 1600 ml Dressing: other Wound: other Drains: other Cardiovascular: RSR Respiratory: decreased breath sounds Abdomen: soft, non-tender, present bowel sounds Extremities: no cyanosis Laboratory Tests Test 11/02/19 19:55 11/03/19 03:40 Vancomycin Level Trough 13.0 ug/mL (5.0-12.0) H White Blood Count 10.6 K/UL (4.8-10.8) Red Blood Count 4.50 M/UL (4.70-6.10) L Hemoglobin 14.2 G/DL (14.2-18.0) Hematocrit 42.0 % (42.0-52.0) Mean Corpuscular Volume 93 FL (80-99) Mean Corpuscular Hemoglobin 31.5 PG (27.0-31.0) H Mean Corpuscular Hemoglobin Concent 33.7 G/DL (32.0-36.0) Red Cell Distribution Width 12.3 % (11.6-14.8) Platelet Count 224 K/UL (150-450) Mean Platelet Volume 8.9 FL (6.5-10.1) Neutrophils (%) (Auto) 75.7 % (45.0-75.0) H Lymphocytes (%) (Auto) 13.2 % (20.0-45.0) L Monocytes (%) (Auto) 7.8 % (1.0-10.0) Eosinophils (%) (Auto) 2.5 % (0.0-3.0) Basophils (%) (Auto) 0.8 % (0.0-2.0) Sodium Level 140 MMOL/L (136-145) Potassium Level 3.4 MMOL/L (3.5-5.1) L Chloride Level 106 MMOL/L (98-107) Carbon Dioxide Level 28 MMOL/L (21-32) Anion Gap 6 mmol/L (5-15) Blood Urea Nitrogen 6 mg/dL (7-18) L Creatinine 0.9 MG/DL (0.55-1.30) Estimat Glomerular Filtration Rate > 60 mL/min (>60) Glucose Level 128 MG/DL (74-106) H Calcium Level 7.5 MG/DL (8.5-10.1) L Phosphorus Level 1.9 MG/DL (2.5-4.9) L Magnesium Level 1.6 MG/DL (1.8-2.4) L Plan Problems: (1) Renal failure (2) Hypoxia (3) Sepsis Assessment & Plan: 89 year old male with leukocytosis, lactic acidosis, abnormal labs. currently in monitoring unit on face mask respiratory support Hx COVID + UTI Pt presented on admission with multiple Pressure injuries. Pt currently using Venti-mask. Non-Blanching erythema noted to bridge of nose and both cheeks consistent with mask. Cavilon Skin Barrier applied to affected areas and covered with Foam tape. Non-Blanching erythema noted to clefts of both ears. Elastic Band of oxygen tubing padded. Non-Blanching erythema without induration noted to sacrum,R and L Gluteus. Non-Blanching erythema noted to R trochanter(L)3cm x (W)6.3cm. DTPI noted to L Heel. Base of heel is maroon and fluctuant (L)4.3cm x (W)5.5cm. Periwound is boggy but easily blanchable. R heel and lateral R foot boggy with non-blanching erythema. Resolving Pressure injury Lateral R malleolus. Base of wound is dry, black with pink epithelial at center of wound.(L)2.5cm x (W)2.7cm. Apply Moisture Barrier Paste to Sacrum. Cover with Optifoam drsg. Change every 3 days and prn. Apply Cavilon Skin Barrier to R and L trochanter. Cover each site with Optifoam drsg. Change every 7 days and PRN. Apply Cavilon Skin Barrier to both Earlobes TWICE daily.Pad elastic band of oxygen mask. Keep band loose around ears. Apply Cavilon Skin Barrier to R and L cheeks and Bridge of Nose. Apply Foam tape. Change every 7 days and PRN. Apply Cavilon Skin Barrier to both heels and malleoli. Cover each site with Optifoam drsgs. Change every 7 days and PRN. Reposition at least every 2hours or as tolerated. Off-load heels with Pillows. APM/MODESTO Mattress overlay. diet as tolerated respiratory support CXR noted nutritional optimization ng in place. tf as tolerated turn q2h will follow with recs thank you DAILY ESTIMATED NEEDS: Needs based on DM , pulmonary 75kg abw 25-30 kcals/kg 9046-3111 total kcals 1-1.5 g protein/kg 75-113 g total protein 20-25 mL/kg 4032-6931 total fluid mLs DAILY ESTIMATED NEEDS: Needs based on pulmonary, wound 75kg abw 25-30 kcals/kg 6391-9615 total kcals 1.25-1.5 g protein/kg 94-113 g total protein 20-25 mL/kg 6343-8694 total fluid mLs NUTRITION DIAGNOSIS: Altered nutrition related lab values r/t clinical status as evidenced by elev Na (159-> wnl), elev BUN(now 43-> wnl), elev BG (140-150). ENTERAL NUTRITION RECOMMENDATIONS: Glucerna 1.2 goal of 65ml/hr x24 hrs to provide 1560ml, 1872 kcal, 94g pro, 1256ml free H2O - Obtain GI access, initiate Glucerna 1.2 @25ml/hr for 6 hrs. Advance as tolerated 10ml/hr q4-6 hrs to goal. - Flush per MD/ HOB over 30 degrees. Glucerna 1.2 low on stock-> may replace w/ Jevity 1.2 w/goal of 65ml/hr x24 hrs. Rec to increase insulin coverage as Jevity 1.2 is not carb control formula. ADDITIONAL RECOMMENDATIONS: 1) [employer]REL [employer] RECEIVER [employer]IGNER eval for appropriate texture-> per [employer]REL [employer] RECEIVER [employer]IGNER recs for NPO w/ nonoral feed 2) Feed as able, consult RD for non oral TF recs if part of POC 3) F/up w/ WC eval of R ankle photo -> Add BARTOLO BID w/ non oral feeds as able 4) Maintain calibrated bed scale wts 5) Rec Glucerna TID-> NPO now per [employer] RECEIVER [employer]IGNER recs 6) Check HgA1C (4) Right hemiparesis Pankaj Palomo Nov 03, 2019 16:56
[2019-11-03 20:00] VITALS: BP 114/58
--- NOTE | 2019-11-03 20:49 | Internal Med Progress Note ---
Subjective Date of Service: Nov 03, 2019 Physician Name Edyta Hardy Attending Physician Aron Barbosa M.D. Current Medications Medications (Trade) Dose Ordered Sig/Jesu Route PRN Reason Start Time Stop Time Status Last Admin Dose Admin Albuterol Sulfate (Proventil MDI) 2 puff Q4H PRN INH Shortness of Breath 10/25/19 23:30 01/23/20 23:29 Aspirin (Ecotrin) 81 mg DAILY ORAL 10/26/19 09:00 12/10/19 08:59 11/03/19 09:52 Dextrose/ Electrolytes 1,000 ml @ 100 mls/hr Q10H IV 10/26/19 23:00 11/25/19 22:59 11/03/19 10:06 Fluconazole/ Sodium Chloride 100 ml @ 100 mls/hr Q24H IV 11/01/19 23:00 11/08/19 22:59 11/02/19 22:01 Gabapentin (Neurontin) 300 mg BID ORAL 10/26/19 09:00 11/25/19 08:59 11/03/19 18:21 Lorazepam (Ativan 2mg/ml 1ml) 0.5 mg Q6H PRN IV For Anxiety 10/28/19 20:30 11/04/19 20:29 10/31/19 20:06 Magnesium Hydroxide (Mom) 30 ml DAILYPRN PRN ORAL Constipation 10/25/19 23:30 11/24/19 23:29 Meropenem 1 gm/ Sodium Chloride 100 ml @ 200 mls/hr Q12H IVPB 11/02/19 02:00 11/07/19 01:59 11/03/19 13:28 Multi-Ingredient Mouthwash/Gargle (Magic Mouth Wash 60ml) 10 ml BID ORAL 10/26/19 09:00 11/25/19 08:59 11/03/19 18:22 Multivitamins (Multivitamins W/ Minerals 15ml Liquid) 15 ml DAILY ORAL 10/26/19 09:00 11/25/19 08:59 11/03/19 09:53 Vancomycin HCl (Vanco pharmacy to dose) 1 ea DAILY PRN MISC Per rx protocol 10/26/19 22:45 11/25/19 22:44 Vancomycin HCl 750 mg/Sodium Chloride 275 ml @ 183.333 mls/hr Q12H IVPB 11/02/19 23:00 11/07/19 22:59 11/03/19 10:06 Allergies: Coded Allergies: ACETAMINOPHEN (Verified Allergy, Unknown, 10/25/19) AMOXICILLIN (Verified Allergy, Unknown, 10/25/19) CEPHALEXIN (Verified Allergy, Unknown, 10/25/19) CODEINE (Verified Allergy, Unknown, 10/25/19) HYDROCODONE (Verified Allergy, Unknown, 10/25/19) SULFAMETHOXAZOLE (Verified Allergy, Unknown, 10/25/19) TETRACYCLINES (Verified Allergy, Unknown, 10/25/19) TRIMETHOPRIM (Verified Allergy, Unknown, 10/25/19) ROS Limited/Unobtainable: Yes Constitutional: Reports: no symptoms Respiratory: Reports: shortness of breath Gastrointestinal/Abdominal: Reports: no symptoms Neurologic/Psychiatric: Reports: pre-existing deficit All Systems: reviewed and negative except above Subjective plan for PEG canceled due to anesthesia refusal ngt placed glucerna started family consented for PEG will try tomorrow albumin 1.7 Objective Last Vital Signs Date Time Temp Pulse Resp B/P (MAP) Pulse Ox O2 Delivery O2 Flow Rate FiO2 11/03/19 20:00 Nasal Cannula 2.0 11/03/19 16:00 98.8 88 17 128/73 (91) 100 10/31/19 19:50 28 General Appearance: no apparent distress EENT: other - +NGT Neck: normal inspection Cardiovascular: normal rate, regular rhythm, systolic murmur Respiratory/Chest: decreased breath sounds, rhonchi - left Abdomen: non tender, soft, no mass Genitourinary/Rectal: normal genital exam Neurologic: motor weakness, sensory deficit, disoriented Skin: warm/dry Laboratory Tests Test 11/03/19 03:40 White Blood Count 10.6 K/UL (4.8-10.8) Red Blood Count 4.50 M/UL (4.70-6.10) L Hemoglobin 14.2 G/DL (14.2-18.0) Hematocrit 42.0 % (42.0-52.0) Mean Corpuscular Volume 93 FL (80-99) Mean Corpuscular Hemoglobin 31.5 PG (27.0-31.0) H Mean Corpuscular Hemoglobin Concent 33.7 G/DL (32.0-36.0) Red Cell Distribution Width 12.3 % (11.6-14.8) Platelet Count 224 K/UL (150-450) Mean Platelet Volume 8.9 FL (6.5-10.1) Neutrophils (%) (Auto) 75.7 % (45.0-75.0) H Lymphocytes (%) (Auto) 13.2 % (20.0-45.0) L Monocytes (%) (Auto) 7.8 % (1.0-10.0) Eosinophils (%) (Auto) 2.5 % (0.0-3.0) Basophils (%) (Auto) 0.8 % (0.0-2.0) Sodium Level 140 MMOL/L (136-145) Potassium Level 3.4 MMOL/L (3.5-5.1) L Chloride Level 106 MMOL/L (98-107) Carbon Dioxide Level 28 MMOL/L (21-32) Anion Gap 6 mmol/L (5-15) Blood Urea Nitrogen 6 mg/dL (7-18) L Creatinine 0.9 MG/DL (0.55-1.30) Estimat Glomerular Filtration Rate > 60 mL/min (>60) Glucose Level 128 MG/DL (74-106) H Calcium Level 7.5 MG/DL (8.5-10.1) L Phosphorus Level 1.9 MG/DL (2.5-4.9) L Magnesium Level 1.6 MG/DL (1.8-2.4) L Microbiology Date/Time Source Procedure Growth Status 11/01/19 23:15 Blood Blood Culture - Preliminary NO GROWTH AFTER 24 HOURS Resulted 11/01/19 22:20 Blood Blood Culture - Preliminary Resulted 11/01/19 22:20 Indwelling Cath Urine Culture - Preliminary NO GROWTH AFTER 24 HOURS Resulted Intake and Output 11/02/19 11/03/19 19:00 07:00 Intake Total 140 ml 1863.000 ml Output Total 900 ml 1600 ml Balance -760 ml 263.000 ml Intake Free Water 30 ml IV Total 100 ml 1673.000 ml Tube Feeding 10 ml 190 ml Output Urine Total 900 ml 1600 ml Assessment/Plan Status: stable, progressing, tolerating diet Assessment/Plan IMPRESSION: sepsis on admission COVID 19 pnemonia dysphagia acute respiratory failure hypoxemia severe protoein calorie malnutrition acute toxic and metabolic encephalopathy Hypernatremia dehydration acute kidney injury leuokcytosis hx CVA with hemiplegia suprapubic catheter status senile debility ankle wound PLAN: stepdown unit NGT feeding re attempt for PEG before disposition back to SNF antifungal repeat covid last one + 7/9 phosph replete IV abx per ID TF pulm inhalor isolation per COVID 19 policy f/u cultures DVT/GI prophylaxis electrolyte replete as needed wound care oxygen DNAR code status EDYTA HARDY MD Internal Medicine [phone] over 35 minutes spent today note time may not be the actual encounter time. over 50% allocated in counseling, coordination of care, d/w staff and family with medical update Edyta Hardy MD Nov 03, 2019 20:49
[2019-11-04] VITALS: BP 111/53
[2019-11-04 04:00] VITALS: BP 145/75
[2019-11-04] MEDS: D5 1/2NS w/KCL 10meq 1,000 ML IV SCH (06:01)
[2019-11-04 06:36] LABS: BASOPHILS % (AUTO) 0.6 % (0.0-2.0); EOSINOPHILS % (AUTO) 3.6 % (0.0-3.0); HEMATOCRIT 43.1 % (42.0-52.0); HEMOGLOBIN 14.3 G/DL (14.2-18.0); LYMPHOCYTES % (AUTO) 16.7 % (20.0-45.0); MEAN CORPUSCULAR VOLUME 95 FL (80-99); MONOCYTES % (AUTO) 6.3 % (1.0-10.0); NEUTROPHILS % (AUTO) 72.7 % (45.0-75.0); PLATELET COUNT 221 K/UL (150-450); RED BLOOD COUNT 4.55 M/UL (4.70-6.10); RED CELL DISTRIBUTION WIDTH 13.1 % (11.6-14.8); WHITE BLOOD COUNT 10.6 K/UL (4.8-10.8)
[2019-11-04 07:23] LABS: ALBUMIN 1.8 G/DL (3.4-5.0); ALBUMIN/GLOBULIN RATIO 0.4 (1.0-2.7); ALKALINE PHOSPHATASE 96 U/L (46-116); ANION GAP 5 mmol/L (5-15); ASPARTATE AMINO TRANSFERASE 19 U/L (15-37); BILIRUBIN,TOTAL 0.9 MG/DL (0.2-1.0); BLOOD UREA NITROGEN 9 mg/dL (7-18); CALCIUM 7.8 MG/DL (8.5-10.1); CARBON DIOXIDE 30 MMOL/L (21-32); CHLORIDE 105 MMOL/L (98-107); CREATININE 0.9 MG/DL (0.55-1.30); POTASSIUM 3.9 MMOL/L (3.5-5.1); SODIUM 140 MMOL/L (136-145)
[2019-11-04 08:00] VITALS: BP 136/82
[2019-11-04 08:44] LABS: ALANINE AMINOTRANSFERASE 14 U/L (12-78)
[2019-11-04] MEDS: Aspirin EC 81mg tab ORAL SCH (09:00)
[2019-11-04] MEDS: Multivitamins W/Minerals 15 ML UDC ORAL SCH (09:08)
[2019-11-04] MEDS: Magic Mouth Wash 60ml (Benadryl/Mylanta/Visc Lido) ORAL SCH ×2 (09:08→17:46)
--- NOTE | 2019-11-04 09:56 | Nephrology Progress Note ---
Assessment/Plan Plan #COVID pneumonia #TELMA due to dehydration #sepsis #Hypernatremia due to dehydration #hypoxemic resp failure #Volume depletion - continue TF - pending peg tube - replete phos - abx - pulm, ID and cards eval - 2d echo - bipap prn - follow cx - avoid nephrotoxins - replace free water - monitor mag, phos and bmp daily - DNR/DNI time spent 70 min- greater than 50% on care coordination and counseling Subjective ROS Limited/Unobtainable: Yes Subjective WBC downtrending Sodium and cr improving phos low - repleted pending PEG tube Objective Objective Last 24 Hour Vital Signs Date Time Temp Pulse Resp B/P (MAP) Pulse Ox O2 Delivery O2 Flow Rate FiO2 11/04/19 08:00 97.6 99 17 136/82 (100) 100 11/04/19 04:00 Nasal Cannula 2.0 11/04/19 04:00 97.8 94 20 145/75 (98) 100 11/04/19 03:32 102 11/04/19 02:25 98 Nasal Cannula 2.0 28 11/04/19 00:00 Nasal Cannula 2.0 11/04/19 00:00 98.5 90 17 111/53 (72) 100 11/03/19 23:45 85 11/03/19 20:00 98.3 98 17 114/58 (76) 100 11/03/19 20:00 99 11/03/19 20:00 Nasal Cannula 2.0 11/03/19 16:00 98.8 88 17 128/73 (91) 100 11/03/19 16:00 Nasal Cannula 2.0 11/03/19 16:00 90 11/03/19 12:00 97.9 97 20 134/73 (93) 100 11/03/19 12:00 Nasal Cannula 2.0 11/03/19 12:00 88 Intake and Output 11/03/19 11/04/19 19:00 07:00 Intake Total 2447.386 ml 1911.000 ml Output Total 2000 ml Balance 447.386 ml 1911.000 ml Intake Free Water 40 ml IV Total 1942.386 ml 1521.000 ml Tube Feeding 465 ml 390 ml Output Urine Total 2000 ml # Bowel Movements 1 Laboratory Tests 11/04/19 04:00: White Blood Count 10.6, Red Blood Count 4.55L, Hemoglobin 14.3, Hematocrit 43.1 , Mean Corpuscular Volume 95, Mean Corpuscular Hemoglobin 31.5H, Mean Corpuscular Hemoglobin Concent 33.2, Red Cell Distribution Width 13.1, Platelet Count 221, Mean Platelet Volume 7.5, Neutrophils (%) (Auto) 72.7, Lymphocytes (% ) (Auto) 16.7L, Monocytes (%) (Auto) 6.3, Eosinophils (%) (Auto) 3.6H, Basophils (%) (Auto) 0.6, Sodium Level 140, Potassium Level 3.9, Chloride Level 105, Carbon Dioxide Level 30, Anion Gap 5, Blood Urea Nitrogen 9, Creatinine 0.9 , Estimat Glomerular Filtration Rate > 60, Glucose Level 113H, Calcium Level 7.8L, Total Bilirubin 0.9, Aspartate Amino Transf (AST/SGOT) 19, Alanine Aminotransferase (ALT/SGPT) 14, Alkaline Phosphatase 96, Total Protein 5.8L, Albumin 1.8L, Globulin 4.0, Albumin/Globulin Ratio 0.4L Height (Feet): 5 Height (Inches): 1.00 Weight (Pounds): 162 Aron Barbosa M.D. Nov 04, 2019 09:56
[2019-11-04 12:00] VITALS: BP 144/69
--- NOTE | 2019-11-04 12:41 | General Progress Note ---
Assessment/Plan Problem List: (1) Sepsis ICD Codes: A41.9 - Sepsis, unspecified organism SNOMED: 53598132 Qualifiers: Qualified Codes: A41.9 - Sepsis, unspecified organism; R65.20 - Severe sepsis without septic shock; N17.9 - Acute kidney failure, unspecified (2) Hypoxia ICD Codes: R09.02 - Hypoxemia SNOMED: 830503196 (3) Right hemiparesis ICD Codes: G81.91 - Hemiplegia, unspecified affecting right dominant side SNOMED: 383076550 (4) COVID-19 ICD Codes: U07.1 - COVID-19 SNOMED: 610782082 Status: stable, progressing, tolerating diet Assessment/Plan: NGT in place NGTF fu labs PEG was rescheduled for tomorrow given no GI lab time available Subjective ROS Limited/Unobtainable: No Allergies: Coded Allergies: ACETAMINOPHEN (Verified Allergy, Unknown, 10/25/19) AMOXICILLIN (Verified Allergy, Unknown, 10/25/19) CEPHALEXIN (Verified Allergy, Unknown, 10/25/19) CODEINE (Verified Allergy, Unknown, 10/25/19) HYDROCODONE (Verified Allergy, Unknown, 10/25/19) SULFAMETHOXAZOLE (Verified Allergy, Unknown, 10/25/19) TETRACYCLINES (Verified Allergy, Unknown, 10/25/19) TRIMETHOPRIM (Verified Allergy, Unknown, 10/25/19) Objective Last 24 Hour Vital Signs Date Time Temp Pulse Resp B/P (MAP) Pulse Ox O2 Delivery O2 Flow Rate FiO2 11/04/19 08:00 Nasal Cannula 2.0 11/04/19 08:00 70 11/04/19 08:00 97.6 99 17 136/82 (100) 100 11/04/19 04:00 Nasal Cannula 2.0 11/04/19 04:00 97.8 94 20 145/75 (98) 100 11/04/19 03:32 102 11/04/19 02:25 98 Nasal Cannula 2.0 28 11/04/19 00:00 Nasal Cannula 2.0 11/04/19 00:00 98.5 90 17 111/53 (72) 100 11/03/19 23:45 85 11/03/19 20:00 98.3 98 17 114/58 (76) 100 11/03/19 20:00 99 11/03/19 20:00 Nasal Cannula 2.0 11/03/19 16:00 98.8 88 17 128/73 (91) 100 11/03/19 16:00 Nasal Cannula 2.0 11/03/19 16:00 90 Intake and Output 11/03/19 11/04/19 19:00 07:00 Intake Total 2447.386 ml 1911.000 ml Output Total 2000 ml Balance 447.386 ml 1911.000 ml Intake Free Water 40 ml IV Total 1942.386 ml 1521.000 ml Tube Feeding 465 ml 390 ml Output Urine Total 2000 ml # Bowel Movements 1 Laboratory Tests 11/04/19 04:00: White Blood Count 10.6, Red Blood Count 4.55L, Hemoglobin 14.3, Hematocrit 43.1 , Mean Corpuscular Volume 95, Mean Corpuscular Hemoglobin 31.5H, Mean Corpuscular Hemoglobin Concent 33.2, Red Cell Distribution Width 13.1, Platelet Count 221, Mean Platelet Volume 7.5, Neutrophils (%) (Auto) 72.7, Lymphocytes (% ) (Auto) 16.7L, Monocytes (%) (Auto) 6.3, Eosinophils (%) (Auto) 3.6H, Basophils (%) (Auto) 0.6, Sodium Level 140, Potassium Level 3.9, Chloride Level 105, Carbon Dioxide Level 30, Anion Gap 5, Blood Urea Nitrogen 9, Creatinine 0.9 , Estimat Glomerular Filtration Rate > 60, Glucose Level 113H, Calcium Level 7.8L, Total Bilirubin 0.9, Aspartate Amino Transf (AST/SGOT) 19, Alanine Aminotransferase (ALT/SGPT) 14, Alkaline Phosphatase 96, Total Protein 5.8L, Albumin 1.8L, Globulin 4.0, Albumin/Globulin Ratio 0.4L 11/04/19 10:00: Vancomycin Level Trough 12.1H Height (Feet): 5 Height (Inches): 1.00 Weight (Pounds): 162 General Appearance: no apparent distress EENT: normal ENT inspection Neck: supple Cardiovascular: normal rate Respiratory/Chest: decreased breath sounds Abdomen: normal bowel sounds, non tender, soft Extremities: non-tender Nathan Quesada MD Nov 04, 2019 12:41
--- NOTE | 2019-11-04 12:55 | Surgery Progress Note ---
Surgery Progress Note Subjective Symptoms: improved, tolerating diet, passing flatus Objective Last 24 Hour Vital Signs Date Time Temp Pulse Resp B/P (MAP) Pulse Ox O2 Delivery O2 Flow Rate FiO2 11/04/19 08:00 Nasal Cannula 2.0 11/04/19 08:00 70 11/04/19 08:00 97.6 99 17 136/82 (100) 100 11/04/19 04:00 Nasal Cannula 2.0 11/04/19 04:00 97.8 94 20 145/75 (98) 100 11/04/19 03:32 102 11/04/19 02:25 98 Nasal Cannula 2.0 28 11/04/19 00:00 Nasal Cannula 2.0 11/04/19 00:00 98.5 90 17 111/53 (72) 100 11/03/19 23:45 85 11/03/19 20:00 98.3 98 17 114/58 (76) 100 11/03/19 20:00 99 11/03/19 20:00 Nasal Cannula 2.0 11/03/19 16:00 98.8 88 17 128/73 (91) 100 11/03/19 16:00 Nasal Cannula 2.0 11/03/19 16:00 90 I&O Intake and Output 11/03/19 11/04/19 19:00 07:00 Intake Total 2447.386 ml 1911.000 ml Output Total 2000 ml Balance 447.386 ml 1911.000 ml Intake Free Water 40 ml IV Total 1942.386 ml 1521.000 ml Tube Feeding 465 ml 390 ml Output Urine Total 2000 ml # Bowel Movements 1 Dressing: saturated Wound: clean Cardiovascular: RSR Respiratory: clear, decreased breath sounds Abdomen: soft, non-tender, present bowel sounds Extremities: no cyanosis Laboratory Tests Test 11/04/19 04:00 11/04/19 10:00 White Blood Count 10.6 K/UL (4.8-10.8) Red Blood Count 4.55 M/UL (4.70-6.10) L Hemoglobin 14.3 G/DL (14.2-18.0) Hematocrit 43.1 % (42.0-52.0) Mean Corpuscular Volume 95 FL (80-99) Mean Corpuscular Hemoglobin 31.5 PG (27.0-31.0) H Mean Corpuscular Hemoglobin Concent 33.2 G/DL (32.0-36.0) Red Cell Distribution Width 13.1 % (11.6-14.8) Platelet Count 221 K/UL (150-450) Mean Platelet Volume 7.5 FL (6.5-10.1) Neutrophils (%) (Auto) 72.7 % (45.0-75.0) Lymphocytes (%) (Auto) 16.7 % (20.0-45.0) L Monocytes (%) (Auto) 6.3 % (1.0-10.0) Eosinophils (%) (Auto) 3.6 % (0.0-3.0) H Basophils (%) (Auto) 0.6 % (0.0-2.0) Sodium Level 140 MMOL/L (136-145) Potassium Level 3.9 MMOL/L (3.5-5.1) Chloride Level 105 MMOL/L (98-107) Carbon Dioxide Level 30 MMOL/L (21-32) Anion Gap 5 mmol/L (5-15) Blood Urea Nitrogen 9 mg/dL (7-18) Creatinine 0.9 MG/DL (0.55-1.30) Estimat Glomerular Filtration Rate > 60 mL/min (>60) Glucose Level 113 MG/DL (74-106) H Calcium Level 7.8 MG/DL (8.5-10.1) L Total Bilirubin 0.9 MG/DL (0.2-1.0) Aspartate Amino Transf (AST/SGOT) 19 U/L (15-37) Alanine Aminotransferase (ALT/SGPT) 14 U/L (12-78) Alkaline Phosphatase 96 U/L (46-116) Total Protein 5.8 G/DL (6.4-8.2) L Albumin 1.8 G/DL (3.4-5.0) L Globulin 4.0 g/dL Albumin/Globulin Ratio 0.4 (1.0-2.7) L Vancomycin Level Trough 12.1 ug/mL (5.0-12.0) H Plan Problems: (1) Renal failure (2) Hypoxia (3) Sepsis Assessment & Plan: 89 year old male with leukocytosis, lactic acidosis, abnormal labs. currently in monitoring unit on face mask respiratory support Hx COVID + UTI Pt presented on admission with multiple Pressure injuries. Pt currently using Venti-mask. Non-Blanching erythema noted to bridge of nose and both cheeks consistent with mask. Cavilon Skin Barrier applied to affected areas and covered with Foam tape. Non-Blanching erythema noted to clefts of both ears. Elastic Band of oxygen tubing padded. Non-Blanching erythema without induration noted to sacrum,R and L Gluteus. Non-Blanching erythema noted to R trochanter(L)3cm x (W)6.3cm. DTPI noted to L Heel. Base of heel is maroon and fluctuant (L)4.3cm x (W)5.5cm. Periwound is boggy but easily blanchable. R heel and lateral R foot boggy with non-blanching erythema. Resolving Pressure injury Lateral R malleolus. Base of wound is dry, black with pink epithelial at center of wound.(L)2.5cm x (W)2.7cm. Apply Moisture Barrier Paste to Sacrum. Cover with Optifoam drsg. Change every 3 days and prn. Apply Cavilon Skin Barrier to R and L trochanter. Cover each site with Optifoam drsg. Change every 7 days and PRN. Apply Cavilon Skin Barrier to both Earlobes TWICE daily.Pad elastic band of oxygen mask. Keep band loose around ears. Apply Cavilon Skin Barrier to R and L cheeks and Bridge of Nose. Apply Foam tape. Change every 7 days and PRN. Apply Cavilon Skin Barrier to both heels and malleoli. Cover each site with Optifoam drsgs. Change every 7 days and PRN. Reposition at least every 2hours or as tolerated. Off-load heels with Pillows. APM/MODESTO Mattress overlay. diet as tolerated respiratory support CXR noted nutritional optimization ng in place. tf as tolerated turn q2h will follow with recs thank you DAILY ESTIMATED NEEDS: Needs based on DM , pulmonary 75kg abw 25-30 kcals/kg 9630-6030 total kcals 1-1.5 g protein/kg 75-113 g total protein 20-25 mL/kg 8163-5545 total fluid mLs DAILY ESTIMATED NEEDS: Needs based on pulmonary, wound 75kg abw 25-30 kcals/kg 7442-3550 total kcals 1.25-1.5 g protein/kg 94-113 g total protein 20-25 mL/kg 0115-3323 total fluid mLs NUTRITION DIAGNOSIS: Altered nutrition related lab values r/t clinical status as evidenced by elev Na (159-> wnl), elev BUN(now 43-> wnl), elev BG (140-150). ENTERAL NUTRITION RECOMMENDATIONS: Glucerna 1.2 goal of 65ml/hr x24 hrs to provide 1560ml, 1872 kcal, 94g pro, 1256ml free H2O - Obtain GI access, initiate Glucerna 1.2 @25ml/hr for 6 hrs. Advance as tolerated 10ml/hr q4-6 hrs to goal. - Flush per MD/ HOB over 30 degrees. Glucerna 1.2 low on stock-> may replace w/ Jevity 1.2 w/goal of 65ml/hr x24 hrs. Rec to increase insulin coverage as Jevity 1.2 is not carb control formula. ADDITIONAL RECOMMENDATIONS: 1) HORTICULTURE SUPERINTENDENT eval for appropriate texture-> per HORTICULTURE SUPERINTENDENT recs for NPO w/ nonoral feed 2) Feed as able, consult RD for non oral TF recs if part of POC 3) F/up w/ WC eval of R ankle photo -> Add BARTOLO BID w/ non oral feeds as able 4) Maintain calibrated bed scale wts 5) Rec Glucerna TID-> NPO now per HORTICULTURE SUPERINTENDENT recs 6) Check HgA1C (4) Right hemiparesis Pankaj Palomo Nov 04, 2019 12:55
--- NOTE | 2019-11-04 13:01 | Pulmonology Progress Note ---
Subjective ROS Limited/Unobtainable: No Interval Events: None new reported Constitutional: Reports: fatigue; Denies: fever HEENT: Repors: no symptoms Respiratory: Reports: no symptoms Cardiovascular: Reports: no symptoms Gastrointestinal/Abdominal: Denies: nausea, vomiting, diarrhea Genitourinary: Reports: no symptoms Neurologic: Reports: no symptoms Psychiatric: Denies: depression Skin: Denies: rash Musculoskeletal: Denies: pain Allergies: Coded Allergies: ACETAMINOPHEN (Verified Allergy, Unknown, 10/25/19) AMOXICILLIN (Verified Allergy, Unknown, 10/25/19) CEPHALEXIN (Verified Allergy, Unknown, 10/25/19) CODEINE (Verified Allergy, Unknown, 10/25/19) HYDROCODONE (Verified Allergy, Unknown, 10/25/19) SULFAMETHOXAZOLE (Verified Allergy, Unknown, 10/25/19) TETRACYCLINES (Verified Allergy, Unknown, 10/25/19) TRIMETHOPRIM (Verified Allergy, Unknown, 10/25/19) All Systems: reviewed and negative except above Objective Last 24 Hour Vital Signs Date Time Temp Pulse Resp B/P (MAP) Pulse Ox O2 Delivery O2 Flow Rate FiO2 11/04/19 08:00 Nasal Cannula 2.0 11/04/19 08:00 70 11/04/19 08:00 97.6 99 17 136/82 (100) 100 11/04/19 04:00 Nasal Cannula 2.0 11/04/19 04:00 97.8 94 20 145/75 (98) 100 11/04/19 03:32 102 11/04/19 02:25 98 Nasal Cannula 2.0 28 11/04/19 00:00 Nasal Cannula 2.0 11/04/19 00:00 98.5 90 17 111/53 (72) 100 11/03/19 23:45 85 11/03/19 20:00 98.3 98 17 114/58 (76) 100 11/03/19 20:00 99 11/03/19 20:00 Nasal Cannula 2.0 11/03/19 16:00 98.8 88 17 128/73 (91) 100 11/03/19 16:00 Nasal Cannula 2.0 11/03/19 16:00 90 Intake and Output 11/03/19 11/04/19 19:00 07:00 Intake Total 2447.386 ml 1911.000 ml Output Total 2000 ml Balance 447.386 ml 1911.000 ml Intake Free Water 40 ml IV Total 1942.386 ml 1521.000 ml Tube Feeding 465 ml 390 ml Output Urine Total 2000 ml # Bowel Movements 1 General Appearance: no acute distress HEENT: normocephalic Respiratory: chest wall non-tender, lungs clear Cardiovascular: normal peripheral pulses, normal rate Abdomen: normal bowel sounds Microbiology Date/Time Source Procedure Growth Status 11/01/19 23:15 Blood Blood Culture - Preliminary NO GROWTH AFTER 48 HOURS Resulted 11/01/19 22:20 Blood Blood Culture - Preliminary Staphylococcus Sp Coag Neg Resulted 11/03/19 23:00 Nasopharynx SARS-CoV-2 RdRp Gene Assay - Final Complete 11/01/19 22:20 Indwelling Cath Urine Culture - Final NO GROWTH AFTER 48 HOURS Complete Laboratory Tests 11/04/19 04:00: White Blood Count 10.6, Red Blood Count 4.55L, Hemoglobin 14.3, Hematocrit 43.1 , Mean Corpuscular Volume 95, Mean Corpuscular Hemoglobin 31.5H, Mean Corpuscular Hemoglobin Concent 33.2, Red Cell Distribution Width 13.1, Platelet Count 221, Mean Platelet Volume 7.5, Neutrophils (%) (Auto) 72.7, Lymphocytes (% ) (Auto) 16.7L, Monocytes (%) (Auto) 6.3, Eosinophils (%) (Auto) 3.6H, Basophils (%) (Auto) 0.6, Sodium Level 140, Potassium Level 3.9, Chloride Level 105, Carbon Dioxide Level 30, Anion Gap 5, Blood Urea Nitrogen 9, Creatinine 0.9 , Estimat Glomerular Filtration Rate > 60, Glucose Level 113H, Calcium Level 7.8L, Total Bilirubin 0.9, Aspartate Amino Transf (AST/SGOT) 19, Alanine Aminotransferase (ALT/SGPT) 14, Alkaline Phosphatase 96, Total Protein 5.8L, Albumin 1.8L, Globulin 4.0, Albumin/Globulin Ratio 0.4L 11/04/19 10:00: Vancomycin Level Trough 12.1H Current Medications Medications (Trade) Dose Ordered Sig/Jesu Route PRN Reason Start Time Stop Time Status Last Admin Dose Admin Albuterol Sulfate (Proventil MDI) 2 puff Q4H PRN INH Shortness of Breath 10/25/19 23:30 01/23/20 23:29 Aspirin (Ecotrin) 81 mg DAILY ORAL 10/26/19 09:00 12/10/19 08:59 11/03/19 09:52 Dextrose/ Electrolytes 1,000 ml @ 100 mls/hr Q10H IV 11/05/19 00:00 11/25/19 22:59 Fluconazole/ Sodium Chloride 100 ml @ 100 mls/hr Q24H IV 11/01/19 23:00 11/08/19 22:59 11/03/19 22:44 Gabapentin (Neurontin) 300 mg BID ORAL 10/26/19 09:00 11/25/19 08:59 11/04/19 09:08 Lorazepam (Ativan 2mg/ml 1ml) 0.5 mg Q6H PRN IV For Anxiety 10/28/19 20:30 11/04/19 20:29 10/31/19 20:06 Magnesium Hydroxide (Mom) 30 ml DAILYPRN PRN ORAL Constipation 10/25/19 23:30 11/24/19 23:29 Meropenem 1 gm/ Sodium Chloride 100 ml @ 200 mls/hr Q12H IVPB 11/02/19 02:00 11/07/19 01:59 11/04/19 01:12 Multi-Ingredient Mouthwash/Gargle (Magic Mouth Wash 60ml) 10 ml BID ORAL 10/26/19 09:00 11/25/19 08:59 11/04/19 09:08 Multivitamins (Multivitamins W/ Minerals 15ml Liquid) 15 ml DAILY ORAL 10/26/19 09:00 11/25/19 08:59 11/04/19 09:08 Vancomycin HCl (Vanco pharmacy to dose) 1 ea DAILY PRN MISC Per rx protocol 10/26/19 22:45 11/25/19 22:44 Vancomycin HCl 1 gm/Sodium Chloride 275 ml @ 183.708 mls/hr Q12HR@0100,1300 IVPB 11/04/19 13:00 11/09/19 12:59 Assessment/Plan Assessment/Plan IMPRESSION: 1. COVID-19 pneumonia by history. Current pcr negative 2. Bilateral pulmonary infiltrates. 3. Hypoxemia. 4. Hypernatremia. 5. Renal failure. 6. Hypertension. 7. Chronic suprapubic catheter. 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 Needs PEG; has Dubhoff in place Continue oxygen via 2-4L/min nasal canulae Chavo Goldstein Omar Syed MD Nov 04, 2019 13:01
[2019-11-04] MEDS: Vancomycin 1 GM in NS 275 ML IVPB SCH (13:11)
[2019-11-04 16:00] VITALS: BP 138/78
[2019-11-04] MEDS: LORazepam Inj 2mg/ml 1ml IV PRN (18:45)
[2019-11-04 20:00] VITALS: BP 119/61
[2019-11-04] MEDS ORDERED: Metoprolol Tartrate 5mg/5ml Inj IVP SCH (21:30)
[2019-11-05] VITALS (12 sets, daily range): BP systolic 86–139; BP diastolic 48–79
[2019-11-05] MEDS ORDERED: D5 1/2NS w/KCL 10meq 1,000 ML IV SCH
[2019-11-05] MEDS: Vancomycin 1 GM in NS 275 ML IVPB SCH (00:26)
--- NOTE | 2019-11-05 01:10 | Internal Med Progress Note ---
Subjective Date of Service: Nov 04, 2019 Physician Name Edyta Hardy Attending Physician Aron Barbosa M.D. Current Medications Medications (Trade) Dose Ordered Sig/Jesu Route PRN Reason Start Time Stop Time Status Last Admin Dose Admin Albuterol Sulfate (Proventil MDI) 2 puff Q4H PRN INH Shortness of Breath 10/25/19 23:30 01/23/20 23:29 Aspirin (Ecotrin) 81 mg DAILY ORAL 10/26/19 09:00 12/10/19 08:59 11/03/19 09:52 Dextrose/ Electrolytes 1,000 ml @ 100 mls/hr Q10H IV 11/05/19 00:00 11/25/19 22:59 11/04/19 23:15 Fluconazole/ Sodium Chloride 100 ml @ 100 mls/hr Q24H IV 11/01/19 23:00 11/08/19 22:59 11/04/19 22:24 Gabapentin (Neurontin) 300 mg BID ORAL 10/26/19 09:00 11/25/19 08:59 11/04/19 17:45 Magnesium Hydroxide (Mom) 30 ml DAILYPRN PRN ORAL Constipation 10/25/19 23:30 11/24/19 23:29 Meropenem 1 gm/ Sodium Chloride 100 ml @ 200 mls/hr Q12H IVPB 11/02/19 02:00 11/07/19 01:59 11/04/19 14:26 Metoprolol Tartrate (Lopressor) 5 mg STAT IVP 11/04/19 21:30 02/02/20 21:29 11/04/19 21:32 Multi-Ingredient Mouthwash/Gargle (Magic Mouth Wash 60ml) 10 ml BID ORAL 10/26/19 09:00 11/25/19 08:59 11/04/19 17:46 Multivitamins (Multivitamins W/ Minerals 15ml Liquid) 15 ml DAILY ORAL 10/26/19 09:00 11/25/19 08:59 11/04/19 09:08 Vancomycin HCl (Vanco pharmacy to dose) 1 ea DAILY PRN MISC Per rx protocol 10/26/19 22:45 11/25/19 22:44 Vancomycin HCl 1 gm/Sodium Chloride 275 ml @ 183.708 mls/hr Q12HR@0100,1300 IVPB 11/04/19 13:00 11/09/19 12:59 11/05/19 00:26 Allergies: Coded Allergies: ACETAMINOPHEN (Verified Allergy, Unknown, 10/25/19) AMOXICILLIN (Verified Allergy, Unknown, 10/25/19) CEPHALEXIN (Verified Allergy, Unknown, 10/25/19) CODEINE (Verified Allergy, Unknown, 10/25/19) HYDROCODONE (Verified Allergy, Unknown, 10/25/19) SULFAMETHOXAZOLE (Verified Allergy, Unknown, 10/25/19) TETRACYCLINES (Verified Allergy, Unknown, 10/25/19) TRIMETHOPRIM (Verified Allergy, Unknown, 10/25/19) ROS Limited/Unobtainable: Yes Constitutional: Reports: no symptoms HEENT: Reports: no symptoms Cardiovascular: Reports: no symptoms Respiratory: Reports: no symptoms Gastrointestinal/Abdominal: Reports: no symptoms Genitourinary: Reports: no symptoms Neurologic/Psychiatric: Reports: numbness, paresthesia, pre-existing deficit All Systems: reviewed and negative except above Subjective plan for PEG 11/04 Objective Last Vital Signs Date Time Temp Pulse Resp B/P (MAP) Pulse Ox O2 Delivery O2 Flow Rate FiO2 11/05/19 00:00 Nasal Cannula 2.0 11/05/19 00:00 97.5 100 20 129/76 (93) 98 11/04/19 19:46 28 General Appearance: no apparent distress EENT: other - +NGT Cardiovascular: normal rate, regular rhythm, no JVD, systolic murmur Respiratory/Chest: no accessory muscle use, decreased breath sounds Abdomen: non tender, soft Genitourinary/Rectal: normal genital exam Extremities: non-tender Neurologic: responsive, motor weakness, sensory deficit, disoriented Laboratory Tests Test 11/04/19 04:00 11/04/19 10:00 11/04/19 19:48 White Blood Count 10.6 K/UL (4.8-10.8) Red Blood Count 4.55 M/UL (4.70-6.10) L Hemoglobin 14.3 G/DL (14.2-18.0) Hematocrit 43.1 % (42.0-52.0) Mean Corpuscular Volume 95 FL (80-99) Mean Corpuscular Hemoglobin 31.5 PG (27.0-31.0) H Mean Corpuscular Hemoglobin Concent 33.2 G/DL (32.0-36.0) Red Cell Distribution Width 13.1 % (11.6-14.8) Platelet Count 221 K/UL (150-450) Mean Platelet Volume 7.5 FL (6.5-10.1) Neutrophils (%) (Auto) 72.7 % (45.0-75.0) Lymphocytes (%) (Auto) 16.7 % (20.0-45.0) L Monocytes (%) (Auto) 6.3 % (1.0-10.0) Eosinophils (%) (Auto) 3.6 % (0.0-3.0) H Basophils (%) (Auto) 0.6 % (0.0-2.0) Sodium Level 140 MMOL/L (136-145) Potassium Level 3.9 MMOL/L (3.5-5.1) Chloride Level 105 MMOL/L (98-107) Carbon Dioxide Level 30 MMOL/L (21-32) Anion Gap 5 mmol/L (5-15) Blood Urea Nitrogen 9 mg/dL (7-18) Creatinine 0.9 MG/DL (0.55-1.30) Estimat Glomerular Filtration Rate > 60 mL/min (>60) Glucose Level 113 MG/DL (74-106) H Calcium Level 7.8 MG/DL (8.5-10.1) L Total Bilirubin 0.9 MG/DL (0.2-1.0) Aspartate Amino Transf (AST/SGOT) 19 U/L (15-37) Alanine Aminotransferase (ALT/SGPT) 14 U/L (12-78) Alkaline Phosphatase 96 U/L (46-116) Total Protein 5.8 G/DL (6.4-8.2) L Albumin 1.8 G/DL (3.4-5.0) L Globulin 4.0 g/dL Albumin/Globulin Ratio 0.4 (1.0-2.7) L Vancomycin Level Trough 12.1 ug/mL (5.0-12.0) H D-Dimer 4.11 mg/L FEU (0.00-0.49) H Microbiology Date/Time Source Procedure Growth Status 11/03/19 23:00 Nasopharynx SARS-CoV-2 RdRp Gene Assay - Final Complete Intake and Output 11/04/19 11/05/19 19:00 07:00 Intake Total 1115.000 ml 200 ml Output Total 2000 ml Balance -885.000 ml 200 ml IV Total 875.000 ml 200 ml Tube Feeding 240 ml Output Urine Total 2000 ml Assessment/Plan Status: stable, progressing Assessment/Plan IMPRESSION: sepsis on admission COVID 19 pnemonia dysphagia acute respiratory failure hypoxemia severe protein calorie malnutrition acute toxic and metabolic encephalopathy Hypernatremia dehydration acute kidney injury leuokcytosis hx CVA with hemiplegia suprapubic catheter status senile debility ankle wound PLAN: stepdown unit NGT feeding PEG before disposition back to SNF antifungal repeat covid last one + 10/27 phosph replete IV abx per ID TF pulm inhalor isolation per COVID 19 policy f/u cultures DVT/GI prophylaxis electrolyte replete as needed wound care oxygen DNAR code status EDYTA HARDY MD Internal Medicine [phone] over 35 minutes spent today note time may not be the actual encounter time. over 50% allocated in counseling, coordination of care, d/w staff and family with medical update Edyta Hardy MD Nov 05, 2019 01:10
[2019-11-05] MEDS ORDERED: LORazepam Inj 2mg/ml 1ml IV PRN ×2 (01:45→09:00)
[2019-11-05 05:54] LABS: BLOOD UREA NITROGEN 11 mg/dL (7-18); CALCIUM 7.7 MG/DL (8.5-10.1); CARBON DIOXIDE 27 MMOL/L (21-32); CHLORIDE 105 MMOL/L (98-107); CREATININE 0.9 MG/DL (0.55-1.30); POTASSIUM 3.9 MMOL/L (3.5-5.1); SODIUM 138 MMOL/L (136-145)
[2019-11-05] MEDS: Magic Mouth Wash 60ml (Benadryl/Mylanta/Visc Lido) ORAL SCH ×3 (08:23→16:00)
[2019-11-05] MEDS: Multivitamins W/Minerals 15 ML UDC ORAL SCH ×2 (08:23→09:00)
[2019-11-05] MEDS: Aspirin EC 81mg tab ORAL SCH ×2 (08:23→09:00)
[2019-11-05] MEDS ORDERED: Atropine Inj 1mg/10ml Syr IV PRN ×2 (08:45)
[2019-11-05] MEDS ORDERED: Midazolam 2mg/2ml Inj IVP PRN ×2 (08:45)
[2019-11-05] MEDS ORDERED: DiphenhydrAMINE 50mg/ml Inj IVP PRN ×2 (08:45)
--- NOTE | 2019-11-05 08:48 | Anethesia Preoperative Eval ---
Anesthesia Pre-op PMH/ROS General Date of Evaluation: Nov 05, 2019 Time of Evaluation: 08:30 Anesthesiologist: erica ASA Score: ASA 4 Mallampati Score Class I : Soft palate, uvula, fauces, pillars visible Class II: Soft palate, uvula, fauces visible Class III: Soft palate, base of uvula visible Class IV: Only hard plate visible Mallampati Classification: Class II Surgeon: ritu Diagnosis: dysphagia, severe protein/calorie malnutrition Surgical Procedure: peg Anesthesia History: none Social History: smoking - nonsmoker Family History: no anesthesia problems Allergies: Coded Allergies: ACETAMINOPHEN (Verified Allergy, Unknown, 10/25/19) AMOXICILLIN (Verified Allergy, Unknown, 10/25/19) CEPHALEXIN (Verified Allergy, Unknown, 10/25/19) CODEINE (Verified Allergy, Unknown, 10/25/19) HYDROCODONE (Verified Allergy, Unknown, 10/25/19) SULFAMETHOXAZOLE (Verified Allergy, Unknown, 10/25/19) TETRACYCLINES (Verified Allergy, Unknown, 10/25/19) TRIMETHOPRIM (Verified Allergy, Unknown, 10/25/19) Medications: see eMAR Patient NPO?: Yes Past Medical History Cardiovascular: Reports: HTN, arrhythmia Pulmonary: Reports: other - acute respiratory failure, covvid-19 detected/ nondetected in lastest test, pneumonia, hypoxia Gastrointestinal/Genitourinary: Reports: other - suprapubic catheter Neurologic/Psychiatric: Reports: dementia, CVA, other - weakness, right hemiparesis HEENT: Reports: other - right eye conjunctivitis Anesthesia Pre-op Phys. Exam Physician Exam Last Vital Signs Date Time Temp Pulse Resp B/P (MAP) Pulse Ox O2 Delivery O2 Flow Rate FiO2 11/05/19 08:00 98.2 88 18 139/74 (95) 100 11/05/19 04:00 Nasal Cannula 2.0 11/04/19 19:46 28 Neurologic: other - right hemiparesis Cardiovascular: other - irreg irreg Gastrointestinal: other - ngt Airway Exam Mallampati Score: Class II MO: limited Neck: flexible TMD: 2fb ROM: limited Anesthesia Pre-op A/P Labs Microbiology Date/Time Source Procedure Growth Status 11/01/19 23:15 Blood Blood Culture - Preliminary NO GROWTH AFTER 72 HOURS Resulted 11/03/19 23:00 Nasopharynx SARS-CoV-2 RdRp Gene Assay - Final Complete 11/01/19 22:20 Indwelling Cath Urine Culture - Final NO GROWTH AFTER 48 HOURS Complete 10/25/19 17:25 Rectum VRE Culture - Final NO VANCOMYCIN RESISTANT ENTEROCOCCUS ... Complete Coagulation Test 11/04/19 19:48 D-Dimer 4.11 mg/L FEU (0.00-0.49) H Chemistry Test 11/05/19 04:10 Sodium Level 138 MMOL/L (136-145) Potassium Level 3.9 MMOL/L (3.5-5.1) Chloride Level 105 MMOL/L (98-107) Carbon Dioxide Level 27 MMOL/L (21-32) Blood Urea Nitrogen 11 mg/dL (7-18) Creatinine 0.9 MG/DL (0.55-1.30) Estimat Glomerular Filtration Rate > 60 mL/min (>60) Glucose Level 134 MG/DL (74-106) H Calcium Level 7.7 MG/DL (8.5-10.1) L Phosphorus Level 2.0 MG/DL (2.5-4.9) L Magnesium Level 1.7 MG/DL (1.8-2.4) L Risk Assessment & Plan Assessment: [email or web address] Plan: mac Status Change Before Surgery: No Pre-Antibiotics Drug: Kassandra Stokes MD Nov 05, 2019 08:48
[2019-11-05] MEDS: D5 1/2NS w/KCL 10meq 1,000 ML IV SCH ×2 (09:00→11:41)
[2019-11-05] MEDS ORDERED: Albuterol 90mcg Inhaler 8gm INH PRN (09:00)
--- NOTE | 2019-11-05 12:21 | Pre-Procedure Note/Attestation ---
Pre-Procedure Note/Attestation Complete Prior to Procedure Planned Procedure: not applicable Procedure Narrative: EGD /peg Indications for Procedure Pre-Operative Diagnosis: dysphagia Attestation I attest that I discussed the nature of the procedure; its benefits; risks and complications; and alternatives (and the risks and benefits of such alternatives ), prior to the procedure, with the patient (or the patient's legal outside sales account representative). I attest that, if there was a reasonable possibility of needing a blood transfusion, the patient (or the patient's legal outside sales account representative) was given the [facility] standardized written summary, pursuant to the [place] Blood Safety Act ([place] Health and Safety Code # 1645, as amended). I attest that I re-evaluated the patient just prior to the surgery and that there has been no change in the patient's H&P, except as documented below: Nathan Quesada MD Nov 05, 2019 12:21
[2019-11-05] MEDS ORDERED: ePHEDrine 50mg/ml Inj ONE (12:52)
[2019-11-05] MEDS ORDERED: Lidocaine 1% MPF 10mg/ml 5ml ONE (12:52)
[2019-11-05] MEDS ORDERED: NS 500ML IVPB ONE (13:00)
[2019-11-05] MEDS ORDERED: Vancomycin 1 GM in NS 275 ML IVPB SCH (13:00)
--- NOTE | 2019-11-05 13:13 | Nephrology Progress Note ---
Assessment/Plan Plan #COVID pneumonia #TELMA due to dehydration #sepsis #Hypernatremia due to dehydration #hypoxemic resp failure #Volume depletion - continue TF - pending peg tube - replete phos and mag - abx - pulm, ID and cards eval - 2d echo - bipap prn - follow cx - avoid nephrotoxins - replace free water - monitor mag, phos and bmp daily - DNR/DNI time spent 70 min- greater than 50% on care coordination and counseling Subjective ROS Limited/Unobtainable: Yes Subjective transferred to tele tachycardic improved with metop Sodium and cr improving phos low - repleted pending PEG tube Objective Objective Last 24 Hour Vital Signs Date Time Temp Pulse Resp B/P (MAP) Pulse Ox O2 Delivery O2 Flow Rate FiO2 11/05/19 12:10 98 17 139/78 (98) 96 11/05/19 12:10 Nasal Cannula 2.0 11/05/19 12:00 84 11/05/19 08:00 79 11/05/19 08:00 Nasal Cannula 1.0 11/05/19 08:00 98.2 88 18 139/74 (95) 100 11/05/19 04:00 97.0 85 18 110/54 (72) 98 11/05/19 04:00 Nasal Cannula 2.0 11/05/19 04:00 86 11/05/19 00:00 Nasal Cannula 2.0 11/05/19 00:00 97.5 100 20 129/76 (93) 98 11/05/19 00:00 101 11/04/19 21:32 130 118/79 11/04/19 20:00 Nasal Cannula 2.0 11/04/19 20:00 98.3 133 20 119/61 (80) 93 11/04/19 20:00 129 11/04/19 19:46 97 Nasal Cannula 2.0 28 11/04/19 16:00 Nasal Cannula 2.0 11/04/19 16:00 109 11/04/19 16:00 98.0 126 18 138/78 (98) 91 Intake and Output 11/04/19 11/05/19 19:00 07:00 Intake Total 1115.000 ml 1267.416 ml Output Total 2000 ml 1400 ml Balance -885.000 ml -132.584 ml IV Total 875.000 ml 1267.416 ml Tube Feeding 240 ml Output Urine Total 2000 ml 1400 ml Laboratory Tests 11/04/19 19:48: D-Dimer 4.11H 11/05/19 04:10: Sodium Level 138, Potassium Level 3.9, Chloride Level 105, Carbon Dioxide Level 27, Blood Urea Nitrogen 11, Creatinine 0.9, Estimat Glomerular Filtration Rate > 60, Glucose Level 134H, Calcium Level 7.7L, Phosphorus Level 2.0L, Magnesium Level 1.7L Height (Feet): 5 Height (Inches): 0.00 Weight (Pounds): 162 Aron Barbosa M.D. Nov 05, 2019 13:13
--- NOTE | 2019-11-05 13:30 | Immediate Post-Op Evaluation ---
Immediate Post-Op Evalulation Immediate Post-Op Evalulation Procedure: PEG placement Date of Evaluation: Nov 05, 2019 Time of Evaluation: 13:30 IV Fluids: 100 Blood Pressure Systolic: 117 Blood Pressure Diastolic: 60 Pulse Rate: 76 Respiratory Rate: 14 O2 Sat by Pulse Oximetry: 97 Temperature (Fahrenheit): 97.6 Nausea: No Vomiting: No Patient Status: reacts, patent Hydration Status: adequate Drug: none Pamela Winters CRNA Nov 05, 2019 13:30
--- NOTE | 2019-11-05 13:31 | Endoscopy Procedure Note ---
Endoscopy Procedure Note General Indication for Procedure: dysphagia Procedures Performed: EGD, PEG Operative Findings/Diagnosis: dysphagia Specimen: none Pt Tolerated Procedure Well: Yes Estimated Blood Loss: none Anesthesia Anesthesiologist: keiry Anesthesia: MAC Inserted Devices Implant(s) used?: No GI Core Measures 50 yrs or older w/o bx or poly: Not Applicable 10yrs. F/U recommended: Not Applicable Nathan Quesada MD Nov 05, 2019 13:31
--- NOTE | 2019-11-05 13:33 | Anethesia Preoperative Eval ---
Anesthesia Pre-op PMH/ROS General Date of Evaluation: Nov 05, 2019 Time of Evaluation: 13:00 Anesthesiologist: geronimo ASA Score: ASA 4 Mallampati Score Class I : Soft palate, uvula, fauces, pillars visible Class II: Soft palate, uvula, fauces visible Class III: Soft palate, base of uvula visible Class IV: Only hard plate visible Mallampati Classification: Class II Surgeon: rea Diagnosis: Failure to thrive Surgical Procedure: PEG placement Anesthesia History: none Family History: no anesthesia problems Allergies: Coded Allergies: ACETAMINOPHEN (Verified Allergy, Unknown, 10/25/19) AMOXICILLIN (Verified Allergy, Unknown, 10/25/19) CEPHALEXIN (Verified Allergy, Unknown, 10/25/19) CODEINE (Verified Allergy, Unknown, 10/25/19) HYDROCODONE (Verified Allergy, Unknown, 10/25/19) SULFAMETHOXAZOLE (Verified Allergy, Unknown, 10/25/19) TETRACYCLINES (Verified Allergy, Unknown, 10/25/19) TRIMETHOPRIM (Verified Allergy, Unknown, 10/25/19) Medications: see eMAR Patient NPO?: Yes NPO Date: Nov 05, 2019 NPO Time: 00:01 Past Medical History Cardiovascular: Denies: HTN, CAD, UT, valve dz, arrhythmia, other Pulmonary: Reports: other - COVID; Denies: asthma, COPD, SILVIA Gastrointestinal/Genitourinary: Denies: GERD, CRI, ESRD, other Neurologic/Psychiatric: Reports: dementia; Denies: CVA, depression/anxiety, TIA, other Endocrine: Denies: DM, hypothyroidism, steroids, other HEENT: Denies: cataract (L), cataract (R), glaucoma, [place] (L), [place] (R), other Hematology/Immune: Denies: anemia, DVT, bleeding disorder, other Musculoskeletal/Integumentary: Reports: other - shingles? Scabies? 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 Exam Physician Exam Last Vital Signs Date Time Temp Pulse Resp B/P (MAP) Pulse Ox O2 Delivery O2 Flow Rate FiO2 11/05/19 12:10 98 17 139/78 (98) 96 11/05/19 12:10 Nasal Cannula 2.0 11/05/19 08:00 98.2 11/04/19 19:46 28 Constitutional: other - disoriented; follows command; failure to thrive'; Neurologic: other Cardiovascular: RRR Respiratory: other - 2L NC; Ronchi Gastrointestinal: S/NT/ND Airway Exam Mallampati Classification 2 Mallampati Score: Class II Teeth: missing, broken Dentures: no upper, no lower Anesthesia Pre-op A/P Labs Coagulation Test 11/04/19 19:48 D-Dimer 4.11 mg/L FEU (0.00-0.49) H Chemistry Test 11/05/19 04:10 Sodium Level 138 MMOL/L (136-145) Potassium Level 3.9 MMOL/L (3.5-5.1) Chloride Level 105 MMOL/L (98-107) Carbon Dioxide Level 27 MMOL/L (21-32) Blood Urea Nitrogen 11 mg/dL (7-18) Creatinine 0.9 MG/DL (0.55-1.30) Estimat Glomerular Filtration Rate > 60 mL/min (>60) Glucose Level 134 MG/DL (74-106) H Calcium Level 7.7 MG/DL (8.5-10.1) L Phosphorus Level 2.0 MG/DL (2.5-4.9) L Magnesium Level 1.7 MG/DL (1.8-2.4) L Studies Pre-op Studies: EKG - SR Risk Assessment & Plan Assessment: none ; second covid test pending Plan: mac Status Change Before Surgery: No Pre-Antibiotics Drug: see chart Pamela Winters MANAGER TAX Nov 05, 2019 13:33
--- NOTE | 2019-11-05 14:18 | Surgery Progress Note ---
Surgery Progress Note Subjective Additional Comments PEG today no n/v/f/c labs noted exam stable Objective Last 24 Hour Vital Signs Date Time Temp Pulse Resp B/P (MAP) Pulse Ox O2 Delivery O2 Flow Rate FiO2 11/05/19 13:30 76 14 97 11/05/19 12:10 98 17 139/78 (98) 96 11/05/19 12:10 Nasal Cannula 2.0 11/05/19 12:00 84 11/05/19 08:00 79 11/05/19 08:00 Nasal Cannula 1.0 11/05/19 08:00 98.2 88 18 139/74 (95) 100 11/05/19 04:00 97.0 85 18 110/54 (72) 98 11/05/19 04:00 Nasal Cannula 2.0 11/05/19 04:00 86 11/05/19 00:00 Nasal Cannula 2.0 11/05/19 00:00 97.5 100 20 129/76 (93) 98 11/05/19 00:00 101 11/04/19 21:32 130 118/79 11/04/19 20:00 Nasal Cannula 2.0 11/04/19 20:00 98.3 133 20 119/61 (80) 93 11/04/19 20:00 129 11/04/19 19:46 97 Nasal Cannula 2.0 28 11/04/19 16:00 Nasal Cannula 2.0 11/04/19 16:00 109 11/04/19 16:00 98.0 126 18 138/78 (98) 91 I&O Intake and Output 11/04/19 11/05/19 18:59 06:59 Intake Total 1213.000 ml 1267.416 ml Output Total 2000 ml 1400 ml Balance -787.000 ml -132.584 ml IV Total 973.000 ml 1267.416 ml Tube Feeding 240 ml Output Urine Total 2000 ml 1400 ml Dressing: other Wound: other Drains: other Cardiovascular: RSR Respiratory: decreased breath sounds Abdomen: soft, non-tender, present bowel sounds Extremities: no tenderness, no cyanosis Laboratory Tests Test 11/04/19 19:48 11/05/19 04:10 D-Dimer 4.11 mg/L FEU (0.00-0.49) H Sodium Level 138 MMOL/L (136-145) Potassium Level 3.9 MMOL/L (3.5-5.1) Chloride Level 105 MMOL/L (98-107) Carbon Dioxide Level 27 MMOL/L (21-32) Blood Urea Nitrogen 11 mg/dL (7-18) Creatinine 0.9 MG/DL (0.55-1.30) Estimat Glomerular Filtration Rate > 60 mL/min (>60) Glucose Level 134 MG/DL (74-106) H Calcium Level 7.7 MG/DL (8.5-10.1) L Phosphorus Level 2.0 MG/DL (2.5-4.9) L Magnesium Level 1.7 MG/DL (1.8-2.4) L Plan Problems: (1) Renal failure (2) Hypoxia (3) Sepsis Assessment & Plan: 89 year old male with leukocytosis, lactic acidosis, abnormal labs. currently in monitoring unit on face mask respiratory support Hx COVID + UTI Pt presented on admission with multiple Pressure injuries. Pt currently using Venti-mask. Non-Blanching erythema noted to bridge of nose and both cheeks consistent with mask. Cavilon Skin Barrier applied to affected areas and covered with Foam tape. Non-Blanching erythema noted to clefts of both ears. Elastic Band of oxygen tubing padded. Non-Blanching erythema without induration noted to sacrum,R and L Gluteus. Non-Blanching erythema noted to R trochanter(L)3cm x (W)6.3cm. DTPI noted to L Heel. Base of heel is maroon and fluctuant (L)4.3cm x (W)5.5cm. Periwound is boggy but easily blanchable. R heel and lateral R foot boggy with non-blanching erythema. Resolving Pressure injury Lateral R malleolus. Base of wound is dry, black with pink epithelial at center of wound.(L)2.5cm x (W)2.7cm. Apply Moisture Barrier Paste to Sacrum. Cover with Optifoam drsg. Change every 3 days and prn. Apply Cavilon Skin Barrier to R and L trochanter. Cover each site with Optifoam drsg. Change every 7 days and PRN. Apply Cavilon Skin Barrier to both Earlobes TWICE daily.Pad elastic band of oxygen mask. Keep band loose around ears. Apply Cavilon Skin Barrier to R and L cheeks and Bridge of Nose. Apply Foam tape. Change every 7 days and PRN. Apply Cavilon Skin Barrier to both heels and malleoli. Cover each site with Optifoam drsgs. Change every 7 days and PRN. Reposition at least every 2hours or as tolerated. Off-load heels with Pillows. APM/MODESTO Mattress overlay. diet as tolerated respiratory support CXR noted nutritional optimization ng in place. tf as tolerated turn q2h will follow with recs s/p PEG. tf as tolerated thank you DAILY ESTIMATED NEEDS: Needs based on DM , pulmonary 75kg abw 25-30 kcals/kg 2966-8966 total kcals 1-1.5 g protein/kg 75-113 g total protein 20-25 mL/kg 6473-7983 total fluid mLs DAILY ESTIMATED NEEDS: Needs based on pulmonary, wound 75kg abw 25-30 kcals/kg 9744-2281 total kcals 1.25-1.5 g protein/kg 94-113 g total protein 20-25 mL/kg 1133-6075 total fluid mLs NUTRITION DIAGNOSIS: Altered nutrition related lab values r/t clinical status as evidenced by elev Na (159-> wnl), elev BUN(now 43-> wnl), elev BG (140-150). ENTERAL NUTRITION RECOMMENDATIONS: Glucerna 1.2 goal of 65ml/hr x24 hrs to provide 1560ml, 1872 kcal, 94g pro, 1256ml free H2O - Obtain GI access, initiate Glucerna 1.2 @25ml/hr for 6 hrs. Advance as tolerated 10ml/hr q4-6 hrs to goal. - Flush per MD/ HOB over 30 degrees. Glucerna 1.2 low on stock-> may replace w/ Jevity 1.2 w/goal of 65ml/hr x24 hrs. Rec to increase insulin coverage as Jevity 1.2 is not carb control formula. 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
--- NOTE | 2019-11-05 14:27 | Pulmonology Progress Note ---
Subjective ROS Limited/Unobtainable: Yes Interval Events: None new reported Constitutional: Reports: fatigue; Denies: fever HEENT: Repors: no symptoms Respiratory: Reports: no symptoms Cardiovascular: Reports: no symptoms Gastrointestinal/Abdominal: Denies: nausea, vomiting, diarrhea Genitourinary: Reports: no symptoms Neurologic: Reports: no symptoms Psychiatric: Denies: depression Skin: Denies: rash Musculoskeletal: Denies: pain Allergies: Coded Allergies: ACETAMINOPHEN (Verified Allergy, Unknown, 10/25/19) AMOXICILLIN (Verified Allergy, Unknown, 10/25/19) CEPHALEXIN (Verified Allergy, Unknown, 10/25/19) CODEINE (Verified Allergy, Unknown, 10/25/19) HYDROCODONE (Verified Allergy, Unknown, 10/25/19) SULFAMETHOXAZOLE (Verified Allergy, Unknown, 10/25/19) TETRACYCLINES (Verified Allergy, Unknown, 10/25/19) TRIMETHOPRIM (Verified Allergy, Unknown, 10/25/19) All Systems: reviewed and negative except above Objective Last 24 Hour Vital Signs Date Time Temp Pulse Resp B/P (MAP) Pulse Ox O2 Delivery O2 Flow Rate FiO2 11/05/19 13:30 76 14 97 11/05/19 12:10 98 17 139/78 (98) 96 11/05/19 12:10 Nasal Cannula 2.0 11/05/19 12:00 84 11/05/19 08:00 79 11/05/19 08:00 Nasal Cannula 1.0 11/05/19 08:00 98.2 88 18 139/74 (95) 100 11/05/19 04:00 97.0 85 18 110/54 (72) 98 11/05/19 04:00 Nasal Cannula 2.0 11/05/19 04:00 86 11/05/19 00:00 Nasal Cannula 2.0 11/05/19 00:00 97.5 100 20 129/76 (93) 98 11/05/19 00:00 101 11/04/19 21:32 130 118/79 11/04/19 20:00 Nasal Cannula 2.0 11/04/19 20:00 98.3 133 20 119/61 (80) 93 11/04/19 20:00 129 11/04/19 19:46 97 Nasal Cannula 2.0 28 11/04/19 16:00 Nasal Cannula 2.0 11/04/19 16:00 109 11/04/19 16:00 98.0 126 18 138/78 (98) 91 Intake and Output 11/04/19 11/05/19 19:00 07:00 Intake Total 1115.000 ml 1267.416 ml Output Total 2000 ml 1400 ml Balance -885.000 ml -132.584 ml IV Total 875.000 ml 1267.416 ml Tube Feeding 240 ml Output Urine Total 2000 ml 1400 ml General Appearance: no acute distress HEENT: normocephalic Respiratory: chest wall non-tender, lungs clear Cardiovascular: normal peripheral pulses, normal rate Abdomen: normal bowel sounds Microbiology Date/Time Source Procedure Growth Status 11/03/19 23:00 Nasopharynx SARS-CoV-2 RdRp Gene Assay - Final Complete Laboratory Tests 11/04/19 19:48: D-Dimer 4.11H 11/05/19 04:10: Sodium Level 138, Potassium Level 3.9, Chloride Level 105, Carbon Dioxide Level 27, Blood Urea Nitrogen 11, Creatinine 0.9, Estimat Glomerular Filtration Rate > 60, Glucose Level 134H, Calcium Level 7.7L, Phosphorus Level 2.0L, Magnesium Level 1.7L Current Medications Medications (Trade) Dose Ordered Sig/Jesu Route PRN Reason Start Time Stop Time Status Last Admin Dose Admin Al Hydroxide/Mg Hydroxide (Mylanta) 15 ml Q1H PRN ORAL gi upset 11/05/19 08:45 11/05/19 15:00 Albuterol Sulfate (Proventil MDI) 2 puff Q4H PRN INH Shortness of Breath 11/05/19 09:00 01/23/20 08:59 Aspirin (Ecotrin) 81 mg DAILY ORAL 11/05/19 09:00 12/10/19 08:59 Atropine Sulfate (Atropine) 0.5 mg Q5M PRN IV bpm less than 45 11/05/19 08:45 11/05/19 15:00 Dextrose/ Electrolytes 1,000 ml @ 100 mls/hr Q10H IV 11/05/19 09:00 11/25/19 08:59 11/05/19 11:41 Diphenhydramine HCl (Benadryl) 25 mg Q15M PRN IVP Itching 11/05/19 08:45 11/05/19 15:00 Fluconazole/ Sodium Chloride 100 ml @ 100 mls/hr Q24H IV 11/05/19 23:00 11/08/19 22:59 Gabapentin (Neurontin) 300 mg BID ORAL 11/05/19 09:00 11/25/19 08:59 Hydralazine HCl (Apresoline) 5 mg Q30M PRN IV SBP>160 OR___/DBP>90 OR___ 11/05/19 08:45 11/05/19 15:00 Lorazepam (Ativan 2mg/ml 1ml) 0.5 mg Q6H PRN IV For Anxiety 11/05/19 09:00 11/12/19 08:59 Magnesium Hydroxide (Mom) 30 ml DAILYPRN PRN ORAL Constipation 11/05/19 23:30 11/24/19 23:29 Magnesium Sulfate 100 ml @ 100 mls/hr Q1H IVPB 11/05/19 14:00 11/05/19 15:59 Meropenem 1 gm/ Sodium Chloride 100 ml @ 200 mls/hr Q12H IVPB 11/05/19 14:00 11/07/19 01:59 11/05/19 12:43 Midazolam HCl (Versed 2mg/2ml vial) 1 mg Q15M PRN IVP For Anxiety 11/05/19 08:45 11/05/19 15:00 Multi-Ingredient Mouthwash/Gargle (Magic Mouth Wash 60ml) 10 ml BID ORAL 11/05/19 09:00 11/25/19 08:59 Multivitamins (Multivitamins W/ Minerals 15ml Liquid) 15 ml DAILY ORAL 11/05/19 09:00 11/25/19 08:59 Potassium Phosphate 20 mm/ Sodium Chloride 281.6667 ml @ 46.944 m... ONCE ONCE IV 11/05/19 16:00 11/05/19 21:59 Vancomycin HCl (Vanco pharmacy to dose) 1 ea DAILY PRN MISC Per rx protocol 11/05/19 09:00 11/25/19 22:44 Vancomycin HCl 1 gm/Sodium Chloride 275 ml @ 183.708 mls/hr Q12HR@0100,1300 IVPB 11/05/19 13:00 11/09/19 12:59 11/05/19 13:00 Assessment/Plan Assessment/Plan IMPRESSION: 1. COVID-19 pneumonia by history. Current pcr negative 2. Bilateral pulmonary infiltrates. 3. Hypoxemia. 4. Hypernatremia. 5. Renal failure. 6. Hypertension. 7. Chronic suprapubic catheter. 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 Enteral nutrition Continue oxygen via 2-4L/min nasal canulae Chavo Goldstein Omar Syed MD Nov 05, 2019 14:27
[2019-11-05] MEDS ORDERED: Potassium Phosphate 20 MM in NS 275 ML IV ONE (16:00)
--- NOTE | 2019-11-05 17:59 | Infectious Diseases Prog Note ---
Assessment/Plan Assessment/Plan ASSESSMENT AND PLAN: 1. MDR providencia uti, sepsis, possible bacterial pneumonia, leukocytosis, fevers, hx covid-19 infection/pna, sob, bm, esquivel, arf fungemia risk, no diarrhea to suggest c.diff. 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 scabies, ? drug rash, ? b-lactam rash - vancomycin and meropenem day # 9 - discontinue, s/p full tx - diflucan - day # 5, plan on 7-10 days tx - elimite x 1 - monitor labs and chest x-ray - leukocytosis better - repeat covid-19 testing + - d/w RN 2. The patient has history of suprapubic catheter. 3. Hypertension. 4. Blood pressure treatment per primary care team. 5. Wound care protocol. Wounds were reviewed, not acutely infected. 6. Hemiparesis. 7. Hyperlipidemia. 8. Dementia. 9. Hypoxia and shortness of breath. 10. Continue treatment per primary consultants including hypertension treatment. 11. Allergies to acetaminophen, amoxicillin, cephalexin, codeine, hydrocodone, sulfamethoxazole, tetracycline, and trimethoprim. 12. Social history negative. 13. Family history noncontributory. 14. MAR was noted. 15. Case was discussed with RN. 16. Skin care protocol. 17. Orders were noted. Subjective Constitutional: Denies: fever HEENT: Denies: congestion Respiratory: Denies: shortness of breath Cardiovascular: Denies: chest pain Gastrointestinal/Abdominal: Denies: nausea, vomiting, diarrhea Genitourinary: Reports: other - + esquivel Neurologic: Denies: headache Psychiatric: Denies: depression Skin: Reports: rash - ? drug rash, ? scabies Endocrine: Reports: other - NA Hematologic: Denies: bleeding Musculoskeletal: Denies: pain Allergies: Coded Allergies: ACETAMINOPHEN (Verified Allergy, Unknown, 10/25/19) AMOXICILLIN (Verified Allergy, Unknown, 10/25/19) CEPHALEXIN (Verified Allergy, Unknown, 10/25/19) CODEINE (Verified Allergy, Unknown, 10/25/19) HYDROCODONE (Verified Allergy, Unknown, 10/25/19) SULFAMETHOXAZOLE (Verified Allergy, Unknown, 10/25/19) TETRACYCLINES (Verified Allergy, Unknown, 10/25/19) TRIMETHOPRIM (Verified Allergy, Unknown, 10/25/19) Objective Last 24 Hour Vital Signs Date Time Temp Pulse Resp B/P (MAP) Pulse Ox O2 Delivery O2 Flow Rate FiO2 11/05/19 16:00 98 17 139/78 (98) 96 11/05/19 16:00 84 11/05/19 16:00 Nasal Cannula 2.0 11/05/19 13:55 83 18 131/63 99 Nasal Cannula 2 11/05/19 13:50 78 18 111/64 97 Nasal Cannula 3 11/05/19 13:45 79 18 112/66 100 Nasal Cannula 6 11/05/19 13:40 87 18 91/48 100 Nasal Cannula 10 11/05/19 13:35 81 18 100/55 98 Nasal Cannula 10 11/05/19 13:30 98.3 81 18 86/49 98 Nasal Cannula 10 11/05/19 13:30 76 14 97 11/05/19 12:10 98 17 139/78 (98) 96 11/05/19 12:10 Nasal Cannula 2.0 11/05/19 12:00 84 11/05/19 08:00 79 11/05/19 08:00 Nasal Cannula 1.0 11/05/19 08:00 98.2 88 18 139/74 (95) 100 11/05/19 04:00 97.0 85 18 110/54 (72) 98 11/05/19 04:00 Nasal Cannula 2.0 11/05/19 04:00 86 11/05/19 00:00 Nasal Cannula 2.0 11/05/19 00:00 97.5 100 20 129/76 (93) 98 11/05/19 00:00 101 11/04/19 21:32 130 118/79 11/04/19 20:00 Nasal Cannula 2.0 11/04/19 20:00 98.3 133 20 119/61 (80) 93 11/04/19 20:00 129 11/04/19 19:46 97 Nasal Cannula 2.0 28 Height (Feet): 5 Height (Inches): 0.00 Weight (Pounds): 162 General Appearance: no acute distress HEENT: normocephalic, atraumatic, anicteric, mucous membranes moist Respiratory/Chest: no accessory muscle use, crackles/rales, rhonchi - bilaterally Cardiovascular: normal rate, regular rhythm, no gallop/murmur, no JVD Abdomen: normal bowel sounds, soft, non tender, no organomegaly, non distended Genitourinary: other - + esquivel - urine slt cloudy Extremities: no cyanosis Skin: rash Neurologic/Psychiatric: study assistant II-XII grossly normal, responsive, other - weak but responsive Lymphatic: no neck adenopathy Musculoskeletal: no effusion Chest x-ray - 10/28/19 - Procedure: XRAY Chest 1v Indication: Dyspnea Technique: One view of the chest Comparison: 10/26/2019 Findings: Patchy consolidation in the right midlung appears increasingly dense. Bilateral right greater left infiltrates are otherwise stable. Heart size is normal. The pleural spaces are clear. Impression: Increasingly dense consolidation in the right midlung. Otherwise little blade changer 2 days Chest x-ray - 10/30/19 - FINDINGS: Lungs: Slightly improved aeration of lung. Continued right midlung infiltrates and mild atelectasis or infiltrate in the left lower lobe. Lucency in the right lung apex is likely from a skin fold. Pleural space: Unremarkable. No pneumothorax. Heart: Unremarkable. No cardiomegaly. Mediastinum: Unremarkable. Bones/joints: Unremarkable. Tubes, lines and devices: NG tube is in the right lower lung bronchus, tip in the lower right chest. IMPRESSION: 1. NG tube is in the right lower lung bronchus, tip in the lower right chest. Needs to be removed and repositioned. 2. Slightly improved aeration of lung. Continued right midlung infiltrates and mild atelectasis or infiltrate in the left lower lobe. Chest x-rya - 11/01/19 - Procedure: XRAY Chest 1v Indication: Shortness of breath Technique: One view of the chest Comparison: 10/30/2019 Findings: Right greater than left infiltrates persist, unchanged. Heart size is normal. Pleural spaces are clear. Previously demonstrated intrabronchial nasogastric tube has been removed Impression: Interim removal of previously malpositioned nasogastric tube Unchanged bilateral infiltrates Chest x-ray - 11/03/19 - Procedure: XRAY Chest 1v . Indication: Dyspnea Technique: One view of the chest Comparison: none Findings: Again demonstrated are bilateral right greater than left infiltrates. Disease has improved somewhat on the right, particularly the right lung base. Disease on the left appears unchanged. There is very slight blunting of right costophrenic sulcus, small pleural effusion now possible. The left pleural space appears clear. The heart size is normal. Interim placement of a nasogastric feeding tube, tip projecting beyond the edge of the image. Impression: Bilateral right greater than left infiltrates again demonstrated, with slight improvement on the right. New or increased small right pleural effusion Nasogastric feeding tube is now present Microbiology Date/Time Source Procedure Growth Status 11/03/19 23:00 Nasopharynx SARS-CoV-2 RdRp Gene Assay - Final Complete Laboratory Tests Test 11/04/19 19:48 11/05/19 04:10 D-Dimer 4.11 mg/L FEU (0.00-0.49) H Sodium Level 138 MMOL/L (136-145) Potassium Level 3.9 MMOL/L (3.5-5.1) Chloride Level 105 MMOL/L (98-107) Carbon Dioxide Level 27 MMOL/L (21-32) Blood Urea Nitrogen 11 mg/dL (7-18) Creatinine 0.9 MG/DL (0.55-1.30) Estimat Glomerular Filtration Rate > 60 mL/min (>60) Glucose Level 134 MG/DL (74-106) H Calcium Level 7.7 MG/DL (8.5-10.1) L Phosphorus Level 2.0 MG/DL (2.5-4.9) L Magnesium Level 1.7 MG/DL (1.8-2.4) L Current Medications Medications (Trade) Dose Ordered Sig/Jesu Route PRN Reason Start Time Stop Time Status Last Admin Dose Admin Albuterol Sulfate (Proventil MDI) 2 puff Q4H PRN INH Shortness of Breath 11/05/19 09:00 01/23/20 08:59 Aspirin (Ecotrin) 81 mg DAILY ORAL 11/05/19 09:00 12/10/19 08:59 Dextrose/ Electrolytes 1,000 ml @ 100 mls/hr Q10H IV 11/05/19 09:00 11/25/19 08:59 11/05/19 11:41 Fluconazole/ Sodium Chloride 100 ml @ 100 mls/hr Q24H IV 11/05/19 23:00 11/08/19 22:59 Gabapentin (Neurontin) 300 mg BID ORAL 11/05/19 09:00 11/25/19 08:59 Lorazepam (Ativan 2mg/ml 1ml) 0.5 mg Q6H PRN IV For Anxiety 11/05/19 09:00 11/12/19 08:59 Magnesium Hydroxide (Mom) 30 ml DAILYPRN PRN ORAL Constipation 11/05/19 23:30 11/24/19 23:29 Meropenem 1 gm/ Sodium Chloride 100 ml @ 200 mls/hr Q12H IVPB 11/05/19 14:00 11/07/19 01:59 11/05/19 12:43 Multi-Ingredient Mouthwash/Gargle (Magic Mouth Wash 60ml) 10 ml BID ORAL 11/05/19 09:00 11/25/19 08:59 11/05/19 16:00 Multivitamins (Multivitamins W/ Minerals 15ml Liquid) 15 ml DAILY ORAL 11/05/19 09:00 11/25/19 08:59 Permethrin (Elimite) 1 applic ONCE TOPIC 11/05/19 18:00 11/05/19 21:00 Potassium Phosphate 20 mm/ Sodium Chloride 281.6667 ml @ 46.944 m... ONCE ONCE IV 11/05/19 16:00 11/05/19 21:59 11/05/19 16:08 Vancomycin HCl ([facility] pharmacy to dose) 1 ea DAILY PRN MISC Per rx protocol 11/05/19 09:00 11/25/19 22:44 Vancomycin HCl 1 gm/Sodium Chloride 275 ml @ 183.708 mls/hr Q12HR@0100,1300 IVPB 11/05/19 13:00 11/09/19 12:59 11/05/19 13:00 Julio Sraabia MD Nov 05, 2019 17:59
--- NOTE | 2019-11-05 18:06 | Internal Med Progress Note ---
Subjective Date of Service: Nov 05, 2019 Physician Name Edyta Hardy Attending Physician Aron Barbosa M.D. Current Medications Medications (Trade) Dose Ordered Sig/Jesu Route PRN Reason Start Time Stop Time Status Last Admin Dose Admin Albuterol Sulfate (Proventil MDI) 2 puff Q4H PRN INH Shortness of Breath 11/05/19 09:00 01/23/20 08:59 Aspirin (Ecotrin) 81 mg DAILY ORAL 11/05/19 09:00 12/10/19 08:59 Dextrose/ Electrolytes 1,000 ml @ 100 mls/hr Q10H IV 11/05/19 09:00 11/25/19 08:59 11/05/19 11:41 Fluconazole/ Sodium Chloride 100 ml @ 100 mls/hr Q24H IV 11/05/19 23:00 11/08/19 22:59 Gabapentin (Neurontin) 300 mg BID ORAL 11/05/19 09:00 11/25/19 08:59 Lorazepam (Ativan 2mg/ml 1ml) 0.5 mg Q6H PRN IV For Anxiety 11/05/19 09:00 11/12/19 08:59 Magnesium Hydroxide (Mom) 30 ml DAILYPRN PRN ORAL Constipation 11/05/19 23:30 11/24/19 23:29 Multi-Ingredient Mouthwash/Gargle (Magic Mouth Wash 60ml) 10 ml BID ORAL 11/05/19 09:00 11/25/19 08:59 11/05/19 16:00 Multivitamins (Multivitamins W/ Minerals 15ml Liquid) 15 ml DAILY ORAL 11/05/19 09:00 11/25/19 08:59 Permethrin (Elimite) 1 applic ONCE TOPIC 11/05/19 18:00 11/05/19 21:00 Potassium Phosphate 20 mm/ Sodium Chloride 281.6667 ml @ 46.944 m... ONCE ONCE IV 11/05/19 16:00 11/05/19 21:59 11/05/19 16:08 Allergies: Coded Allergies: ACETAMINOPHEN (Verified Allergy, Unknown, 10/25/19) AMOXICILLIN (Verified Allergy, Unknown, 10/25/19) CEPHALEXIN (Verified Allergy, Unknown, 10/25/19) CODEINE (Verified Allergy, Unknown, 10/25/19) HYDROCODONE (Verified Allergy, Unknown, 10/25/19) SULFAMETHOXAZOLE (Verified Allergy, Unknown, 10/25/19) TETRACYCLINES (Verified Allergy, Unknown, 10/25/19) TRIMETHOPRIM (Verified Allergy, Unknown, 10/25/19) ROS Limited/Unobtainable: Yes Constitutional: Reports: no symptoms Cardiovascular: Reports: no symptoms Gastrointestinal/Abdominal: Reports: other - +PEG Genitourinary: Reports: no symptoms Neurologic/Psychiatric: Reports: paresthesia, pre-existing deficit All Systems: reviewed and negative except above Subjective new PEG placed 11/04 Objective Last Vital Signs Date Time Temp Pulse Resp B/P (MAP) Pulse Ox O2 Delivery O2 Flow Rate FiO2 11/05/19 16:00 98 17 139/78 (98) 96 11/05/19 16:00 Nasal Cannula 2.0 11/05/19 13:30 98.3 11/04/19 19:46 28 General Appearance: no apparent distress Cardiovascular: normal rate, regular rhythm, systolic murmur Respiratory/Chest: no accessory muscle use, rhonchi - bilaterally Abdomen: normal bowel sounds, non tender, soft Genitourinary/Rectal: normal genital exam Extremities: non-tender Edema: mild edema Neurologic: alert, motor weakness, sensory deficit, disoriented Skin: warm/dry Laboratory Tests Test 11/04/19 19:48 11/05/19 04:10 D-Dimer 4.11 mg/L FEU (0.00-0.49) H Sodium Level 138 MMOL/L (136-145) Potassium Level 3.9 MMOL/L (3.5-5.1) Chloride Level 105 MMOL/L (98-107) Carbon Dioxide Level 27 MMOL/L (21-32) Blood Urea Nitrogen 11 mg/dL (7-18) Creatinine 0.9 MG/DL (0.55-1.30) Estimat Glomerular Filtration Rate > 60 mL/min (>60) Glucose Level 134 MG/DL (74-106) H Calcium Level 7.7 MG/DL (8.5-10.1) L Phosphorus Level 2.0 MG/DL (2.5-4.9) L Magnesium Level 1.7 MG/DL (1.8-2.4) L Microbiology Date/Time Source Procedure Growth Status 11/03/19 23:00 Nasopharynx SARS-CoV-2 RdRp Gene Assay - Final Complete Intake and Output 11/04/19 11/05/19 19:00 07:00 Intake Total 1115.000 ml 1267.416 ml Output Total 2000 ml 1400 ml Balance -885.000 ml -132.584 ml IV Total 875.000 ml 1267.416 ml Tube Feeding 240 ml Output Urine Total 2000 ml 1400 ml Assessment/Plan Status: stable, progressing, tolerating diet Assessment/Plan IMPRESSION: sepsis on admission COVID 19 pnemonia dysphagia acute respiratory failure hypoxemia severe protein calorie malnutrition acute toxic and metabolic encephalopathy Hypernatremia dehydration acute kidney injury leuokcytosis hx CVA with hemiplegia suprapubic catheter status senile debility ankle wound PLAN: PEG feeding dc palnning to SNF once TF reached goal antifungal repeat covid last one + 10/27 phosph replete IV abx per ID TF pulm inhalor isolation per COVID 19 policy f/u cultures DVT/GI prophylaxis electrolyte replete as needed wound care oxygen DNAR code status EDYTA HARDY MD Internal Medicine [phone] over 35 minutes spent today note time may not be the actual encounter time. over 50% allocated in counseling, coordination of care, d/w staff and family with medical update Edyta Hardy MD Nov 05, 2019 18:05
--- NOTE | 2019-11-05 18:44 | Procedure Note ---
DATE OF PROCEDURE: 11/05/2019 SURGEON: Nathan Quesada MD. PROCEDURE: Upper endoscopy with PEG placement. ANESTHESIA: Per MECHANICAL SYSTEMS ENGINEER, Pamela Tarrillsandy. INSTRUMENT: Olympus adult flexible upper endoscope. INDICATION: Dysphagia. REASON FOR PROCEDURE: The procedure, risks, benefits, and possible consequences, including hemorrhage, aspiration, perforation and infection, and alternative treatments, were explained to the patient/legal guardian by Dr. Nathan Quesada and the patient/legal guardian understood and accepted these risks. PROCEDURE IN DETAIL: After informed consent was obtained and the patient was adequately sedated, Olympus upper endoscope was advanced from mouth into second portion of duodenum and retroflexion was performed in the stomach. Under endoscopic guidance and under sterile condition, a 20-[place] pull type of G-tube was successfully placed in epigastric area. The distance from the tip of the tube to skin was about 2.5 cm in size. The patient tolerated the procedure very well without any complications. SUMMARY OF FINDINGS: Status post successful PEG placement. RECOMMENDATION: 1. Abdominal binder. 2. Elevate head of bed at all times. 3. G-tube flush. 4. G-tube care. 5. Start tube feeding later today. Nathan Quesada M.D. DR: VIVIAN JOB#: [id number] CC:
[2019-11-05] MEDS ORDERED: Metoprolol Tartrate 5mg/5ml Inj IVP SCH (21:30)
[2019-11-05] MEDS ORDERED: Milk of Magnesia 30ml Ud ORAL PRN (23:30)
[2019-11-06] VITALS: BP 142/68
[2019-11-06 04:00] VITALS: BP 125/74
[2019-11-06] MEDS: D5 1/2NS w/KCL 10meq 1,000 ML IV SCH ×2 (05:20→15:00)
[2019-11-06 08:00] VITALS: BP 136/88
--- NOTE | 2019-11-06 08:31 | Diagnostic Imaging Report ---
EXAM: XR Chest, 1 View CLINICAL HISTORY: INFECT TECHNIQUE: Frontal view of the chest. COMPARISON: Chest x-rays dated 11/03/19, 10/30/19, 10/28/19 FINDINGS: Limitations: Exam degraded by mild rotation/oblique positioning. Lungs: No significant interval change in the multilobar pulmonary opacities and prominent interstitial markings compared to the prior exam. No new consolidation seen. Pleural space: Unremarkable. The costophrenic angles are sharp. No visible pneumothorax. Heart: Unremarkable. No cardiomegaly. Mediastinum: Unremarkable. Bones/joints: Unremarkable. Vasculature: Atherosclerotic calcifications are noted within the aortic arch. Tubes, lines and devices: Telemetry leads overlie the thorax. IMPRESSION: No significant no change from the prior chest x-ray. Persistent multilobar pulmonary opacities and prominent interstitial markings, concerning for pneumonia.
[2019-11-06] MEDS: Magic Mouth Wash 60ml (Benadryl/Mylanta/Visc Lido) ORAL SCH ×2 (08:34→17:31)
[2019-11-06] MEDS: Aspirin EC 81mg tab ORAL SCH (08:34)
[2019-11-06] MEDS: Multivitamins W/Minerals 15 ML UDC ORAL SCH (08:35)
[2019-11-06 08:43] LABS: BASOPHILS % (AUTO) 0.5 % (0.0-2.0); EOSINOPHILS % (AUTO) 3.9 % (0.0-3.0); HEMATOCRIT 38.8 % (42.0-52.0); LYMPHOCYTES % (AUTO) 15.7 % (20.0-45.0); MEAN CORPUSCULAR VOLUME 95 FL (80-99); MONOCYTES % (AUTO) 6.4 % (1.0-10.0); NEUTROPHILS % (AUTO) 73.5 % (45.0-75.0); PLATELET COUNT 253 K/UL (150-450); RED BLOOD COUNT 4.09 M/UL (4.70-6.10); RED CELL DISTRIBUTION WIDTH 12.7 % (11.6-14.8); WHITE BLOOD COUNT 9.8 K/UL (4.8-10.8)
[2019-11-06 09:05] LABS: ALANINE AMINOTRANSFERASE 12 U/L (12-78); ALBUMIN 1.7 G/DL (3.4-5.0); ALBUMIN/GLOBULIN RATIO 0.4 (1.0-2.7); ALKALINE PHOSPHATASE 89 U/L (46-116); ANION GAP 6 mmol/L (5-15); ASPARTATE AMINO TRANSFERASE 18 U/L (15-37); BILIRUBIN,TOTAL 1.1 MG/DL (0.2-1.0); BLOOD UREA NITROGEN 8 mg/dL (7-18); CALCIUM 7.6 MG/DL (8.5-10.1); CARBON DIOXIDE 27 MMOL/L (21-32); CHLORIDE 104 MMOL/L (98-107); CREATININE 0.8 MG/DL (0.55-1.30); SODIUM 137 MMOL/L (136-145)
[2019-11-06 09:50] LABS: BILIRUBIN,DIRECT 0.2 MG/DL (0.0-0.3)
[2019-11-06 11:57] VITALS: BP 127/72
[2019-11-06] MEDS ORDERED: NS 275ml ONE (14:10)
[2019-11-06] MEDS ORDERED: Tubing IV Secondary IV ONE (14:10)
--- NOTE | 2019-11-06 15:00 | Pulmonology Progress Note ---
Subjective ROS Limited/Unobtainable: Yes Interval Events: None new reported Constitutional: Denies: fever HEENT: Repors: no symptoms Respiratory: Reports: no symptoms Cardiovascular: Reports: no symptoms Gastrointestinal/Abdominal: Denies: nausea, vomiting, diarrhea Genitourinary: Reports: no symptoms Neurologic: Reports: no symptoms Psychiatric: Denies: depression Skin: Reports: rash - ? drug rash, ? scabies Musculoskeletal: Denies: pain Allergies: Coded Allergies: ACETAMINOPHEN (Verified Allergy, Unknown, 10/25/19) AMOXICILLIN (Verified Allergy, Unknown, 10/25/19) CEPHALEXIN (Verified Allergy, Unknown, 10/25/19) CODEINE (Verified Allergy, Unknown, 10/25/19) HYDROCODONE (Verified Allergy, Unknown, 10/25/19) SULFAMETHOXAZOLE (Verified Allergy, Unknown, 10/25/19) TETRACYCLINES (Verified Allergy, Unknown, 10/25/19) TRIMETHOPRIM (Verified Allergy, Unknown, 10/25/19) All Systems: reviewed and negative except above Objective Last 24 Hour Vital Signs Date Time Temp Pulse Resp B/P (MAP) Pulse Ox O2 Delivery O2 Flow Rate FiO2 11/06/19 12:01 Nasal Cannula 2.0 11/06/19 12:00 98 11/06/19 11:57 97.0 89 19 127/72 (90) 95 11/06/19 08:00 103 11/06/19 08:00 98.1 94 20 136/88 (104) 97 11/06/19 07:49 Nasal Cannula 2.0 11/06/19 04:00 99.3 107 24 125/74 (91) 97 11/06/19 04:00 Nasal Cannula 2.0 11/06/19 04:00 105 11/06/19 00:00 104 11/06/19 00:00 100.8 111 26 142/68 (92) 98 11/06/19 00:00 Nasal Cannula 2.0 11/05/19 20:00 99.1 116 26 133/79 (97) 94 11/05/19 20:00 112 11/05/19 20:00 Nasal Cannula 2.0 11/05/19 18:57 97 Nasal Cannula 2.0 28 11/05/19 16:00 98 17 139/78 (98) 96 11/05/19 16:00 84 11/05/19 16:00 Nasal Cannula 2.0 Intake and Output 11/05/19 11/06/19 19:00 07:00 Intake Total 300 ml Output Total 1600 ml 1100 ml Balance -1300 ml -1100 ml IV Total 300 ml Output Urine Total 1600 ml 1100 ml General Appearance: no acute distress HEENT: normocephalic Respiratory: chest wall non-tender, lungs clear Cardiovascular: normal peripheral pulses, normal rate Abdomen: normal bowel sounds Microbiology Date/Time Source Procedure Growth Status 11/03/19 23:00 Nasopharynx SARS-CoV-2 RdRp Gene Assay - Final Complete Laboratory Tests 11/06/19 06:40: White Blood Count 9.8, Red Blood Count 4.09L, Hemoglobin 13.0L, Hematocrit 38.8L , Mean Corpuscular Volume 95, Mean Corpuscular Hemoglobin 31.7H, Mean Corpuscular Hemoglobin Concent 33.5, Red Cell Distribution Width 12.7, Platelet Count 253, Mean Platelet Volume 8.2, Neutrophils (%) (Auto) 73.5, Lymphocytes (% ) (Auto) 15.7L, Monocytes (%) (Auto) 6.4, Eosinophils (%) (Auto) 3.9H, Basophils (%) (Auto) 0.5, Sodium Level 137, Potassium Level 4.0, Chloride Level 104, Carbon Dioxide Level 27, Anion Gap 6, Blood Urea Nitrogen 8, Creatinine 0.8 , Estimat Glomerular Filtration Rate > 60, Glucose Level 131H, Calcium Level 7.6L, Total Bilirubin 1.1H, Direct Bilirubin 0.2, Aspartate Amino Transf (AST/ SGOT) 18, Alanine Aminotransferase (ALT/SGPT) 12, Alkaline Phosphatase 89, Total Protein 5.9L, Albumin 1.7L, Globulin 4.2, Albumin/Globulin Ratio 0.4L Current Medications Medications (Trade) Dose Ordered Sig/Jesu Route PRN Reason Start Time Stop Time Status Last Admin Dose Admin Albuterol Sulfate (Proventil MDI) 2 puff Q4H PRN INH Shortness of Breath 11/05/19 09:00 01/23/20 08:59 Aspirin (Ecotrin) 81 mg DAILY ORAL 11/05/19 09:00 12/10/19 08:59 Dextrose/ Electrolytes 1,000 ml @ 100 mls/hr Q10H IV 11/05/19 09:00 11/25/19 08:59 11/06/19 05:20 Fluconazole/ Sodium Chloride 100 ml @ 100 mls/hr Q24H IV 11/05/19 23:00 11/08/19 22:59 11/05/19 22:47 Gabapentin (Neurontin) 300 mg BID ORAL 11/05/19 09:00 11/25/19 08:59 Lorazepam (Ativan 2mg/ml 1ml) 0.5 mg Q6H PRN IV For Anxiety 11/05/19 09:00 11/12/19 08:59 Magnesium Hydroxide (Mom) 30 ml DAILYPRN PRN ORAL Constipation 11/05/19 23:30 11/24/19 23:29 Multi-Ingredient Mouthwash/Gargle (Magic Mouth Wash 60ml) 10 ml BID ORAL 11/05/19 09:00 11/25/19 08:59 11/06/19 08:34 Multivitamins (Multivitamins W/ Minerals 15ml Liquid) 15 ml DAILY ORAL 11/05/19 09:00 11/25/19 08:59 Assessment/Plan Assessment/Plan IMPRESSION: 1. COVID-19 pneumonia by history. Current pcr negative 2. Bilateral pulmonary infiltrates. 3. Hypoxemia. 4. Hypernatremia. 5. Renal failure. 6. Hypertension. 7. Chronic suprapubic catheter. 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 Enteral nutrition Continue oxygen via 2-4L/min nasal canulae Chavo Goldstein Omar Syed MD Nov 06, 2019 15:00
--- NOTE | 2019-11-06 15:34 | Surgery Progress Note ---
Surgery Progress Note Subjective Additional Comments napoleon cute events Objective Last 24 Hour Vital Signs Date Time Temp Pulse Resp B/P (MAP) Pulse Ox O2 Delivery O2 Flow Rate FiO2 11/06/19 12:01 Nasal Cannula 2.0 11/06/19 12:00 98 11/06/19 11:57 97.0 89 19 127/72 (90) 95 11/06/19 08:00 103 11/06/19 08:00 98.1 94 20 136/88 (104) 97 11/06/19 07:49 Nasal Cannula 2.0 11/06/19 04:00 99.3 107 24 125/74 (91) 97 11/06/19 04:00 Nasal Cannula 2.0 11/06/19 04:00 105 11/06/19 00:00 104 11/06/19 00:00 100.8 111 26 142/68 (92) 98 11/06/19 00:00 Nasal Cannula 2.0 11/05/19 20:00 99.1 116 26 133/79 (97) 94 11/05/19 20:00 112 11/05/19 20:00 Nasal Cannula 2.0 11/05/19 18:57 97 Nasal Cannula 2.0 28 11/05/19 16:00 98 17 139/78 (98) 96 11/05/19 16:00 84 11/05/19 16:00 Nasal Cannula 2.0 I&O Intake and Output 11/05/19 11/06/19 19:00 07:00 Intake Total 300 ml Output Total 1600 ml 1100 ml Balance -1300 ml -1100 ml IV Total 300 ml Output Urine Total 1600 ml 1100 ml Dressing: saturated Wound: clean Cardiovascular: RSR Respiratory: clear Abdomen: soft, non-tender, present bowel sounds Extremities: edema, no tenderness, no cyanosis Laboratory Tests Test 11/06/19 06:40 White Blood Count 9.8 K/UL (4.8-10.8) Red Blood Count 4.09 M/UL (4.70-6.10) L Hemoglobin 13.0 G/DL (14.2-18.0) L Hematocrit 38.8 % (42.0-52.0) L Mean Corpuscular Volume 95 FL (80-99) Mean Corpuscular Hemoglobin 31.7 PG (27.0-31.0) H Mean Corpuscular Hemoglobin Concent 33.5 G/DL (32.0-36.0) Red Cell Distribution Width 12.7 % (11.6-14.8) Platelet Count 253 K/UL (150-450) Mean Platelet Volume 8.2 FL (6.5-10.1) Neutrophils (%) (Auto) 73.5 % (45.0-75.0) Lymphocytes (%) (Auto) 15.7 % (20.0-45.0) L Monocytes (%) (Auto) 6.4 % (1.0-10.0) Eosinophils (%) (Auto) 3.9 % (0.0-3.0) H Basophils (%) (Auto) 0.5 % (0.0-2.0) Sodium Level 137 MMOL/L (136-145) Potassium Level 4.0 MMOL/L (3.5-5.1) Chloride Level 104 MMOL/L (98-107) Carbon Dioxide Level 27 MMOL/L (21-32) Anion Gap 6 mmol/L (5-15) Blood Urea Nitrogen 8 mg/dL (7-18) Creatinine 0.8 MG/DL (0.55-1.30) Estimat Glomerular Filtration Rate > 60 mL/min (>60) Glucose Level 131 MG/DL (74-106) H Calcium Level 7.6 MG/DL (8.5-10.1) L Total Bilirubin 1.1 MG/DL (0.2-1.0) H Direct Bilirubin 0.2 MG/DL (0.0-0.3) Aspartate Amino Transf (AST/SGOT) 18 U/L (15-37) Alanine Aminotransferase (ALT/SGPT) 12 U/L (12-78) Alkaline Phosphatase 89 U/L (46-116) Total Protein 5.9 G/DL (6.4-8.2) L Albumin 1.7 G/DL (3.4-5.0) L Globulin 4.2 g/dL Albumin/Globulin Ratio 0.4 (1.0-2.7) L Plan Problems: (1) Renal failure (2) Hypoxia (3) Sepsis Assessment & Plan: 89 year old male with leukocytosis, lactic acidosis, abnormal labs. currently in monitoring unit on face mask respiratory support Hx COVID + UTI Pt presented on admission with multiple Pressure injuries. Pt currently using Venti-mask. Non-Blanching erythema noted to bridge of nose and both cheeks consistent with mask. Cavilon Skin Barrier applied to affected areas and covered with Foam tape. Non-Blanching erythema noted to clefts of both ears. Elastic Band of oxygen tubing padded. Non-Blanching erythema without induration noted to sacrum,R and L Gluteus. Non-Blanching erythema noted to R trochanter(L)3cm x (W)6.3cm. DTPI noted to L Heel. Base of heel is maroon and fluctuant (L)4.3cm x (W)5.5cm. Periwound is boggy but easily blanchable. R heel and lateral R foot boggy with non-blanching erythema. Resolving Pressure injury Lateral R malleolus. Base of wound is dry, black with pink epithelial at center of wound.(L)2.5cm x (W)2.7cm. Apply Moisture Barrier Paste to Sacrum. Cover with Optifoam drsg. Change every 3 days and prn. Apply Cavilon Skin Barrier to R and L trochanter. Cover each site with Optifoam drsg. Change every 7 days and PRN. Apply Cavilon Skin Barrier to both Earlobes TWICE daily.Pad elastic band of oxygen mask. Keep band loose around ears. Apply Cavilon Skin Barrier to R and L cheeks and Bridge of Nose. Apply Foam tape. Change every 7 days and PRN. Apply Cavilon Skin Barrier to both heels and malleoli. Cover each site with Optifoam drsgs. Change every 7 days and PRN. Reposition at least every 2hours or as tolerated. Off-load heels with Pillows. APM/MODESTO Mattress overlay. diet as tolerated respiratory support CXR noted nutritional optimization ng in place. tf as tolerated turn q2h will follow with recs s/p PEG. tf as tolerated thank you DAILY ESTIMATED NEEDS: Needs based on DM , pulmonary 75kg abw 25-30 kcals/kg 4206-2141 total kcals 1-1.5 g protein/kg 75-113 g total protein 20-25 mL/kg 9558-0892 total fluid mLs DAILY ESTIMATED NEEDS: Needs based on pulmonary, wound 75kg abw 25-30 kcals/kg 1788-0663 total kcals 1.25-1.5 g protein/kg 94-113 g total protein 20-25 mL/kg 3271-4307 total fluid mLs NUTRITION DIAGNOSIS: Altered nutrition related lab values r/t clinical status as evidenced by elev Na (159-> wnl), elev BUN(now 43-> wnl), elev BG (140-150). ENTERAL NUTRITION RECOMMENDATIONS: Glucerna 1.2 goal of 65ml/hr x24 hrs to provide 1560ml, 1872 kcal, 94g pro, 1256ml free H2O - Obtain GI access, initiate Glucerna 1.2 @25ml/hr for 6 hrs. Advance as tolerated 10ml/hr q4-6 hrs to goal. - Flush per MD/ HOB over 30 degrees. Glucerna 1.2 low on stock-> may replace w/ Jevity 1.2 w/goal of 65ml/hr x24 hrs. Rec to increase insulin coverage as Jevity 1.2 is not carb control formula. 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
[2019-11-06 16:06] VITALS: BP 143/73
[2019-11-06 20:00] VITALS: BP 150/76
--- NOTE | 2019-11-06 20:57 | Nephrology Progress Note ---
Assessment/Plan Plan #COVID pneumonia #TELMA due to dehydration #sepsis #Hypernatremia due to dehydration #hypoxemic resp failure #Volume depletion - continue TF - pending peg tube - replete phos and mag - abx - pulm, ID and cards eval - 2d echo - bipap prn - follow cx - avoid nephrotoxins - replace free water - monitor mag, phos and bmp daily - DNR/DNI time spent 70 min- greater than 50% on care coordination and counseling Subjective ROS Limited/Unobtainable: Yes Subjective peg placed tachycardic improved with metop Sodium and cr improving phos low - repleted Objective Objective Last 24 Hour Vital Signs Date Time Temp Pulse Resp B/P (MAP) Pulse Ox O2 Delivery O2 Flow Rate FiO2 11/06/19 16:06 97.1 20 143/73 (96) 95 11/06/19 16:06 Nasal Cannula 2.0 11/06/19 16:00 108 11/06/19 12:01 Nasal Cannula 2.0 11/06/19 12:00 98 11/06/19 11:57 97.0 89 19 127/72 (90) 95 11/06/19 08:00 103 11/06/19 08:00 98.1 94 20 136/88 (104) 97 11/06/19 07:49 Nasal Cannula 2.0 11/06/19 04:00 99.3 107 24 125/74 (91) 97 11/06/19 04:00 Nasal Cannula 2.0 11/06/19 04:00 105 11/06/19 00:00 104 11/06/19 00:00 100.8 111 26 142/68 (92) 98 11/06/19 00:00 Nasal Cannula 2.0 Intake and Output 11/05/19 11/06/19 19:00 07:00 Intake Total 300 ml Output Total 1600 ml 1100 ml Balance -1300 ml -1100 ml IV Total 300 ml Output Urine Total 1600 ml 1100 ml Laboratory Tests 11/06/19 06:40: White Blood Count 9.8, Red Blood Count 4.09L, Hemoglobin 13.0L, Hematocrit 38.8L , Mean Corpuscular Volume 95, Mean Corpuscular Hemoglobin 31.7H, Mean Corpuscular Hemoglobin Concent 33.5, Red Cell Distribution Width 12.7, Platelet Count 253, Mean Platelet Volume 8.2, Neutrophils (%) (Auto) 73.5, Lymphocytes (% ) (Auto) 15.7L, Monocytes (%) (Auto) 6.4, Eosinophils (%) (Auto) 3.9H, Basophils (%) (Auto) 0.5, Sodium Level 137, Potassium Level 4.0, Chloride Level 104, Carbon Dioxide Level 27, Anion Gap 6, Blood Urea Nitrogen 8, Creatinine 0.8 , Estimat Glomerular Filtration Rate > 60, Glucose Level 131H, Calcium Level 7.6L, Total Bilirubin 1.1H, Direct Bilirubin 0.2, Aspartate Amino Transf (AST/ SGOT) 18, Alanine Aminotransferase (ALT/SGPT) 12, Alkaline Phosphatase 89, Total Protein 5.9L, Albumin 1.7L, Globulin 4.2, Albumin/Globulin Ratio 0.4L Height (Feet): 5 Height (Inches): 0.00 Weight (Pounds): 162 Aron Barbosa M.D. Nov 06, 2019 20:57
--- NOTE | 2019-11-06 23:49 | Internal Med Progress Note ---
Subjective Date of Service: Nov 06, 2019 Physician Name Ad Hardy Attending Physician Aron Barbosa M.D. Current Medications Medications (Trade) Dose Ordered Sig/Jesu Route PRN Reason Start Time Stop Time Status Last Admin Dose Admin Albuterol Sulfate (Proventil MDI) 2 puff Q4H PRN INH Shortness of Breath 11/05/19 09:00 01/23/20 08:59 Aspirin (Ecotrin) 81 mg DAILY ORAL 11/05/19 09:00 12/10/19 08:59 Dextrose/ Electrolytes 1,000 ml @ 100 mls/hr Q10H IV 11/05/19 09:00 11/25/19 08:59 11/06/19 15:00 Fluconazole/ Sodium Chloride 100 ml @ 100 mls/hr Q24H IV 11/05/19 23:00 11/08/19 22:59 11/06/19 23:37 Gabapentin (Neurontin) 300 mg BID ORAL 11/05/19 09:00 11/25/19 08:59 11/06/19 17:36 Lorazepam (Ativan 2mg/ml 1ml) 0.5 mg Q6H PRN IV For Anxiety 11/05/19 09:00 11/12/19 08:59 Magnesium Hydroxide (Mom) 30 ml DAILYPRN PRN ORAL Constipation 11/05/19 23:30 11/24/19 23:29 Multi-Ingredient Mouthwash/Gargle (Magic Mouth Wash 60ml) 10 ml BID ORAL 11/05/19 09:00 11/25/19 08:59 11/06/19 17:31 Multivitamins (Multivitamins W/ Minerals 15ml Liquid) 15 ml DAILY ORAL 11/05/19 09:00 11/25/19 08:59 Allergies: Coded Allergies: ACETAMINOPHEN (Verified Allergy, Unknown, 10/25/19) AMOXICILLIN (Verified Allergy, Unknown, 10/25/19) CEPHALEXIN (Verified Allergy, Unknown, 10/25/19) CODEINE (Verified Allergy, Unknown, 10/25/19) HYDROCODONE (Verified Allergy, Unknown, 10/25/19) SULFAMETHOXAZOLE (Verified Allergy, Unknown, 10/25/19) TETRACYCLINES (Verified Allergy, Unknown, 10/25/19) TRIMETHOPRIM (Verified Allergy, Unknown, 10/25/19) ROS Limited/Unobtainable: Yes Cardiovascular: Reports: no symptoms Respiratory: Reports: no symptoms Gastrointestinal/Abdominal: Reports: no symptoms Neurologic/Psychiatric: Reports: paresthesia, pre-existing deficit All Systems: reviewed and negative except above Subjective new PEG placed 11/04 Objective Last Vital Signs Date Time Temp Pulse Resp B/P (MAP) Pulse Ox O2 Delivery O2 Flow Rate FiO2 11/06/19 20:00 104 11/06/19 16:06 97.1 20 143/73 (96) 95 11/06/19 16:06 Nasal Cannula 2.0 11/05/19 18:57 28 General Appearance: no apparent distress Cardiovascular: normal rate, regular rhythm, systolic murmur Respiratory/Chest: rhonchi - bilaterally Abdomen: normal bowel sounds, non tender, soft, no mass Genitourinary/Rectal: normal genital exam Neurologic: responsive, motor weakness, sensory deficit, disoriented Skin: warm/dry Laboratory Tests Test 11/06/19 06:40 White Blood Count 9.8 K/UL (4.8-10.8) Red Blood Count 4.09 M/UL (4.70-6.10) L Hemoglobin 13.0 G/DL (14.2-18.0) L Hematocrit 38.8 % (42.0-52.0) L Mean Corpuscular Volume 95 FL (80-99) Mean Corpuscular Hemoglobin 31.7 PG (27.0-31.0) H Mean Corpuscular Hemoglobin Concent 33.5 G/DL (32.0-36.0) Red Cell Distribution Width 12.7 % (11.6-14.8) Platelet Count 253 K/UL (150-450) Mean Platelet Volume 8.2 FL (6.5-10.1) Neutrophils (%) (Auto) 73.5 % (45.0-75.0) Lymphocytes (%) (Auto) 15.7 % (20.0-45.0) L Monocytes (%) (Auto) 6.4 % (1.0-10.0) Eosinophils (%) (Auto) 3.9 % (0.0-3.0) H Basophils (%) (Auto) 0.5 % (0.0-2.0) Sodium Level 137 MMOL/L (136-145) Potassium Level 4.0 MMOL/L (3.5-5.1) Chloride Level 104 MMOL/L (98-107) Carbon Dioxide Level 27 MMOL/L (21-32) Anion Gap 6 mmol/L (5-15) Blood Urea Nitrogen 8 mg/dL (7-18) Creatinine 0.8 MG/DL (0.55-1.30) Estimat Glomerular Filtration Rate > 60 mL/min (>60) Glucose Level 131 MG/DL (74-106) H Calcium Level 7.6 MG/DL (8.5-10.1) L Total Bilirubin 1.1 MG/DL (0.2-1.0) H Direct Bilirubin 0.2 MG/DL (0.0-0.3) Aspartate Amino Transf (AST/SGOT) 18 U/L (15-37) Alanine Aminotransferase (ALT/SGPT) 12 U/L (12-78) Alkaline Phosphatase 89 U/L (46-116) Total Protein 5.9 G/DL (6.4-8.2) L Albumin 1.7 G/DL (3.4-5.0) L Globulin 4.2 g/dL Albumin/Globulin Ratio 0.4 (1.0-2.7) L Microbiology Date/Time Source Procedure Growth Status 11/04/19 13:30 Nasopharynx Coronavirus COVID-19 PCR ([facility]) - Final Complete Intake and Output 11/05/19 11/06/19 19:00 07:00 Intake Total 300 ml Output Total 1600 ml 1100 ml Balance -1300 ml -1100 ml IV Total 300 ml Output Urine Total 1600 ml 1100 ml Assessment/Plan Status: stable, progressing, tolerating diet Assessment/Plan IMPRESSION: sepsis on admission COVID 19 pnemonia dysphagia acute respiratory failure hypoxemia severe protein calorie malnutrition acute toxic and metabolic encephalopathy Hypernatremia dehydration acute kidney injury leuokcytosis hx CVA with hemiplegia suprapubic catheter status senile debility ankle wound PLAN: off abx monitor temp curve PEG feeding dc palnning to SNF TF pulm inhalor isolation per COVID 19 policy f/u cultures DVT/GI prophylaxis electrolyte replete as needed wound care oxygen DNAR code status AD HARDY MD Internal Medicine [phone] over 35 minutes spent today note time may not be the actual encounter time. over 50% allocated in counseling, coordination of care, d/w staff and family with medical update Ad Hardy MD 18, 2020 23:49
[2019-11-07] VITALS: BP 145/78
[2019-11-07] MEDS: D5 1/2NS w/KCL 10meq 1,000 ML IV SCH ×3 (01:06→20:59)
[2019-11-07 04:00] VITALS: BP 110/81
[2019-11-07 08:00] VITALS: BP 125/62
--- NOTE | 2019-11-07 08:12 | Pulmonology Progress Note ---
Subjective ROS Limited/Unobtainable: Yes Interval Events: None new reported Constitutional: Denies: fever HEENT: Repors: no symptoms Respiratory: Reports: no symptoms Cardiovascular: Reports: no symptoms Gastrointestinal/Abdominal: Denies: nausea, vomiting, diarrhea Genitourinary: Reports: no symptoms Neurologic: Reports: no symptoms Psychiatric: Denies: depression Skin: Reports: rash - ? drug rash, ? scabies Musculoskeletal: Denies: pain Allergies: Coded Allergies: ACETAMINOPHEN (Verified Allergy, Unknown, 10/25/19) AMOXICILLIN (Verified Allergy, Unknown, 10/25/19) CEPHALEXIN (Verified Allergy, Unknown, 10/25/19) CODEINE (Verified Allergy, Unknown, 10/25/19) HYDROCODONE (Verified Allergy, Unknown, 10/25/19) SULFAMETHOXAZOLE (Verified Allergy, Unknown, 10/25/19) TETRACYCLINES (Verified Allergy, Unknown, 10/25/19) TRIMETHOPRIM (Verified Allergy, Unknown, 10/25/19) All Systems: reviewed and negative except above Objective Last 24 Hour Vital Signs Date Time Temp Pulse Resp B/P (MAP) Pulse Ox O2 Delivery O2 Flow Rate FiO2 11/07/19 04:00 Nasal Cannula 2.0 11/07/19 04:00 98.0 103 18 110/81 (91) 95 11/07/19 04:00 96 11/07/19 00:00 97.4 98 19 145/78 (100) 98 11/07/19 00:00 Nasal Cannula 2.0 11/07/19 00:00 76 11/06/19 20:00 Nasal Cannula 2.0 11/06/19 20:00 97.4 104 20 150/76 (100) 97 11/06/19 20:00 104 11/06/19 16:06 97.1 20 143/73 (96) 95 11/06/19 16:06 Nasal Cannula 2.0 11/06/19 16:00 108 11/06/19 12:01 Nasal Cannula 2.0 11/06/19 12:00 98 11/06/19 11:57 97.0 89 19 127/72 (90) 95 Intake and Output 11/06/19 11/07/19 19:00 07:00 Output Total 400 ml 820 ml Balance -400 ml -820 ml Output Urine Total 400 ml 820 ml # Bowel Movements 1 1 General Appearance: no acute distress HEENT: normocephalic Respiratory: chest wall non-tender, lungs clear Cardiovascular: normal peripheral pulses, normal rate Abdomen: normal bowel sounds Microbiology Date/Time Source Procedure Growth Status 11/04/19 13:30 Nasopharynx Coronavirus COVID-19 PCR ([facility]) - Final Complete Current Medications Medications (Trade) Dose Ordered Sig/Jesu Route PRN Reason Start Time Stop Time Status Last Admin Dose Admin Albuterol Sulfate (Proventil MDI) 2 puff Q4H PRN INH Shortness of Breath 11/05/19 09:00 01/23/20 08:59 Aspirin (Ecotrin) 81 mg DAILY ORAL 11/05/19 09:00 12/10/19 08:59 Dextrose/ Electrolytes 1,000 ml @ 100 mls/hr Q10H IV 11/05/19 09:00 11/25/19 08:59 11/07/19 01:06 Fluconazole/ Sodium Chloride 100 ml @ 100 mls/hr Q24H IV 11/05/19 23:00 11/08/19 22:59 11/06/19 23:37 Gabapentin (Neurontin) 300 mg BID ORAL 11/05/19 09:00 11/25/19 08:59 11/06/19 17:36 Lorazepam (Ativan 2mg/ml 1ml) 0.5 mg Q6H PRN IV For Anxiety 11/05/19 09:00 11/12/19 08:59 Magnesium Hydroxide (Mom) 30 ml DAILYPRN PRN ORAL Constipation 11/05/19 23:30 11/24/19 23:29 Multi-Ingredient Mouthwash/Gargle (Magic Mouth Wash 60ml) 10 ml BID ORAL 11/05/19 09:00 11/25/19 08:59 11/06/19 17:31 Multivitamins (Multivitamins W/ Minerals 15ml Liquid) 15 ml DAILY ORAL 11/05/19 09:00 11/25/19 08:59 Assessment/Plan Assessment/Plan IMPRESSION: 1. COVID-19 pneumonia by history. Current pcr negative 2. Bilateral pulmonary infiltrates. 3. Hypoxemia. 4. Hypernatremia. 5. Renal failure. 6. Hypertension. 7. Chronic suprapubic catheter. 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 Enteral nutrition Continue oxygen via 2-4L/min nasal cannulae DC to SNF Chavo Goldstein,Adam Rea MD Nov 07, 2019 08:12
[2019-11-07] MEDS: Aspirin EC 81mg tab ORAL SCH (08:32)
[2019-11-07] MEDS: Multivitamins W/Minerals 15 ML UDC ORAL SCH (08:32)
[2019-11-07] MEDS: Magic Mouth Wash 60ml (Benadryl/Mylanta/Visc Lido) ORAL SCH ×2 (08:37→17:56)
--- NOTE | 2019-11-07 11:54 | Nephrology Progress Note ---
Assessment/Plan Plan #COVID pneumonia #TELMA due to dehydration #sepsis #Hypernatremia due to dehydration #hypoxemic resp failure #Volume depletion - continue TF - pending peg tube - replete phos and mag - abx - pulm, ID and cards eval - 2d echo - bipap prn - follow cx - avoid nephrotoxins - replace free water - monitor mag, phos and bmp daily - DNR/DNI time spent 70 min- greater than 50% on care coordination and counseling Subjective ROS Limited/Unobtainable: Yes Subjective peg placed tachycardic improved with metop Sodium and cr improving phos low - repleted Objective Objective Last 24 Hour Vital Signs Date Time Temp Pulse Resp B/P (MAP) Pulse Ox O2 Delivery O2 Flow Rate FiO2 11/07/19 08:00 Nasal Cannula 2.0 11/07/19 08:00 98.6 97 22 125/62 (83) 96 11/07/19 08:00 93 11/07/19 04:00 Nasal Cannula 2.0 11/07/19 04:00 98.0 103 18 110/81 (91) 95 11/07/19 04:00 96 11/07/19 00:00 97.4 98 19 145/78 (100) 98 11/07/19 00:00 Nasal Cannula 2.0 11/07/19 00:00 76 11/06/19 20:00 Nasal Cannula 2.0 11/06/19 20:00 97.4 104 20 150/76 (100) 97 11/06/19 20:00 104 11/06/19 16:06 97.1 20 143/73 (96) 95 11/06/19 16:06 Nasal Cannula 2.0 11/06/19 16:00 108 11/06/19 12:01 Nasal Cannula 2.0 11/06/19 12:00 98 11/06/19 11:57 97.0 89 19 127/72 (90) 95 Intake and Output 11/06/19 11/07/19 19:00 07:00 Output Total 400 ml 820 ml Balance -400 ml -820 ml Output Urine Total 400 ml 820 ml # Bowel Movements 1 1 Height (Feet): 5 Height (Inches): 0.00 Weight (Pounds): 162 Aron Barbosa M.D. Nov 07, 2019 11:54
[2019-11-07 12:00] VITALS: BP 117/73
--- NOTE | 2019-11-07 13:26 | Surgery Progress Note ---
Surgery Progress Note Subjective Additional Comments labs improved cxr stable comfortable Objective Last 24 Hour Vital Signs Date Time Temp Pulse Resp B/P (MAP) Pulse Ox O2 Delivery O2 Flow Rate FiO2 11/07/19 12:00 Nasal Cannula 2.0 11/07/19 12:00 113 11/07/19 12:00 98.6 97 22 117/73 (88) 96 11/07/19 08:00 Nasal Cannula 2.0 11/07/19 08:00 98.6 97 22 125/62 (83) 96 11/07/19 08:00 93 11/07/19 04:00 Nasal Cannula 2.0 11/07/19 04:00 98.0 103 18 110/81 (91) 95 11/07/19 04:00 96 11/07/19 00:00 97.4 98 19 145/78 (100) 98 11/07/19 00:00 Nasal Cannula 2.0 11/07/19 00:00 76 11/06/19 20:00 Nasal Cannula 2.0 11/06/19 20:00 97.4 104 20 150/76 (100) 97 11/06/19 20:00 104 11/06/19 16:06 97.1 20 143/73 (96) 95 11/06/19 16:06 Nasal Cannula 2.0 11/06/19 16:00 108 I&O Intake and Output 11/06/19 11/07/19 19:00 07:00 Output Total 400 ml 820 ml Balance -400 ml -820 ml Output Urine Total 400 ml 820 ml # Bowel Movements 1 1 Dressing: dry Wound: clean Cardiovascular: RSR Respiratory: decreased breath sounds Abdomen: soft, non-tender, present bowel sounds Extremities: no cyanosis Plan Problems: (1) Renal failure (2) Hypoxia (3) Sepsis Assessment & Plan: 89 year old male with leukocytosis, lactic acidosis, abnormal labs. currently in monitoring unit on face mask respiratory support Hx COVID + UTI Pt presented on admission with multiple Pressure injuries. Pt currently using Venti-mask. Non-Blanching erythema noted to bridge of nose and both cheeks consistent with mask. Cavilon Skin Barrier applied to affected areas and covered with Foam tape. Non-Blanching erythema noted to clefts of both ears. Elastic Band of oxygen tubing padded. Non-Blanching erythema without induration noted to sacrum,R and L Gluteus. Non-Blanching erythema noted to R trochanter(L)3cm x (W)6.3cm. DTPI noted to L Heel. Base of heel is maroon and fluctuant (L)4.3cm x (W)5.5cm. Periwound is boggy but easily blanchable. R heel and lateral R foot boggy with non-blanching erythema. Resolving Pressure injury Lateral R malleolus. Base of wound is dry, black with pink epithelial at center of wound.(L)2.5cm x (W)2.7cm. Apply Moisture Barrier Paste to Sacrum. Cover with Optifoam drsg. Change every 3 days and prn. Apply Cavilon Skin Barrier to R and L trochanter. Cover each site with Optifoam drsg. Change every 7 days and PRN. Apply Cavilon Skin Barrier to both Earlobes TWICE daily.Pad elastic band of oxygen mask. Keep band loose around ears. Apply Cavilon Skin Barrier to R and L cheeks and Bridge of Nose. Apply Foam tape. Change every 7 days and PRN. Apply Cavilon Skin Barrier to both heels and malleoli. Cover each site with Optifoam drsgs. Change every 7 days and PRN. Reposition at least every 2hours or as tolerated. Off-load heels with Pillows. APM/MODESTO Mattress overlay. diet as tolerated respiratory support CXR noted nutritional optimization ng in place. tf as tolerated turn q2h will follow with recs s/p PEG. tf as tolerated thank you DAILY ESTIMATED NEEDS: Needs based on DM , pulmonary 75kg abw 25-30 kcals/kg 7446-8944 total kcals 1-1.5 g protein/kg 75-113 g total protein 20-25 mL/kg 3453-3874 total fluid mLs DAILY ESTIMATED NEEDS: Needs based on pulmonary, wound 75kg abw 25-30 kcals/kg 8599-1299 total kcals 1.25-1.5 g protein/kg 94-113 g total protein 20-25 mL/kg 9023-5959 total fluid mLs NUTRITION DIAGNOSIS: Altered nutrition related lab values r/t clinical status as evidenced by elev Na (159-> wnl), elev BUN(now 43-> wnl), elev BG (140-150). ENTERAL NUTRITION RECOMMENDATIONS: Glucerna 1.2 goal of 65ml/hr x24 hrs to provide 1560ml, 1872 kcal, 94g pro, 1256ml free H2O - Obtain GI access, initiate Glucerna 1.2 @25ml/hr for 6 hrs. Advance as tolerated 10ml/hr q4-6 hrs to goal. - Flush per MD/ HOB over 30 degrees. Glucerna 1.2 low on stock-> may replace w/ Jevity 1.2 w/goal of 65ml/hr x24 hrs. Rec to increase insulin coverage as Jevity 1.2 is not carb control formula. ADDITIONAL RECOMMENDATIONS: 1) ASSOCIATE PROFESSOR OF MATHEMATICS eval for appropriate texture-> per ASSOCIATE PROFESSOR OF MATHEMATICS recs for NPO w/ nonoral feed 2) Feed as able, consult RD for non oral TF recs if part of POC 3) F/up w/ WC eval of R ankle photo -> Add BARTOLO BID w/ non oral feeds as able 4) Maintain calibrated bed scale wts 5) Rec Glucerna TID-> NPO now per ASSOCIATE PROFESSOR OF MATHEMATICS recs 6) Check HgA1C (4) Right hemiparesis Pankaj Palomo Nov 07, 2019 13:26
--- NOTE | 2019-11-07 14:12 | Internal Med Progress Note ---
Subjective Date of Service: Nov 07, 2019 Physician Name Edyta Hardy Attending Physician Aron Barbosa M.D. Current Medications Medications (Trade) Dose Ordered Sig/Jesu Route PRN Reason Start Time Stop Time Status Last Admin Dose Admin Albuterol Sulfate (Proventil MDI) 2 puff Q4H PRN INH Shortness of Breath 11/05/19 09:00 01/23/20 08:59 Aspirin (Ecotrin) 81 mg DAILY ORAL 11/05/19 09:00 12/10/19 08:59 11/07/19 08:32 Dextrose/ Electrolytes 1,000 ml @ 100 mls/hr Q10H IV 11/05/19 09:00 11/25/19 08:59 11/07/19 11:30 Fluconazole/ Sodium Chloride 100 ml @ 100 mls/hr Q24H IV 11/05/19 23:00 11/08/19 22:59 11/06/19 23:37 Gabapentin (Neurontin) 300 mg BID ORAL 11/05/19 09:00 11/25/19 08:59 11/07/19 08:32 Lorazepam (Ativan 2mg/ml 1ml) 0.5 mg Q6H PRN IV For Anxiety 11/05/19 09:00 11/12/19 08:59 Magnesium Hydroxide (Mom) 30 ml DAILYPRN PRN ORAL Constipation 11/05/19 23:30 11/24/19 23:29 Multi-Ingredient Mouthwash/Gargle (Magic Mouth Wash 60ml) 10 ml BID ORAL 11/05/19 09:00 11/25/19 08:59 11/07/19 08:37 Multivitamins (Multivitamins W/ Minerals 15ml Liquid) 15 ml DAILY ORAL 11/05/19 09:00 11/25/19 08:59 11/07/19 08:32 Allergies: Coded Allergies: ACETAMINOPHEN (Verified Allergy, Unknown, 10/25/19) AMOXICILLIN (Verified Allergy, Unknown, 10/25/19) CEPHALEXIN (Verified Allergy, Unknown, 10/25/19) CODEINE (Verified Allergy, Unknown, 10/25/19) HYDROCODONE (Verified Allergy, Unknown, 10/25/19) SULFAMETHOXAZOLE (Verified Allergy, Unknown, 10/25/19) TETRACYCLINES (Verified Allergy, Unknown, 10/25/19) TRIMETHOPRIM (Verified Allergy, Unknown, 10/25/19) ROS Limited/Unobtainable: Yes Constitutional: Reports: no symptoms HEENT: Reports: no symptoms Cardiovascular: Reports: no symptoms Respiratory: Reports: cough Gastrointestinal/Abdominal: Reports: no symptoms Genitourinary: Reports: no symptoms Neurologic/Psychiatric: Reports: paresthesia, pre-existing deficit All Systems: reviewed and negative except above Subjective unable to return to [facility] as pt now covid negative x 2, CM attempted to send t sister facility but admission closed today new PEG placed 11/04 Objective Last Vital Signs Date Time Temp Pulse Resp B/P (MAP) Pulse Ox O2 Delivery O2 Flow Rate FiO2 11/07/19 12:00 Nasal Cannula 2.0 11/07/19 12:00 113 11/07/19 12:00 98.6 22 117/73 (88) 96 11/05/19 18:57 28 General Appearance: no apparent distress Cardiovascular: normal rate, regular rhythm, systolic murmur Respiratory/Chest: decreased breath sounds, rhonchi - left Abdomen: non tender, soft, no mass Genitourinary/Rectal: normal genital exam Skin: warm/dry Intake and Output 11/06/19 11/07/19 19:00 07:00 Output Total 400 ml 820 ml Balance -400 ml -820 ml Output Urine Total 400 ml 820 ml # Bowel Movements 1 1 Assessment/Plan Status: stable, progressing, tolerating diet Assessment/Plan IMPRESSION: sepsis on admission COVID 19 pnemonia dysphagia acute respiratory failure hypoxemia severe protein calorie malnutrition acute toxic and metabolic encephalopathy Hypernatremia dehydration acute kidney injury leuokcytosis hx CVA with hemiplegia suprapubic catheter status senile debility ankle wound PLAN: unab;e to go back [facility] as pt now is covid negative. CV [facility] is covid + building. CM working on placement, however, admission office closed today off abx monitor temp curve PEG feeding dc palnning to SNF TF pulm inhalor DVT/GI prophylaxis electrolyte replete as needed wound care oxygen DNAR code status EDYTA HARDY MD Internal Medicine [phone] over 35 minutes spent today note time may not be the actual encounter time. over 50% allocated in counseling, coordination of care, d/w staff and family with medical update Edyta Hardy MD Nov 07, 2019 14:12
[2019-11-07 16:00] VITALS: BP 119/70
--- NOTE | 2019-11-07 16:35 | Infectious Diseases Prog Note ---
Assessment/Plan Assessment/Plan ASSESSMENT AND PLAN: 1. MDR providencia uti, sepsis, possible bacterial pneumonia, leukocytosis, fevers, hx covid-19 infection/pna, sob, bm, esquivel, arf fungemia risk, no diarrhea to suggest c.diff. 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 scabies, ? drug rash, ? b-lactam rash - s/p vancomycin and meropenem - diflucan x 3 days - elimite x 1 - monitor labs and chest x-ray - leukocytosis better - repeat covid-19 testing + - d/w RN 2. The patient has history of suprapubic catheter. 3. Hypertension. 4. Blood pressure treatment per primary care team. 5. Wound care protocol. Wounds were reviewed, not acutely infected. 6. Hemiparesis. 7. Hyperlipidemia. 8. Dementia. 9. Hypoxia and shortness of breath. 10. Continue treatment per primary consultants including hypertension treatment. 11. Allergies to acetaminophen, amoxicillin, cephalexin, codeine, hydrocodone, sulfamethoxazole, tetracycline, and trimethoprim. 12. Social history negative. 13. Family history noncontributory. 14. MAR was noted. 15. Case was discussed with RN. 16. Skin care protocol. 17. Orders were noted. Subjective Constitutional: Denies: fever HEENT: Denies: congestion Respiratory: Denies: shortness of breath Cardiovascular: Denies: chest pain Gastrointestinal/Abdominal: Denies: nausea, vomiting, diarrhea Genitourinary: Reports: other - + esquivel Neurologic: Denies: headache Psychiatric: Reports: other - NA Skin: Denies: rash Hematologic: Denies: bleeding Musculoskeletal: Reports: other - NA Allergies: Coded Allergies: ACETAMINOPHEN (Verified Allergy, Unknown, 10/25/19) AMOXICILLIN (Verified Allergy, Unknown, 10/25/19) CEPHALEXIN (Verified Allergy, Unknown, 10/25/19) CODEINE (Verified Allergy, Unknown, 10/25/19) HYDROCODONE (Verified Allergy, Unknown, 10/25/19) SULFAMETHOXAZOLE (Verified Allergy, Unknown, 10/25/19) TETRACYCLINES (Verified Allergy, Unknown, 10/25/19) TRIMETHOPRIM (Verified Allergy, Unknown, 10/25/19) Objective Last 24 Hour Vital Signs Date Time Temp Pulse Resp B/P (MAP) Pulse Ox O2 Delivery O2 Flow Rate FiO2 11/07/19 12:00 Nasal Cannula 2.0 11/07/19 12:00 113 11/07/19 12:00 98.6 97 22 117/73 (88) 96 11/07/19 08:00 Nasal Cannula 2.0 11/07/19 08:00 98.6 97 22 125/62 (83) 96 11/07/19 08:00 93 11/07/19 04:00 Nasal Cannula 2.0 11/07/19 04:00 98.0 103 18 110/81 (91) 95 11/07/19 04:00 96 11/07/19 00:00 97.4 98 19 145/78 (100) 98 11/07/19 00:00 Nasal Cannula 2.0 11/07/19 00:00 76 11/06/19 20:00 Nasal Cannula 2.0 11/06/19 20:00 97.4 104 20 150/76 (100) 97 11/06/19 20:00 104 Height (Feet): 5 Height (Inches): 0.00 Weight (Pounds): 162 General Appearance: no acute distress HEENT: normocephalic, atraumatic, anicteric, mucous membranes moist Respiratory/Chest: crackles/rales, rhonchi - bilaterally Cardiovascular: normal rate, regular rhythm, no gallop/murmur, no JVD Abdomen: normal bowel sounds, soft, non tender, no organomegaly, non distended Genitourinary: other - + esquivel Extremities: no cyanosis Skin: no rash Neurologic/Psychiatric: lumpia wrapper maker II-XII grossly normal, other - weak but responsive Lymphatic: no neck adenopathy Musculoskeletal: no effusion Chest x-ray - 10/28/19 - Procedure: XRAY Chest 1v Indication: Dyspnea Technique: One view of the chest Comparison: 10/26/2019 Findings: Patchy consolidation in the right midlung appears increasingly dense. Bilateral right greater left infiltrates are otherwise stable. Heart size is normal. The pleural spaces are clear. Impression: Increasingly dense consolidation in the right midlung. Otherwise little changer fixer 2 days Chest x-ray - 10/30/19 - FINDINGS: Lungs: Slightly improved aeration of lung. Continued right midlung infiltrates and mild atelectasis or infiltrate in the left lower lobe. Lucency in the right lung apex is likely from a skin fold. Pleural space: Unremarkable. No pneumothorax. Heart: Unremarkable. No cardiomegaly. Mediastinum: Unremarkable. Bones/joints: Unremarkable. Tubes, lines and devices: NG tube is in the right lower lung bronchus, tip in the lower right chest. IMPRESSION: 1. NG tube is in the right lower lung bronchus, tip in the lower right chest. Needs to be removed and repositioned. 2. Slightly improved aeration of lung. Continued right midlung infiltrates and mild atelectasis or infiltrate in the left lower lobe. Chest x-rya - 11/01/19 - Procedure: XRAY Chest 1v Indication: Shortness of breath Technique: One view of the chest Comparison: 10/30/2019 Findings: Right greater than left infiltrates persist, unchanged. Heart size is normal. Pleural spaces are clear. Previously demonstrated intrabronchial nasogastric tube has been removed Impression: Interim removal of previously malpositioned nasogastric tube Unchanged bilateral infiltrates Chest x-ray - 11/03/19 - Procedure: XRAY Chest 1v . Indication: Dyspnea Technique: One view of the chest Comparison: none Findings: Again demonstrated are bilateral right greater than left infiltrates. Disease has improved somewhat on the right, particularly the right lung base. Disease on the left appears unchanged. There is very slight blunting of right costophrenic sulcus, small pleural effusion now possible. The left pleural space appears clear. The heart size is normal. Interim placement of a nasogastric feeding tube, tip projecting beyond the edge of the image. Impression: Bilateral right greater than left infiltrates again demonstrated, with slight improvement on the right. New or increased small right pleural effusion Nasogastric feeding tube is now present Chest x-ray - 7/ IMPRESSION: No significant no change from the prior chest x-ray. Persistent multilobar pulmonary opacities and prominent interstitial markings, concerning for pneumonia. Microbiology Date/Time Source Procedure Growth Status 11/01/19 23:15 Blood Blood Culture - Final NO GROWTH AFTER 5 DAYS Complete 11/04/19 13:30 Nasopharynx Coronavirus COVID-19 PCR (JIM) - Final Complete 11/01/19 22:20 Indwelling Cath Urine Culture - Final NO GROWTH AFTER 48 HOURS Complete 10/25/19 17:25 Rectum VRE Culture - Final NO VANCOMYCIN RESISTANT ENTEROCOCCUS ... Complete Labs Test 11/04/19 19:48 11/05/19 04:10 11/06/19 06:40 D-Dimer 4.11 mg/L FEU (0.00-0.49) Sodium Level 138 MMOL/L (136-145) 137 MMOL/L (136-145) Potassium Level 3.9 MMOL/L (3.5-5.1) 4.0 MMOL/L (3.5-5.1) Chloride Level 105 MMOL/L (98-107) 104 MMOL/L (98-107) Carbon Dioxide Level 27 MMOL/L (21-32) 27 MMOL/L (21-32) Blood Urea Nitrogen 11 mg/dL (7-18) 8 mg/dL (7-18) Creatinine 0.9 MG/DL (0.55-1.30) 0.8 MG/DL (0.55-1.30) Estimat Glomerular Filtration Rate > 60 mL/min (>60) > 60 mL/min (>60) Glucose Level 134 MG/DL (74-106) 131 MG/DL (74-106) Calcium Level 7.7 MG/DL (8.5-10.1) 7.6 MG/DL (8.5-10.1) Phosphorus Level 2.0 MG/DL (2.5-4.9) Magnesium Level 1.7 MG/DL (1.8-2.4) White Blood Count 9.8 K/UL (4.8-10.8) Red Blood Count 4.09 M/UL (4.70-6.10) Hemoglobin 13.0 G/DL (14.2-18.0) Hematocrit 38.8 % (42.0-52.0) Mean Corpuscular Volume 95 FL (80-99) Mean Corpuscular Hemoglobin 31.7 PG (27.0-31.0) Mean Corpuscular Hemoglobin Concent 33.5 G/DL (32.0-36.0) Red Cell Distribution Width 12.7 % (11.6-14.8) Platelet Count 253 K/UL (150-450) Mean Platelet Volume 8.2 FL (6.5-10.1) Neutrophils (%) (Auto) 73.5 % (45.0-75.0) Lymphocytes (%) (Auto) 15.7 % (20.0-45.0) Monocytes (%) (Auto) 6.4 % (1.0-10.0) Eosinophils (%) (Auto) 3.9 % (0.0-3.0) Basophils (%) (Auto) 0.5 % (0.0-2.0) Anion Gap 6 mmol/L (5-15) Total Bilirubin 1.1 MG/DL (0.2-1.0) Direct Bilirubin 0.2 MG/DL (0.0-0.3) Aspartate Amino Transf (AST/SGOT) 18 U/L (15-37) Alanine Aminotransferase (ALT/SGPT) 12 U/L (12-78) Alkaline Phosphatase 89 U/L (46-116) Total Protein 5.9 G/DL (6.4-8.2) Albumin 1.7 G/DL (3.4-5.0) Globulin 4.2 g/dL Albumin/Globulin Ratio 0.4 (1.0-2.7) Current Medications Medications (Trade) Dose Ordered Sig/Jesu Route PRN Reason Start Time Stop Time Status Last Admin Dose Admin Albuterol Sulfate (Proventil MDI) 2 puff Q4H PRN INH Shortness of Breath 11/05/19 09:00 01/23/20 08:59 Aspirin (Ecotrin) 81 mg DAILY ORAL 11/05/19 09:00 12/10/19 08:59 11/07/19 08:32 Dextrose/ Electrolytes 1,000 ml @ 100 mls/hr Q10H IV 11/05/19 09:00 11/25/19 08:59 11/07/19 11:30 Fluconazole/ Sodium Chloride 100 ml @ 100 mls/hr Q24H IV 11/05/19 23:00 11/08/19 22:59 11/06/19 23:37 Gabapentin (Neurontin) 300 mg BID ORAL 11/05/19 09:00 11/25/19 08:59 11/07/19 08:32 Lorazepam (Ativan 2mg/ml 1ml) 0.5 mg Q6H PRN IV For Anxiety 11/05/19 09:00 11/12/19 08:59 Magnesium Hydroxide (Mom) 30 ml DAILYPRN PRN ORAL Constipation 11/05/19 23:30 11/24/19 23:29 Multi-Ingredient Mouthwash/Gargle (Magic Mouth Wash 60ml) 10 ml BID ORAL 11/05/19 09:00 11/25/19 08:59 11/07/19 08:37 Multivitamins (Multivitamins W/ Minerals 15ml Liquid) 15 ml DAILY ORAL 11/05/19 09:00 11/25/19 08:59 11/07/19 08:32 Julio Sarabia MD Nov 07, 2019 16:35
[2019-11-07 20:00] VITALS: BP 127/75
[2019-11-08] VITALS: BP 138/80
[2019-11-08 04:00] VITALS: BP 115/68
[2019-11-08 06:53] LABS: EOSINOPHILS % (AUTO) 5.8 % (0.0-3.0); HEMATOCRIT 38.2 % (42.0-52.0); HEMOGLOBIN 12.7 G/DL (14.2-18.0); LYMPHOCYTES % (AUTO) 18.9 % (20.0-45.0); MEAN CORPUSCULAR VOLUME 95 FL (80-99); MONOCYTES % (AUTO) 7.9 % (1.0-10.0); NEUTROPHILS % (AUTO) 66.4 % (45.0-75.0); PLATELET COUNT 268 K/UL (150-450); RED CELL DISTRIBUTION WIDTH 13.1 % (11.6-14.8); WHITE BLOOD COUNT 9.4 K/UL (4.8-10.8)
[2019-11-08] MEDS: D5 1/2NS w/KCL 10meq 1,000 ML IV SCH (07:00)
--- NOTE | 2019-11-08 07:09 | 48 Hour Post Anesthesia Eval ---
Post Anesthesia Evaluation Procedure: PEG placement Date of Evaluation: Nov 08, 2019 Time of Evaluation: 07:08 Blood Pressure Systolic: 115 0: 65 Pulse Rate: 70 Temperature (Fahrenheit): 97.7 O2 Sat by Pulse Oximetry: 98 Airway: patent Nausea: No Vomiting: No Hydration Status: adequate Cardiopulmonary Status: stable Mental Status/LOC: patient returned to baseline Post-Anesthesia Complications: none Follow-up care needed: N/A Pamela Winters CRNA Nov 08, 2019 07:09
[2019-11-08 07:25] LABS: ALANINE AMINOTRANSFERASE 14 U/L (12-78); ALBUMIN 1.8 G/DL (3.4-5.0); ALBUMIN/GLOBULIN RATIO 0.4 (1.0-2.7); ALKALINE PHOSPHATASE 122 U/L (46-116); ANION GAP 6 mmol/L (5-15); ASPARTATE AMINO TRANSFERASE 18 U/L (15-37); BILIRUBIN,TOTAL 0.7 MG/DL (0.2-1.0); BLOOD UREA NITROGEN 11 mg/dL (7-18); CALCIUM 8.3 MG/DL (8.5-10.1); CARBON DIOXIDE 28 MMOL/L (21-32); CHLORIDE 104 MMOL/L (98-107); CREATININE 0.9 MG/DL (0.55-1.30); POTASSIUM 4.2 MMOL/L (3.5-5.1); SODIUM 138 MMOL/L (136-145)
[2019-11-08 08:00] VITALS: BP 143/82
--- NOTE | 2019-11-08 09:26 | General Progress Note ---
Assessment/Plan Problem List: (1) Sepsis ICD Codes: A41.9 - Sepsis, unspecified organism SNOMED: 94751417 Qualifiers: Qualified Codes: A41.9 - Sepsis, unspecified organism; R65.20 - Severe sepsis without septic shock; N17.9 - Acute kidney failure, unspecified (2) Hypoxia ICD Codes: R09.02 - Hypoxemia SNOMED: 644548784 (3) Right hemiparesis ICD Codes: G81.91 - Hemiplegia, unspecified affecting right dominant side SNOMED: 008112952 (4) COVID-19 ICD Codes: U07.1 - COVID-19 SNOMED: 970458217 Status: stable, progressing, tolerating diet Assessment/Plan: GTF GT CARE monitor for residuals pending placement Subjective ROS Limited/Unobtainable: No Allergies: Coded Allergies: ACETAMINOPHEN (Verified Allergy, Unknown, 10/25/19) AMOXICILLIN (Verified Allergy, Unknown, 10/25/19) CEPHALEXIN (Verified Allergy, Unknown, 10/25/19) CODEINE (Verified Allergy, Unknown, 10/25/19) HYDROCODONE (Verified Allergy, Unknown, 10/25/19) SULFAMETHOXAZOLE (Verified Allergy, Unknown, 10/25/19) TETRACYCLINES (Verified Allergy, Unknown, 10/25/19) TRIMETHOPRIM (Verified Allergy, Unknown, 10/25/19) Objective Last 24 Hour Vital Signs Date Time Temp Pulse Resp B/P (MAP) Pulse Ox O2 Delivery O2 Flow Rate FiO2 11/08/19 08:00 99.9 88 18 143/82 (102) 100 11/08/19 07:09 70 98 11/08/19 04:00 97.7 97 20 115/68 (84) 97 11/08/19 04:00 85 11/08/19 00:00 105 11/08/19 00:00 99.0 109 19 138/80 (99) 99 11/07/19 21:00 Nasal Cannula 2.0 11/07/19 20:00 117 11/07/19 20:00 98.6 120 22 127/75 (92) 96 11/07/19 16:00 131 11/07/19 16:00 98.9 24 119/70 (86) 90 11/07/19 12:00 Nasal Cannula 2.0 11/07/19 12:00 113 11/07/19 12:00 98.6 97 22 117/73 (88) 96 Intake and Output 11/07/19 11/08/19 19:00 07:00 Intake Total 765 ml Output Total 1900 ml 800 ml Balance -1135 ml -800 ml Tube Feeding 465 ml Other 300 ml Output Urine Total 1900 ml 800 ml # Voids 1 # Bowel Movements 1 Laboratory Tests 11/07/19 17:13: Arterial Blood pH 7.510H, Arterial Blood Partial Pressure CO2 31.5L, Arterial Blood Partial Pressure O2 37.1*L, Arterial Blood HCO3 24.6, Arterial Blood Oxygen Saturation 77.7*L, Arterial Blood Base Excess 2.3H, Miguel Angel Test Positive 11/08/19 05:50: White Blood Count 9.4, Red Blood Count 4.00L, Hemoglobin 12.7L, Hematocrit 38.2L , Mean Corpuscular Volume 95, Mean Corpuscular Hemoglobin 31.8H, Mean Corpuscular Hemoglobin Concent 33.3, Red Cell Distribution Width 13.1, Platelet Count 268, Mean Platelet Volume 8.1, Neutrophils (%) (Auto) 66.4, Lymphocytes (% ) (Auto) 18.9L, Monocytes (%) (Auto) 7.9, Eosinophils (%) (Auto) 5.8H, Basophils (%) (Auto) 1.0, Sodium Level 138, Potassium Level 4.2, Chloride Level 104, Carbon Dioxide Level 28, Anion Gap 6, Blood Urea Nitrogen 11, Creatinine 0.9, Estimat Glomerular Filtration Rate > 60, Glucose Level 125H, Calcium Level 8.3L, Total Bilirubin 0.7, Aspartate Amino Transf (AST/SGOT) 18, Alanine Aminotransferase (ALT/SGPT) 14, Alkaline Phosphatase 122H, Total Protein 6.2L, Albumin 1.8L, Globulin 4.4, Albumin/Globulin Ratio 0.4L Height (Feet): 5 Height (Inches): 0.00 Weight (Pounds): 162 General Appearance: no apparent distress EENT: normal ENT inspection Neck: supple Cardiovascular: normal rate Respiratory/Chest: decreased breath sounds Abdomen: normal bowel sounds, non tender, soft Extremities: non-tender Nathan Quesada MD Nov 08, 2019 09:26
[2019-11-08] MEDS: Multivitamins W/Minerals 15 ML UDC ORAL SCH (09:33)
[2019-11-08] MEDS: Aspirin EC 81mg tab ORAL SCH (09:34)
[2019-11-08] MEDS: Magic Mouth Wash 60ml (Benadryl/Mylanta/Visc Lido) ORAL SCH ×2 (09:41→17:16)
[2019-11-08 12:00] VITALS: BP 140/78
--- NOTE | 2019-11-08 13:05 | Nephrology Progress Note ---
Assessment/Plan Plan #COVID pneumonia #TELMA due to dehydration #sepsis #Hypernatremia due to dehydration #hypoxemic resp failure #Volume depletion - continue TF - pending peg tube - replete phos and mag - abx - pulm, ID and cards eval - 2d echo - bipap prn - follow cx - avoid nephrotoxins - replace free water - monitor mag, phos and bmp daily - DNR/DNI time spent 70 min- greater than 50% on care coordination and counseling Subjective ROS Limited/Unobtainable: Yes Constitutional: Reports: weakness HEENT: Denies: no symptoms, eye pain, blurred vision, tearing, double vision, ear pain, ear discharge, nose pain, nose congestion, throat pain, throat swelling, mouth pain, mouth swelling, other Genitourinary: Denies: no symptoms, burning, discharge, frequency, flank pain, hematuria, incontinence, pain, urgency, other Neurologic/Psychiatric: Denies: no symptoms, anxiety, depressed, emotional problems, headache, numbness, paresthesia, pre-existing deficit, seizure, tingling, tremors, weakness, other Subjective peg placed tachycardic improved with metop Sodium and cr improving DC planning Objective Objective Last 24 Hour Vital Signs Date Time Temp Pulse Resp B/P (MAP) Pulse Ox O2 Delivery O2 Flow Rate FiO2 11/08/19 12:00 98.8 92 18 140/78 (98) 100 11/08/19 12:00 84 11/08/19 09:00 Nasal Cannula 2.0 11/08/19 08:00 86 11/08/19 08:00 99.9 88 18 143/82 (102) 100 11/08/19 07:09 70 98 11/08/19 04:00 97.7 97 20 115/68 (84) 97 11/08/19 04:00 85 11/08/19 00:00 105 11/08/19 00:00 99.0 109 19 138/80 (99) 99 11/07/19 21:00 Nasal Cannula 2.0 11/07/19 20:00 117 11/07/19 20:00 98.6 120 22 127/75 (92) 96 11/07/19 16:00 131 11/07/19 16:00 98.9 24 119/70 (86) 90 Intake and Output 11/07/19 11/08/19 19:00 07:00 Intake Total 765 ml Output Total 1900 ml 800 ml Balance -1135 ml -800 ml Tube Feeding 465 ml Other 300 ml Output Urine Total 1900 ml 800 ml # Voids 1 # Bowel Movements 1 Laboratory Tests 11/07/19 17:13: Arterial Blood pH 7.510H, Arterial Blood Partial Pressure CO2 31.5L, Arterial Blood Partial Pressure O2 37.1*L, Arterial Blood HCO3 24.6, Arterial Blood Oxygen Saturation 77.7*L, Arterial Blood Base Excess 2.3H, Miguel Angel Test Positive 11/08/19 05:50: White Blood Count 9.4, Red Blood Count 4.00L, Hemoglobin 12.7L, Hematocrit 38.2L , Mean Corpuscular Volume 95, Mean Corpuscular Hemoglobin 31.8H, Mean Corpuscular Hemoglobin Concent 33.3, Red Cell Distribution Width 13.1, Platelet Count 268, Mean Platelet Volume 8.1, Neutrophils (%) (Auto) 66.4, Lymphocytes (% ) (Auto) 18.9L, Monocytes (%) (Auto) 7.9, Eosinophils (%) (Auto) 5.8H, Basophils (%) (Auto) 1.0, Sodium Level 138, Potassium Level 4.2, Chloride Level 104, Carbon Dioxide Level 28, Anion Gap 6, Blood Urea Nitrogen 11, Creatinine 0.9, Estimat Glomerular Filtration Rate > 60, Glucose Level 125H, Calcium Level 8.3L, Total Bilirubin 0.7, Aspartate Amino Transf (AST/SGOT) 18, Alanine Aminotransferase (ALT/SGPT) 14, Alkaline Phosphatase 122H, Total Protein 6.2L, Albumin 1.8L, Globulin 4.4, Albumin/Globulin Ratio 0.4L Height (Feet): 5 Height (Inches): 0.00 Weight (Pounds): 162 Aron Barbosa M.D. Nov 08, 2019 13:05
--- NOTE | 2019-11-08 13:14 | Internal Med Progress Note ---
Subjective Date of Service: Nov 08, 2019 Physician Name Ad Hardy Attending Physician Aron Barbosa M.D. Current Medications Medications (Trade) Dose Ordered Sig/Jesu Route PRN Reason Start Time Stop Time Status Last Admin Dose Admin Albuterol Sulfate (Proventil MDI) 2 puff Q4H PRN INH Shortness of Breath 11/05/19 09:00 01/23/20 08:59 Aspirin (Ecotrin) 81 mg DAILY ORAL 11/05/19 09:00 12/10/19 08:59 11/08/19 09:34 Fluconazole/ Sodium Chloride 100 ml @ 100 mls/hr Q24H IV 11/07/19 23:00 11/10/19 22:59 11/07/19 23:59 Gabapentin (Neurontin) 300 mg BID ORAL 11/05/19 09:00 11/25/19 08:59 11/08/19 09:34 Lorazepam (Ativan 2mg/ml 1ml) 0.5 mg Q6H PRN IV For Anxiety 11/05/19 09:00 11/12/19 08:59 Magnesium Hydroxide (Mom) 30 ml DAILYPRN PRN ORAL Constipation 11/05/19 23:30 11/24/19 23:29 Multi-Ingredient Mouthwash/Gargle (Magic Mouth Wash 60ml) 10 ml BID ORAL 11/05/19 09:00 11/25/19 08:59 11/08/19 09:41 Multivitamins (Multivitamins W/ Minerals 15ml Liquid) 15 ml DAILY ORAL 11/05/19 09:00 11/25/19 08:59 11/08/19 09:33 Allergies: Coded Allergies: ACETAMINOPHEN (Verified Allergy, Unknown, 10/25/19) AMOXICILLIN (Verified Allergy, Unknown, 10/25/19) CEPHALEXIN (Verified Allergy, Unknown, 10/25/19) CODEINE (Verified Allergy, Unknown, 10/25/19) HYDROCODONE (Verified Allergy, Unknown, 10/25/19) SULFAMETHOXAZOLE (Verified Allergy, Unknown, 10/25/19) TETRACYCLINES (Verified Allergy, Unknown, 10/25/19) TRIMETHOPRIM (Verified Allergy, Unknown, 10/25/19) ROS Limited/Unobtainable: Yes Constitutional: Reports: no symptoms HEENT: Reports: no symptoms Cardiovascular: Reports: no symptoms Respiratory: Reports: no symptoms Neurologic/Psychiatric: Reports: paresthesia, pre-existing deficit All Systems: reviewed and negative except above Subjective unable to return to [facility] as pt now covid negative x 2, CM working on disposition to another [facility] new PEG placed 11/04 Objective Last Vital Signs Date Time Temp Pulse Resp B/P (MAP) Pulse Ox O2 Delivery O2 Flow Rate FiO2 11/08/19 12:00 98.8 92 18 140/78 (98) 100 11/08/19 09:00 Nasal Cannula 2.0 11/05/19 18:57 28 General Appearance: no apparent distress Neck: supple Cardiovascular: tachycardia, systolic murmur Respiratory/Chest: decreased breath sounds Abdomen: normal bowel sounds, non tender, soft Genitourinary/Rectal: normal genital exam Edema: trace edema Neurologic: responsive, motor weakness, sensory deficit, disoriented Laboratory Tests Test 11/07/19 17:13 11/08/19 05:50 Arterial Blood pH 7.510 (7.350-7.450) Arterial Blood Partial Pressure CO2 31.5 mmHg (35.0-45.0) L Arterial Blood Partial Pressure O2 37.1 mmHg (75.0-100.0) Arterial Blood HCO3 24.6 mmol/L (22.0-26.0) Arterial Blood Oxygen Saturation 77.7 % (95-100) *L Arterial Blood Base Excess 2.3 (-2-2) H Miguel Angel Test Positive White Blood Count 9.4 K/UL (4.8-10.8) Red Blood Count 4.00 M/UL (4.70-6.10) L Hemoglobin 12.7 G/DL (14.2-18.0) L Hematocrit 38.2 % (42.0-52.0) L Mean Corpuscular Volume 95 FL (80-99) Mean Corpuscular Hemoglobin 31.8 PG (27.0-31.0) H Mean Corpuscular Hemoglobin Concent 33.3 G/DL (32.0-36.0) Red Cell Distribution Width 13.1 % (11.6-14.8) Platelet Count 268 K/UL (150-450) Mean Platelet Volume 8.1 FL (6.5-10.1) Neutrophils (%) (Auto) 66.4 % (45.0-75.0) Lymphocytes (%) (Auto) 18.9 % (20.0-45.0) L Monocytes (%) (Auto) 7.9 % (1.0-10.0) Eosinophils (%) (Auto) 5.8 % (0.0-3.0) H Basophils (%) (Auto) 1.0 % (0.0-2.0) Sodium Level 138 MMOL/L (136-145) Potassium Level 4.2 MMOL/L (3.5-5.1) Chloride Level 104 MMOL/L (98-107) Carbon Dioxide Level 28 MMOL/L (21-32) Anion Gap 6 mmol/L (5-15) Blood Urea Nitrogen 11 mg/dL (7-18) Creatinine 0.9 MG/DL (0.55-1.30) Estimat Glomerular Filtration Rate > 60 mL/min (>60) Glucose Level 125 MG/DL (74-106) H Calcium Level 8.3 MG/DL (8.5-10.1) L Total Bilirubin 0.7 MG/DL (0.2-1.0) Aspartate Amino Transf (AST/SGOT) 18 U/L (15-37) Alanine Aminotransferase (ALT/SGPT) 14 U/L (12-78) Alkaline Phosphatase 122 U/L (46-116) H Total Protein 6.2 G/DL (6.4-8.2) L Albumin 1.8 G/DL (3.4-5.0) L Globulin 4.4 g/dL Albumin/Globulin Ratio 0.4 (1.0-2.7) L Intake and Output 11/07/19 11/08/19 19:00 07:00 Intake Total 765 ml Output Total 1900 ml 800 ml Balance -1135 ml -800 ml Tube Feeding 465 ml Other 300 ml Output Urine Total 1900 ml 800 ml # Voids 1 # Bowel Movements 1 Assessment/Plan Status: stable, progressing, tolerating diet Assessment/Plan IMPRESSION: sepsis on admission COVID 19 pnemonia dysphagia acute respiratory failure hypoxemia severe protein calorie malnutrition acute toxic and metabolic encephalopathy Hypernatremia dehydration acute kidney injury leuokcytosis hx CVA with hemiplegia suprapubic catheter status senile debility ankle wound PLAN: unable to go back tp [facility] as pt now is covid negative. CV [facility] is covid + building. CM working on placement off abx monitor temp curve PEG feeding dc palnning to SNF TF pulm inhalor DVT/GI prophylaxis electrolyte replete as needed wound care oxygen DNAR code status AD HARDY MD Internal Medicine [phone] over 35 minutes spent today note time may not be the actual encounter time. over 50% allocated in counseling, coordination of care, d/w staff and family with medical update Ad Hardy MD Nov 08, 2019 13:14
--- NOTE | 2019-11-08 13:43 | Surgery Progress Note ---
Surgery Progress Note Subjective Additional Comments No acute events labs noted exam stable. Objective Last 24 Hour Vital Signs Date Time Temp Pulse Resp B/P (MAP) Pulse Ox O2 Delivery O2 Flow Rate FiO2 11/08/19 12:00 98.8 92 18 140/78 (98) 100 11/08/19 12:00 84 11/08/19 09:00 Nasal Cannula 2.0 11/08/19 08:00 86 11/08/19 08:00 99.9 88 18 143/82 (102) 100 11/08/19 07:09 70 98 11/08/19 04:00 97.7 97 20 115/68 (84) 97 11/08/19 04:00 85 11/08/19 00:00 105 11/08/19 00:00 99.0 109 19 138/80 (99) 99 11/07/19 21:00 Nasal Cannula 2.0 11/07/19 20:00 117 11/07/19 20:00 98.6 120 22 127/75 (92) 96 11/07/19 16:00 131 11/07/19 16:00 98.9 24 119/70 (86) 90 I&O Intake and Output 11/07/19 11/08/19 19:00 07:00 Intake Total 765 ml Output Total 1900 ml 800 ml Balance -1135 ml -800 ml Tube Feeding 465 ml Other 300 ml Output Urine Total 1900 ml 800 ml # Voids 1 # Bowel Movements 1 Dressing: other Wound: other Drains: other Cardiovascular: RSR Respiratory: decreased breath sounds Abdomen: soft, non-tender, present bowel sounds Extremities: no tenderness, no cyanosis Laboratory Tests Test 11/07/19 17:13 11/08/19 05:50 Arterial Blood pH 7.510 (7.350-7.450) Arterial Blood Partial Pressure CO2 31.5 mmHg (35.0-45.0) L Arterial Blood Partial Pressure O2 37.1 mmHg (75.0-100.0) Arterial Blood HCO3 24.6 mmol/L (22.0-26.0) Arterial Blood Oxygen Saturation 77.7 % (95-100) *L Arterial Blood Base Excess 2.3 (-2-2) H Miguel Angel Test Positive White Blood Count 9.4 K/UL (4.8-10.8) Red Blood Count 4.00 M/UL (4.70-6.10) L Hemoglobin 12.7 G/DL (14.2-18.0) L Hematocrit 38.2 % (42.0-52.0) L Mean Corpuscular Volume 95 FL (80-99) Mean Corpuscular Hemoglobin 31.8 PG (27.0-31.0) H Mean Corpuscular Hemoglobin Concent 33.3 G/DL (32.0-36.0) Red Cell Distribution Width 13.1 % (11.6-14.8) Platelet Count 268 K/UL (150-450) Mean Platelet Volume 8.1 FL (6.5-10.1) Neutrophils (%) (Auto) 66.4 % (45.0-75.0) Lymphocytes (%) (Auto) 18.9 % (20.0-45.0) L Monocytes (%) (Auto) 7.9 % (1.0-10.0) Eosinophils (%) (Auto) 5.8 % (0.0-3.0) H Basophils (%) (Auto) 1.0 % (0.0-2.0) Sodium Level 138 MMOL/L (136-145) Potassium Level 4.2 MMOL/L (3.5-5.1) Chloride Level 104 MMOL/L (98-107) Carbon Dioxide Level 28 MMOL/L (21-32) Anion Gap 6 mmol/L (5-15) Blood Urea Nitrogen 11 mg/dL (7-18) Creatinine 0.9 MG/DL (0.55-1.30) Estimat Glomerular Filtration Rate > 60 mL/min (>60) Glucose Level 125 MG/DL (74-106) H Calcium Level 8.3 MG/DL (8.5-10.1) L Total Bilirubin 0.7 MG/DL (0.2-1.0) Aspartate Amino Transf (AST/SGOT) 18 U/L (15-37) Alanine Aminotransferase (ALT/SGPT) 14 U/L (12-78) Alkaline Phosphatase 122 U/L (46-116) H Total Protein 6.2 G/DL (6.4-8.2) L Albumin 1.8 G/DL (3.4-5.0) L Globulin 4.4 g/dL Albumin/Globulin Ratio 0.4 (1.0-2.7) L Plan Problems: (1) Renal failure (2) Hypoxia (3) Sepsis Assessment & Plan: 89 year old male with leukocytosis, lactic acidosis, abnormal labs. currently in monitoring unit on face mask respiratory support Hx COVID + UTI Pt presented on admission with multiple Pressure injuries. Pt currently using Venti-mask. Non-Blanching erythema noted to bridge of nose and both cheeks consistent with mask. Cavilon Skin Barrier applied to affected areas and covered with Foam tape. Non-Blanching erythema noted to clefts of both ears. Elastic Band of oxygen tubing padded. Non-Blanching erythema without induration noted to sacrum,R and L Gluteus. Non-Blanching erythema noted to R trochanter(L)3cm x (W)6.3cm. DTPI noted to L Heel. Base of heel is maroon and fluctuant (L)4.3cm x (W)5.5cm. Periwound is boggy but easily blanchable. R heel and lateral R foot boggy with non-blanching erythema. Resolving Pressure injury Lateral R malleolus. Base of wound is dry, black with pink epithelial at center of wound.(L)2.5cm x (W)2.7cm. Apply Moisture Barrier Paste to Sacrum. Cover with Optifoam drsg. Change every 3 days and prn. Apply Cavilon Skin Barrier to R and L trochanter. Cover each site with Optifoam drsg. Change every 7 days and PRN. Apply Cavilon Skin Barrier to both Earlobes TWICE daily.Pad elastic band of oxygen mask. Keep band loose around ears. Apply Cavilon Skin Barrier to R and L cheeks and Bridge of Nose. Apply Foam tape. Change every 7 days and PRN. Apply Cavilon Skin Barrier to both heels and malleoli. Cover each site with Optifoam drsgs. Change every 7 days and PRN. Reposition at least every 2hours or as tolerated. Off-load heels with Pillows. APM/MODESTO Mattress overlay. diet as tolerated respiratory support CXR noted nutritional optimization ng in place. tf as tolerated turn q2h will follow with recs s/p PEG. tf as tolerated thank you DAILY ESTIMATED NEEDS: Needs based on pulmonary, wound 75kg abw 25-30 kcals/kg 5544-9426 total kcals 1.25-1.5 g protein/kg 94-113 g total protein 20-25 mL/kg 3300-5251 total fluid mLs NUTRITION DIAGNOSIS: *Swallowing difficulty R/T dysphagia, h/o CVA, decreased cognitive fxn as evidenced by nonoral feeds recommended by [facility], s/p multiple failed NGT insertion, now pending PEG placement. *Altered nutrition related lab values r/t clinical status as evidenced by elev Na (159-> wnl), elev BUN(43-> wnl-> 4l), elev BG (212->125 131 134 improved). CURRENT TF:Glucerna 1.2 @ 65ml/hr x 24 hrs ENTERAL NUTRITION RECOMMENDATIONS: Glucerna 1.2 goal of 65ml/hr x24 hrs to provide 1560ml, 1872 kcal, 94g pro, 1256ml free H2O - Cont to increase to goal rate as tolerated - Flush per MD/ HOB over 30 degrees. Glucerna 1.2 low on stock-> may replace w/ Glucerna 1.5 @ 52ml/hr x 24 hrs to provide 1248ml, 1872kcal, 103g prot, 955 ml free water ADDITIONAL RECOMMENDATIONS: 1) W/ TF, monitor lytes closely, replete as needed -> phos and mag low on 11/04, rec updated levels 2) Wound healing: Add Vit C 250mg QD + Brian BID 3) Maintain calibrated bed scale wts 4) Check A1C 5) Consider NISS w/ TF . (4) Right hemiparesis Pankaj Palomo Nov 08, 2019 13:43
[2019-11-08 16:00] VITALS: BP 139/69
--- NOTE | 2019-11-08 16:41 | Pulmonology Progress Note ---
Subjective ROS Limited/Unobtainable: Yes Interval Events: None new reported Constitutional: Denies: fever HEENT: Repors: no symptoms Respiratory: Reports: no symptoms Cardiovascular: Reports: no symptoms Gastrointestinal/Abdominal: Denies: nausea, vomiting, diarrhea Genitourinary: Reports: no symptoms Neurologic: Reports: no symptoms Psychiatric: Reports: other - NA Skin: Denies: rash Musculoskeletal: Reports: other - NA Allergies: Coded Allergies: ACETAMINOPHEN (Verified Allergy, Unknown, 10/25/19) AMOXICILLIN (Verified Allergy, Unknown, 10/25/19) CEPHALEXIN (Verified Allergy, Unknown, 10/25/19) CODEINE (Verified Allergy, Unknown, 10/25/19) HYDROCODONE (Verified Allergy, Unknown, 10/25/19) SULFAMETHOXAZOLE (Verified Allergy, Unknown, 10/25/19) TETRACYCLINES (Verified Allergy, Unknown, 10/25/19) TRIMETHOPRIM (Verified Allergy, Unknown, 10/25/19) All Systems: reviewed and negative except above Objective Last 24 Hour Vital Signs Date Time Temp Pulse Resp B/P (MAP) Pulse Ox O2 Delivery O2 Flow Rate FiO2 11/08/19 12:00 98.8 92 18 140/78 (98) 100 11/08/19 12:00 84 11/08/19 09:00 Non-Rebreather 15.0 11/08/19 08:00 86 11/08/19 08:00 99.9 88 18 143/82 (102) 100 11/08/19 07:09 70 98 11/08/19 04:00 97.7 97 20 115/68 (84) 97 11/08/19 04:00 85 11/08/19 00:00 105 11/08/19 00:00 99.0 109 19 138/80 (99) 99 11/07/19 21:00 Nasal Cannula 2.0 11/07/19 20:00 117 11/07/19 20:00 98.6 120 22 127/75 (92) 96 Intake and Output 11/07/19 11/08/19 19:00 07:00 Intake Total 765 ml Output Total 1900 ml 800 ml Balance -1135 ml -800 ml Tube Feeding 465 ml Other 300 ml Output Urine Total 1900 ml 800 ml # Voids 1 # Bowel Movements 1 General Appearance: no acute distress HEENT: normocephalic Respiratory: chest wall non-tender, lungs clear Cardiovascular: normal peripheral pulses, normal rate Abdomen: normal bowel sounds Laboratory Tests 11/07/19 17:13: Arterial Blood pH 7.510H, Arterial Blood Partial Pressure CO2 31.5L, Arterial Blood Partial Pressure O2 37.1*L, Arterial Blood HCO3 24.6, Arterial Blood Oxygen Saturation 77.7*L, Arterial Blood Base Excess 2.3H, Miguel Angel Test Positive 11/08/19 05:50: White Blood Count 9.4, Red Blood Count 4.00L, Hemoglobin 12.7L, Hematocrit 38.2L , Mean Corpuscular Volume 95, Mean Corpuscular Hemoglobin 31.8H, Mean Corpuscular Hemoglobin Concent 33.3, Red Cell Distribution Width 13.1, Platelet Count 268, Mean Platelet Volume 8.1, Neutrophils (%) (Auto) 66.4, Lymphocytes (% ) (Auto) 18.9L, Monocytes (%) (Auto) 7.9, Eosinophils (%) (Auto) 5.8H, Basophils (%) (Auto) 1.0, Sodium Level 138, Potassium Level 4.2, Chloride Level 104, Carbon Dioxide Level 28, Anion Gap 6, Blood Urea Nitrogen 11, Creatinine 0.9, Estimat Glomerular Filtration Rate > 60, Glucose Level 125H, Calcium Level 8.3L, Total Bilirubin 0.7, Aspartate Amino Transf (AST/SGOT) 18, Alanine Aminotransferase (ALT/SGPT) 14, Alkaline Phosphatase 122H, Total Protein 6.2L, Albumin 1.8L, Globulin 4.4, Albumin/Globulin Ratio 0.4L Current Medications Medications (Trade) Dose Ordered Sig/Jesu Route PRN Reason Start Time Stop Time Status Last Admin Dose Admin Albuterol Sulfate (Proventil MDI) 2 puff Q4H PRN INH Shortness of Breath 11/05/19 09:00 01/23/20 08:59 Ascorbic Acid (Vitamin C) 250 mg DAILY ORAL 11/09/19 09:00 12/09/19 08:59 Aspirin (Ecotrin) 81 mg DAILY ORAL 11/05/19 09:00 12/10/19 08:59 11/08/19 09:34 Fluconazole/ Sodium Chloride 100 ml @ 100 mls/hr Q24H IV 11/07/19 23:00 11/10/19 22:59 11/07/19 23:59 Gabapentin (Neurontin) 300 mg BID ORAL 11/05/19 09:00 11/25/19 08:59 11/08/19 09:34 Lorazepam (Ativan 2mg/ml 1ml) 0.5 mg Q6H PRN IV For Anxiety 11/05/19 09:00 11/12/19 08:59 Magnesium Hydroxide (Mom) 30 ml DAILYPRN PRN ORAL Constipation 11/05/19 23:30 11/24/19 23:29 Multi-Ingredient Mouthwash/Gargle (Magic Mouth Wash 60ml) 10 ml BID ORAL 11/05/19 09:00 11/25/19 08:59 11/08/19 09:41 Multivitamins (Multivitamins W/ Minerals 15ml Liquid) 15 ml DAILY ORAL 11/05/19 09:00 11/25/19 08:59 11/08/19 09:33 Assessment/Plan Assessment/Plan IMPRESSION: 1. COVID-19 pneumonia by history. Current pcr negative 2. Bilateral pulmonary infiltrates. 3. Hypoxemia. 4. Hypernatremia. 5. Renal failure. 6. Hypertension. 7. Chronic suprapubic catheter. 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 Enteral nutrition Continue oxygen via 2-4L/min nasal cannulae DC to SNF [facility] Goldstein Omar Syed MD Nov 08, 2019 16:41
[2019-11-08 20:00] VITALS: BP 106/67
[2019-11-09] VITALS: BP 120/63
[2019-11-09 04:00] VITALS: BP 114/65
[2019-11-09 08:00] VITALS: BP 133/73
[2019-11-09] MEDS: Multivitamins W/Minerals 15 ML UDC ORAL SCH (08:48)
[2019-11-09] MEDS: Aspirin EC 81mg tab ORAL SCH (08:48)
[2019-11-09] MEDS ORDERED: Ascorbic Acid 500mg tab ORAL SCH (09:00)
[2019-11-09] MEDS: Magic Mouth Wash 60ml (Benadryl/Mylanta/Visc Lido) ORAL SCH (09:03)
--- NOTE | 2019-11-09 09:24 | Diagnostic Imaging Report ---
Indication: Shortness of breath Technique: One view of the chest Comparison: 11/06/2019 Findings: Bilateral infiltrates are unchanged. The heart size is normal. The pleural spaces are clear. Gastrostomy and cholecystectomy clips are again demonstrated Impression: Unchanged, over one day, findings as above.
--- NOTE | 2019-11-09 09:59 | Pulmonology Progress Note ---
Subjective ROS Limited/Unobtainable: Yes Interval Events: None new reported Constitutional: Denies: fever HEENT: Repors: no symptoms Respiratory: Reports: no symptoms Cardiovascular: Reports: no symptoms Gastrointestinal/Abdominal: Denies: nausea, vomiting, diarrhea Genitourinary: Reports: no symptoms Neurologic: Reports: no symptoms Psychiatric: Reports: other - NA Skin: Denies: rash Musculoskeletal: Reports: other - NA Allergies: Coded Allergies: ACETAMINOPHEN (Verified Allergy, Unknown, 10/25/19) AMOXICILLIN (Verified Allergy, Unknown, 10/25/19) CEPHALEXIN (Verified Allergy, Unknown, 10/25/19) CODEINE (Verified Allergy, Unknown, 10/25/19) HYDROCODONE (Verified Allergy, Unknown, 10/25/19) SULFAMETHOXAZOLE (Verified Allergy, Unknown, 10/25/19) TETRACYCLINES (Verified Allergy, Unknown, 10/25/19) TRIMETHOPRIM (Verified Allergy, Unknown, 10/25/19) All Systems: reviewed and negative except above Objective Last 24 Hour Vital Signs Date Time Temp Pulse Resp B/P (MAP) Pulse Ox O2 Delivery O2 Flow Rate FiO2 11/09/19 08:00 98.1 102 20 133/73 (93) 96 11/09/19 04:00 98.8 118 20 114/65 (81) 96 11/09/19 00:00 98.7 120 19 120/63 (82) 97 11/08/19 21:00 Nasal Cannula 2.0 11/08/19 20:00 99.1 100 18 106/67 (80) 97 11/08/19 16:00 98.4 98 18 139/69 (92) 100 11/08/19 12:00 98.8 92 18 140/78 (98) 100 11/08/19 12:00 84 Intake and Output 11/08/19 11/09/19 19:00 07:00 Intake Total 65 ml Output Total 1200 ml 300 ml Balance -1135 ml -300 ml Tube Feeding 65 ml Output Urine Total 1200 ml 300 ml # Voids 1 # Bowel Movements 1 General Appearance: no acute distress HEENT: normocephalic Respiratory: chest wall non-tender, lungs clear Cardiovascular: normal peripheral pulses, normal rate Abdomen: normal bowel sounds Current Medications Medications (Trade) Dose Ordered Sig/Jesu Route PRN Reason Start Time Stop Time Status Last Admin Dose Admin Albuterol Sulfate (Proventil MDI) 2 puff Q4H PRN INH Shortness of Breath 11/05/19 09:00 01/23/20 08:59 Ascorbic Acid (Vitamin C) 250 mg DAILY ORAL 11/09/19 09:00 12/09/19 08:59 11/09/19 08:47 Aspirin (Ecotrin) 81 mg DAILY ORAL 11/05/19 09:00 12/10/19 08:59 11/09/19 08:48 Gabapentin (Neurontin) 300 mg BID ORAL 11/05/19 09:00 11/25/19 08:59 11/09/19 08:47 Lorazepam (Ativan 2mg/ml 1ml) 0.5 mg Q6H PRN IV For Anxiety 11/05/19 09:00 11/12/19 08:59 Magnesium Hydroxide (Mom) 30 ml DAILYPRN PRN ORAL Constipation 11/05/19 23:30 11/24/19 23:29 Multi-Ingredient Mouthwash/Gargle (Magic Mouth Wash 60ml) 10 ml BID ORAL 11/05/19 09:00 11/25/19 08:59 11/09/19 09:03 Multivitamins (Multivitamins W/ Minerals 15ml Liquid) 15 ml DAILY ORAL 11/05/19 09:00 11/25/19 08:59 11/09/19 08:48 Assessment/Plan Assessment/Plan IMPRESSION: 1. COVID-19 pneumonia by history. Current pcr negative 2. Bilateral pulmonary infiltrates. 3. Hypoxemia. 4. Hypernatremia. 5. Renal failure. 6. Hypertension. 7. Chronic suprapubic catheter. 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 Enteral nutrition Continue oxygen via 2-4L/min nasal cannulae DC to [facility] Goldstein Omar Syed MD Nov 09, 2019 09:59
--- NOTE | 2019-11-09 10:01 | General Progress Note ---
Assessment/Plan Problem List: (1) Sepsis ICD Codes: A41.9 - Sepsis, unspecified organism SNOMED: 01673627 Qualifiers: Qualified Codes: A41.9 - Sepsis, unspecified organism; R65.20 - Severe sepsis without septic shock; N17.9 - Acute kidney failure, unspecified (2) Hypoxia ICD Codes: R09.02 - Hypoxemia SNOMED: 495071958 (3) Right hemiparesis ICD Codes: G81.91 - Hemiplegia, unspecified affecting right dominant side SNOMED: 353875054 (4) COVID-19 ICD Codes: U07.1 - COVID-19 SNOMED: 419992495 Status: stable, progressing, tolerating diet Assessment/Plan: GTF [facility] monitor for residuals pending placement Subjective ROS Limited/Unobtainable: No Allergies: Coded Allergies: ACETAMINOPHEN (Verified Allergy, Unknown, 10/25/19) AMOXICILLIN (Verified Allergy, Unknown, 10/25/19) CEPHALEXIN (Verified Allergy, Unknown, 10/25/19) CODEINE (Verified Allergy, Unknown, 10/25/19) HYDROCODONE (Verified Allergy, Unknown, 10/25/19) SULFAMETHOXAZOLE (Verified Allergy, Unknown, 10/25/19) TETRACYCLINES (Verified Allergy, Unknown, 10/25/19) TRIMETHOPRIM (Verified Allergy, Unknown, 10/25/19) Objective Last 24 Hour Vital Signs Date Time Temp Pulse Resp B/P (MAP) Pulse Ox O2 Delivery O2 Flow Rate FiO2 11/09/19 08:00 98.1 102 20 133/73 (93) 96 11/09/19 04:00 98.8 118 20 114/65 (81) 96 11/09/19 00:00 98.7 120 19 120/63 (82) 97 11/08/19 21:00 Nasal Cannula 2.0 11/08/19 20:00 99.1 100 18 106/67 (80) 97 11/08/19 16:00 98.4 98 18 139/69 (92) 100 11/08/19 12:00 98.8 92 18 140/78 (98) 100 11/08/19 12:00 84 Intake and Output 11/08/19 11/09/19 19:00 07:00 Intake Total 65 ml Output Total 1200 ml 300 ml Balance -1135 ml -300 ml Tube Feeding 65 ml Output Urine Total 1200 ml 300 ml # Voids 1 # Bowel Movements 1 Height (Feet): 5 Height (Inches): 0.00 Weight (Pounds): 162 General Appearance: no apparent distress EENT: normal ENT inspection Neck: supple Cardiovascular: normal rate Respiratory/Chest: decreased breath sounds Abdomen: normal bowel sounds, non tender, soft Extremities: non-tender Nathan Quesada MD Nov 09, 2019 10:01
[2019-11-09 11:26] VITALS: BP 103/62
--- NOTE | 2019-11-09 11:54 | Surgery Progress Note ---
Surgery Progress Note Subjective Symptoms: improved, tolerating diet, passing flatus Objective Last 24 Hour Vital Signs Date Time Temp Pulse Resp B/P (MAP) Pulse Ox O2 Delivery O2 Flow Rate FiO2 11/09/19 11:26 98.1 107 22 103/62 (76) 95 11/09/19 09:00 Nasal Cannula 2.0 11/09/19 08:00 98.1 102 20 133/73 (93) 96 11/09/19 04:00 98.8 118 20 114/65 (81) 96 11/09/19 00:00 98.7 120 19 120/63 (82) 97 11/08/19 21:00 Nasal Cannula 2.0 11/08/19 20:00 99.1 100 18 106/67 (80) 97 11/08/19 16:00 98.4 98 18 139/69 (92) 100 11/08/19 12:00 98.8 92 18 140/78 (98) 100 11/08/19 12:00 84 I&O Intake and Output 11/08/19 11/09/19 19:00 07:00 Intake Total 65 ml Output Total 1200 ml 300 ml Balance -1135 ml -300 ml Tube Feeding 65 ml Output Urine Total 1200 ml 300 ml # Voids 1 # Bowel Movements 1 Dressing: saturated Wound: clean Cardiovascular: RSR Respiratory: decreased breath sounds Abdomen: soft, non-tender, present bowel sounds Extremities: no cyanosis Plan Problems: (1) Renal failure (2) Hypoxia (3) Sepsis Assessment & Plan: 89 year old male with leukocytosis, lactic acidosis, abnormal labs. currently in monitoring unit on face mask respiratory support Hx COVID + UTI Pt presented on admission with multiple Pressure injuries. Pt currently using Venti-mask. Non-Blanching erythema noted to bridge of nose and both cheeks consistent with mask. Cavilon Skin Barrier applied to affected areas and covered with Foam tape. Non-Blanching erythema noted to clefts of both ears. Elastic Band of oxygen tubing padded. Non-Blanching erythema without induration noted to sacrum,R and L Gluteus. Non-Blanching erythema noted to R trochanter(L)3cm x (W)6.3cm. DTPI noted to L Heel. Base of heel is maroon and fluctuant (L)4.3cm x (W)5.5cm. Periwound is boggy but easily blanchable. R heel and lateral R foot boggy with non-blanching erythema. Resolving Pressure injury Lateral R malleolus. Base of wound is dry, black with pink epithelial at center of wound.(L)2.5cm x (W)2.7cm. Apply Moisture Barrier Paste to Sacrum. Cover with Optifoam drsg. Change every 3 days and prn. Apply Cavilon Skin Barrier to R and L trochanter. Cover each site with Optifoam drsg. Change every 7 days and PRN. Apply Cavilon Skin Barrier to both Earlobes TWICE daily.Pad elastic band of oxygen mask. Keep band loose around ears. Apply Cavilon Skin Barrier to R and L cheeks and Bridge of Nose. Apply Foam tape. Change every 7 days and PRN. Apply Cavilon Skin Barrier to both heels and malleoli. Cover each site with Optifoam drsgs. Change every 7 days and PRN. Reposition at least every 2hours or as tolerated. Off-load heels with Pillows. APM/MODESTO Mattress overlay. diet as tolerated respiratory support CXR noted nutritional optimization ng in place. tf as tolerated turn q2h will follow with recs s/p PEG. 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 *Altered nutrition related lab values r/t clinical status as evidenced by elev Na (159-> wnl), elev BUN(43-> wnl-> 4l), elev BG (212->125 131 134 improved). CURRENT TF:Glucerna 1.2 @ 65ml/hr x 24 hrs ENTERAL NUTRITION RECOMMENDATIONS: Glucerna 1.2 goal of 65ml/hr x24 hrs to provide 1560ml, 1872 kcal, 94g pro, 1256ml free H2O - Cont to increase to goal rate as tolerated - Flush per MD/ HOB over 30 degrees. Glucerna 1.2 low on stock-> may replace w/ Glucerna 1.5 @ 52ml/hr x 24 hrs to provide 1248ml, 1872kcal, 103g prot, 955 ml free water ADDITIONAL RECOMMENDATIONS: 1) W/ TF, monitor lytes closely, replete as needed -> phos and mag low on 11/04, rec updated levels 2) Wound healing: Add Vit C 250mg QD + Brian BID 3) Maintain calibrated bed scale wts 4) Check A1C 5) Consider NISS w/ TF . (4) Right hemiparesis Pankaj Palomo Nov 09, 2019 11:54
--- NOTE | 2019-11-09 12:34 | Nephrology Progress Note ---
Assessment/Plan Plan #COVID pneumonia #TELMA due to dehydration #sepsis #Hypernatremia due to dehydration #hypoxemic resp failure #Volume depletion - continue TF - pending peg tube - replete phos and mag - abx - pulm, ID and cards eval - 2d echo - bipap prn - follow cx - avoid nephrotoxins - replace free water - monitor mag, phos and bmp daily - DNR/DNI time spent 70 min- greater than 50% on care coordination and counseling Subjective ROS Limited/Unobtainable: Yes Subjective peg placed tachycardic improved with metop Sodium and cr improving DC planning Objective Objective Last 24 Hour Vital Signs Date Time Temp Pulse Resp B/P (MAP) Pulse Ox O2 Delivery O2 Flow Rate FiO2 11/09/19 11:26 98.1 107 22 103/62 (76) 95 11/09/19 09:00 Nasal Cannula 2.0 11/09/19 08:00 98.1 102 20 133/73 (93) 96 11/09/19 04:00 98.8 118 20 114/65 (81) 96 11/09/19 00:00 98.7 120 19 120/63 (82) 97 11/08/19 21:00 Nasal Cannula 2.0 11/08/19 20:00 99.1 100 18 106/67 (80) 97 11/08/19 16:00 98.4 98 18 139/69 (92) 100 Intake and Output 11/08/19 11/09/19 19:00 07:00 Intake Total 65 ml Output Total 1200 ml 300 ml Balance -1135 ml -300 ml Tube Feeding 65 ml Output Urine Total 1200 ml 300 ml # Voids 1 # Bowel Movements 1 Height (Feet): 5 Height (Inches): 0.00 Weight (Pounds): 162 Aron Barbosa M.D. Nov 09, 2019 12:34
--- NOTE | 2019-11-09 16:09 | Internal Med Progress Note ---
Subjective Date of Service: Nov 09, 2019 Physician Name Edyta Hardy Attending Physician Aron Barbosa M.D. Current Medications Medications (Trade) Dose Ordered Sig/Jesu Route PRN Reason Start Time Stop Time Status Last Admin Dose Admin Albuterol Sulfate (Proventil MDI) 2 puff Q4H PRN INH Shortness of Breath 11/05/19 09:00 01/23/20 08:59 Ascorbic Acid (Vitamin C) 250 mg DAILY ORAL 11/09/19 09:00 12/09/19 08:59 11/09/19 08:47 Aspirin (Ecotrin) 81 mg DAILY ORAL 11/05/19 09:00 12/10/19 08:59 11/09/19 08:48 Gabapentin (Neurontin) 300 mg BID ORAL 11/05/19 09:00 11/25/19 08:59 11/09/19 08:47 Lorazepam (Ativan 2mg/ml 1ml) 0.5 mg Q6H PRN IV For Anxiety 11/05/19 09:00 11/12/19 08:59 Magnesium Hydroxide (Mom) 30 ml DAILYPRN PRN ORAL Constipation 11/05/19 23:30 11/24/19 23:29 Multi-Ingredient Mouthwash/Gargle (Magic Mouth Wash 60ml) 10 ml BID ORAL 11/05/19 09:00 11/25/19 08:59 11/09/19 09:03 Multivitamins (Multivitamins W/ Minerals 15ml Liquid) 15 ml DAILY ORAL 11/05/19 09:00 11/25/19 08:59 11/09/19 08:48 Allergies: Coded Allergies: ACETAMINOPHEN (Verified Allergy, Unknown, 10/25/19) AMOXICILLIN (Verified Allergy, Unknown, 10/25/19) CEPHALEXIN (Verified Allergy, Unknown, 10/25/19) CODEINE (Verified Allergy, Unknown, 10/25/19) HYDROCODONE (Verified Allergy, Unknown, 10/25/19) SULFAMETHOXAZOLE (Verified Allergy, Unknown, 10/25/19) TETRACYCLINES (Verified Allergy, Unknown, 10/25/19) TRIMETHOPRIM (Verified Allergy, Unknown, 10/25/19) ROS Limited/Unobtainable: Yes Constitutional: Reports: no symptoms HEENT: Reports: no symptoms Cardiovascular: Reports: other - tachy Respiratory: Reports: cough Gastrointestinal/Abdominal: Reports: no symptoms Genitourinary: Reports: no symptoms Neurologic/Psychiatric: Reports: pre-existing deficit All Systems: reviewed and negative except above Subjective dc planning to snf today Objective Last Vital Signs Date Time Temp Pulse Resp B/P (MAP) Pulse Ox O2 Delivery O2 Flow Rate FiO2 11/09/19 11:26 98.1 107 22 103/62 (76) 95 11/09/19 09:00 Nasal Cannula 2.0 11/05/19 18:57 28 General Appearance: no apparent distress Neck: supple Cardiovascular: tachycardia Respiratory/Chest: rhonchi - left Abdomen: normal bowel sounds, non tender, soft Genitourinary/Rectal: normal genital exam Edema: trace edema Neurologic: responsive, motor weakness, sensory deficit, disoriented Skin: warm/dry Intake and Output 11/08/19 11/09/19 19:00 07:00 Intake Total 65 ml Output Total 1200 ml 300 ml Balance -1135 ml -300 ml Tube Feeding 65 ml Output Urine Total 1200 ml 300 ml # Voids 1 # Bowel Movements 1 Assessment/Plan Status: stable, progressing, tolerating diet Assessment/Plan IMPRESSION: sepsis on admission COVID 19 pnemonia dysphagia acute respiratory failure hypoxemia severe protein calorie malnutrition acute toxic and metabolic encephalopathy Hypernatremia dehydration acute kidney injury leuokcytosis hx CVA with hemiplegia suprapubic catheter status senile debility ankle wound tachycardia PLAN: DC planning to SNF today off abx monitor temp curve PEG feeding pulm inhalor avoid albuterol in lieu of tachycardia DVT/GI prophylaxis electrolyte replete as needed wound care oxygen DNAR code status EDYTA HARDY MD Internal Medicine [phone] over 35 minutes spent today note time may not be the actual encounter time. over 50% allocated in counseling, coordination of care, d/w staff and family with medical update Edyta Hardy MD Nov 09, 2019 16:09
--- NOTE | 2019-11-09 16:18 | Infectious Diseases Prog Note ---
Assessment/Plan Assessment/Plan ASSESSMENT AND PLAN: 1. MDR providencia uti, sepsis, possible bacterial pneumonia, leukocytosis, fevers, hx covid-19 infection/pna, sob, bm, esquivel, arf fungemia risk, no diarrhea to suggest c.diff. 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 scabies, ? drug rash, ? b-lactam rash - s/p vancomycin and meropenem - diflucan - finish - elimite x 1 - monitor rash - monitor labs and chest x-ray - leukocytosis better, fevers resolved - repeat covid-19 testing + - d/w RN 2. The patient has history of suprapubic catheter. 3. Hypertension. 4. Blood pressure treatment per primary care team. 5. Wound care protocol. Wounds were reviewed, not acutely infected. 6. Hemiparesis. 7. Hyperlipidemia. 8. Dementia. 9. Hypoxia and shortness of breath. 10. Continue treatment per primary consultants including hypertension treatment. 11. Allergies to acetaminophen, amoxicillin, cephalexin, codeine, hydrocodone, sulfamethoxazole, tetracycline, and trimethoprim. 12. Social history negative. 13. Family history noncontributory. 14. MAR was noted. 15. Case was discussed with RN. 16. Skin care protocol. 17. Orders were noted. Subjective Constitutional: Denies: fever HEENT: Denies: congestion Respiratory: Denies: shortness of breath Cardiovascular: Denies: chest pain Gastrointestinal/Abdominal: Denies: nausea, vomiting, diarrhea Genitourinary: Reports: other - + esquivel Neurologic: Denies: headache Psychiatric: Denies: depression Skin: Denies: rash Hematologic: Denies: bleeding Musculoskeletal: Denies: pain Allergies: Coded Allergies: ACETAMINOPHEN (Verified Allergy, Unknown, 10/25/19) AMOXICILLIN (Verified Allergy, Unknown, 10/25/19) CEPHALEXIN (Verified Allergy, Unknown, 10/25/19) CODEINE (Verified Allergy, Unknown, 10/25/19) HYDROCODONE (Verified Allergy, Unknown, 10/25/19) SULFAMETHOXAZOLE (Verified Allergy, Unknown, 10/25/19) TETRACYCLINES (Verified Allergy, Unknown, 10/25/19) TRIMETHOPRIM (Verified Allergy, Unknown, 10/25/19) Objective Last 24 Hour Vital Signs Date Time Temp Pulse Resp B/P (MAP) Pulse Ox O2 Delivery O2 Flow Rate FiO2 11/09/19 11:26 98.1 107 22 103/62 (76) 95 11/09/19 09:00 Nasal Cannula 2.0 11/09/19 08:00 98.1 102 20 133/73 (93) 96 11/09/19 04:00 98.8 118 20 114/65 (81) 96 11/09/19 00:00 98.7 120 19 120/63 (82) 97 11/08/19 21:00 Nasal Cannula 2.0 11/08/19 20:00 99.1 100 18 106/67 (80) 97 Height (Feet): 5 Height (Inches): 0.00 Weight (Pounds): 162 General Appearance: no acute distress HEENT: normocephalic, atraumatic, anicteric Respiratory/Chest: lungs clear, normal breath sounds, no respiratory distress, no accessory muscle use, rhonchi - bilaterally Cardiovascular: normal rate, regular rhythm, no gallop/murmur, no JVD Abdomen: normal bowel sounds, soft, non tender, no organomegaly Genitourinary: other - + esquivel - urine slt cloudy Extremities: no cyanosis Skin: rash Neurologic/Psychiatric: director translation II-XII grossly normal, alert, responsive, other - weak Lymphatic: no neck adenopathy Musculoskeletal: no effusion Chest x-ray - 10/28/19 - Procedure: XRAY Chest 1v Indication: Dyspnea Technique: One view of the chest Comparison: 10/26/2019 Findings: Patchy consolidation in the right midlung appears increasingly dense. Bilateral right greater left infiltrates are otherwise stable. Heart size is normal. The pleural spaces are clear. Impression: Increasingly dense consolidation in the right midlung. 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 Continued right midlung infiltrates and mild atelectasis or infiltrate in the left lower lobe. Lucency in the right lung apex is likely from a skin fold. Pleural space: Unremarkable. No pneumothorax. Heart: Unremarkable. No cardiomegaly. Mediastinum: Unremarkable. Bones/joints: Unremarkable. Tubes, lines and devices: NG tube is in the right lower lung bronchus, tip in the lower right chest. IMPRESSION: 1. NG tube is in the right lower lung bronchus, tip in the lower right chest. Needs to be removed and repositioned. 2. Slightly improved aeration of lung. Continued right midlung infiltrates and mild atelectasis or infiltrate in the left lower lobe. Chest x-rya - 11/01/19 - Procedure: XRAY Chest 1v Indication: Shortness of breath Technique: One view of the chest Comparison: 10/30/2019 Findings: Right greater than left infiltrates persist, unchanged. Heart size is normal. Pleural spaces are clear. Previously demonstrated intrabronchial nasogastric tube has been removed Impression: Interim removal of previously malpositioned nasogastric tube Unchanged bilateral infiltrates Chest x-ray - 11/03/19 - Procedure: XRAY Chest 1v . Indication: Dyspnea Technique: One view of the chest Comparison: none Findings: Again demonstrated are bilateral right greater than left infiltrates. Disease has improved somewhat on the right, particularly the right lung base. Disease on the left appears unchanged. There is very slight blunting of right costophrenic sulcus, small pleural effusion now possible. The left pleural space appears clear. The heart size is normal. Interim placement of a nasogastric feeding tube, tip projecting beyond the edge of the image. Impression: Bilateral right greater than left infiltrates again demonstrated, with slight improvement on the right. New or increased small right pleural effusion Nasogastric feeding tube is now present Chest x-ray - 11/06/19 - IMPRESSION: No significant no change from the prior chest x-ray. Persistent multilobar pulmonary opacities and prominent interstitial markings, concerning for pneumonia. Chest x-ray - 11/09/19 Procedure: XRAY Chest 1v Indication: Shortness of breath Technique: One view of the chest Comparison: 11/06/2019 Findings: Bilateral infiltrates are unchanged. The heart size is normal. The pleural spaces are clear. Gastrostomy and cholecystectomy clips are again demonstrated Impression: Unchanged, over one day, findings as above. Microbiology Date/Time Source Procedure Growth Status 11/01/19 23:15 Blood Blood Culture - Final NO GROWTH AFTER 5 DAYS Complete 11/04/19 13:30 Nasopharynx Coronavirus COVID-19 PCR (JIM) - Final Complete 11/01/19 22:20 Indwelling Cath Urine Culture - Final NO GROWTH AFTER 48 HOURS Complete 10/25/19 17:25 Rectum VRE Culture - Final NO VANCOMYCIN RESISTANT ENTEROCOCCUS ... Complete Labs Test 11/07/19 17:13 11/08/19 05:50 Arterial Blood pH 7.510 (7.350-7.450) Arterial Blood Partial Pressure CO2 31.5 mmHg (35.0-45.0) Arterial Blood Partial Pressure O2 37.1 mmHg (75.0-100.0) Arterial Blood HCO3 24.6 mmol/L (22.0-26.0) Arterial Blood Oxygen Saturation 77.7 % (95-100) Arterial Blood Base Excess 2.3 (-2-2) Miguel Angel Test Positive White Blood Count 9.4 K/UL (4.8-10.8) Red Blood Count 4.00 M/UL (4.70-6.10) Hemoglobin 12.7 G/DL (14.2-18.0) Hematocrit 38.2 % (42.0-52.0) Mean Corpuscular Volume 95 FL (80-99) Mean Corpuscular Hemoglobin 31.8 PG (27.0-31.0) Mean Corpuscular Hemoglobin Concent 33.3 G/DL (32.0-36.0) Red Cell Distribution Width 13.1 % (11.6-14.8) Platelet Count 268 K/UL (150-450) Mean Platelet Volume 8.1 FL (6.5-10.1) Neutrophils (%) (Auto) 66.4 % (45.0-75.0) Lymphocytes (%) (Auto) 18.9 % (20.0-45.0) Monocytes (%) (Auto) 7.9 % (1.0-10.0) Eosinophils (%) (Auto) 5.8 % (0.0-3.0) Basophils (%) (Auto) 1.0 % (0.0-2.0) Sodium Level 138 MMOL/L (136-145) Potassium Level 4.2 MMOL/L (3.5-5.1) Chloride Level 104 MMOL/L (98-107) Carbon Dioxide Level 28 MMOL/L (21-32) Anion Gap 6 mmol/L (5-15) Blood Urea Nitrogen 11 mg/dL (7-18) Creatinine 0.9 MG/DL (0.55-1.30) Estimat Glomerular Filtration Rate > 60 mL/min (>60) Glucose Level 125 MG/DL (74-106) Calcium Level 8.3 MG/DL (8.5-10.1) Total Bilirubin 0.7 MG/DL (0.2-1.0) Aspartate Amino Transf (AST/SGOT) 18 U/L (15-37) Alanine Aminotransferase (ALT/SGPT) 14 U/L (12-78) Alkaline Phosphatase 122 U/L (46-116) Total Protein 6.2 G/DL (6.4-8.2) Albumin 1.8 G/DL (3.4-5.0) Globulin 4.4 g/dL Albumin/Globulin Ratio 0.4 (1.0-2.7) Current Medications Medications (Trade) Dose Ordered Sig/Jesu Route PRN Reason Start Time Stop Time Status Last Admin Dose Admin Albuterol Sulfate (Proventil MDI) 2 puff Q4H PRN INH Shortness of Breath 11/05/19 09:00 01/23/20 08:59 Ascorbic Acid (Vitamin C) 250 mg DAILY ORAL 11/09/19 09:00 12/09/19 08:59 11/09/19 08:47 Aspirin (Ecotrin) 81 mg DAILY ORAL 11/05/19 09:00 12/10/19 08:59 11/09/19 08:48 Gabapentin (Neurontin) 300 mg BID ORAL 11/05/19 09:00 11/25/19 08:59 11/09/19 08:47 Lorazepam (Ativan 2mg/ml 1ml) 0.5 mg Q6H PRN IV For Anxiety 11/05/19 09:00 11/12/19 08:59 Magnesium Hydroxide (Mom) 30 ml DAILYPRN PRN ORAL Constipation 11/05/19 23:30 11/24/19 23:29 Multi-Ingredient Mouthwash/Gargle (Magic Mouth Wash 60ml) 10 ml BID ORAL 11/05/19 09:00 11/25/19 08:59 11/09/19 09:03 Multivitamins (Multivitamins W/ Minerals 15ml Liquid) 15 ml DAILY ORAL 11/05/19 09:00 11/25/19 08:59 11/09/19 08:48 Julio Sarabia MD Nov 09, 2019 16:18
--- NOTE | 2019-11-11 13:18 | Discharge Summary ---
Debby Maurer MELONIE 11/11/19 1318: Discharge Summary Discharge Summary _ DATE OF ADMISSION: 10/25/2019 DATE OF DISCHARGE: 11/09/2019 DISCHARGED BY: Dr. Le REASON FOR ADMISSION: 89 years old male, resident of detention facility, recently tested positive for COVID-19, with past medical history of CVA with right-sided hemiplegia, atrial fibrillation, hypertension, suprapubic catheter, nonverbal, was sent for evaluation due to hypoxia and cough. Upon evaluation patient was hypoxic tachycardic tachypneic and had low-grade fever. Laboratory work-up revealed leukocytosis WBC 22.2, hemoglobin 19.1 , hematocrit 59.6, platelet count 381. Sodium 158, chloride 119. Anion gap 17. BUN 52, creatinine 1.6. Glucose 144. Lactic acid 2.4. Stable LFT. Troponin 0.042 .EKG revealed sinus tachycardia , no acute ischemic changes , pro BNP 541 . Albumin 2.9 . Urinalysis revealed +3 protein , pyuria and moderate bacteria. Chest x-ray revealed COPD and bilateral infiltrates. ABG was done on 100% nonrebreather mask and was stable. Patient was swabbed for COVID 19. Septic work-up initiated: patient received fluid challenge, pancultured , and started on empiric antibiotics. CONSULTANTS: operator and truck driver dr. Schafer pulmonary Dr. Rodrigues ID specialist Dr. Sarabia GI specialist Dr. Quesada air antisubmarine officer Dr. Barbosa [facility] Dr. Palomo [facility] COURSE: Patient admitted to telemetry floor to isolation room. Patient was provided with IV fluids and broad-spectrum antibiotics. Blood cultures were negative. Urine culture revealed MDR Providencia and mixed gram-positive organisms. Initial COVID 19 by PCR on 10/24 was negative, but repeated COVID-19 by PCR on 10/27 was positive. Isolation continued. Repeated urine culture negative. Blood culture on 10/31 revealed 1 set of Staph coag negative, likely contamination as per ID specialist. Repeated rapid COVID tets on 11/02 and SARS COV 2 by PCR on 11/03 both negative . Supplemental oxygen provided and titrated to keep pulse oximetry above 92%. Pulmonary toilet provided Patient was followed-up with chest x-ray. Venous duplex bilateral lower extremity revealed no evidence of acute DVT. Patient was able to be weaned to oxygen via nasal cannula prior to discharge . Pulse oximetry was stable on 2 L of oxygen via nasal cannula. Patient was kept on cardiac monitoring due to tachycardia, Echocardiogram demonstrated preserved ejection fraction 55%. No evidence of wall motion abnormality. Right ventricular systolic pressure of 9. Per operator and truck driver tachycardia was likely due to dehydration and sepsis and resolved as patient clinically improved. Patient completed antibiotics. Patient also undergone treatment with Elimite x1 due to rash for possible scabies. Fevers and leukocytosis resolved. Leukocytosis improved. Closely monitor rash at the facility Patient was initially hydrated. Renal parameters and electrolytes were closely monitored, electrolytes corrected as needed, and nephrotoxic's avoided. Prior to discharge BUN from 52 down to 11, creatinine from 1.6 down to 0.9 , stable sodium 138. Acute kidney injury along and hypernatremia resolved , both were due to dehydration. Patient undergone bedside swallow evaluation, which revealed high aspiration risk . Speech therapist recommended nonoral feeding. Patient subsequently undergone upper endoscopy with PEG placement. Tube feeding formula with goal rate started as per registered dietitian recommendation. Strict aspiration and reflux precautions maintained. G-tube site care provided. Patient was able to tolerate feeding. Patient presented on admission with multiply pressure injury. Wound care provided as per surgeon recommendation. Continue wound care at the facility. Patient clinically stabilized and was ready for transfer back to detention facility for continuation of care. FINAL DIAGNOSES: Sepsis, present on admission COVID-19 pneumonia Acute hypoxemic respiratory failure-resolved MDR Providencia UTI High aspiration risk Dysphagia, s/p PEG placement Severe protein calorie malnutrition Acute toxic metabolic encephalopathy Dehydration Hypernatremia due to dehydration- resolved Acute kidney injury dehydration -resolved History of CVA with hemiplegia Suprapubic catheter status Tachycardia-resolved Multiple pressure injury, present on admission Rash, possible scabies, status post treatment DISCHARGE MEDICATIONS: See Medication Reconciliation list. DISCHARGE INSTRUCTIONS: Patient was discharged to the detention facility. Follow up with medical doctor at the facility. 89 years old male I have been assigned to dictate discharge summary for this account. I was not involved in the patient's management. Ad Le MD 11/12/19 1338: Debby Maurer NP Nov 11, 2019 13:18 Ad Le MD Nov 12, 2019 13:38
== END 2019-11-09 17:00 | DRG 871 ==
LOC: EDBD 14:13 → EDBEDREQSVC 14:20 → EMR 15:32 → ICU 15:38 → EDBEDREQ 17:20 → 2W 18:54 → 2E 11-05 08:33
PROC: 0DH63UZ Insertion of Feeding Device into Stomach, Percutaneous Approach (ICD-10-PCS; principal; 2019-11-05 13:12)
DX: A41.9 Sepsis, unspecified organism (principal); U07.1 COVID-19; J12.89 Other viral pneumonia; J96.01 Acute respiratory failure with hypoxia; G92 Toxic encephalopathy; E43 Unspecified severe protein-calorie malnutrition; I69.351 Hemiplegia and hemiparesis following cerebral infarction affecting right dominant side; E87.0 Hyperosmolality and hypernatremia; N17.9 Acute kidney failure, unspecified; N39.0 Urinary tract infection, site not specified; R13.10 Dysphagia, unspecified; Z66 Do not resuscitate; E86.0 Dehydration; R00.0 Tachycardia, unspecified; I10 Essential (primary) hypertension; E78.5 Hyperlipidemia, unspecified; F03.90 Unspecified dementia, unspecified severity, without behavioral disturbance, psychotic disturbance, mood disturbance, and anxiety; Z68.31 Body mass index [BMI] 31.0-31.9, adult; B86 Scabies
CPT/HCPCS: 36415; 36600; 71045; 74018; 80048; 80053; 80202; 81003; 82248; 82550; 82803; 83605; 83690; 83735; 83880; 84100; 84484; 85007; 85025; 85379; 85610; 85730; 87040; 87081; 87086; 87181; 93005; 93306; 93970; 94003; 94150; 96365; 96368; 96372; 99291; 99292; J7030; S0077; U0002